=== PATIENT | female | born 1950 | race Caucasian/White ===

== ENCOUNTER 2016-03-24 14:51 | Emergency (ER) | payer MEDICARE, MEDICAID ==
[~2016-03-24] VITALS: Ht 157.5 cm; Wt 143.2 kg
[~2016-03-24 14:51] MED LIST: ALBU2.5V4 INHALATION; ALPR0.5T8 PO; AMIT75TA2 PO; BECL8.7A6 INH; CARV25TA2 PO; CEPH-512 PO; CITA40TA13 PO; CLOT15CR5 TOPICAL; FERR-83 PO; FLUT16SP NASAL; LACT1CAP60 PO; LORA0.5T PO; LOVA20TA PO; MONT10TA23 PO; MUPI22OI2 TOPICAL; MYCO EXT; NITR0.4T PO; NYST1POW23 MC; OXYC-474 PO; RANI150C4 PO; TORS20TA PO
[2016-03-24 15:03] VITALS: BP 129/63; PULSE 70; RESP 16; O2SAT 93
[2016-03-24] MEDS ORDERED: Ondansetron 8 mg ODT Tablet PO ONE (15:20)
[2016-03-24] MEDS ORDERED: 0.9% Sodium Chloride 1,000 ML IV ONE (15:22)
--- NOTE | 2016-03-24 15:22 | ED.REPORT ---
HPI-NVD Date of Service Mar 24, 2016 ED Provider: Trey Pacheco PA-C Sonya is a 66-year-old female who presents with a chief complaint of nausea. Patient states that she has been nauseated since 10:00 this morning. Also complains of headache and lightheadedness. States that she has eaten nothing since yesterday. She admits to palpitations and wheezing that are normal for her and at baseline. Denies upper respiratory symptoms, chest pain, shortness of breath, cough, abdominal pain, diarrhea, vomiting, urinary symptoms. Patient reports having implanted defibrillator pacemaker. History of cellulitis , lymphedema, hypertension, COPD, asthma, DM 2. Nursing Notes Stated Complaint: NAUSEA Chief Complaint: General Complaint Nursing Notes Reviewed: Yes Allergies: Coded Allergies: Penicillins (Verified Allergy, Intermediate, Hives, 01/13/16) Potassium Clavulanate (Verified Allergy, Intermediate, Hives, 01/13/16) amoxicillin trihydrate (Verified Allergy, Intermediate, Hives, 01/13/16) trimethoprim (Verified Allergy, Intermediate, Diarrhea, 01/13/16) lisinopril (Verified Allergy, Unknown, cough, 01/13/16) sulfamethoxazole (Verified Adverse Reaction, Intermediate, Nausea,Vomiting , 01/13/16) NAUSEA AND VOMITING , DIAARHEA azithromycin (Verified Adverse Reaction, Mild, Diarrhea, 01/13/16) Scheduled Amitriptyline (Amitriptyline) 75 Mg Tablet 75 MG PO HS Beclomethasone Dipropionate (Qvar) 8.7 Gm Aer.w.adap 2 PUFFS INH BID Carvedilol (Carvedilol) 25 Mg Tablet 12.5 MG PO BID Cephalexin (Keflex) 500 Mg Capsule 500 MG PO QID Citalopram (Citalopram) 40 Mg Tablet 40 MG PO DAILY Clotrimazole/Betamethasone Dip (Lotrisone) 15 Gm Cream..g. 15 GM TOPICAL TID APPLY TO RASH OF BOTH LOWER EXTREMETIES. Ferrous Sulfate (Ferrous Sulfate) 325 Mg Tablet 325 MG PO DAILY Fluticasone Propionate (Fluticasone Propionate Nasal) 15 [place]/2 Gm [place] 1 SPRAY NASAL BID Lactobac Cmb #3/Fos/Pantethine (Probiotic & Acidophilus Cap) 1 Each Capsule 1 EACH PO DAILY Lovastatin (Lovastatin) 20 Mg Tablet 20 MG PO DAILY Montelukast (Montelukast) 10 Mg Tablet 10 MG PO HS Mupirocin (Mupirocin Ointment) 1 Applic/0.25 Gm Oint 1 APPLIC TOPICAL BID Nystatin (Nystatin) 1 Each Powder.ea. 1 EACH MC BID Nystatin (Nystatin) 20 Applic/15 Gm Oint 1 APPLIC EXT BID Ondansetron ODT (Ondansetron ODT) 8 Mg Tab.rapdis 8 MG PO TID Ranitidine (Ranitidine) 150 Mg Capsule 150 MG PO BID Torsemide (Demadex) 20 Mg Tablet 20 MG PO DAILY Scheduled PRN Albuterol Neb Soln (Albuterol Neb Soln) 2.5 Mg/3 Ml Vial.neb 2.5 MG INHALATION Q4H PRN PRN For Shortness of Breath Alprazolam (Alprazolam) 0.5 Mg Tablet 0.5 MG PO BID PRN PRN For Anxiety Lorazepam (Lorazepam) 0.5 Mg Tablet 0.5 MG PO BID PRN PRN For Anxiety Nitroglycerin SL (Nitrostat) 0.4 Mg Tab.subl 0.4 MG PO Q5MIN PRN PRN For Chest Pain Oxycodone (Roxicodone) 5 Mg Tablet 5 MG PO Q4H PRN PRN For Pain General Time Seen by MD: 15:03 Chief Complaint Nausea Past Medical History Past Medical History Notes: Admit 02/2015 - Powerport placement Admit 01/2015 - Pneumonia (Final Dx URI) Multiple admits for LE cellulitis - Last admit for this 01/09- Past Medical History Recurrent bilateral lower extremity Cellulitis with secondary bacteremia MRSA nasal colonization Chronic anemia Thrombocytopenia Nonischemic cardiomyopathy LBBB (now with AICD) Chronic severe lymphedema Heart murmur Reports: Asthma, COPD, Congestive heart failure, Diabetes mellitus, GERD, Hyperlipidemia, Hypertension, Stroke Reports: Obesity Past Surgical History Powerport placed 03/05/2015 for Access in the setting of reccurrent cellulits Cardiac cath with no occlusive disease May 2012 Reports: Appendectomy, , Cholecystectomy, Hysterectomy Reports: AICD, Pacemaker insertion Family History Noncontributory Smoking History Never Smoker Social History Alcohol Use: Denies alcohol use Drug Use: Denies drug use Other Social History: Local resident Occupation Unemployed Ambulatory Status Independent Review of Systems General: Denies fever, chills, malaise. HEENT: Admits headache. Denies congestion, sore throat. Respiratory: Admits wheezing, Denies dyspnea, cough, shortness of breath. Cardiovascular: Admits palpitations. Denies chest pain. Gastrointestinal: Admits to nausea. Denies vomiting, diarrhea, abdominal pain. Genitourinary: Denies frequency, urgency, dysuria, hematuria. Otherwise as noted in HPI. Physical Exam General: Well developed, obese, no acute distress. Head: Atraumatic, normocephalic. Eyes: No scleral icterus or injection. No discharge. Vision grossly intact. ENT: Voice clear, hearing grossly intact. Respiratory: Regular rate and rhythm. Breath sounds present, and equal bilaterally, with expiratory wheezes in all munoz Cardiovascular: Regular rate and rhythm, without murmur, gallop or rub. PT and DP pulses not appreciated. Gastrointestinal: Obese abdomen non-tender without guarding or rebound. Bowel sounds normoactive. Skin: Warm and dry. Significant lymphedema present in both legs. Neurological: Grossly nonfocal. Psychological: alert and oriented. Speech appropriate, linear and logical. Behavior appropriate. Initial Vital Signs Vital Signs (First) Date Time Temp Pulse Resp B/P Pulse Ox O2 Delivery O2 Flow Rate FiO2 03/24/16 15:03 36.8 70 16 129/63 93 Room Air Interpretation & Diagnostics Lab Results Interpretation Result Diagram: 03/24/16 1605 03/24/16 1605 Test 03/24/16 16:05 White Blood Count 5.8th/mm3 (3.8-10.1) Red Blood Count 3.95mil/mm3 (3.90-5.20) Hemoglobin 10.7g/dL (12.0-15.6) Hematocrit 35.2% (35.0-46.0) Mean Corpuscular Volume 89.1fL (81-100) Mean Corpuscular Hemoglobin 27.1pg (27.0-35.0) Mean Corpuscular Hemoglobin Concent 30.4% (32.0-37.0) Red Cell Distribution Width 14.7% (12.3-15.4) Platelet Count 101bil/L (150-400) Neutrophils (%) (Auto) 81.2% (40-74) Lymphocytes (%) (Auto) 8.9% (14-46) Monocytes (%) (Auto) 6.2% (4-12) Eosinophils (%) (Auto) 3.3% (0-5) Basophils (%) (Auto) 0.2% (0-3) Sodium Level 140mEq/L (134-144) Potassium Level 4.7mEq/L (3.5-5.2) Chloride Level 103mEq/L (97-108) Carbon Dioxide Level 27mmol/L (18-29) Blood Urea Nitrogen 15mg/dL (8-27) Creatinine 0.91mg/dL (0.57-1.00) Estimat Glomerular Filtration Rate 89mL/min (>59) Glucose Level 88mg/dL (60-99) Calcium Level 7.8mg/dL (8.5-10.1) Total Bilirubin 0.4mg/dL (0.0-1.2) Aspartate Amino Transf (AST/SGOT) 14U/L (0-50) Alanine Aminotransferase (ALT/SGPT) 12U/L (0-32) Alkaline Phosphatase 76U/L (25-165) Troponin T < 0.010ug/L (0.0-0.011) Total Protein 6.4g/dL (6.4-8.4) Albumin 3.5g/dL (3.4-5.0) Hold Padilla Top Tube Received (Received) ECG Interpretation Time: 16:08 Interpreted by: ED physician Normal ECG Interpretation: Normal rate, No change from prior ECGs X-Ray Chest Interpretation Chest Xray Interpretation: PROCEDURE: X-RAY CHEST ONE VIEW, PORTABLE ([id number]) INDICATIONS: nausea FINDINGS: Surgical changes and devices: Left-sided pacer. Right internal jugular vein portacatheter, tip of which is in the lower SVC. Lungs and pleura: No pleural effusions or pneumothorax. Lungs are clear. Mediastinum: Mediastinal contours appear normal. Heart size is enlarged. Bones and chest wall: No suspicious bony lesions. Overlying soft tissues appear unremarkable. IMPRESSION: No acute process. View: 1 view Interpretation / Wet Read by: Interpret - Radiologist, Interp - P Re-Eval/Medical Decision Med Decision/Clinical Course Discussed the case with Dr. landa, who felt that cardiac workup was reasonable. Discharge & Departure Impression: Primary Impression: NAUSEA Additional Impression: Anemia Anemia type: unspecified type Qualified Code: D64.9 - Anemia, unspecified Discharge Condition All VS Reviewed: Yes Condition: Stable Patient Instructions: Acute Nausea and Vomiting (ED) Additional Instructions: Evaluation for nausea and emergency department. History, physical, blood tests , chest x-ray and EKG are reassuring that this is a cardiac event. Stable and safe for discharge to home. This is most likely a viral gastritis. you responded well to the antinausea medication and were able to drink successfully in the emergency department. I will prescribe some ondansetron (Zofran) to help you with nausea. Also noticed that you are slightly anemic on your blood tests. Please contact your primary care physician in the morning to arrange follow-up to address your nausea and anemia. Return to emergency department for any new or worsening symptoms including repeated vomiting, chest pain, difficulty breathing. Referrals: Bri Ochoa (PCP) EDSupervising Provider for APC: Keyur Landa MD Attending Statement Attending attestation: I saw this patient in conjunction with the above named MLP. I was present for all miranda portions of the history taking and physical examination. I agree with the workup, evaluation, treatment and disposition. Keyur Landa MD copies to: Bri Ochoa Seth PA-C Mar 24, 2016 15:21 Keyur Landa MD Mar 24, 2016 19:08
[2016-03-24] MEDS ORDERED: Ondansetron 2 mg/mL 2 mL Inj IVPUSH ONE (15:25)
--- NOTE | 2016-03-24 16:01 | DRSVH ---
PROCEDURE: X-RAY CHEST ONE VIEW, PORTABLE ([id number]) INDICATIONS: nausea TECHNIQUE: One view of the chest was acquired. COMPARISON: [facility], CR, XR CHEST 1VW (PORTABLE), 01/13/2016, 10:06. [facility], CR, XR CHEST 1VW (PORTABLE), 11/10/2015, 14:13. [facility], CR, XR CHEST 1VW (PO RTABLE), 08/18/2015, 14:45. FINDINGS: Surgical changes and devices: Left-sided pacer. Right internal jugular vein portacatheter, tip of whi ch is in the lower SVC. Lungs and pleura: No pleural effusions or pneumothorax. Lungs are clear. Mediastinum: Mediastinal contours appear normal. Heart size is enlarged. Bones and chest wall: No suspicious bony lesions. Overlying soft tissues appear unremarkable. IMPRESSION: No acute process. Dictated by: Rosalia Becerra M.D. on 03/24/2016 at 15:59 Approved by: Rosalia Becerra M.D. on 03/24/2016 at 15:59
[2016-03-24 16:19] LABS: BASOPHILS % (AUTO) 0.2 % (0-3); EOSINOPHILS % (AUTO) 3.3 % (0-5); MONOCYTES % (AUTO) 6.2 % (4-12); Mean Corpuscular Hemoglobin 27.1 pg (27.0-35.0); Mean Corpuscular Volume 89.1 fL (81-100); NEUTROPHILS % (AUTO) 81.2 % (40-74); Platelet Count 101 bil/L (150-400)
[2016-03-24 16:55] VITALS: BP 128/41; PULSE 71; RESP 16; O2SAT 95
[2016-03-24 16:55] LABS: TROPONIN T < 0.010 ug/L (0.0-0.011)
[2016-03-24] MEDS ORDERED: ONDA8TAB10 PO (17:45)
[2016-03-24 17:58] VITALS: PULSE 87; RESP 18; O2SAT 94
== END 2016-03-24 17:55 | disposition home or self-care (01) ==
LOC: EDUNIT# 14:51 → EDBD 14:51 → SED 14:51
DX: R11.0 Nausea (principal); D64.9 Anemia, unspecified; R51 Headache; R42 Dizziness and giddiness; R00.2 Palpitations; J45.909 Unspecified asthma, uncomplicated; J44.9 Chronic obstructive pulmonary disease, unspecified; I50.9 Heart failure, unspecified; E11.9 Type 2 diabetes mellitus without complications; K21.9 Gastro-esophageal reflux disease without esophagitis; E78.5 Hyperlipidemia, unspecified; I10 Essential (primary) hypertension; Z86.73 Personal history of transient ischemic attack (TIA), and cerebral infarction without residual deficits; Z95.0 Presence of cardiac pacemaker; Z88.0 Allergy status to penicillin; Z88.8 Allergy status to other drugs, medicaments and biological substances; Z88.1 Allergy status to other antibiotic agents; Z88.2 Allergy status to sulfonamides
CPT/HCPCS: 36415; 71010; 80053; 84484; 85025; 93005; 96374; 99285; J2405

== ENCOUNTER 2016-04-04 01:50 | Inpatient (IN) | payer MEDICARE, MEDICAID ==
[2016-04-04] VITALS (15 sets, daily range): BP systolic 94–155; BP diastolic 39–143; PULSE 80–132; RESP 14–39; O2SAT 82–100
[~2016-04-04] VITALS: Ht 157.5 cm; Wt 156.0 kg
[~2016-04-04 01:50] MED LIST changes: +ONDA8TAB10 PO
--- NOTE | 2016-04-04 01:56 | ED.REPORT ---
HPI-Dyspnea / Wheezing Date of Service Apr 04, 2016 ED Provider: Eliel De La Rosa DO 66-year-old female presents in moderate to severe respiratory distress. She states that she has been coughing for 2 days and she has become progressively more short of breath. She has had a fever at home. She has a very extensive medical history including CHF and COPD. She has never had a pulmonary embolism and she denies having any chest pain, pleuritic symptoms or hemoptysis. Associated symptoms include nausea. Nursing Notes Stated Complaint: SHORT OF BREATH Nursing Notes Reviewed: Yes Allergies: Coded Allergies: Penicillins (Verified Allergy, Intermediate, Hives, 04/04/16) Potassium Clavulanate (Verified Allergy, Intermediate, Hives, 04/04/16) amoxicillin trihydrate (Verified Allergy, Intermediate, Hives, 04/04/16) trimethoprim (Verified Allergy, Intermediate, Diarrhea, 04/04/16) lisinopril (Verified Allergy, Unknown, cough, 04/04/16) sulfamethoxazole (Verified Adverse Reaction, Intermediate, Nausea,Vomiting , 04/04/16) NAUSEA AND VOMITING , DIAARHEA azithromycin (Verified Adverse Reaction, Mild, Diarrhea, 04/04/16) Scheduled Amitriptyline (Amitriptyline) 75 Mg Tablet 75 MG PO HS Beclomethasone Dipropionate (Qvar) 8.7 Gm Aer.w.adap 2 PUFFS INH BID Carvedilol (Carvedilol) 25 Mg Tablet 12.5 MG PO BID Citalopram (Citalopram) 40 Mg Tablet 40 MG PO DAILY Clotrimazole/Betamethasone Dip (Lotrisone) 15 Gm Cream..g. 15 GM TOPICAL TID APPLY TO RASH OF BOTH LOWER EXTREMETIES. Ferrous Sulfate (Ferrous Sulfate) 325 Mg Tablet 325 MG PO DAILY Fluticasone Propionate (Fluticasone Propionate Nasal) 15 [place]/2 Gm [place] 1 SPRAY NASAL BID Lactobac Cmb #3/Fos/Pantethine (Probiotic & Acidophilus Cap) 1 Each Capsule 1 EACH PO DAILY Lovastatin (Lovastatin) 20 Mg Tablet 20 MG PO DAILY Montelukast (Montelukast) 10 Mg Tablet 10 MG PO HS Mupirocin (Mupirocin Ointment) 1 Applic/0.25 Gm Oint 1 APPLIC TOPICAL BID Nystatin (Nystatin) 1 Each Powder.ea. 1 EACH MC BID Nystatin (Nystatin) 20 Applic/15 Gm Oint 1 APPLIC EXT BID Ondansetron ODT (Ondansetron ODT) 8 Mg Tab.rapdis 8 MG PO TID Ranitidine (Ranitidine) 150 Mg Capsule 150 MG PO BID Torsemide (Demadex) 20 Mg Tablet 20 MG PO DAILY Scheduled PRN Albuterol Neb Soln (Albuterol Neb Soln) 2.5 Mg/3 Ml Vial.neb 2.5 MG INHALATION Q4H PRN PRN For Shortness of Breath Alprazolam (Alprazolam) 0.5 Mg Tablet 0.5 MG PO BID PRN PRN For Anxiety Lorazepam (Lorazepam) 0.5 Mg Tablet 0.5 MG PO BID PRN PRN For Anxiety Nitroglycerin SL (Nitrostat) 0.4 Mg Tab.subl 0.4 MG PO Q5MIN PRN PRN For Chest Pain Oxycodone (Roxicodone) 5 Mg Tablet 5 MG PO Q4H PRN PRN For Pain General Time Seen by MD: 01:51 Chief Complaint Shortness of breath Hx Obtained From: Patient, EMS Arrived By: Ambulance Sudden in Onset?: No Onset Occurred: 5 - 8 hours ago Symptom Duration: Since onset Severity: Current: No pain currently Severity: Maximum: No pain Associated with: Reports: Nausea, Wheeze Pertinent Negative: Relieved by nothing Context Related History: Reports: COPD, Congestive heart failure Recent Healthcare: Recent doctor visit Similar Sx Previous: Yes Past Medical History Past Medical History Notes: Admit 02/2015 - Powerport placement Admit 01/2015 - Pneumonia (Final Dx URI) Multiple admits for LE cellulitis - Last admit for this 01/09- Past Medical History Recurrent bilateral lower extremity cellulitis with secondary bacteremia MRSA nasal colonization Chronic anemia Thrombocytopenia Nonischemic cardiomyopathy LBBB (now with AICD) Chronic severe lymphedema Heart murmur Reports: Asthma, COPD, Congestive heart failure, Diabetes mellitus, GERD, Hyperlipidemia, Hypertension, Stroke Reports: Obesity Past Surgical History Powerport placed 03/05/2015 for Access in the setting of reccurrent cellulits Cardiac cath with no occlusive disease May 2012 Reports: Appendectomy, , Cholecystectomy, Hysterectomy Reports: AICD, Pacemaker insertion Family History Noncontributory Smoking History Never Smoker Social History Alcohol Use: Denies alcohol use Drug Use: Denies drug use Other Social History: Local resident Occupation Unemployed Ambulatory Status Independent Review of Systems Basic Review of Systems Eyes: Vision NL GI: No abdominal pain : No dysuria Hematologic: No bleeding Constitutional: Denies: Fever Respiratory: Reports: Non-productive cough, Shortness of breath, Wheezing Cardiovascular: Reports: Edema, Denies: Chest pain Musculoskeletal: Reports: Extremity swelling, Denies: Back pain Skin: Denies Diaphoresis Allergy / Immune: Denies: Allergic reaction Complete sys rev & neg: except as marked. GI: Reports: Nausea Physical Exam Physical Exam Notes: Initial Vital Signs Vital Signs (First) Date Time Temp Pulse Resp B/P Pulse Ox O2 Delivery O2 Flow Rate FiO2 04/04/16 02:00 38.7 128 39 155/143 82 Simple Mask 9 Initial VS: Reviewed Head / Eyes: Atraumatic, Normocephalic ENT: Conjunctiva normal, No scleral icterus Neurologic: Alert, Oriented, Nonfocal Psychiatric: Mood/affect normal, Behavior normal, Normal thought content General/Constitutional: Awake, Alert Distress / Hydration: Positive: Distress severe Resp Distress / Stridor: Positive: Resp distress severe Diminished Breath Sounds: Positive: Decreased bilateral (Bases) Wheezing / Retractions: Positive: Wheezing moderate (Upper) Actively retching Cardiovascular: Regular rhythm, Heart sounds NL Severe bilateral lower extremity edema - chronic Distant heart sounds, rapid rate, no murmur heard Skin: Warm, Dry No evidence of cellulitis Interpretation & Diagnostics Lab Results Interpretation Result Diagram: 04/04/16 0157 04/04/16 0157 Test 04/04/16 01:57 White Blood Count 9.4th/mm3 (3.8-10.1) Red Blood Count 4.39mil/mm3 (3.90-5.20) Hemoglobin 11.9g/dL (12.0-15.6) Hematocrit 39.0% (35.0-46.0) Mean Corpuscular Volume 88.8fL (81-100) Mean Corpuscular Hemoglobin 27.1pg (27.0-35.0) Mean Corpuscular Hemoglobin Concent 30.5% (32.0-37.0) Red Cell Distribution Width 14.9% (12.3-15.4) Platelet Count 105bil/L (150-400) Neutrophils (%) (Auto) 84.1% (40-74) Lymphocytes (%) (Auto) 10.8% (14-46) Monocytes (%) (Auto) 3.2% (4-12) Eosinophils (%) (Auto) 1.7% (0-5) Basophils (%) (Auto) 0.1% (0-3) Sodium Level 140mEq/L (134-144) Potassium Level 4.2mEq/L (3.5-5.2) Chloride Level 98mEq/L (97-108) Carbon Dioxide Level 26mmol/L (18-29) Blood Urea Nitrogen 16mg/dL (8-27) Creatinine 1.09mg/dL (0.57-1.00) Estimat Glomerular Filtration Rate 72mL/min (>59) Glucose Level 117mg/dL (60-99) Lactic Acid Level 1.9mmol/L (0.4-2.0) Calcium Level 8.5mg/dL (8.5-10.1) Total Bilirubin 0.4mg/dL (0.0-1.2) Aspartate Amino Transf (AST/SGOT) 19U/L (0-50) Alanine Aminotransferase (ALT/SGPT) 18U/L (0-32) Alkaline Phosphatase 84U/L (25-165) Troponin T 0.010ug/L (0.0-0.011) Pro-B-Type Natriuretic Peptide 612pg/mL (0-287) Total Protein 7.1g/dL (6.4-8.4) Albumin 4.0g/dL (3.4-5.0) Procalcitonin < 0.05ng/mL (See Comment) ECG Interpretation ECG Interpretation: Rapid but regular rate Too much artifact to discern details Time: 02:28 Interpreted by: ED physician X-Ray Chest Interpretation Chest Xray Interpretation: Limited due to body habitus but grossly normal chest x-ray View: Portable, 1 view Interpretation / Wet Read by: Wet read ED physician Re-Eval/Medical Decision Med Decision/Clinical Course Patient presented in extremis. She had very coarse breath sounds with wheezes and poor air entry. She was aggressively treated with bronchodilators and steroids. I respiratory therapist at the bedside with CPAP. We prepared to intubate her if needed. After aggressive bronchodilator treatment she improved dramatically. She is moving much more air. Her end-tidal CO2/capnography for look good. This was about the 40s and her sats 100%. She is able speak in complete sentences. Chest x-ray shows limited quality due to her body habitus. There could always be a pneumonia hidden in there somewhere. No pneumothorax. No evidence of acute CHF. Complete blood count is normal. Comprehensive metabolic panel is essentially normal First troponin is negative The EKG shows a narrow complex tachycardia. The computer read it out as a STEMI but I think it is reading the artifact. There was significant artifact. Either way I do not believe that Sonya is having a STEMI. She is not having any chest pain and she is in respiratory distress She improved significantly. She is still critically ill. She will be admitted to the intensive care unit. She is febrile, coughing and hypoxic. She may have influenza A. She may have healthcare associated pneumonia. I will treat her with IV cefepime as well as Tamiflu. Further antibiotics per hospitalist service. The steroids emergency department. Pulmonary emboli seem less likely. She had no pleuritic pain. She has no hemoptysis. If her symptoms do not continue to improve this needs to be considered. Case discussed with our hospitalist and he will accept her to the CCU for further care and diagnostics. Source of Hx: Old records Re-Evaluation/Progress #1: Time of Eval: 02:23 Patient Status: Condition improved Re-Evaluation/Progress Note: Patient rechecked. Re-Evaluation/Progress #2: Time of Eval: 02:48 )( Re-Eval Resp / Chest: Mild wheezing Patient Status: Condition improved Re-Evaluation/Progress Note: Patient is much improved. She is moving air better and breathing more easily after multiple breathing treatments. Discussed with patient x-ray results, diagnosis, and plan for admit. Patient agrees with plan for care and all questions were addressed. Consultation : Referral / Consult Name: Angel Cage MD Consulted With: Hospitalist Call Returned at: 03:07 Propeller Inspector: Agrees with eval, Agrees with plan, Accepts admit Counseled Regarding: Diagnosis, Need for admission Discharge & Departure Impression: Primary Impression: Respiratory distress Additional Impressions: Acute exacerbation of chronic obstructive pulmonary disease (COPD) Hypoxemia Disposition: ADMITTED TO HOSPITAL Discharge Condition All VS Reviewed: Yes Condition: Stable Referrals: Bri Ochoa (PCP) Crit Care Except Billable Proc Time Spent: 30-74 minutes Services Performed: Patient management by me, Time spent at bedside, Reviewing test results, Reviewing imaging, Discussing patient care, Documentation in record Scribe Attestation Portions of this note were transcribed by Mariluz Orellana. I, Dr. De La Rosa, personally performed the history, physical exam, and medical decision-making; I reviewed and confirmed the accuracy of the information in the transcribed note. Signed by: Min Perez, 04/04/2016, 03:10 copies to: Bri Ochoa Todd P DO Apr 04, 2016 01:56 MARILUZ ORELLANA Apr 04, 2016 02:01
[2016-04-04] MEDS ORDERED: Albuterol 2.5 mg/3 mL Inhalation Solution NEB ONE (02:00)
[2016-04-04] MEDS ORDERED: Albuterol-Ipratropium 3 mL Inhalation Solution NEB ONE (02:00)
[2016-04-04] MEDS ORDERED: MethylprednisoLONE Sodium Succinate 62.5 mg/mL 2 mL Inj IVPUSH ONE (02:05)
[2016-04-04] MEDS: Albuterol 2.5 mg/3 mL Inhalation Solution NEB ONE ×2 (02:07→02:41)
[2016-04-04 02:10] LABS: BASOPHILS % (AUTO) 0.1 % (0-3); EOSINOPHILS % (AUTO) 1.7 % (0-5); MONOCYTES % (AUTO) 3.2 % (4-12); Mean Corpuscular Hemoglobin 27.1 pg (27.0-35.0); Mean Corpuscular Volume 88.8 fL (81-100); NEUTROPHILS % (AUTO) 84.1 % (40-74); Platelet Count 105 bil/L (150-400)
[2016-04-04 02:37] LABS: TROPONIN T 0.01 ug/L (0.0-0.011)
[2016-04-04] MEDS: Ondansetron 2 mg/mL 2 mL Inj IVPUSH PRN ×2 (02:37→16:20)
[2016-04-04] MEDS ORDERED: Cefepime Inj 2 GM in IV Premix 1 EACH IV ONE (02:50)
[2016-04-04] MEDS ORDERED: Cefepime Inj 2,000 MG in Dextrose 5% Minibag Plus 100 ML IV ONE (02:52)
[2016-04-04] MEDS ORDERED: Acetaminophen IV 1,000 MG in IV Premix 1 EACH IV PRN (03:10)
[2016-04-04] MEDS ORDERED: Glucose 40% Oral Gel 15 Gm Tube PO PRN (03:25)
--- NOTE | 2016-04-04 04:38 | NUR ---
pt admitted to ccu from ED. Transferred via gurney. Moved from [facility] to ccu bed with slide board. Pt severly SOB. O2 at 4 lpm via NC with sats at 91%. SOB worsens with activity. Pt unable to lay flat. Lungs diminished. Pt is a/o x4, able to make needs known. Will cont. to closely monitor pt's resp. status.
--- NOTE | 2016-04-04 04:41 | NUR ---
pt states that her car keys were around her neck while in ED and are no longer there. Pt has not had keys since admit to ccu, not found in any belongings. Notified Mikala Fletcher in ED. Mikala stated that she would look for them.
[2016-04-04 04:45] LABS: APPEARANCE,URINE SLIGHTLY CLOUDY (CLEAR,HAZY); COLOR,URINE YELLOW (YELLOW); OCCULT BLOOD,URINE TRACE (NEGATIVE); UROBILINOGEN,URINE NORMAL (NORMAL)
[2016-04-04] MEDS ORDERED: 0.9% Sodium Chloride 250 ML ONE (05:30)
--- NOTE | 2016-04-04 06:00 | PCM.HPMED ---
Subjective Date of Service Apr 04, 2016 Primary Provider: Admitting Physician: Primary Care Physician: Bri Ochoa Attending Physician: Chief Complaint: Acute shortness of breathe History of Present Illness: Sonya Viveros is a 66 year old female with an extensive medical history including diabetes, hypertension, CHF, COPD, asthma, stroke, hyperlipidemia, LBBB, chronic leg edema, and nonischemic cardiomyopathy s/p pacemaker placement presents to the ED via EMS with shortness of breath. Patient reported symptoms onset 2000 this evening. Associated symptoms include nausea, wheezing, and cough with white phlegm. she also felt warm like she had a fever. She denies any sick contacts and has tried to avoid being around anybody sick. shes lives alone with her pets. Denies any mold, new carpet or new pets. She denies any increasing leg edema or Orthopnea. Patient could not get better so she called 911. EMS found he with decreased lung sounds and O2 sats in the 70s on room air. She was placed on DuoNeb en route. The patient was in the ED on 03/24/16 with nausea and discharged, it is unclear if these symptoms were related to her current issue She has COPD, tried taking her inhalers but no improvements. she has chronic lymphedema but much improved with Occupational therapy with leg compressive device she uses at home. Patient well known to hospitalist team from recurrent cellulitis due to lymphedema but has not been hospitalized for quite some time Review of Systems: Pertinent positives as noted in HPI. All other systems were reviewed and are negative Allergies Coded Allergies: Penicillins (Verified Allergy, Intermediate, Hives, 04/04/16) Potassium Clavulanate (Verified Allergy, Intermediate, Hives, 04/04/16) amoxicillin trihydrate (Verified Allergy, Intermediate, Hives, 04/04/16) trimethoprim (Verified Allergy, Intermediate, Diarrhea, 04/04/16) lisinopril (Verified Allergy, Unknown, cough, 04/04/16) sulfamethoxazole (Verified Adverse Reaction, Intermediate, Nausea,Vomiting , 04/04/16) NAUSEA AND VOMITING , DIAARHEA azithromycin (Verified Adverse Reaction, Mild, Diarrhea, 04/04/16) Home Medications From [facility] not yet confirmed Sonya Viveros. [id number] 1950 02/17/2016 01:40 PM 03/25 acetaminophen 500 mg tablet take 1 tablet by oral route every 6 hours as needed albuterol sulfate 2.5 mg/3 mL (0.083 %) solution for nebulization inhale 3 milliliter (2.5MG) by NEBULIZATION route 3 times every day alprazolam 0.5 mg tablet take HALF Tablet by oral route daily as needed for severe anxiety AMITRIPTYLIN TAB 75MG TABLET TAKE ONE TABLET BY MOUTH NIGHTLY AT BEDTIME Bactroban 2 % topical ointment apply to anterior nares twice a day for 10 days CITALOPRAM TAB 20MG TABLET TAKE ONE TABLET BY MOUTH ONCE DAILY Coreg 12.5 mg tablet take 1 tablet by oral route 2 times every day with food Diovan 80 mg tablet take 1 tablet by oral route every day ergocalciferol (vitamin D2) 50,000 unit capsule take 1 capsule by oral route every week Eucerin topical cream apply liberally to affected areas twice daily ferrous sulfate 325 mg (65 mg iron) tablet,delayed release Take 1 by mouth daily lovastatin 20 mg tablet take 1 tablet by oral route every day with the evening meal MONTELUKAST TAB 10MG TABLET TAKE ONE TABLET BY MOUTH ONCE DAILY IN THE EVENING nystatin 100,000 unit/gram topical ointment APPLY TO AFFECTED AREA TWICE A DAY nystatin 100,000 unit/gram topical powder APPLY BY TOPICAL ROUTE 2 TIMES EVERY DAY TO THE AFFECTED AREA(S) Qvar 40 mcg/actuation Metered Aerosol oral inhaler inhale 2 puff by inhalation route every day RANITIDINE TAB 150MG TABLET TAKE ONE TABLET BY MOUTH TWICE A DAY torsemide 20 mg tablet take 1.5 tablet by oral route every day triamcinolone acetonide 0.1 % topical cream apply by topical route 2 times every day a thin layer to the affected area(s) Ventolin HFA 90 mcg/actuation aerosol inhaler inhale 2 puff by inhalation route every 4 - 6 hours as needed Vitamin D2 50,000 unit capsule take 1 capsule by oral route every week PMH 1. Bilateral lower extremity lymphedema. 2. History of recurrent left lower extremity streptococcal cellulitis with multiple hospitalizations as a result. 3. History of MRSA colonization and infection with MRSA isolated in almost every admission. 4. Morbid obesity. 5. Venous stasis and recurrent lower extremity ulcerations. 6. Chronic anemia and thrombocytopenia of chronic disease (followed by Dr. Kojouri from hematology). 7. Chronic kidney disease, stage 3, with baseline creatinine typically around 1.6 to 1.7 8. History of congestive heart failure, chronic, systolic dysfunction due to nonischemic cardiomyopathy (followed by Dr. Montgomery). 9. Status post AICD placement in October 2012. 10. History of CVA. 11. Wyb-feocwpj-naiwxcrbe type 2 diabetes. 12. Hypertension. 13. Morbid obesity (BMI 52.8). 14. Psoriasis. 15. Asthma. 16. Migraine headaches. 17. Depression. 18. Anxiety. . Surgical History PowerPort placed 03/05/2015 for Access in the setting of recurrent cellulitis Cardiac cath with no occlusive disease May 2012 Appendectomy, , Cholecystectomy, Hysterectomy AICD, Pacemaker insertion Family History denies any family history of heart disease. Social History Hx Alcohol Use: No Hx Substance Use: No Hx Tobacco Use: No Smoking Status: Never Smoker Living Arrangement: Alone Exam Vital Signs Vital Sign - Last Date Time Temp Pulse Resp B/P Pulse Ox O2 Delivery O2 Flow Rate FiO2 04/04/16 03:12 124 18 125/96 99 15 04/04/16 02:43 Aerosol Mask 04/04/16 02:00 38.7 Exam General: Alert, Oriented X3, Cooperative, No acute Distress Eyes: PERRLA, Scleral Anicteric Mouth: Mouth Normal, Mucous Membranes Moist/[place] Neck: Supple, no Thyromegaly, trachea central. Chest & Lungs: Clear to auscultation & percussion, No adventitious breath sounds, no crackles, no wheeze Cardiovascular: Normal S1, Normal S2, No Murmurs/Rubs/Gallops, Regular Rate/ Rhythm, Murmur, Other (No JVD, no peripheral edema) Pulses: Radial (present and equal), Dorsalis Pedi (present and equal) Abdomen: Soft, Non-tender, Non-distended, Normoactive bowel tones. Musculoskeletal: Unremarkable. Normal range of motion, no swollen or erythematous joints Extremities: No edema, no cyanosis, no clubbing. Skin: No rashes. Warm and dry, no erythematous areas Neurological: Grossly neurologically intact, has generalized weakness, Normal Speech, Sensation Intact Lymphatic: Lymph nodes Cervical and Axillary not palpable. Lab and Diagnostics Labs Laboratory Tests Test 04/04/16 01:57 White Blood Count 9.4th/mm3 (3.8-10.1) Red Blood Count 4.39mil/mm3 (3.90-5.20) Hemoglobin 11.9g/dL (12.0-15.6) Hematocrit 39.0% (35.0-46.0) Mean Corpuscular Volume 88.8fL (81-100) Mean Corpuscular Hemoglobin 27.1pg (27.0-35.0) Mean Corpuscular Hemoglobin Concent 30.5% (32.0-37.0) Red Cell Distribution Width 14.9% (12.3-15.4) Platelet Count 105bil/L (150-400) Neutrophils (%) (Auto) 84.1% (40-74) Lymphocytes (%) (Auto) 10.8% (14-46) Monocytes (%) (Auto) 3.2% (4-12) Eosinophils (%) (Auto) 1.7% (0-5) Basophils (%) (Auto) 0.1% (0-3) Sodium Level 140mEq/L (134-144) Potassium Level 4.2mEq/L (3.5-5.2) Chloride Level 98mEq/L (97-108) Carbon Dioxide Level 26mmol/L (18-29) Blood Urea Nitrogen 16mg/dL (8-27) Creatinine 1.09mg/dL (0.57-1.00) Estimat Glomerular Filtration Rate 72mL/min (>59) Glucose Level 117mg/dL (60-99) Lactic Acid Level 1.9mmol/L (0.4-2.0) Calcium Level 8.5mg/dL (8.5-10.1) Total Bilirubin 0.4mg/dL (0.0-1.2) Aspartate Amino Transf (AST/SGOT) 19U/L (0-50) Alanine Aminotransferase (ALT/SGPT) 18U/L (0-32) Alkaline Phosphatase 84U/L (25-165) Troponin T 0.010ug/L (0.0-0.011) Pro-B-Type Natriuretic Peptide 612pg/mL (0-287) Total Protein 7.1g/dL (6.4-8.4) Albumin 4.0g/dL (3.4-5.0) Result Diagram: 04/04/1615604/04/16156 Assessment & Plan 64-year-old female with a history of chronic lower extremity lymphedema with associated recurrent cellulitis with multiple antibiotic allergies and recurrent lower extremity group A streptococcal cellulitis, as well as 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 Acute Hypoxic Respiratory Failure. Present on admission Etiology likely multifactorial. Patient was almost placed on BIPAP but improved significantly - treat underlying cause (see below) - continue oxygen supplementation - need to ruled out pulmonary embolism 2. Severe Community acquired pneumonia. Present on admission Patient will be admitted to ICU with multiple co morbidities. Patient may clinically have signs of Influenza infection and will be treated despite negative Influenza studies. History of MRSA colonization - due to allergy, Cefepime and Levaquin continued - Blood cultures, Influenza testing - MRSA test pending - continuing Tamiflu with 5 day course - may consider Infectious disease consultation to fine tune antibiotics therapy 3. Acute COPD exacerbation. Present on admission Patient not on any outpatient oxygen. May be susceptible to respiratory infections this time of the year - systemic steroids: Solu-Medrol Iv continued, transition to Prednisone as appropriate - DuoNeb treatments scheduled - assess need for home oxygen prior to discharge 4. Nonischemic cardiomyopathy. Chronic No evidence of fluid overload or decompensation with BNP 612 - last Echo in July 2014 showing ejection fraction of 55% to 60%. - continue with home cardiac and BP medications 5 Cfw-ofgrewo-idgzehqsj type 2 diabetes. Presumed stable and has not required any diabetic medications in the past - low-dose Lispro Correction algorithm - checking A1c 6 Chronic Kidney disease Stage 3 due to Hypertensive Nephrosclerosis Presumed stable - avoid nephrotoxic insults with medications and contrast - monitor urine output 7 Chronic bilateral LE lymphedema with Morbid Obesity - keep legs elevated and outpatient occupational therapy - Acetaminophen as needed for mild pain/fever/headache - Bowel regimen as needed - Antiemetic as needed Patient admitted under inpatient status with expected length of stay > 2 midnights for severity of present symptoms, complexities of treatment plan and risk for adverse event . Resuscitation Status: CPR: Attempt Resuscitation Angel Cage MD Apr 04, 2016 03:17
[2016-04-04] MEDS: Insulin LISPRO 300 Unit/3 mL Inj SUBQ SCH ×4 (08:00→22:00)
[2016-04-04] MEDS: Albuterol 2.5 mg/3 mL Inhalation Solution NEB SCH ×3 (08:07→12:09)
--- NOTE | 2016-04-04 08:12 | DRSVH ---
PROCEDURE: X-RAY CHEST ONE VIEW, PORTABLE ([id number]) INDICATIONS: respiratory distress TECHNIQUE: One view of the chest was acquired. COMPARISON: [facility], CR, XR CHEST 1VW (PORTABLE), 03/24/2016, 15:41. [facility], CR, XR CHEST 1VW (PORTABLE), 01/13/2016, 10:06. FINDINGS: Surgical changes and devices: Pacemaking device and lead normal and stable over time as is the centra l line from right sided approach Lungs and pleura: No pleural effusions or pneumothorax. Lungs are difficult to assess due to reduce d inspiratory volume a large body habitus. There likely is mild pulmonary edema. Mediastinum: Mediastinal contours appear normal. Heart size is enlarged, globally, to a mild to mod erate degree. Bones and chest wall: No suspicious bony lesions. Overlying soft tissues appear unremarkable. IMPRESSION: Chronic CHF pattern, with likelihood of acute CHF exacerbation superimposed. Dictated by: Michael Ulloa M.D. on 04/04/2016 at 8:11 Approved by: Michael Ulloa M.D. on 04/04/2016 at 8:11
[2016-04-04] MEDS: Heparin 5,000 Unit/mL Inj SUBQ SCH ×2 (08:30→16:17)
[2016-04-04] MEDS ORDERED: levoFLOXacin Inj 750 MG in IV Premix 1 EACH IV SCH (08:30)
[2016-04-04] MEDS: MethylprednisoLONE Sodium Succinate 40 mg/mL Inj IVPUSH SCH ×2 (08:30→16:16)
[2016-04-04] MEDS ORDERED: Cefepime Inj 2,000 MG in Dextrose 5% Minibag Plus 100 ML IV SCH (11:00)
[2016-04-04] MEDS ORDERED: Sodium Chloride LOK Flush 10 mL Syringe IVFLUSH PRN ×2 (11:40)
[2016-04-04] MEDS ORDERED: HepLOK Flush 100 unit/mL 5 mL Inj IVFLUSH PRN (11:40)
--- NOTE | 2016-04-04 13:00 | NUR ---
Pt's house keys found at her home Friend brought pt's keys to pt; are labeled w/ pt ID & placed w/ pt's belongings.
[2016-04-04] MEDS: Cefepime Inj 2,000 MG in Dextrose 5% Minibag Plus 100 ML IV SCH (15:00)
[2016-04-04] MEDS: levoFLOXacin Inj 750 MG in IV Premix 1 EACH IV SCH (15:00)
--- NOTE | 2016-04-04 16:07 | NUR ---
Social Work: Initial Asessment Data & Assessment: EMR Reviewed. See Initial Assessment. Cake Puller met with patient at bedside to complete initial assessment, discuss discharge planning and SW role explained. Patient confirmed that Bir Ochoa ARNP is her primary care physician. Patient's insurance is Medicare and [employer]. Patient lived home alone in a handicap accessible apartment Patient can not recall her nighat workers name, but states that she has 115 hours a month and her caregivers are provided through [employer]. Patient reported that she is on service with [facility]. Patient has an Electronic WC and a walker. Patient has ramp access to get into her home. Patient does not have a DPOA, but SW provided patient with the paperwork. Patient NOK is Kasandra Chan, but she is out of town on vacation and patient requested that Johanna Robins [phone] be called instead. SW will continue to follow. Plan: Patient will like ly discharge home with 115hours of caregivr service and resume HH with [facility]. Patient will transport home via [facility] transport. SW will follow. Helen Maradiaga LMSW, SULEMA Addendum: 04/04/16 at 1615 by HELEN MARADIAGA Amended: Links added.
[2016-04-04] MEDS: 0.9% Sodium Chloride 250 ML IV SCH (16:11)
--- NOTE | 2016-04-04 18:00 | NUR ---
Neuro/Resp/Bgs/chronic pain A&Ox3/4L O2 per NC/ Afebrile. Continues dyspneic w/ exertion, though now able to assist w/ repositioning. Able to speak clearly in full sentences; enjoying visiting with friends & family. Elevated Bgs; 264 prior to dinner so SS coverage as ordered. C/o chronic low-mid back pain, also chest heaviness, nonradiating, worse when taking deep breath-> states when I have this same heaviness at home I take Oxycodone and it takes care of it". MD notified & orders received. EKG done, no chgs, heaviness relieved with oxycodone 5mg po.
--- NOTE | 2016-04-04 19:00 | NUR ---
PCC status; awaiting labs, cultures.
[2016-04-04] MEDS: Albuterol 2.5 mg/3 mL Inhalation Solution NEB PRN (19:30)
--- NOTE | 2016-04-04 20:43 | PCM.PNMED ---
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 Overnight: No acute events since admission. Today: Patient felt much improved this morning and stated that she was back to about 50% of her normal baseline. She is still short of breath but this is declining. She denies any chest pain, orthopnea or fever. ROS is negative otherwise. Exam Vital Signs Vital Sign - Last Date Time Temp Pulse Resp B/P Pulse Ox O2 Delivery O2 Flow Rate FiO2 04/04/16 19:30 80 14 96 Nasal Cannula 6.00 04/04/16 16:30 36.6 99/53 Exam General: Alert, Oriented X3, Cooperative, No acute Distress Eyes: PERRLA, Scleral Anicteric Mouth: Mouth Normal, Mucous Membranes Moist/[place] Neck: Supple, no Thyromegaly, trachea central. Chest & Lungs: Clear to auscultation & percussion, No adventitious breath sounds, no crackles, no wheeze Cardiovascular: Normal S1, Normal S2, No Murmurs/Rubs/Gallops, Regular Rate/ Rhythm, Murmur, Other (No JVD, no peripheral edema) Pulses: Radial (present and equal), Dorsalis Pedi (present and equal) Abdomen: Soft, Non-tender, Non-distended, Normoactive bowel tones. Musculoskeletal: Unremarkable. Normal range of motion, no swollen or erythematous joints Extremities: No edema, no cyanosis, no clubbing. Skin: No rashes. Warm and dry, no erythematous areas Neurological: Grossly neurologically intact, has generalized weakness, Normal Speech, Sensation Intact Lymphatic: Lymph nodes Cervical and Axillary not palpable. IVs and Medications Medications Reviewed: Medications were reviewed in detail Lab and Diagnostics Result Diagram: 04/04/1615604/04/16156 X-Rays, CTs and MRIs X-RAY CHEST ONE VIEW, PORTABLE IMPRESSION: Chronic CHF pattern, with likelihood of acute CHF exacerbation superimposed. Dictated by: Michael Ulloa M.D. 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 1. Acute Hypoxic Respiratory Failure. Present on admission - Etiology likely multifactorial. Patient was almost placed on BIPAP but improved significantly - treat underlying cause (see below) - continue oxygen supplementation 2. Severe community acquired pneumonia. Present on admission - Patient may clinically have signs of influenza infection and will be treated despite negative influenza studies. History of MRSA colonization - due to allergy, Cefepime and Levaquin continued - Blood cultures, Influenza testing - MRSA test pending - continuing Tamiflu with 5 day course - may consider Infectious disease consultation to fine tune antibiotics therapy 3. Acute COPD exacerbation. Present on admission - Patient not on any outpatient oxygen. May be susceptible to respiratory infections this time of the year - systemic steroids: Solu-Medrol Iv continued, transition to Prednisone as appropriate - DuoNeb treatments scheduled - assess need for home oxygen prior to discharge 4. Nonischemic cardiomyopathy. Chronic - No evidence of fluid overload or decompensation with BNP 612 - last Echo in July 2014 showing ejection fraction of 55% to 60%. - continue with home cardiac and BP medications 5 Rit-jezshcl-lyphnrqvg type 2 diabetes. - Presumed stable and has not required any diabetic medications in the past - low-dose Lispro Correction algorithm - checking A1c 6 Chronic Kidney disease Stage 3 due to Hypertensive Nephrosclerosis - Presumed stable - avoid nephrotoxic insults with medications and contrast - monitor urine output 7 Chronic bilateral LE lymphedema with Morbid Obesity - keep legs elevated and outpatient occupational therapy - Acetaminophen as needed for mild pain/fever/headache - Bowel regimen as needed - Antiemetic as needed Disposition: Anticipate patient will require 1-2 more days to recover from her COPD exacerbation and return to her baseline. Resuscitation Status: CPR: Attempt Resuscitation Attending Statement The patient was seen and examined together with Dr. Ma on 04/04/2016 and I agree with the history, exam and plan as outlined in the note above. . Genie Ma DO Apr 04, 2016 20:43 Dameon Hood MD Apr 06, 2016 14:14
[2016-04-04] MEDS ORDERED: CITA20TA11 PO (21:19)
[2016-04-05] VITALS (11 sets, daily range): BP systolic 117–125; BP diastolic 48–58; PULSE 64–90; RESP 13–20; O2SAT 93–98
[2016-04-05] MEDS: MethylprednisoLONE Sodium Succinate 40 mg/mL Inj IVPUSH SCH ×3 (00:38→16:49)
[2016-04-05] MEDS: ALPRAZolam 0.5 mg Tablet PO PRN ×3 (00:39→22:12)
[2016-04-05] MEDS: Heparin 5,000 Unit/mL Inj SUBQ SCH ×3 (00:39→16:49)
[2016-04-05] MEDS: Albuterol 2.5 mg/3 mL Inhalation Solution NEB PRN ×2 (00:43→14:58)
[2016-04-05] MEDS: Cefepime Inj 2,000 MG in Dextrose 5% Minibag Plus 100 ML IV SCH ×2 (04:43→16:49)
--- NOTE | 2016-04-05 05:45 | NUR ---
Anxiety/Chest Discomfort/Bed Mobility Patient anxious and tearful at beginning of shift. Frequent use of call light. Four person assist to boost in bed with little help from patient. For subsequent repositioning and boosting, patient was encouraged to help herself move in bed; patient able to successfully boost herself with encouragement. Patient put newspaper correspondent light to report chest discomfort at 0145. Patient found to be lying flat in bed; had previously stated that she was unable to lie flat. STAT EKG ordered; no significant changes from prior EKG done earlier in the afternoon. Patient states chest discomfort is worse when she takes a deep breath. Vital signs within parameters. Discussed with charge nurse; patient reassured that her EKG has not changed. Repositioned in bed so that she was no longer lying flat, which partially relieved her discomfort. On re-check several minutes later, patient found to be asleep. Continue to monitor.
[2016-04-05 07:16] LABS: BASOPHILS % (AUTO) 0 % (0-3); EOSINOPHILS % (AUTO) 0 % (0-5); MONOCYTES % (AUTO) 1.4 % (4-12); Mean Corpuscular Hemoglobin 26.4 pg (27.0-35.0); Mean Corpuscular Volume 87.8 fL (81-100); NEUTROPHILS % (AUTO) 94.3 % (40-74); Platelet Count 103 bil/L (150-400)
[2016-04-05] MEDS: Insulin LISPRO 300 Unit/3 mL Inj SUBQ SCH ×4 (08:56→22:00)
[2016-04-05] MEDS: Fluticasone 0.05% 15 Spray/2 Gm 16 Gm Nasal Spray NASAL SCH ×2 (08:57→20:30)
[2016-04-05] MEDS: Mupirocin 2% 22 Gm Ointment TOPICAL SCH ×2 (08:59→22:17)
[2016-04-05] MEDS: Betameth Dip-Clotrimazole 15 Gm Cream TOPICAL SCH ×3 (08:59→22:17)
[2016-04-05] MEDS: 0.9% Sodium Chloride 250 ML IV SCH (13:25)
--- NOTE | 2016-04-05 15:36 | NUR ---
Wound Care [facility] Patient assessed for pressure ulcer protocol. Patient on ARLETH bariatric bed and has severe lymphedema to bilateral LE. Patient states she sees outpatient occupational therapist for lymphedema treatment which has been very helpful. Patient with excoriated area to right medial thigh and dried scab over what appears to be intact skin to medial left distal leg. No other evidence of skin breakdown or pressure noted to bilateral legs or arms, however patient declines to roll over in bed for further inspection past comfortable supine position. Patient reports significant pain when legs are moved, preventing further assessment past what is immediately visible when patient is in supine Patient states she is 'too tired and cannot breathe" when she moves in bed and refuses repositioning for further skin assessment. Wound care available to follow up as needed if/when patient is cooperative with bed mobility.
[2016-04-05] MEDS: levoFLOXacin Inj 750 MG in IV Premix 1 EACH IV SCH (16:49)
--- NOTE | 2016-04-05 17:13 | PCM.PNMED ---
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 Hospital Day 2 Overnight: Patient reported that she had two asthma attacks overnight and required breathing treatments. Per nursing note: "Patient anxious and tearful at beginning of shift. Frequent use of call light. Four person assist to boost in bed with little help from patient. For subsequent repositioning and boosting , patient was encouraged to help herself move in bed; patient able to successfully boost herself with encouragement. Patient put recreational leader light to report chest discomfort at 0145. Patient found to be lying flat in bed; had previously stated that she was unable to lie flat. STAT EKG ordered; no significant changes from prior EKG done earlier in the afternoon. Patient states chest discomfort is worse when she takes a deep breath. Vital signs within parameters. Discussed with charge nurse; patient reassured that her EKG has not changed. Repositioned in bed so that she was no longer lying flat, which partially relieved her discomfort. On re-check several minutes later, patient found to be asleep. Continue to monitor." Today: Patient sitting awake and alert in her bed. She stated that she is feeling short of breath and has mild chest discomfort with deep inspiration, she could not sleep flat on her back last night and feels tired. Patient has not had a BM since admission. She stated that her leg swelling is normal for her. Denies, fever chills, nausea, vomiting. ROS negative except for mentioned above. Exam Vital Signs Vital Sign - Last Date Time Temp Pulse Resp B/P Pulse Ox O2 Delivery O2 Flow Rate FiO2 04/05/16 03:40 36.6 74 16 123/56 96 Nasal Cannula 5.00 Intake and Output 04/04/16 04/04/16 04/05/16 Cumulative From/Thru 15:00 23:00 07:00 04/04/16 04:16 - 04/05/16 06:30 Intake Total 240 ml 937 ml 648 ml 1825 ml Output Total 250 ml 400 ml 300 ml 950 ml Balance -10 ml 537 ml 348 ml 875 ml Intake Oral 240 ml 525 ml 500 ml 1265 ml IV Total 412 ml 148 ml 560 ml Output Urine Total 250 ml 400 ml 300 ml 950 ml # Bowel Movements 0 0 0 Exam General: Alert, Oriented X3, Cooperative, No acute Distress Eyes: PERRLA, Scleral Anicteric Mouth: Mouth Normal, Mucous Membranes Moist/[place] Neck: Supple, no Thyromegaly, trachea central. Chest & Lungs: Clear to auscultation & percussion, No adventitious breath sounds, no crackles, no wheeze Cardiovascular: Normal S1, Normal S2, No Murmurs/Rubs/Gallops, Regular Rate/ Rhythm, Murmur, Other (No JVD, no peripheral edema) Pulses: Radial (present and equal), Dorsalis Pedi (present and equal) Abdomen: Soft, Non-tender, Non-distended, Normoactive bowel tones. Musculoskeletal: Unremarkable. Normal range of motion, no swollen or erythematous joints Extremities: No edema, no cyanosis, no clubbing. Skin: No rashes. Warm and dry, no erythematous areas Neurological: Grossly neurologically intact, has generalized weakness, Normal Speech, Sensation Intact Lymphatic: Lymph nodes Cervical and Axillary not palpable. IVs and Medications Medications Reviewed: Medications were reviewed in detail Lab and Diagnostics Result Diagram: 04/04/1615604/04/16156 X-Rays, CTs and MRIs X-RAY CHEST ONE VIEW, PORTABLE IMPRESSION: Chronic CHF pattern, with likelihood of acute CHF exacerbation superimposed. Dictated by: Michael Ulloa M.D. 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 Hospital Day 2. 1. Severe community acquired pneumonia. Present on admission - Patient may clinically have signs of influenza infection and will be treated despite negative influenza studies. History of MRSA colonization - due to allergy, Cefepime and Levaquin continued - Blood cultures, Influenza testing - MRSA test pending - continuing Tamiflu with 5 day course - Check Procalcitonin x 2: < 0.05 04/04/16 - Respiratory Viral PCR, negative - may consider Infectious disease consultation to fine tune antibiotics therapy 2. Acute Hypoxic Respiratory Failure due to Acute COPD exacerbation. Present on admission - Start Prednisone 40 mg PO QD - DuoNeb treatments scheduled - continue oxygen supplementation - assess need for home oxygen prior to discharge 3. Nonischemic cardiomyopathy. Chronic. Present on admission. - No evidence of fluid overload or decompensation with BNP 612 - last Echo in July 2014 showing ejection fraction of 55% to 60%. - continue with home cardiac and BP medications 4. Alg-lqxyxhr-bzpvqslqp type 2 diabetes. - Presumed stable and has not required any diabetic medications in the past - low-dose Lispro Correction algorithm - checking A1c, pending 5. Chronic Kidney disease Stage 3 due to Hypertensive Nephrosclerosis - Presumed stable - avoid nephrotoxic insults with medications and contrast - monitor urine output 6. Chronic bilateral LE lymphedema with Morbid Obesity - keep legs elevated and outpatient occupational therapy - Acetaminophen as needed for mild pain/fever/headache - Bowel regimen as needed - Antiemetic as needed Disposition: Anticipate patient will require 1-2 more days to recover from her COPD exacerbation and return to her baseline. VTE Prophylaxis: Sub-Q Heparin (Unfractionated) Resuscitation Status: CPR: Attempt Resuscitation Attending Statement The patient was seen and examined together with Dr. Minaya on 04-05-16 and I agree with the history, exam and plan as outlined in the note above. GREGORY MINAYA DO Apr 05, 2016 07:36 Zeynep Alford MD Apr 06, 2016 17:02
--- NOTE | 2016-04-05 18:25 | NUR ---
Skin/Oxygenation Patient alert and oriented x3 throughout shift, LUGO (bilateral upper extremities>lower). Patient needs lots of encouragement with bed mobility, but could turn fairly (with assistance) when providing personal care. Patient becomes very tearful and anxious during these episodes. All folds (knees, breasts, groin, etc) yeasty, red and have strong odor. All areas cleaned and patted dry, nystatin and lotrisone cream applied -- patient reports some tenderness in areas but states "it's a lot less painful than it was". RN notes right labia majora as very inflamed/red/firm. SPO2 on 4L NC 99%, dropped to 3LNC and patient takes of ad melo, SPO2 typically stays above 90%. Patient prefers to remain in high fowlers position and despite education does not like to turn side to side. Roxicodone Q4 PRN, Xanax BID PRN, KPAD in place -- all for back pain.
--- NOTE | 2016-04-05 22:30 | NUR ---
anxiety patient requests anxiety medication medicated with xanax. listened to concerns. given emotional support.
[2016-04-06] VITALS (11 sets, daily range): BP systolic 119–147; BP diastolic 60–73; PULSE 64–75; RESP 11–20; O2SAT 92–98
[2016-04-06] MEDS: MethylprednisoLONE Sodium Succinate 40 mg/mL Inj IVPUSH SCH ×3 (00:37→17:37)
[2016-04-06] MEDS: Heparin 5,000 Unit/mL Inj SUBQ SCH ×3 (00:37→17:38)
[2016-04-06 01:55] LABS: BASOPHILS % (AUTO) 0 % (0-3); EOSINOPHILS % (AUTO) 0 % (0-5); Mean Corpuscular Hemoglobin 26.6 pg (27.0-35.0); Mean Corpuscular Volume 88.5 fL (81-100); NEUTROPHILS % (AUTO) 91.6 % (40-74); Platelet Count 111 bil/L (150-400)
[2016-04-06] MEDS: Cefepime Inj 2,000 MG in Dextrose 5% Minibag Plus 100 ML IV SCH ×2 (02:23→15:35)
--- NOTE | 2016-04-06 02:33 | NUR ---
transfer patient transferred to room 2000 . verbal report to raeann kaiser. all belongings sent with patient on transfer
[2016-04-06] MEDS: Betameth Dip-Clotrimazole 15 Gm Cream TOPICAL SCH ×3 (08:30→20:30)
[2016-04-06] MEDS: Insulin LISPRO 300 Unit/3 mL Inj SUBQ SCH ×4 (09:38→21:32)
[2016-04-06] MEDS: Fluticasone 0.05% 15 Spray/2 Gm 16 Gm Nasal Spray NASAL SCH ×2 (09:38→21:06)
[2016-04-06] MEDS: Mupirocin 2% 22 Gm Ointment TOPICAL SCH ×2 (09:39→21:07)
[2016-04-06] MEDS: 0.9% Sodium Chloride 250 ML IV SCH (12:53)
[2016-04-06] MEDS ORDERED: Vancomycin Dose per Pharmacist XX SCH (13:25)
[2016-04-06] MEDS: levoFLOXacin Inj 750 MG in IV Premix 1 EACH IV SCH (13:32)
--- NOTE | 2016-04-06 15:07 | CONS ---
[address] [address] CONSULTATION REPORT PATIENT: SHEN KRISHNA I : 1950 MR#: [id number] ADMIT: 04/04/2016 JOB ID: [id number] DATE OF SERVICE: 04/06/2016 INFECTIOUS DISEASE CONSULT: REASON FOR CONSULT: Gram-negative bacteremia. I thank Dr. Peñaloza for this timely consult. HISTORY OF THE PRESENT ILLNESS: The patient is a 66-year-old woman who is well known to me and to this hospital from multiple prior admissions going back many years. I last saw the patient this summer when she was admitted with fever, which we felt was on the basis of soft tissue infection, and she did relatively well thereafter. She has had a relatively long time out of the hospital for her over the past few months, only to be readmitted two days ago with worsening shortness of breath, which she attributed to her underlying COPD, as well as significant fevers to 102, rigors, sweats and headache. She really did not have a whole lot of cough or sputum production but rather was just short of breath in association with the other symptoms. There were no associated abdominal symptoms other than a little nausea and no genitourinary symptoms. She reports that during the time she was having these fevers and rigors, and while the ambulance crew was picking her up to bring her here, she was bitten by her cat on the right upper extremity. She insists that the cat bite occurred after the onset of the symptoms which led her to this hospital stay. Since admission, the patient has been receiving broad-spectrum antibiotics including levofloxacin and cefepime for possible pneumonia. Additionally, some vancomycin was added today, as it was discovered that her nose was positive for MRSA. It is worth noting that for many years, the patient has been colonized with MRSA, and it has grown innumerable times from her nose and skin. PAST MEDICAL HISTORY: 1. Morbid obesity, with BMI above 50. 2. Bilateral lower extremity lymphedema with chronic venous stasis changes. 3. Multiple episodes of lower extremity infection due to beta hemolytic strep, as well as MRSA. 4. Chronic anemia and thrombocytopenia of unknown etiology. 5. Chronic renal insufficiency. 6. Congestive heart failure. 7. COPD. 8. Status post pacer placement. 9. Diabetes. 10. Hypertension. 11. Psoriasis. 12. Migraine headaches. 13. Depression and anxiety. SOCIAL HISTORY: The patient is a nondrinker, nonsmoker. She lives in an apartment in the local area with her cat. The cat is 6 years old and from time to time bites her. She has not been employed for many years, as she has multiple underlying health problems. FAMILY HISTORY: Negative for TB. REVIEW OF SYSTEMS: The patient did have a headache when she came in, but that has resolved. She denies visual change. No sores in the mouth, trouble swallowing, or stiff neck. She was very short of breath when she came in, that is much better. No real cough, however, and no chest pain. She did have some nausea initially, that is better. No vomiting. No diarrhea. No dysuria or urgency. The patient notes that she continues to have a great deal of erythema underneath her abdominal pannus which we have previously evaluated and found to be largely due to dimitris. Recall that during an earlier admission we treated her for almost a month with antifungal drugs without making much impact, and the patient reports it has been relatively stable ever sent. The patient notes that she is able to ambulate short distances with a walker, and this is her baseline. She thinks her legs are at about her baseline level of edema. PHYSICAL EXAMINATION: Reveals a morbidly obese woman. Temp 36.4, pulse 69, respiratory rate 20, blood pressure 130/71, saturating well on 2.5 L nasal prongs. She is awake and alert. Overall, she appears about as she has appeared to me for the past two years and, in fact, maybe a little bit better in terms of her overall vitality. Head without trauma. Eyes without conjunctival abnormality. Oral cavity: No thrush. No hairy leukoplakia. No pharyngitis is seen. Neck: Supple, without adenopathy though difficult to examine due to her obesity. Lungs: Clear, though difficult to auscultate, given her body habitus. Cardiac tones: Distant, with regular rate and rhythm. Abdomen: Massively obese, soft, and nontender. She has a large pannus and upon retracting the pannus, one can clearly see a large area of confluent erythroderma, which we know from prior admissions is candidal superinfection of an intertriginous zone. Similar less impressive candidal areas are noted in the groin and around the ankles. The patient does have a Raza catheter, which should be removed when possible. Her extremities are without notable abnormality other than being very obese. The legs have venous stasis changes present and as mentioned, dimitris within the folds of adiposity on the legs but these are not any worse and, in fact, maybe a little better than on prior admissions. None of this looks infected. On her right upper extremity, there are two puncture beach secondary to a cat bite, which she says occurred on Tuesday, two days ago. The patient neurologically can move her extremities and is about as she always is in terms of her limited strength and mobility. LABORATORIES: Include white count 9000 on admission, still 9000 today. Differential white count has a neutrophil predominance but she is on steroids for possible asthma exacerbation. Creatinine 1.01. Procalcitonin 6.33. Late in 2016, she had numerous procalcitonins on numerous ED visits that were all negative, so this is quite a change. Urinalysis with 11-50 white cells. Urine legionella antigen negative. Streptozymes have been positive on numerous occasions in the past. Not repeated on this occasion yet. Micro studies include respiratory viral PCR panel that was just sent a couple hours of ago. It is still pending. Urine is growing mixed raúl as usual. Blood is growing an interesting gram-negative olegario in 2/3 bottles. This a small gram-negative olegario, which is oxidase positive, and this raises the possibility, though does not definitively identify it as pasteurella. Nasal screen is positive for MRSA. Note, she has had many, many, many positive MRSA screens in the past. IMAGING: Includes chest x-ray, which we carefully reviewed on the computer and compared to films done a few months ago. It shows bilateral subtle infiltrates, which look like bilateral pulmonary edema. This chest x-ray appears exactly as the chest x-ray did three months ago. IMPRESSION: I see no evidence that this patient has pneumonia. She has a gram-negative olegario bacteremia with an organism we have not yet identified. If this is pasteurella, then it is obviously from a cat bite, either the one on her right arm or one of the ones she admits she may have had previously. If it is not pasteurella, we will need to identify the organism and run down its origin, which could be intra-abdominal or genitourinary. The most parsimonious explanation here, though is that she has acquired pasteurella from her cat, and this could be in the form of a bite or conceivably even by inhalation, though I do not see much evidence for pasteurella pneumonia. There is no evidence for pasteurella osteo or abscess at this point, and no evidence for a central nervous system infection due to pasteurella which can occasionally be problematic. RECOMMENDATIONS: 1. I would drop the vancomycin, as it will have more toxicity than benefit. 2. We can continue with both cefepime and levofloxacin overnight until we know what this organism is and then we will narrow our coverage probably to one drug and start to think about timing of discharge. Thank you, once again, in inviting me to see this interesting and unfortunate woman.
--- NOTE | 2016-04-06 18:12 | NUR ---
pain/SpO2 Pt c/o of pain twice today, medicated with 5mg oxycodone. Pt stating satisfied with reassessment. Pt SpO2 low to mid 90s on RA, pt denied SOB through the day. Pt stating unable to cough up sputum for micro. Ongoing care.
--- NOTE | 2016-04-06 18:50 | PCM.PNMED ---
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 Hospital Day 2 Overnight: Nursing reported patient had anxiety. Today: Patient reports that she is feeling well, he legs are doing the same as yesterday no increased swelling overnight. She stated that she feels short of breath when moving around on her bed, and she feels tired compared to yesterday and stated that she did not sleep well. Patient denies pain, fever, chills, productive cough. ROS negative except for mentioned above. Exam Vital Signs Vital Sign - Last Date Time Temp Pulse Resp B/P Pulse Ox O2 Delivery O2 Flow Rate FiO2 04/06/16 02:45 36.5 75 16 120/60 96 Nasal Cannula 2.50 Intake and Output 04/05/16 04/05/16 04/06/16 Cumulative From/Thru 15:00 23:00 07:00 04/04/16 04:16 - 04/06/16 05:58 Intake Total 303 ml 200 ml 2328 ml Output Total 1000 ml 1950 ml Balance 303 ml -800 ml 378 ml Intake Oral 200 ml 1465 ml IV Total 303 ml 863 ml Output Urine Total 1000 ml 1950 ml # Bowel Movements 0 Exam General: Alert, Oriented X3, Cooperative, No acute Distress Eyes: PERRLA, Scleral Anicteric Mouth: Mouth Normal, Mucous Membranes Moist/[place] Neck: Supple, no Thyromegaly, trachea central. Chest & Lungs: Clear to auscultation & percussion, No adventitious breath sounds, no crackles, no wheeze Cardiovascular: Normal S1, Normal S2, No Murmurs/Rubs/Gallops, Regular Rate/ Rhythm, Murmur, Other (No JVD, no peripheral edema) Pulses: Radial (present and equal), Dorsalis Pedi (present and equal) Abdomen: Soft, Non-tender, Non-distended, Normoactive bowel tones. Musculoskeletal: Unremarkable. Normal range of motion, no swollen or erythematous joints Extremities: Chronic lymphedema bilateral lower extremities, no cyanosis, no clubbing. Dress wound on right forearm from a cat bite, wound is erythematous, no purulent drainage noted. Skin: No rashes. Warm and dry, no erythematous areas Neurological: Grossly neurologically intact, has generalized weakness, Normal Speech, Sensation Intact Lymphatic: Lymph nodes Cervical and Axillary not palpable. IVs and Medications Medications Reviewed: Medications were reviewed in detail Lab and Diagnostics Result Diagram: 04/06/1614404/06/16144 X-Rays, CTs and MRIs X-RAY CHEST ONE VIEW, PORTABLE IMPRESSION: Chronic CHF pattern, with likelihood of acute CHF exacerbation superimposed. Dictated by: Michael Ulloa M.D. 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 Hospital Day 2. 1. Positive Blood cultures, active - positive blood culture from specimens taken at admission, positive for gram positive cocci, variable gram negative rods - Patient has cat bite on right forearm, positive for pasteurella, per ID antibiotic therapy will be narrowed - Continue to monitor - ID following, we appreciate their help and expertise on this case. 2. Acute Hypoxic Respiratory Failure due to Acute COPD exacerbation. Present on admission - Start Prednisone 40 mg PO QD - DuoNeb treatments scheduled - continue oxygen supplementation - assess need for home oxygen prior to discharge 3. Severe community acquired pneumonia. Present on admission - Patient may clinically have signs of viral URI not found on PCR. History of MRSA colonization. - due to allergy, Cefepime and Levaquin continued - Blood cultures, positive for gram positive cocci, variable gram negative rods - MRSA test, positive - continuing Tamiflu with 5 day course - Check Procalcitonin x 2: < 0.05 04/04/16 - Respiratory Viral PCR, negative - may consider Infectious disease consultation to fine tune antibiotics therapy 4. Nonischemic cardiomyopathy. Chronic. Present on admission. - No evidence of fluid overload or decompensation with BNP 612 - last Echo in July 2014 showing ejection fraction of 55% to 60%. - continue with home cardiac and BP medications 5. Nfe-fkwcdwy-nggxuaekz type 2 diabetes. - Presumed stable and has not required any diabetic medications in the past - low-dose Lispro Correction algorithm - checking A1c, pending 6. Chronic Kidney disease Stage 3 due to Hypertensive Nephrosclerosis - Presumed stable - avoid nephrotoxic insults with medications and contrast - monitor urine output 7. Chronic bilateral LE lymphedema with Morbid Obesity - keep legs elevated and outpatient occupational therapy - Acetaminophen as needed for mild pain/fever/headache - Bowel regimen as needed - Antiemetic as needed Disposition: Discharge to home. Anticipate patient will require 1-2 more days to recover from her COPD exacerbation and return to her baseline. VTE Prophylaxis: Sub-Q Heparin (Unfractionated) Resuscitation Status: CPR: Attempt Resuscitation Attending Statement The patient was seen and examined together with Dr. Minaya on 04-06-16 and I agree with the history, exam and plan as outlined in the note above. GREGORY MINAYA DO Apr 06, 2016 06:45 Zeynep Alford MD Apr 07, 2016 12:42
[2016-04-07] VITALS (12 sets, daily range): BP systolic 108–138; BP diastolic 54–72; PULSE 54–74; RESP 14–20; O2SAT 93–98
[2016-04-07] MEDS: MethylprednisoLONE Sodium Succinate 40 mg/mL Inj IVPUSH SCH ×3 (00:42→16:42)
[2016-04-07] MEDS: Heparin 5,000 Unit/mL Inj SUBQ SCH ×3 (00:43→16:43)
--- NOTE | 2016-04-07 02:23 | NUR ---
P) Pain/Skin/Respiratory/GI Pt. c/o back pain 12/28, using K-pad and oxycodone for pain. Skin in all folds continues macerated, red, swollen and tender, lower extremity skin pink , appears cellulitis may be starting. Lungs clear to auscultation but very decreased, may be due to body habitus, cough is not bringing up sputum for sample. Pt. also states she has not had a bowel movement for 3 days, would like a stool softener or a laxative. I) Gave prune juice, all creams and ointments applied after cleaning area of old ointments, meds per 's orders. Cont. to monitor. E) Pt. resting quietly with eyes closed.
[2016-04-07] MEDS: Cefepime Inj 2,000 MG in Dextrose 5% Minibag Plus 100 ML IV SCH (03:21)
[2016-04-07 03:32] LABS: BASOPHILS % (AUTO) 0 % (0-3); EOSINOPHILS % (AUTO) 0 % (0-5); Mean Corpuscular Hemoglobin 26.8 pg (27.0-35.0); Mean Corpuscular Volume 87.8 fL (81-100); NEUTROPHILS % (AUTO) 89.8 % (40-74); Platelet Count 127 bil/L (150-400)
[2016-04-07] MEDS: Betameth Dip-Clotrimazole 15 Gm Cream TOPICAL SCH ×3 (08:30→20:30)
[2016-04-07] MEDS ORDERED: cefTRIAXone Inj 2,000 MG in IV Premix 1 EACH IV SCH (08:45)
--- NOTE | 2016-04-07 09:09 | PROG NOTE ---
[address] [address] PROGRESS NOTE PATIENT: SHEN KRISHNA I : 1950 MR#: [id number] ADMIT: 04/04/2016 JOB ID: [id number] DATE: 04/07/2016 INFECTIOUS DISEASE FOLLOW UP NOTE: REASON FOR FOLLOW UP: Pasteurella bacteremia with sepsis. INTERVAL HISTORY: Overnight, the patient reports that she has noticed some increasing redness on her lower extremities which has, of course, been a recurrent problem for her. She has had no fevers, chills or sweats. She feels quite sleepy but otherwise not too bad. No shortness of breath or chest pain is reported. No overt GI symptoms. PHYSICAL EXAMINATION: Reveals a morbidly obese woman in no acute distress. Temperature 36.5. She has a blood pressure 108/54. She is saturating well on 1 L. Head and neck examination unremarkable. The patient's right chest port catheter is benign appearing. Her lungs relatively clear. Abdomen massively obese, soft, and without overt tenderness. There is erythema beneath the pannus as well as between the folds on her legs. The puncture beach on the right forearm from a cat bite do not appear overtly infected. LABORATORIES: Include white count of 5900, platelet count 127,000. Creatinine 0.97. Respiratory: Nasopharyngeal viral panel negative. Blood cultures have grown Pasteurella multocida in three of three sets. This is a classic Pasteurella multocida, and is fully susceptible to penicillins, third generation cephalosporins, and quinolone agents. No additional imaging is available yet though the patient just had a chest x-ray. Yesterday's chest x-ray looked like CHF. IMPRESSION: This is an absolutely fascinating case of a morbidly obese woman with recurrent cellulitis who is admitted this time with Pasteurella bacteremia and sepsis. This undoubtedly arose from a cat bite and we have evidence of one on the right forearm. Oddly, the patient still maintains that the cat bite occurred after she started to get sick but I suspect that there is some confusion about the chronology of what happened as the cat bite on the arm looks to be about a week old and goes along very nicely with the positive blood cultures for Pasteurella. RECOMMENDATIONS: 1. We can narrow our antibiotic coverage now from the cefepime, levo, vanco she has been receiving to ceftriaxone alone. 2. Once the patient is ready for discharge, we can switch to an oral quinolone. 3. Repeat blood cultures should be done to make sure she has cleared the Pasteurella bacteremia. If this is not the case, we might reasonably consider an echocardiogram but I suspect it would be of very poor quality in this 160 kg woman. 4. Will continue to follow this absolutely fascinating patient with you.
--- NOTE | 2016-04-07 09:13 | NUR ---
LAY: Verbal consent to sign LAY
[2016-04-07] MEDS: Fluticasone 0.05% 15 Spray/2 Gm 16 Gm Nasal Spray NASAL SCH ×2 (09:57→22:08)
[2016-04-07] MEDS: Insulin LISPRO 300 Unit/3 mL Inj SUBQ SCH ×4 (09:57→22:00)
--- NOTE | 2016-04-07 09:58 | DRSVH ---
PROCEDURE: X-RAY CHEST ONE VIEW, PORTABLE ([id number]) INDICATIONS: SHORT OF BREATH TECHNIQUE: One view of the chest was acquired. COMPARISON: [facility], CR, XR CHEST 1VW (PORTABLE), 04/04/2016, 1:51. FINDINGS: Surgical changes and devices: Stable positioning of left chest AICD and right IJ chest port. Lungs and pleura: Pulmonary vasculature is prominent and mild edema is suspected similar to prior exa mination. No pneumothorax. Mediastinum: Mediastinal contours appear normal. Heart size is enlarged. Bones and chest wall: No suspicious bony lesions. Overlying soft tissues appear unremarkable. IMPRESSION: Findings suspicious for mild edema and stable cardiomegaly, similar to prior examination. Dictated by: Felipe Bello RRA Interpreted: Coral Escobar MD on 04/07/2016 at 9:58 Transcribed by: JORGE on 04/07/2016 at 9:58 Approved by: Coral Escobar MD, PhD on 04/07/2016 at 16:56
[2016-04-07] MEDS: Mupirocin 2% 22 Gm Ointment TOPICAL SCH ×2 (09:59→20:30)
[2016-04-07] MEDS: Senna-Docusate 8.6-50 mg Tablet PO SCH ×2 (10:52→22:09)
[2016-04-07] MEDS ORDERED: cefTRIAXone Inj 2 GM in IV Premix 1 EACH IV SCH (10:56)
[2016-04-07] MEDS: 0.9% Sodium Chloride 250 ML IV SCH (12:32)
--- NOTE | 2016-04-07 17:10 | DRSVH ---
[facility] [address] [place] [address] Echocardiogram Report Name: SHEN KRISHNA te: 04/07/2016 Height: 62 in Hospital Exam Location: [facility] Weight: 351 lb Gender: Female BSA: 2.4 m2 : 1950 Age: 66 yrs BP: 138/65 mmHg Reason For Study: H/O NON-ISCHEMIC CARDIOMYOPATHY Ordering Physician: Performed By: Jaguar Kwong Interpretation Summary The left ventricle is borderline dilated. Left ventricular systolic function is mildly reduced. The ejection fraction is estimated to be 45-50%. LVEF has mildly decreased since prior study. Regional wall motion abnormalities cannot be excluded due to limited visualization. The E/A ratio is reversed with an elevated E/E', suggesting impaired early relaxation of the left ventricle with possible increased filling pressures. The right ventricle is not well visualized. The right ventricle grossly appears normal in size with probable normal systolic function. Pulmonary artery pressures cannot be estimated because of the lack of a measurable TR jet velocity. The left atrium is moderately dilated. The right atrium is mildly dilated. There is no gross valvular heart disease. The aortic root is normal size. Procedure: A two-dimensional transthoracic echocardiogram with color flow and Doppler was performed. The study quality was technically difficult. Comparison is made with the echocardiogram of 08/01/14. The subcostal views were difficult to obtain and are suboptimal in quality. A contrast injection of Definity was performed to improve assessment of LV function. The patient was in normal sinus rhythm during the exam. Left Ventricle: There is normal left ventricular wall thickness. The left ventricle is borderline dilated. Left ventricular systolic function is mildly reduced. The ejection fraction is estimated to be 45-50%. Regional wall motion abnormalities cannot be excluded due to limited visualization. The E/A ratio is reversed with an elevated E/E', suggesting impaired early relaxation of the left ventricle with possible increased filling pressures. Right Ventricle: The right ventricle is not well visualized. The right ventricle grossly appears normal in size with probable normal systolic function. Atria: The left atrium is moderately dilated. The right atrium is mildly dilated. The interatrial septum is intact with no evidence for an atrial septal defect. Mitral Valve: There is mild mitral annular calcification. There is trace mitral regurgitation. Aortic Valve: The aortic valve is not well visualized. There is no aortic valve stenosis. No aortic regurgitation is present. Tricuspid Valve: The tricuspid valve is not well visualized. There is a trace or physiologic amount of tricuspid regurgitation. Pulmonary artery pressures cannot be estimated because of the lack of a measurable TR jet velocity. Pulmonic Valve: The pulmonic valve is not well visualized. There is no significant valvular heart disease. Great Vessels: The aortic root is normal size. The ascending aorta is at the upper limits of normal in size. The pulmonary artery is normal size. The inferior vena cava was not well visualized. Pericardium/ Pleura There is no pericardial effusion. There is no pleural effusion. MMode/2D Measurements & Calculations LVIDd: 5.9 cm LA dimension RA long axis Ao root diam: 3.6 cm EPSS: 1.3 cm Aortic Jxn: 2.1 cm IVSd: 0.85 cm LA A2 area RA area asc Aorta Diam LVPWd: 1.1 cm : 24.0 cm Ao Arch Diam (Prox LA A4 area RA vol: 84.0 mlTrans): 2.3 cm RA LA length (vol) : 34.6 mm2 LA vol: 101.9 ml LA vol index : 42.0 ml/m2 LV joshua. diameter/BSA (cm/m^2): 2.4 Doppler Measurements & Calculations Ao V2 max MV E max walt MV E/A: 0.70 PA V2 max: 71.0 cm/sec : 118.4 cm/sec : 75.2 cm/sec Med Peak E' Walt PA mean P.1 mmHg Ao max PG MV A max walt PA Accel Time: 0.07 sec : 5.6 mmHg : 107.4 cm/sec E/E' med: 20.2 Ao mean PG Pulm A Revs Dur : 3.3 mmHg MV A dur: 0.16 sec MV dec time Ao V2 mean PA V2 mean Pulm A Revs Dur - MV A : 0.23 sec : 87.7 cm/sec : 49.2 cm/sec Dur: -0.01 msec Ao V2 VTI: 27.9 cmPA pr(Accel) : 46.6 mmHg Reading Physician:MAURO
--- NOTE | 2016-04-07 17:37 | NUR ---
Social Work Note: Continued Discharge Planning Data& Assessment: Pt is not medically ready for discharge at this time. SW met with pt at bedside to confirm discharge plan and assess for any unmet needs. SW also connected with pt health homes lawn care technician Conniemaribell Eden ([phone]) who requested to be notified when pt is ready for discharge. Pt confirmed discharge plan of home with visiting [facility] [employer] and resume [facility] and [facility]. Pt expressed a lot of sadness and fear due to her hospitalization, SW provided psychosocial support. Pt denies any other needs at this time. SW to continue to follow if any needs arise. Plan: Anticipated discharge home with visiting [facility] and resume [facility] and [facility] pendant. Pt denies any other needs at this time. SW to continue to follow if any needs arise. GERMAN Duron
--- NOTE | 2016-04-07 18:14 | PCM.PNMED ---
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 Hospital Day 3 Overnight: No overnight events reported by nursing Today: Patient reports that her wound on her right arm is healing well. Patient stated that she has not experienced shortness of breath, chest pain, worsening of her lower leg swelling, nausea, vomiting, diarrhea. ROS negative except for mentioned above. Exam Vital Signs Vital Sign - Last Date Time Temp Pulse Resp B/P Pulse Ox O2 Delivery O2 Flow Rate FiO2 04/07/16 04:34 36.5 72 18 138/65 94 Nasal Cannula 2.50 Intake and Output 04/06/16 04/06/16 04/07/16 Cumulative From/Thru 15:00 23:00 07:00 04/04/16 04:16 - 04/07/16 05:16 Intake Total 875 ml 740 ml 4191 ml Output Total 550 ml 800 ml 3300 ml Balance 325 ml -60 ml 891 ml Intake Oral 600 ml 740 ml 2805 ml IV Total 275 ml 1386 ml Output Urine Total 550 ml 800 ml 3300 ml # Bowel Movements 0 0 Exam General: Alert, Oriented X3, Cooperative, No acute Distress Eyes: PERRLA, Scleral Anicteric Mouth: Mouth Normal, Mucous Membranes Moist/Adell Neck: Supple, no Thyromegaly, trachea central. Chest & Lungs: Clear to auscultation & percussion, No adventitious breath sounds, no crackles, no wheeze Cardiovascular: Normal S1, Normal S2, No Murmurs/Rubs/Gallops, Regular Rate/ Rhythm, Murmur, Other (No JVD, no peripheral edema) Pulses: Radial (present and equal), Dorsalis Pedi (present and equal) Abdomen: Soft, Non-tender, Non-distended, Normoactive bowel tones. Musculoskeletal: Unremarkable. Normal range of motion, no swollen or erythematous joints Extremities: No edema, no cyanosis, no clubbing. Skin: No rashes. Warm and dry, no erythematous areas Neurological: Grossly neurologically intact, has generalized weakness, Normal Speech, Sensation Intact Lymphatic: Lymph nodes Cervical and Axillary not palpable IVs and Medications Medications Reviewed: Medications were reviewed in detail Lab and Diagnostics Result Diagram: 04/07/1631404/07/16314 X-Rays, CTs and MRIs X-RAY CHEST ONE VIEW, PORTABLE IMPRESSION: Chronic CHF pattern, with likelihood of acute CHF exacerbation superimposed. Dictated by: Michael Ulloa M.D. on 04/04/2016 at 8:11 Cardiac Echo Impressions Echocardiogram Report Interpretation Summary: The left ventricle is borderline dilated. Left ventricular systolic function is mildly reduced. The ejection fraction is estimated to be 45-50%. LVEF has mildly decreased since prior study. Regional wall motion abnormalities cannot be excluded due to limited visualization. The E/A ratio is reversed with an elevated E/E', suggesting impaired early relaxation of the left ventricle with possible increased filling pressures. The right ventricle is not well visualized. The right ventricle grossly appears normal in size with probable normal systolic function. Pulmonary artery pressures cannot be estimated because of the lack of a measurable TR jet velocity. The left atrium is moderately dilated. The right atrium is mildly dilated. There is no gross valvular heart disease. The aortic root is normal size. 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 Hospital Day 3. 1. Positive Blood cultures, present on admission, active - Patient has cat bite on right forearm, potential for colonization of pasteurella per ID - positive blood culture from specimens taken at admission, positive for gram positive cocci, variable gram negative rods - Continue with Cefepime per ID - Discontinue Levaquin - Continue to monitor procalcitonin 04/06/16 6.33 04/07/16 2.2 - Echocardiogram did not show evidence of valvular heart disease - Continue to monitor - ID following, we appreciate their help and expertise on this case. 2. Acute Hypoxic Respiratory Failure . Present on admission, improving - due to Acute COPD exacerbation, community acquired pneumonia ruled out. - Start Prednisone 40 mg PO QD - DuoNeb treatments scheduled - continue oxygen supplementation - assess need for home oxygen prior to discharge 3. Acute on chronic COPD exacerbation, present on admission, improving -Continue Prednisone 40 mg PO QD - DuoNeb treatments scheduled - continue oxygen supplementation 4. Nonischemic cardiomyopathy. Chronic. Present on admission, stable - No evidence of fluid overload or decompensation with BNP 612 - last Echo in July 2014 showing ejection fraction of 55% to 60%. - continue with home cardiac and BP medications 5. Severe community acquired pneumonia. Ruled out - During Hospital course, and review of past chest x-rays, pneumonia was ruled out of the the cause of the patient's respiratory failure, - History of MRSA colonization. - Discontinue Levaquin continued - Blood cultures, positive for gram positive cocci, variable gram negative rods - MRSA test, positive - Discontinue Tamiflu - Respiratory Viral PCR, negative 5. Afq-sdxhbtl-gxjcnflsa type 2 diabetes. Chronic, Stable - Presumed stable and has not required any diabetic medications in the past - low-dose Lispro Correction algorithm - checking A1c, 5.2 6. Chronic Kidney disease Stage 3 due to Hypertensive Nephrosclerosis, stable - Presumed stable - avoid nephrotoxic insults with medications and contrast - monitor urine output 7. Chronic bilateral LE lymphedema with Morbid Obesity, stable - keep legs elevated and outpatient occupational therapy - Acetaminophen as needed for mild pain/fever/headache - Bowel regimen as needed - Antiemetic as needed Disposition: Discharge to home. Anticipate patient will require 1-2 more days to recover from her COPD exacerbation and return to her baseline. VTE Prophylaxis: Sub-Q Heparin (Unfractionated) VTE Mechanical Devices: Intermittant Pneumatic CD Resuscitation Status: CPR: Attempt Resuscitation Attending Statement The patient was seen and examined together with Dr. Minaya on 04-07-16 and I agree with the history, exam and plan as outlined in the note above. GREGORY MINAYA DO Apr 07, 2016 06:41 Zeynep Alford MD Apr 08, 2016 13:40
--- NOTE | 2016-04-07 19:20 | NUR ---
Ambulation/Pain Pt. has not been OOB this shift due to her stating she is on bed rest. I told the Pt. she is no longer on bed rest and she needs to ask for assistance to get up during the day. The BLANKET WINDER OPERATOR and I educated her on the consequences of not moving and Pt. understood. Pt. is c/o lower back pain during shift and asking for pain medication q4hr. Pt. has Kpad as well for alternative treatment for pain.
[2016-04-08] VITALS (10 sets, daily range): BP systolic 115–131; BP diastolic 57–75; PULSE 53–75; RESP 18–20; O2SAT 96–100
--- NOTE | 2016-04-08 00:56 | NUR ---
Positioning Pt needs reminding that she is able to assist with repositioning self in bed and the importance of frequent repositioning. Pt was able to scoot self up towards the head of bed when asked.
[2016-04-08] MEDS: Heparin 5,000 Unit/mL Inj SUBQ SCH ×3 (01:28→16:42)
[2016-04-08] MEDS: MethylprednisoLONE Sodium Succinate 40 mg/mL Inj IVPUSH SCH ×3 (01:32→16:39)
[2016-04-08] MEDS ORDERED: Vancomycin Serum Trough XX ONE (06:00)
[2016-04-08 06:39] LABS: BASOPHILS % (AUTO) 0 % (0-3); EOSINOPHILS % (AUTO) 0 % (0-5); Mean Corpuscular Hemoglobin 26.3 pg (27.0-35.0); Mean Corpuscular Volume 88.4 fL (81-100); NEUTROPHILS % (AUTO) 90.1 % (40-74); Platelet Count 126 bil/L (150-400)
[2016-04-08] MEDS: cefTRIAXone Inj 2,000 MG in Dextrose 5% Minibag Plus 50 ML IV SCH (08:27)
[2016-04-08] MEDS: Betameth Dip-Clotrimazole 15 Gm Cream TOPICAL SCH ×3 (08:28→20:30)
[2016-04-08] MEDS: Mupirocin 2% 22 Gm Ointment TOPICAL SCH ×2 (08:28→20:30)
[2016-04-08] MEDS: Senna-Docusate 8.6-50 mg Tablet PO SCH ×2 (08:29→21:40)
[2016-04-08] MEDS: Fluticasone 0.05% 15 Spray/2 Gm 16 Gm Nasal Spray NASAL SCH ×2 (08:29→21:45)
[2016-04-08] MEDS: Insulin LISPRO 300 Unit/3 mL Inj SUBQ SCH ×4 (08:31→20:31)
--- NOTE | 2016-04-08 10:15 | PROG NOTE ---
[address] [address] PROGRESS NOTE PATIENT: SHEN KRISHNA I : 1950 MR#: [id number] ADMIT: 04/04/2016 JOB ID: [id number] DATE: 04/08/2016 INFECTIOUS DISEASE FOLLOW UP NOTE: REASON FOR FOLLOW UP: Pasteurella sepsis. INTERVAL HISTORY: Overnight, the patient reports she has been troubled by constipation with some vague lower abdominal pain. Otherwise, she feels gradually better. No fevers, chills or sweats. Minimal cough and no shortness of breath. No nausea or vomiting. She was able to eat breakfast without difficulty. She still has a Raza which she does not usually have at home. She is afebrile. Temp 36.3. She has been afebrile since the day she was admitted which was the 15th. Pulse 64, respiratory rate 18, blood pressure 131/67. She is saturating well on 2.5 L. The patient's complexion seems a bit more rebeca than normal today but otherwise she looks to be in no acute distress. Oral cavity negative. The port catheter in the right upper chest is benign appearing. The lungs fairly clear. Occasional crackle at the base. Cardiac tones: No change in murmur. Abdomen massively obese. No change though and nontender. Raza catheter is present. LABORATORIES: Include a white count normal today again, 4600. Differential white count still has 90% segs but she has been receiving some steroids for COPD or asthma. Creatinine is down to 0.76. LFTs normal. Procalcitonin has fallen to 0.65 and recall that it did start out at 6.3. Micro studies include the positive blood cultures for Pasteurella. These blood cultures have not been repeated and I am not certain they need to be as the patient is now much improved. The respiratory viral PCR panel was negative and the nasal smear positive for MRSA. I note that the patient is also not in isolation and I am not certain why this is so I will order that. Echo results show no valvular lesions. IMPRESSION: This patient was admitted with Pasteurella sepsis which is almost certainly due to the cat bite on her right upper extremity. She also had some degree of asthma exacerbation for which she continues to receive steroids. At this point, she is much improved from an Infectious Disease point of view. RECOMMENDATIONS: 1. I would continue with ceftriaxone once a day for the time being. 2. Once she is ready to go, and from an Infectious Disease point of view that could be anytime, she can be discharged on Cipro 500 b.i.d. to complete a 10 day total course of antibiotics. 3. The patient should be placed in MRSA isolation. I am not sure why that has not occurred. 4. Will continue with mupirocin to the nares she is receiving for 10 days. 5. ID will continue to follow with you here in the hospital. 6. I would consider removing the Raza catheter.
[2016-04-08] MEDS ORDERED: Polyethylene Glycol (PEG) 17 Gm Powder PO SCH (10:30)
[2016-04-08] MEDS: 0.9% Sodium Chloride 250 ML IV SCH (11:48)
--- NOTE | 2016-04-08 13:34 | NUR ---
Social Work: Readiness for Discharge D: Pt discussed with . Pt is anticipated to be ready for discharge home tomorrow pending in-home caregivers can be there. MD requesting assistance from case management to confirm pt will have the necessary services in home at time of admission. Pt lives at home with [facility] caregivers (115 hours/month) and [facility]. t/c to Connie Eden, pt's Health [facility] CM ([phone]) to confirm that pt will have caregivers available tomorrow post-discharge; no answer. TORQUE TESTER left message requesting return phone call as soon as possible to discuss dcp. t/c to [facility] to notify that pt will likely be discharging home tomorrow; Molina with [facility] is aware and following with her care. A: Pt who previously living at home in a Handicap apartment P: Anticipate pt to discharge home with resumed [facility] [place] [facility] and [facility]; TORQUE TESTER to continue to attempt contact with pt's Health Homes Worker. GERMAN Yanez
--- NOTE | 2016-04-08 13:55 | NUR ---
Mobility//GI Pt up to chair for meals with 1 PA. SBA with FWW to [facility]. Raza d/c'd this morning, voiding adequately per [facility]. Large BM today. VSS.
--- NOTE | 2016-04-08 14:17 | PCM.PNMED ---
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 Hospital Day 4 Overnight: No over night events reported Today: Patient stated she is feeling better overall, she is not comfotrable going home until she know she will have home healthcare workers present to help her at home. Patient denies diarrhea, fever, chills, cough, dizziness. ROS negative except for mentioned above. Exam Vital Signs Vital Sign - Last Date Time Temp Pulse Resp B/P Pulse Ox O2 Delivery O2 Flow Rate FiO2 04/08/16 06:28 Supplement Oxygen 04/08/16 05:30 36.5 54 20 115/57 98 2.50 Intake and Output 04/07/16 04/07/16 04/08/16 Cumulative From/Thru 15:00 23:00 07:00 04/04/16 04:16 - 04/08/16 06:28 Intake Total 811 ml 436 ml 6142 ml Output Total 500 ml 425 ml 4225 ml Balance 311 ml 11 ml 1917 ml Intake Oral 660 ml 436 ml 3901 ml IV Total 151 ml 2241 ml Output Urine Total 500 ml 425 ml 4225 ml # Bowel Movements 0 0 Exam General: Alert, Oriented X3, Cooperative, No acute Distress Eyes: PERRLA, Scleral Anicteric Mouth: Mouth Normal, Mucous Membranes Moist/[place] Neck: Supple, no Thyromegaly, trachea central. Chest & Lungs: Clear to auscultation & percussion, No adventitious breath sounds, no crackles, no wheeze Cardiovascular: Normal S1, Normal S2, No Murmurs/Rubs/Gallops, Regular Rate/ Rhythm, Murmur, Other (No JVD, no peripheral edema) Pulses: Radial (present and equal), Dorsalis Pedi (present and equal) Abdomen: Soft, Non-tender, Non-distended, Normoactive bowel tones. Musculoskeletal: Unremarkable. Normal range of motion, no swollen or erythematous joints Extremities: No edema, no cyanosis, no clubbing. Skin: No rashes. Warm and dry, no erythematous areas Neurological: Grossly neurologically intact, has generalized weakness, Normal Speech, Sensation Intact Lymphatic: Lymph nodes Cervical and Axillary not palpable IVs and Medications Medications Reviewed: Medications were reviewed in detail Lab and Diagnostics Result Diagram: 04/07/1631404/07/16314 X-Rays, CTs and MRIs X-RAY CHEST ONE VIEW, PORTABLE IMPRESSION: Chronic CHF pattern, with likelihood of acute CHF exacerbation superimposed. Dictated by: Michael Ulloa M.D. on 04/04/2016 at 8:11 Cardiac Echo Impressions Echocardiogram Report Interpretation Summary: The left ventricle is borderline dilated. Left ventricular systolic function is mildly reduced. The ejection fraction is estimated to be 45-50%. LVEF has mildly decreased since prior study. Regional wall motion abnormalities cannot be excluded due to limited visualization. The E/A ratio is reversed with an elevated E/E', suggesting impaired early relaxation of the left ventricle with possible increased filling pressures. The right ventricle is not well visualized. The right ventricle grossly appears normal in size with probable normal systolic function. Pulmonary artery pressures cannot be estimated because of the lack of a measurable TR jet velocity. The left atrium is moderately dilated. The right atrium is mildly dilated. There is no gross valvular heart disease. The aortic root is normal size. 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 Hospital Day 4. 1. Positive Blood cultures, present on admission, improving - Patient has cat bite on right forearm, potential for colonization of pasteurella per ID - positive blood culture from specimens taken at admission, positive for gram positive cocci, variable gram negative rods - Discontinue with Cefepime per ID - Discontinue Levaquin - Echocardiogram did not show evidence of valvular heart disease - Plan to discharged on Cipro 500 b.i.d. to complete a 10 day total course of antibiotics. - ID following, we appreciate their help and expertise on this case. 2. Acute Hypoxic Respiratory Failure . Present on admission, improving - due to Acute COPD exacerbation, community acquired pneumonia ruled out. - Continue Prednisone 40 mg PO QD, discontinue tomorrow. - DuoNeb treatments scheduled - continue oxygen supplementation - assess need for home oxygen prior to discharge 3. Acute on chronic COPD exacerbation, present on admission, improving -Continue Prednisone 40 mg PO QD, discontinue tomorrow. - DuoNeb treatments scheduled - continue oxygen supplementation 4. Positve nasal culture for MRSA, present on admission, stable - Patient has history of chronic MRSA colonization - Continue mupirocin to the nares she is receiving for 10 day 5. Nonischemic cardiomyopathy. Chronic. Present on admission, stable - No evidence of fluid overload or decompensation with BNP 612 - last Echo in July 2014 showing ejection fraction of 55% to 60%. - continue with home cardiac and BP medications 6. Severe community acquired pneumonia. Ruled out - During Hospital course, and review of past chest x-rays, pneumonia was ruled out of the the cause of the patient's respiratory failure, - History of MRSA colonization. - Discontinue Levaquin continued - Blood cultures, positive for gram positive cocci, variable gram negative rods - MRSA test, positive - Discontinue Tamiflu - Respiratory Viral PCR, negative 7. Bxa-uhrmkms-wqwbxusno type 2 diabetes. Chronic, Stable - Presumed stable and has not required any diabetic medications in the past - low-dose Lispro Correction algorithm - checking A1c, 5.2 8. Chronic Kidney disease Stage 3 due to Hypertensive Nephrosclerosis, stable - Presumed stable - avoid nephrotoxic insults with medications and contrast - monitor urine output 9. Chronic bilateral LE lymphedema with Morbid Obesity, stable - keep legs elevated and outpatient occupational therapy - Acetaminophen as needed for mild pain/fever/headache - Bowel regimen as needed - Antiemetic as needed Disposition: Likely discharge to home tomorrow morning pending availability of transportation and home health workers to be present. Social work consulted, we appreciate their help with discharge planning. VTE Prophylaxis: Sub-Q Heparin (Unfractionated) VTE Mechanical Devices: Intermittant Pneumatic CD Resuscitation Status: CPR: Attempt Resuscitation Attending Statement The patient was seen and examined together with Resident/House-staff on 04/08/16 and I agree with the history, exam and plan as outlined in the note above. GREGORY MINAYA DO Apr 08, 2016 06:48 Barber Cisse Apr 09, 2016 17:16
[2016-04-08] MEDS: ALPRAZolam 0.5 mg Tablet PO PRN (14:32)
[2016-04-08] MEDS ORDERED: Calcium GLUCO 10% (Gm) 1 Gm/10 mL 50 mL Inj IV ONE (15:20)
[2016-04-08] MEDS ORDERED: Calcium GLUCOnate 10% 1 Gm/50 mL NS IV ONE ×2 (15:40)
[2016-04-09] MEDS: Heparin 5,000 Unit/mL Inj SUBQ SCH ×2 (00:53→08:13)
[2016-04-09] MEDS: MethylprednisoLONE Sodium Succinate 40 mg/mL Inj IVPUSH SCH ×2 (00:53→08:13)
[2016-04-09 01:09] VITALS: BP 129/74; PULSE 61; RESP 18; O2SAT 95
--- NOTE | 2016-04-09 03:02 | NUR ---
Ambulation Pt up in chair at beside, pt able to transfer with tech writer doing SBA. Pt used fww and transferred self to the B[facility]. Pt had several bowel movements and is pleased that with moving about the room she is able to pass stool without medications.
[2016-04-09 04:50] VITALS: BP 143/81; PULSE 69; RESP 20; O2SAT 99
[2016-04-09 05:28] VITALS: PULSE 63
[2016-04-09 05:43] LABS: BASOPHILS % (AUTO) 0 % (0-3); EOSINOPHILS % (AUTO) 0 % (0-5); MONOCYTES % (AUTO) 3.1 % (4-12); Mean Corpuscular Hemoglobin 26.5 pg (27.0-35.0); Mean Corpuscular Volume 86.6 fL (81-100); NEUTROPHILS % (AUTO) 88.1 % (40-74); Platelet Count 123 bil/L (150-400)
[2016-04-09 08:00] VITALS: PULSE 51
[2016-04-09] MEDS: Insulin LISPRO 300 Unit/3 mL Inj SUBQ SCH ×2 (08:02→11:43)
[2016-04-09 08:04] VITALS: BP 132/75; PULSE 71; RESP 20; O2SAT 99
[2016-04-09] MEDS: cefTRIAXone Inj 2,000 MG in Dextrose 5% Minibag Plus 50 ML IV SCH (08:06)
[2016-04-09] MEDS: Fluticasone 0.05% 15 Spray/2 Gm 16 Gm Nasal Spray NASAL SCH (08:08)
[2016-04-09] MEDS: Mupirocin 2% 22 Gm Ointment TOPICAL SCH (08:08)
[2016-04-09] MEDS: Betameth Dip-Clotrimazole 15 Gm Cream TOPICAL SCH (08:08)
[2016-04-09] MEDS: Senna-Docusate 8.6-50 mg Tablet PO SCH (08:13)
[2016-04-09] MEDS ORDERED: Calcium GLUCO 10% (Gm) 1 Gm/10 mL 50 mL Inj IV ONE (08:15)
[2016-04-09] MEDS ORDERED: Calcium GLUCO 10% (Gm) Inj 2 GM in 0.9% Sodium Chloride 50 ML IV ONE (08:25)
[2016-04-09] MEDS ORDERED: CIPR-198 PO (10:18)
--- NOTE | 2016-04-09 10:22 | PCM.DIMED ---
Discharge Instructions Date of Service Apr 09, 2016 Dates of Hospitalization Apr 04, 2016 at 03:24 Discharge Diagnosis Discharge Diagnosis Hypoxic respiratory failure Pasteurella infection from cat bite Cat bite DMII CKD stage 3 CHF COPD Diet Low fat, Low Sodium, Heart Healthy, Diabetic Activity Limited until seen by PCP Call your provider Fever or Chills, Shortness of breath, Bleeding, Chest pain, Vomitting, Excessive diarrhea, Weakness (unilateral), Other Patient Instructions Continue Ciprofloxacin 500 mg twice daily by mouth for 8 days to complete Rx given Continue with mupirocin to the nares she is receiving for 10 days twice daily Rx given Follow up with PCP in once week Resume home medications Follow-up plan as above Follow-up Provider: Bri Ochoa Follow-up with PCP in: 1 week GREGORY MINAYA DO Apr 09, 2016 10:22
[2016-04-09] MEDS ORDERED: MUPI1OIN5 NASAL (10:23)
--- NOTE | 2016-04-09 10:42 | NUR ---
Social Work: Discharge D/A: Pt discussed in morning rounds. Pt is medically stable for discharge home today. GERMAN met with pt at bedside to discussed plan. She states that she has a friend coming to pick her up at 1:30 who will assist her tonight. She has a caregiver through [facility] 5 days a week for several hours a day. She would appreciate if a caregiver could be coordinated for today however also states her friend could assist her until a caregiver could be sent out. Pt has been up to [facility] and feels stable with ambulation for discharge home. She has no concerns at this time and would like Elma KEENE to resume care as well. t/c to [facility] to request caregiver assist pt today. GERMAN spoke with Brenna who will attempt to coordinate a caregiver for the pt tonight. t/c to [facility], to notify that pt is discharging home today. P: Anticipate pt to discharge home today with with private caregivers through [facility] and Resumed GERMAN [place] Addendum: 04/09/16 at 1224 by DARÍO CARMICHAEL SS [employer] HELPER received return phone call from Brenna Vazquez. She will have a caregiver come to the pt's home tonight from 4-8pm. They will resume pt's regular caregiving schedule.
--- NOTE | 2016-04-09 10:59 | PROG NOTE ---
[address] [address] PROGRESS NOTE PATIENT: SHEN KRISHNA I : 1950 MR#: [id number] ADMIT: 04/04/2016 JOB ID: [id number] DATE: 04/09/2016 INFECTIOUS DISEASE FOLLOWUP NOTE: REASON FOR FOLLOWUP: Pasteurella bacteremia. INTERVAL HISTORY: The patient feels reasonably well today. She has no fevers, chills, or sweats. Her Raza catheter was removed and she is voiding without difficulty. No cough, shortness of breath, chest pain, or diarrhea. Her right upper extremity cat bite site is healing nicely and without inflammation or tenderness. She still has some chronic redness around her folds of adiposity on her lower extremities but these are little changed from normal. PHYSICAL EXAMINATION: Reveals a consistently afebrile woman temp 36.4, pulse 71, respiratory rate 20, blood pressure 132/75 saturating well on room air. Examination of the mental status reveals it to be clear. Oral cavity negative. Lungs quite clear posteriorly. Abdomen massively obese, with a large pannus. Lower extremities with chronic erythema around the folds near the ankles as well as underneath the abdominal pannus. The cat bite wound site is basically healed. LABORATORIES: Include white count 4800. Slight left shift, but she has been on some steroids for COPD exacerbation. Creatinine 0.84. Albumin 2.8. Procalcitonin has declined nicely from 6.3 down to 0.6, and that was yesterday's measurement; probably better today if we had checked it. Urine Legionella antigen negative. Recall that she had blood cultures initially which were positive for pasteurella which was sensitive to both quinolones and cephalosporins. Repeat blood cultures had been ordered two days ago but these were never done and I think at this late point in her hospital course we do not need to check them. IMPRESSION: Super morbidly obese woman with underlying chronic obstructive pulmonary disease and with recurrent skin and soft tissue infections who is admitted this time with pasteurella sepsis following a cat bite to her right arm. She has now dramatically improved. RECOMMENDATIONS: 1. The patient will be discharged on oral ciprofloxacin to continue for about one week. 2. Because of her nasal carriage of MRSA, I would complete a course of mupirocin for that. ID will sign off at this time.
[2016-04-09] MEDS: ALPRAZolam 0.5 mg Tablet PO PRN (11:36)
[2016-04-09] MEDS: 0.9% Sodium Chloride 250 ML IV SCH (11:39)
--- NOTE | 2016-04-09 13:32 | NUR ---
Discharge Pt up to chair for meals with 1 PA. SBA with FWW to BSC. Alprazolam 0.5mg PO x1 for reported anxiety, pt states relief. D/C teaching done, pt and family member present, denied questions. Right chest port-a-cath deaccessed by CLINICAL EDITOR. Pt d/c'd to private vehicle with family member, w/c transport by -. All belongings sent with pt at time of d/c.
--- NOTE | 2016-04-10 06:49 | PCM.DC.MED ---
Discharge Summary Date of Service Apr 10, 2016 Dates of Hospitalization Date of Hospital Admission Apr 04, 2016 at 03:24 Date of Discharge: Apr 09, 2016 Providers: Admitting Physician: Angel Cage MD Primary Care Physician: Bri Ochoa Attending Physician: Angel Cage MD Diagnosis at Time of Discharge Diagnosis at Time of Discharge Hypoxic respiratory failure Pasteurella infection from cat bite Cat bite DMII CKD stage 3 CHF COPD Consultations Infectious Disease Procedures XRay, CTs & MRIs X-RAY CHEST ONE VIEW, PORTABLE IMPRESSION: Chronic CHF pattern, with likelihood of acute CHF exacerbation superimposed. Dictated by: Michael Ulloa M.D. on 04/04/2016 at 8:11 Cardiac Echo Impression Echocardiogram Report Interpretation Summary: The left ventricle is borderline dilated. Left ventricular systolic function is mildly reduced. The ejection fraction is estimated to be 45-50%. LVEF has mildly decreased since prior study. Regional wall motion abnormalities cannot be excluded due to limited visualization. The E/A ratio is reversed with an elevated E/E', suggesting impaired early relaxation of the left ventricle with possible increased filling pressures. The right ventricle is not well visualized. The right ventricle grossly appears normal in size with probable normal systolic function. Pulmonary artery pressures cannot be estimated because of the lack of a measurable TR jet velocity. The left atrium is moderately dilated. The right atrium is mildly dilated. There is no gross valvular heart disease. The aortic root is normal size. Reading Physician:PM Brief History Copied from H&P Dr. Cage Sonya Viveros is a 66 year old female with an extensive medical history including diabetes, hypertension, CHF, COPD, asthma, stroke, hyperlipidemia, LBBB, chronic leg edema, and nonischemic cardiomyopathy s/p pacemaker placement presents to the ED via EMS with shortness of breath. Patient reported symptoms onset 2000 this evening. Associated symptoms include nausea, wheezing, and cough with white phlegm. she also felt warm like she had a fever. She denies any sick contacts and has tried to avoid being around anybody sick. shes lives alone with her pets. Denies any mold, new carpet or new pets. She denies any increasing leg edema or Orthopnea. Patient could not get better so she called 911. EMS found he with decreased lung sounds and O2 sats in the 70s on room air. She was placed on DuoNeb en route. The patient was in the ED on 03/24/16 with nausea and discharged, it is unclear if these symptoms were related to her current issue She has COPD, tried taking her inhalers but no improvements. she has chronic lymphedema but much improved with Occupational therapy with leg compressive device she uses at home. 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 1. Positive Blood cultures, present on admission, improving - Patient has cat bite on right forearm, potential for colonization of pasteurella per ID - positive blood culture from specimens taken at admission, positive for gram positive cocci, variable gram negative rods, grew out as pasturella - Discontinue with Cefepime per ID - Discontinue Levaquin - Echocardiogram did not show evidence of valvular heart disease - Plan to discharged on Cipro 500 b.i.d. to complete a 10 day total course of antibiotics. 2. Acute Hypoxic Respiratory Failure . Present on admission, improving - due to Acute COPD exacerbation, community acquired pneumonia ruled out. - Continue Prednisone 40 mg PO QD, discontinue at discharge. 3. Acute on chronic COPD exacerbation, present on admission, improving - Continue Prednisone 40 mg PO QD, at discharge. - Nebulizer treatments completed - Contineu home breathing treatments 4. Positive nasal culture for MRSA, present on admission, stable - Patient has history of chronic MRSA colonization - Continue mupirocin to the nares she is receiving for 10 days total 5. Nonischemic cardiomyopathy. Chronic. Present on admission, stable - No evidence of fluid overload or decompensation with BNP 612 - last Echo in July 2014 showing ejection fraction of 55% to 60%. - continue with home cardiac and BP medications at discharge 6. Severe community acquired pneumonia. Ruled out - During Hospital course, and review of past chest x-rays, pneumonia was ruled out of the the cause of the patient's respiratory failure, - History of MRSA colonization. - Discontinue Levaquin continued - Blood cultures, positive for gram positive cocci, variable gram negative rods - MRSA test, positive - Discontinue Tamiflu - Respiratory Viral PCR, negative 7. Cex-kiotsxj-gnarmxrkv type 2 diabetes. Chronic, Stable - Presumed stable and has not required any diabetic medications in the past - low-dose Lispro Correction algorithm - checked A1c, 5.2 8. Chronic Kidney disease Stage 3 due to Hypertensive Nephrosclerosis, stable - Presumed stable - avoid nephrotoxic insults with medications and contrast - monitor urine output 9. Chronic bilateral LE lymphedema with Morbid Obesity, stable - keep legs elevated and outpatient occupational therapy Exam Vital Signs (Last) Date Time Temp Pulse Resp B/P Pulse Ox O2 Delivery O2 Flow Rate FiO2 04/09/16 08:30 Supplement Oxygen 04/09/16 08:04 36.4 71 20 132/75 99 04/08/16 13:30 2.50 Exam General: Alert, Oriented X3, Cooperative, No acute Distress Eyes: PERRLA, Scleral Anicteric Mouth: Mouth Normal, Mucous Membranes Moist/[place] Neck: Supple, no Thyromegaly, trachea central. Chest & Lungs: Clear to auscultation & percussion, No adventitious breath sounds, no crackles, no wheeze Cardiovascular: Normal S1, Normal S2, No Murmurs/Rubs/Gallops, Regular Rate/ Rhythm, Murmur, Other (No JVD, no peripheral edema) Pulses: Radial (present and equal), Dorsalis Pedi (present and equal) Abdomen: Soft, Non-tender, Non-distended, Normoactive bowel tones. Musculoskeletal: Unremarkable. Normal range of motion, no swollen or erythematous joints Extremities: No edema, no cyanosis, no clubbing. Skin: No rashes. Warm and dry, no erythematous areas Neurological: Grossly neurologically intact, has generalized weakness, Normal Speech, Sensation Intact Lymphatic: Lymph nodes Cervical and Axillary not palpable Test 04/04/16 01:57 04/04/16 04:30 04/04/16 04:36 04/07/16 03:15 Hemoglobin A1c 5.2% (4.8-5.6) Troponin T 0.010ug/L (0.0-0.011) Pro-B-Type Natriuretic Peptide 612pg/mL (0-287) Urine Color Yellow (YELLOW) Urine Appearance Slightly cloudy Urine pH 6.0 (5.0-8.0) Urine Specific [place] 1.025 (1.003-1.035) Urine Protein Negativemg/dL (NEG,TRACE) Urine Glucose (UA) Negativemg/dL (NEGATIVE) Urine Ketones Tracemg/dL (NEGATIVE) Urine Occult Blood Trace (NEGATIVE) Urine Nitrite Positive (NEGATIVE) Urine Bilirubin Negative (NEGATIVE) Urine Urobilinogen Normalmg/dL (NORMAL) Urine Leukocyte Esterase Trace (NEGATIVE) Urine RBC 0-2/hpf (0-2) Urine WBC 11-50/hpf (0-5) Urine Epithelial Cells Many/hpf (NONE-MOD) Urine Crystals None seen (NONE SEEN) Urine Bacteria Many/hpf (NONE-FEW) Urine Hyaline Casts None/lpf (NONE) Urine Granular Casts None seen (NONE SEEN) Urine Waxy Casts None seen (NONE SEEN) Urine Red Blood Cell Casts None seen (NONE SEEN) Urine White Blood Cell Casts None seen (NONE SEEN) Urine Mucus Present (None Seen) Urine Trichomonas None seen (NONE SEEN) Urine Yeast None (NONE SEEN) Urine Culture Reflexed Indicated Urine Legionella pneumophilia Ag Negative (Negative) Lactic Acid Level 1.3mmol/L (0.4-2.0) Test 04/08/16 05:30 04/09/16 05:15 Phosphorus Level 2.8mg/dL (2.5-4.9) Total Bilirubin 0.2mg/dL (0.0-1.2) Aspartate Amino Transf (AST/SGOT) 8U/L (0-50) Alanine Aminotransferase (ALT/SGPT) 11U/L (0-32) Alkaline Phosphatase 42U/L (25-165) Total Protein 5.1g/dL (6.4-8.4) Procalcitonin 0.65ng/mL (See Comment) White Blood Count 4.8th/mm3 (3.8-10.1) Red Blood Count 3.58mil/mm3 (3.90-5.20) Hemoglobin 9.5g/dL (12.0-15.6) Hematocrit 31.0% (35.0-46.0) Mean Corpuscular Volume 86.6fL (81-100) Mean Corpuscular Hemoglobin 26.5pg (27.0-35.0) Mean Corpuscular Hemoglobin Concent 30.6% (32.0-37.0) Red Cell Distribution Width 14.4% (12.3-15.4) Platelet Count 123bil/L (150-400) Neutrophils (%) (Auto) 88.1% (40-74) Lymphocytes (%) (Auto) 6.3% (14-46) Monocytes (%) (Auto) 3.1% (4-12) Eosinophils (%) (Auto) 0% (0-5) Basophils (%) (Auto) 0% (0-3) Sodium Level 146mEq/L (134-144) Potassium Level 3.8mEq/L (3.5-5.2) Chloride Level 111mEq/L (97-108) Carbon Dioxide Level 25mmol/L (18-29) Blood Urea Nitrogen 40mg/dL (8-27) Creatinine 0.84mg/dL (0.57-1.00) Estimat Glomerular Filtration Rate 98mL/min (>59) Glucose Level 136mg/dL (60-99) Calcium Level 6.5mg/dL (8.5-10.1) Albumin 2.8g/dL (3.4-5.0) Discharge Medications Discharge Medications Amitriptyline (Amitriptyline) 75 Mg Tablet 75 MG PO HS (Reported) Beclomethasone Dipropionate (Qvar) 8.7 Gm Aer.w.adap 2 PUFFS INH BID (Reported) Carvedilol (Carvedilol) 25 Mg Tablet 12.5 MG PO BID (Reported) Ciprofloxacin (Ciprofloxacin) 500 Mg Tablet 500 MG PO BID Prescribed by: GREGORY MINAYA DO Citalopram (Citalopram) 20 Mg Tablet 20 MG PO DAILY (Reported) Clotrimazole/Betamethasone Dip (Lotrisone) 15 Gm Cream..g. 15 GM TOPICAL TID APPLY TO RASH OF BOTH LOWER EXTREMETIES. Prescribed by: MARTINA LAWRENCE MD Ferrous Sulfate (Ferrous Sulfate) 325 Mg Tablet 325 MG PO DAILY (Reported) Fluticasone Propionate (Fluticasone Propionate Nasal) 15 Alba/2 Gm Alba 1 SPRAY NASAL BID Prescribed by: MARTINA LAWRENCE MD Lactobac Cmb #3/Fos/Pantethine (Probiotic & Acidophilus Cap) 1 Each Capsule 1 EACH PO DAILY Prescribed by: JOEY ALNOZO MD Lovastatin (Lovastatin) 20 Mg Tablet 20 MG PO DAILY (Reported) Montelukast (Montelukast) 10 Mg Tablet 10 MG PO HS Prescribed by: MARTINA LAWRENCE MD Mupirocin (Mupirocin Ointment) 1 Applic/0.25 Gm Oint 1 APPLIC TOPICAL BID Prescribed by: RODOLFO CARLIN MD Mupirocin Nasal Oint (Bactroban Nasal Oint) 1 Gm Oint...g. 1 APPLIC NASAL BID Prescribed by: GRGEORY MINAYA DO Nystatin (Nystatin) 1 Each Powder.ea. 1 EACH MC BID (Reported) Nystatin (Nystatin) 20 Applic/15 Gm Oint 1 APPLIC EXT BID (Reported) Ondansetron ODT (Ondansetron ODT) 8 Mg Tab.rapdis 8 MG PO TID Prescribed by: MONE HERNANDEZ Ranitidine (Ranitidine) 150 Mg Capsule 150 MG PO BID (Reported) Torsemide (Demadex) 20 Mg Tablet 20 MG PO DAILY Prescribed by: NAKIA ESPAÑA DO As needed Albuterol Neb Soln (Albuterol Neb Soln) 2.5 Mg/3 Ml Vial.neb 2.5 MG INHALATION Q4H PRN PRN For Shortness of Breath Prescribed by: RONNIE MATSON MD Alprazolam (Alprazolam) 0.5 Mg Tablet 0.5 MG PO BID PRN PRN For Anxiety ( Reported) Lorazepam (Lorazepam) 0.5 Mg Tablet 0.5 MG PO BID PRN PRN For Anxiety (Reported ) Nitroglycerin SL (Nitrostat) 0.4 Mg Tab.subl 0.4 MG PO Q5MIN PRN PRN For Chest Pain (Reported) Oxycodone (Roxicodone) 5 Mg Tablet 5 MG PO Q4H PRN PRN For Pain (Reported) Followup Plan Follow-up plan as above Discharge Diet: Low fat, Low Sodium, Heart Healthy, Diabetic Discharge Activity: Limited until seen by PCP Patient Instructions Continue Ciprofloxacin 500 mg twice daily by mouth for 8 days to complete Rx given Continue with mupirocin to the nares she is receiving for 10 days twice daily Rx given Follow up with PCP in once week Resume home medications Follow-up Provider: Bri Ochoa Follow-up with PCP in: 1 week Time spent 35 min Attending Statement The patient was seen and examined together with Resident/House-staff on 04/09/16 and I agree with the history, exam and plan as outlined in the note above. GREGOYR MINAYA DO Apr 10, 2016 06:49 Barber Cisse Apr 10, 2016 17:24
== END 2016-04-09 13:06 | disposition home health service (06) | DRG 189 ==
LOC: SED 01:50 → PCC 03:24 → CCU 03:32 → PCC 10:47
PROVIDERS: ADMIT Hospitalist; ATTEND Hospitalist
DX: J96.01 Acute respiratory failure with hypoxia (principal); J44.1 Chronic obstructive pulmonary disease with (acute) exacerbation; I42.9 Cardiomyopathy, unspecified; L97.909 Non-pressure chronic ulcer of unspecified part of unspecified lower leg with unspecified severity; I50.22 Chronic systolic (congestive) heart failure; Z68.43 Body mass index [BMI] 50.0-59.9, adult; L03.115 Cellulitis of right lower limb; L03.116 Cellulitis of left lower limb; A28.0 Pasteurellosis; E11.9 Type 2 diabetes mellitus without complications; J45.909 Unspecified asthma, uncomplicated; E78.5 Hyperlipidemia, unspecified; Z86.14 Personal history of Methicillin resistant Staphylococcus aureus infection; I12.9 Hypertensive chronic kidney disease with stage 1 through stage 4 chronic kidney disease, or unspecified chronic kidney disease; N18.3 Chronic kidney disease, stage 3 (moderate); E66.01 Morbid (severe) obesity due to excess calories; Z86.73 Personal history of transient ischemic attack (TIA), and cerebral infarction without residual deficits; G43.909 Migraine, unspecified, not intractable, without status migrainosus; F41.8 Other specified anxiety disorders; Z95.810 Presence of automatic (implantable) cardiac defibrillator; B95.62 Methicillin resistant Staphylococcus aureus infection as the cause of diseases classified elsewhere; S59.911A Unspecified injury of right forearm, initial encounter; W55.01XA Bitten by cat, initial encounter; Y92.009 Unspecified place in unspecified non-institutional (private) residence as the place of occurrence of the external cause; Z16.23 Resistance to quinolones and fluoroquinolones

== ENCOUNTER 2016-05-09 13:02 | Emergency (ER) | payer MEDICARE, MEDICAID ==
[~2016-05-09 13:02] MED LIST changes: -CEPH-512 PO; +CIPR-198 PO; +CITA20TA11 PO; -CITA40TA13 PO; +MUPI1OIN5 NASAL
[2016-05-09 13:11] VITALS: BP 143/74; PULSE 89; RESP 20; O2SAT 95
--- NOTE | 2016-05-09 13:41 | ED.REPORT ---
HPI-Abd Pain F 40 and Over Date of Service May 09, 2016 ED Provider: History of Present Illness: 66-year-old female here for constipation. She has not had a bowel movement in 4 days. She takes occasional oxycodone last was 2 days ago. She has some mild abdominal pain. But she is taking food and fluids and has not vomited. She is not nauseous. No history of constipation the past. She has no new meds. She does not think she is passing gas. She was discharged from the hospital on 04/09/2016 or COPD exacerbation and she has been doing well since Nursing Notes Stated Complaint: CONSTIPATION Chief Complaint: Female Abdominal Pain Nursing Notes Reviewed: Yes Allergies: Coded Allergies: Penicillins (Verified Allergy, Intermediate, Hives, 04/04/16) Potassium Clavulanate (Verified Allergy, Intermediate, Hives, 04/04/16) amoxicillin trihydrate (Verified Allergy, Intermediate, Hives, 04/04/16) trimethoprim (Verified Allergy, Intermediate, Diarrhea, 04/04/16) lisinopril (Verified Allergy, Unknown, cough, 04/04/16) sulfamethoxazole (Verified Adverse Reaction, Intermediate, Nausea,Vomiting , 04/04/16) NAUSEA AND VOMITING , DIAARHEA azithromycin (Verified Adverse Reaction, Mild, Diarrhea, 04/04/16) Scheduled Amitriptyline (Amitriptyline) 75 Mg Tablet 75 MG PO HS Beclomethasone Dipropionate (Qvar) 8.7 Gm Aer.w.adap 2 PUFFS INH BID Carvedilol (Carvedilol) 25 Mg Tablet 12.5 MG PO BID Ciprofloxacin (Ciprofloxacin) 500 Mg Tablet 500 MG PO BID Citalopram (Citalopram) 20 Mg Tablet 20 MG PO DAILY Clotrimazole/Betamethasone Dip (Lotrisone) 15 Gm Cream..g. 15 GM TOPICAL TID APPLY TO RASH OF BOTH LOWER EXTREMETIES. Ferrous Sulfate (Ferrous Sulfate) 325 Mg Tablet 325 MG PO DAILY Fluticasone Propionate (Fluticasone Propionate Nasal) 15 [place]/2 Gm [place] 1 SPRAY NASAL BID Lactobac Cmb #3/Fos/Pantethine (Probiotic & Acidophilus Cap) 1 Each Capsule 1 EACH PO DAILY Lovastatin (Lovastatin) 20 Mg Tablet 20 MG PO DAILY Magnesium Citrate (Citrate of Magnesia) 300 Ml Solution 300 ML PO DAILY Montelukast (Montelukast) 10 Mg Tablet 10 MG PO HS Mupirocin (Mupirocin Ointment) 1 Applic/0.25 Gm Oint 1 APPLIC TOPICAL BID Mupirocin Nasal Oint (Bactroban Nasal Oint) 1 Gm Oint...g. 1 APPLIC NASAL BID Nystatin (Nystatin) 1 Each Powder.ea. 1 EACH MC BID Nystatin (Nystatin) 20 Applic/15 Gm Oint 1 APPLIC EXT BID Ondansetron ODT (Ondansetron ODT) 8 Mg Tab.rapdis 8 MG PO TID Ranitidine (Ranitidine) 150 Mg Capsule 150 MG PO BID Torsemide (Demadex) 20 Mg Tablet 20 MG PO DAILY Scheduled PRN Albuterol Neb Soln (Albuterol Neb Soln) 2.5 Mg/3 Ml Vial.neb 2.5 MG INHALATION Q4H PRN PRN For Shortness of Breath Alprazolam (Alprazolam) 0.5 Mg Tablet 0.5 MG PO BID PRN PRN For Anxiety Lorazepam (Lorazepam) 0.5 Mg Tablet 0.5 MG PO BID PRN PRN For Anxiety Nitroglycerin SL (Nitrostat) 0.4 Mg Tab.subl 0.4 MG PO Q5MIN PRN PRN For Chest Pain Oxycodone (Roxicodone) 5 Mg Tablet 5 MG PO Q4H PRN PRN For Pain General Time Seen by MD: 13:24 Chief Complaint Abdominal pain, Constipation Hx Obtained From: Patient Sudden in Onset?: No Onset Occurred: 4 days ago Location: : Diffuse Severity: Current: Mild Severity: Maximum: Mild Associated with: Reports: Constipation Pertinent Negative: Pt denies other symptoms Recent Healthcare: Recent hospitalization Similar Sx Previous: No Risk Factors Risk Notes: obese, limited mobility Past Medical History Past Medical History Notes: Admit 03/2016 copd Admit 02/2015 - Powerport placement Admit 01/2015 - Pneumonia (Final Dx URI) Multiple admits for LE cellulitis - Last admit for this 01/09- Past Medical History Recurrent bilateral lower extremity cellulitis with secondary bacteremia MRSA nasal colonization Chronic anemia Thrombocytopenia Nonischemic cardiomyopathy LBBB (now with AICD) Chronic severe lymphedema Heart murmur Reports: Asthma, COPD, Congestive heart failure, Diabetes mellitus, GERD, Hyperlipidemia, Hypertension, Stroke Reports: Obesity Past Surgical History Powerport placed 03/05/2015 for Access in the setting of reccurrent cellulits Cardiac cath with no occlusive disease May 2012 Reports: Appendectomy, , Cholecystectomy, Hysterectomy Reports: AICD, Pacemaker insertion Family History Noncontributory Smoking History Never Smoker Social History Alcohol Use: Denies alcohol use Drug Use: Denies drug use Other Social History: Local resident Occupation Unemployed Ambulatory Status Independent Review of Systems Basic Review of Systems Eyes: Vision NL ENT: Hearing NL Neurologic: No weakness, No numbness Psychiatric: Normal thought content Constitutional: Denies: Chills, Fatigue, Fever Respiratory: Denies: Dyspnea on exertion, Non-productive cough GI: Reports: Abdominal pain, Constipation, Denies: Nausea, Vomiting Musculoskeletal: Denies: Back pain Complete sys rev & neg: except as marked. Physical Exam Vital Signs Vital Signs (First) Date Time Temp Pulse Resp B/P Pulse Ox O2 Delivery O2 Flow Rate FiO2 05/09/16 13:11 37.4 89 20 143/74 95 Room Air Initial VS: Reviewed Head / Eyes: Atraumatic Skin: Warm, Dry, No cyanosis Neurologic: Alert, Oriented, Nonfocal Psychiatric: Mood/affect normal, Behavior normal, Normal thought content General/Constitutional: Awake, Alert, No acute distress Respiratory / Chest: Atraumatic, Breath sounds NL, Breath sounds = bilat, No respiratory distress, No rales, No rhonchi, No wheezing Cardiovascular: Heart rate NL, Regular rhythm, Heart sounds NL, No gallop, No murmurs, No rubs Abdomen: Atraumatic, Soft, No guarding, No rebound, BS normoactive, No distention generalized mildly tender abd Skin: Atraumatic Rash / Lesion Notes: erythematous rash present in under abd folds, pt has kitchen towels under FUPA. states nystatin on rash. malodorous smell Interpretation & Diagnostics Interpretation & Diagnostics: IMPRESSION: 1. Moderate amount of stool in colon. 2. Mild interstitial prominence and mild coronary suggesting mild CHF. Re-Eval/Medical Decision Med Decision/Clinical Course Discussed there is a moderate amount of stool in her colon. Discussed treatment for constipation. If no bowel movement is obtained in 2 days follow-up with her PCP. Return if vomiting or worsening symptoms. Discussed risks of Constipation with using opiates Counseled Regarding: Diagnosis, Need for follow-up Discharge & Departure Shift Change Sign-Out Imaging Studies: Imaging discussed Primary Impression: Constipation Constipation type: unspecified constipation type Qualified Code: K59.00 - Constipation, unspecified Disposition: Home Discharge Condition All VS Reviewed: Yes Condition: Stable Patient Instructions: Constipation (ED) Additional Instructions: Lots of water, fruits and vegetables. Try to get some exercise to help your bowels move. Use your stool softeners and her prescription medication as prescribed. Follow up with her doctor in 2 days regardless of bowel movement status. Return if worsening pain, fevers. It is normal for the stools softeners to take a few days to work, return to ER if worsening. Use opiates with caution as they lead to constipation. Referrals: Bri Ochoa (PCP) EDSupervising Provider for APC: Capo Duarte MD, Linnea K ARNP May 09, 2016 13:41
--- NOTE | 2016-05-09 15:15 | DRSVH ---
PROCEDURE: X-RAY ACUTE ABDOMINAL SERIES ([id number]) INDICATIONS: constipation TECHNIQUE: One view chest and two views of the abdomen were acquired. COMPARISON: [facility], CR, XR CHEST 1VW (PORTABLE), 03/24/2016, 15:41. [facility], CR, XR CHEST 1VW (PORTABLE), 04/04/2016, 1:51. [facility], CR, XR CHEST 2VW, 11/17, 12:52. [facility], CT, CT ANGIO CHEST PE, 10/21/2014, 18:21. [facility], CR, XR ABD ACUTE SERIES 3VW, 08/26/2015, 6:01. FINDINGS: Surgical changes and devices: There is a cardiac pacemaker/defibrillator with a single lead unchanged in position. There is a right Port-A-Cath with the tip in the area of the SVC Chest: Mild interstitial prominence bilaterally. Lungs are clear. Heart size is at increased. No p leural effusions. No pneumoperitoneum. Abdomen: Bowel gas pattern is normal. Moderate amount of stool in colon. No suspicious calcification s. Visualized solid organ contours appear normal. Bones: No suspicious bony lesions. IMPRESSION: 1. Moderate amount of stool in colon. 2. Mild interstitial prominence and mild coronary suggesting mild CHF. Dictated by: Jose Zimmer M.D. on 05/09/2016 at 14:48 Approved by: Jose Zimmer M.D. on 05/09/2016 at 14:52
[2016-05-09] MEDS ORDERED: MAGN300S PO (15:49)
[2016-05-09 16:30] VITALS: BP 130/82; PULSE 85; RESP 20; O2SAT 96
[2016-05-10] MEDS ORDERED: OXYC5TAB72 PO (18:28)
[2016-05-10] MEDS ORDERED: TORS20TA3 PO (18:28)
[2016-05-10] MEDS ORDERED: CARV12.52 PO (18:28)
[2016-05-10] MEDS ORDERED: KEN25CR EXT (18:28)
[2016-05-10] MEDS ORDERED: ALBU18HF INH (18:28)
[2016-05-10] MEDS ORDERED: CHOL500050 PO (18:28)
[2016-05-10] MEDS ORDERED: HIBICLENS TOP (18:28)
[2016-05-10] MEDS ORDERED: WOOL454C TP (18:28)
[2016-05-10] MEDS ORDERED: ACET-171 PO (18:28)
== END 2016-05-09 16:17 | disposition home or self-care (01) ==
LOC: SED 13:02 → EDUNIT# 13:02 → EDBD 13:02 → SED 16:17
DX: K59.00 Constipation, unspecified (principal); R10.84 Generalized abdominal pain; L53.9 Erythematous condition, unspecified; I11.0 Hypertensive heart disease with heart failure; E11.59 Type 2 diabetes mellitus with other circulatory complications; I50.9 Heart failure, unspecified; I42.8 Other cardiomyopathies; J44.9 Chronic obstructive pulmonary disease, unspecified; K21.9 Gastro-esophageal reflux disease without esophagitis; E78.5 Hyperlipidemia, unspecified; Z86.73 Personal history of transient ischemic attack (TIA), and cerebral infarction without residual deficits; Z95.810 Presence of automatic (implantable) cardiac defibrillator; Z95.5 Presence of coronary angioplasty implant and graft; Z88.0 Allergy status to penicillin; Z88.1 Allergy status to other antibiotic agents; Z88.8 Allergy status to other drugs, medicaments and biological substances

== ENCOUNTER 2016-05-10 09:27 | Inpatient (IN) | payer MEDICARE, MEDICAID ==
[~2016-05-10] VITALS: Ht 157.5 cm; Wt 150.2 kg
[~2016-05-10 09:27] MED LIST changes: +MAGN300S PO
--- NOTE | 2016-05-10 09:32 | ED.REPORT ---
HPI-General Illness Date of Service May 10, 2016 ED Provider: Keyur Landa MD 66 year old female with presents to the ER via EMS accompanied by her caregiver complaining of a day of persistent abdominal pain, intermittent diarrhea and intermittent constipation. She was treated here in the ER yesterday for constipation and sent home with a prescription for magnesium citrate. Symptoms were mildly relieved after having a bowel movement last night. Associated symptom of nausea. Patient denies chest pain and SOB. She is well known to us here in the hospital. Nursing Notes Stated Complaint: WEAK Nursing Notes Reviewed: Yes Allergies: Coded Allergies: Penicillins (Verified Allergy, Intermediate, Hives, 04/04/16) Potassium Clavulanate (Verified Allergy, Intermediate, Hives, 04/04/16) amoxicillin trihydrate (Verified Allergy, Intermediate, Hives, 04/04/16) trimethoprim (Verified Allergy, Intermediate, Diarrhea, 04/04/16) lisinopril (Verified Allergy, Unknown, cough, 04/04/16) sulfamethoxazole (Verified Adverse Reaction, Intermediate, Nausea,Vomiting , 04/04/16) NAUSEA AND VOMITING , DIAARHEA azithromycin (Verified Adverse Reaction, Mild, Diarrhea, 04/04/16) Scheduled Amitriptyline (Amitriptyline) 75 Mg Tablet 75 MG PO HS Beclomethasone Dipropionate (Qvar) 8.7 Gm Aer.w.adap 2 PUFFS INH BID Carvedilol (Carvedilol) 25 Mg Tablet 12.5 MG PO BID Ciprofloxacin (Ciprofloxacin) 500 Mg Tablet 500 MG PO BID Citalopram (Citalopram) 20 Mg Tablet 20 MG PO DAILY Clotrimazole/Betamethasone Dip (Lotrisone) 15 Gm Cream..g. 15 GM TOPICAL TID APPLY TO RASH OF BOTH LOWER EXTREMETIES. Ferrous Sulfate (Ferrous Sulfate) 325 Mg Tablet 325 MG PO DAILY Fluticasone Propionate (Fluticasone Propionate Nasal) 15 [place]/2 Gm [place] 1 SPRAY NASAL BID Lactobac Cmb #3/Fos/Pantethine (Probiotic & Acidophilus Cap) 1 Each Capsule 1 EACH PO DAILY Lovastatin (Lovastatin) 20 Mg Tablet 20 MG PO DAILY Magnesium Citrate (Citrate of Magnesia) 300 Ml Solution 300 ML PO DAILY Montelukast (Montelukast) 10 Mg Tablet 10 MG PO HS Mupirocin (Mupirocin Ointment) 1 Applic/0.25 Gm Oint 1 APPLIC TOPICAL BID Mupirocin Nasal Oint (Bactroban Nasal Oint) 1 Gm Oint...g. 1 APPLIC NASAL BID Nystatin (Nystatin) 1 Each Powder.ea. 1 EACH MC BID Nystatin (Nystatin) 20 Applic/15 Gm Oint 1 APPLIC EXT BID Ondansetron ODT (Ondansetron ODT) 8 Mg Tab.rapdis 8 MG PO TID Ranitidine (Ranitidine) 150 Mg Capsule 150 MG PO BID Torsemide (Demadex) 20 Mg Tablet 20 MG PO DAILY Scheduled PRN Albuterol Neb Soln (Albuterol Neb Soln) 2.5 Mg/3 Ml Vial.neb 2.5 MG INHALATION Q4H PRN PRN For Shortness of Breath Alprazolam (Alprazolam) 0.5 Mg Tablet 0.5 MG PO BID PRN PRN For Anxiety Lorazepam (Lorazepam) 0.5 Mg Tablet 0.5 MG PO BID PRN PRN For Anxiety Nitroglycerin SL (Nitrostat) 0.4 Mg Tab.subl 0.4 MG PO Q5MIN PRN PRN For Chest Pain Oxycodone (Roxicodone) 5 Mg Tablet 5 MG PO Q4H PRN PRN For Pain General Time Seen by MD: 09:32 Chief Complaint Weakness Hx Obtained From: Patient Arrived By: Ambulance Sudden in Onset?: No Onset Occurred: Yesterday Symptom Duration: Since onset Location: : Abdomen Quality: Painful Severity: Current: Moderate Severity: Maximum: Moderate Associated with: Reports: Nausea, Denies: Chest pain, Shortness of breath Context Related History: Reports Diabetes mellitus Similar Sx Previous: Yes Past Medical History Past Medical History Notes: Admit 03/2016 copd Admit 02/2015 - Powerport placement Admit 01/2015 - Pneumonia (Final Dx URI) Multiple admits for LE cellulitis - Last admit for this 01/09- Past Medical History Recurrent bilateral lower extremity cellulitis with secondary bacteremia MRSA nasal colonization Chronic anemia Thrombocytopenia Nonischemic cardiomyopathy LBBB (now with AICD) Chronic severe lymphedema Heart murmur Reports: Asthma, COPD, Congestive heart failure, Diabetes mellitus, GERD, Hyperlipidemia, Hypertension, Stroke Reports: Obesity Past Surgical History Powerport placed 03/05/2015 for Access in the setting of reccurrent cellulits Cardiac cath with no occlusive disease May 2012 Reports: Appendectomy, , Cholecystectomy, Hysterectomy Reports: AICD, Pacemaker insertion Family History Noncontributory Smoking History Never Smoker Social History Alcohol Use: Denies alcohol use Drug Use: Denies drug use Other Social History: Local resident Occupation Unemployed Ambulatory Status Independent Review of Systems Full Review of Systems Constitutional: Denies: Chills, Fever Respiratory: Denies: Non-productive cough, Shortness of breath Cardiovascular: Denies: Chest pain GI: Reports: Abdominal pain, Constipation, Nausea, Denies: Diarrhea, Hematemesis, Hematochezia, Vomiting Complete sys rev & neg: except as marked. Physical Exam Vital Signs Vital Signs Date Time Temp Pulse Resp B/P Pulse Ox O2 Delivery O2 Flow Rate FiO2 05/10/16 13:51 85 17 125/36 96 Room Air 05/10/16 12:44 73 17 118/83 96 Room Air 05/10/16 10:42 36.8 82 13 114/79 98 Room Air Initial VS: Reviewed Head / Eyes: Atraumatic, Normocephalic, PERRL Neck: Supple, Non-tender, Full range of motion Skin: Warm, Dry, No cyanosis Neurologic: Alert, Oriented, Nonfocal General/Constitutional: Awake, Alert, Well developed, Well nourished Appearance / Presentation: Positive: Obese, morbidly Respiratory / Chest: Breath sounds NL, No respiratory distress, No rales, No rhonchi, No wheezing Cardiovascular: Heart rate NL, Regular rhythm, Heart sounds NL, Cap refill not delayed, Peripheral circulation NL Significant lower extremity swelling, non-lateralizing. Abdomen: Soft, Non-tender, No guarding, No rebound, No distention Tolerates firm palpation all 4 quadrants. Interpretation & Diagnostics Lab Results Interpretation Result Diagram: 05/10/16 1150 05/10/16 1150 Test 05/10/16 11:50 05/10/16 14:24 White Blood Count 7.9th/mm3 (3.8-10.1) Red Blood Count 3.96mil/mm3 (3.90-5.20) Hemoglobin 10.3g/dL (12.0-15.6) Hematocrit 33.9% (35.0-46.0) Mean Corpuscular Volume 85.6fL (81-100) Mean Corpuscular Hemoglobin 26.0pg (27.0-35.0) Mean Corpuscular Hemoglobin Concent 30.4% (32.0-37.0) Red Cell Distribution Width 15.6% (12.3-15.4) Platelet Count 173bil/L (150-400) Neutrophils (%) (Auto) 77.7% (40-74) Lymphocytes (%) (Auto) 13.0% (14-46) Monocytes (%) (Auto) 8.2% (4-12) Eosinophils (%) (Auto) 0.1% (0-5) Basophils (%) (Auto) 0.1% (0-3) Sodium Level 141mEq/L (134-144) Potassium Level 3.4mEq/L (3.5-5.2) Chloride Level 99mEq/L (97-108) Carbon Dioxide Level 30mmol/L (18-29) Blood Urea Nitrogen 9mg/dL (8-27) Creatinine 0.77mg/dL (0.57-1.00) Estimat Glomerular Filtration Rate 108mL/min (>59) Glucose Level 96mg/dL (60-99) Calcium Level 7.7mg/dL (8.5-10.1) Total Bilirubin 0.7mg/dL (0.0-1.2) Aspartate Amino Transf (AST/SGOT) 12U/L (0-50) Alanine Aminotransferase (ALT/SGPT) 7U/L (0-32) Alkaline Phosphatase 75U/L (25-165) Total Protein 6.3g/dL (6.4-8.4) Albumin 3.3g/dL (3.4-5.0) Lipase 13U/L (13-60) Urine Color Yellow (YELLOW) Urine Appearance Cloudy (CLEAR,HAZY) Urine pH 8.5 (5.0-8.0) Urine Specific [place] 1.015 (1.003-1.035) Urine Protein Tracemg/dL (NEG,TRACE) Urine Glucose (UA) Negativemg/dL (NEGATIVE) Urine Ketones Tracemg/dL (NEGATIVE) Urine Occult Blood Trace (NEGATIVE) Urine Nitrite Positive (NEGATIVE) Urine Bilirubin Negative (NEGATIVE) Urine Urobilinogen Normalmg/dL (NORMAL) Urine Leukocyte Esterase Negative (NEGATIVE) Urine RBC 0-2/hpf (0-2) Urine WBC 0-5/hpf (0-5) Urine Epithelial Cells Occasional/hpf (NONE-MOD) Urine Crystals None seen (NONE SEEN) Urine Bacteria Many/hpf (NONE-FEW) Urine Hyaline Casts None/lpf (NONE) Urine Granular Casts None seen (NONE SEEN) Urine Waxy Casts None seen (NONE SEEN) Urine Red Blood Cell Casts None seen (NONE SEEN) Urine White Blood Cell Casts None seen (NONE SEEN) Urine Mucus None seen (None Seen) Urine Trichomonas None seen (NONE SEEN) Urine Yeast None (NONE SEEN) Urinalysis Comment None Urine Culture Reflexed Indicated Re-Eval/Medical Decision Med Decision/Clinical Course 66 year old female with presents to the ER via EMS accompanied by her caregiver complaining of a day of persistent abdominal pain, intermittent diarrhea and intermittent constipation. She was treated here in the ER yesterday for constipation and sent home with a prescription for magnesium citrate. Symptoms were mildly relieved after having a bowel movement last night. Associated symptom of nausea. Patient denies chest pain and SOB. She is well known to us here in the hospital. Upon arrival the patient is afebrile with stable vital signs in no apparent distress. Her abdominal examination is relatively benign without any tenderness , guarding, rigidity or rebound. She had several bowel movements here in the emergency department and every time was unable to get out of bed causing her to use soil her clothing and bedding. CBC was obtained and was notable for mild baseline anemia without any leukocytosis. CMP demonstrated mild hypokalemia that was overall quite unremarkable. Urinalysis was consistent with urinary tract infection though was a contaminated specimen. At this time, I see no evidence of acute surgical intra-abdominal process. Given recent treatment with antibiotics and now copious diarrhea I have sent her stool for PCR and time writing this note results are pending. Patient's primary concern is her inability to care for herself. She stooled on her bedding multiple times because she is not able to get out of bed and make it to the restroom. 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 She does not feel comfortable going home. Patient was seen and evaluated by our psychologist social and despite multiple attempts we plan and able to place her in a long-term care facility. For this reason, I discussed the patient with our admitting hospitalist and she was accepted for further management and assessment for placement in a long-term care facility. Source of Hx: Old records Time of Eval: 11:05 Re-Evaluation/Progress Note: Updated patient on the plan of care. Time of Eval: 15:35 Re-Evaluation/Progress Note: Discussed lab and radiology results and need for admission. Patient is amenable to the plan. All other questions addressed. Consultation : Referral / Consult Name: Angel Cage MD Consulted With: Hospitalist Call Returned at: 15:27 Re Examiner: Agrees with eval, Agrees with plan, Accepts admit Counseled Regarding: Diagnosis, Lab results, Need for admission Discharge & Departure Primary Impression: Diarrhea Additional Impressions: Morbid obesity with BMI of 70 and over, adult Abdominal cramping Hypokalemia Failure to thrive syndrome, adult Disposition: ADMITTED TO HOSPITAL Discharge Condition All VS Reviewed: Yes Condition: Stable Referrals: Bri Ochoa (PCP) Min Attestation Portions of this note were transcribed by Braeden Vila. I, Dr. Landa, personally performed the history, physical exam and medical decision-making; I reviewed and confirmed the accuracy of the information in the transcribed note. Signed by: Min Ervin, 05/10/2016 and 15:51 copies to: Bri Ochoa Beck O MD May 10, 2016 09:32 BRAEDEN VILA May 10, 2016 09:56
[2016-05-10 10:42] VITALS: BP 114/79; PULSE 82; RESP 13; O2SAT 98
[2016-05-10 12:00] LABS: BASOPHILS % (AUTO) 0.1 % (0-3); EOSINOPHILS % (AUTO) 0.1 % (0-5); MONOCYTES % (AUTO) 8.2 % (4-12); Mean Corpuscular Volume 85.6 fL (81-100); NEUTROPHILS % (AUTO) 77.7 % (40-74); Platelet Count 173 bil/L (150-400)
[2016-05-10 12:44] VITALS: BP 118/83; PULSE 73; RESP 17; O2SAT 96
[2016-05-10 13:51] VITALS: BP 125/36; PULSE 85; RESP 17; O2SAT 96
[2016-05-10 14:35] LABS: APPEARANCE,URINE CLOUDY (CLEAR,HAZY); COLOR,URINE YELLOW (YELLOW); OCCULT BLOOD,URINE TRACE (NEGATIVE); PH,URINE 8.5 (5.0-8.0); UROBILINOGEN,URINE NORMAL (NORMAL)
[2016-05-10] MEDS ORDERED: Alum-Mag Hydrox-Simeth 30 mL Suspension PO PRN (15:10)
[2016-05-10] MEDS ORDERED: Polyethylene Glycol (PEG) 17 Gm Powder PO PRN (15:10)
[2016-05-10] MEDS ORDERED: Potassium Chloride 20 mEq SR Tablet PO ONE ×2 (15:25→19:00)
[2016-05-10] MEDS ORDERED: HepLOK Flush 100 unit/mL 5 mL Inj IVFLUSH PRN (15:25)
[2016-05-10] MEDS ORDERED: Glucose 40% Oral Gel 15 Gm Tube PO PRN (15:25)
[2016-05-10] MEDS ORDERED: Sodium Chloride LOK Flush 10 mL Syringe IVFLUSH PRN ×2 (15:25)
[2016-05-10] MEDS: 0.9% Sodium Chloride 250 ML IV SCH (15:50)
[2016-05-10] MEDS: Ondansetron 2 mg/mL 2 mL Inj IVPUSH PRN ×2 (15:51→17:48)
[2016-05-10 16:21] VITALS: BP 125/36; PULSE 85; RESP 17; O2SAT 96
[2016-05-10] MEDS: Heparin 5,000 Unit/mL Inj SUBQ SCH (16:30)
--- NOTE | 2016-05-10 16:50 | NUR ---
admit admit from ER 1630. Portacath accessed and TKO NS. Denies CP, SOB or nausea. Pain chronic for pt. Admitted for diarrhea and inability to care for self. Care continues
--- NOTE | 2016-05-10 17:06 | PCM.HPMED ---
Subjective Date of Service May 10, 2016 Primary Provider: Admitting Physician: Primary Care Physician: Bri Ochoa Attending Physician: Admit Status: From the Emergency Department, 23-Hour Observation Chief Complaint: Weakness and abdominal pain History of Present Illness: Sonya Viveros is a 66 year old female with an extensive medical history including diabetes, hypertension, CHF, COPD, asthma, stroke, hyperlipidemia, LBBB, chronic leg edema, and nonischemic cardiomyopathy s/p pacemaker placement presents to the ER via EMS accompanied by her caregiver complaining of a day of persistent abdominal pain. She was treated here in the ER yesterday for constipation and sent home with a prescription for magnesium citrate. Symptoms were mildly relieved after having a large bowel movement last night. Associated symptom of nausea but no vomiting. Patient denies chest pain and SOB. No leg edema or cellulitis This morning patient noted severe weakness and unable to get around like her baseline. She also noted confusion, she did not notice her critical care technician was with her this morning for about 10 minutes. Case director child called 911 During her admission in March, she was diagnosed with Pasturella bacteremia and completed 10 day course of Cipro. Case discussed with Dr Landa, plan to admit due to weakness and patient unable to care for herself at home. Stool studies send and Iv fluids started Review of Systems: Pertinent positives as noted in HPI. All other systems were reviewed and are negative Allergies Coded Allergies: Penicillins (Verified Allergy, Intermediate, Hives, 04/04/16) Potassium Clavulanate (Verified Allergy, Intermediate, Hives, 04/04/16) amoxicillin trihydrate (Verified Allergy, Intermediate, Hives, 04/04/16) trimethoprim (Verified Allergy, Intermediate, Diarrhea, 04/04/16) lisinopril (Verified Allergy, Unknown, cough, 04/04/16) sulfamethoxazole (Verified Adverse Reaction, Intermediate, Nausea,Vomiting , 04/04/16) NAUSEA AND VOMITING , DIAARHEA azithromycin (Verified Adverse Reaction, Mild, Diarrhea, 04/04/16) Home Medications From recent discharge Summary, not yet confirmed Amitriptyline (Amitriptyline) 75 Mg Tablet 75 MG PO HS (Reported) Beclomethasone Dipropionate (Qvar) 8.7 Gm Aer.w.adap 2 PUFFS INH BID (Reported) Carvedilol (Carvedilol) 25 Mg Tablet 12.5 MG PO BID (Reported) Ciprofloxacin (Ciprofloxacin) 500 Mg Tablet 500 MG PO BID Prescribed by: GREGORY MINAYA DO Citalopram (Citalopram) 20 Mg Tablet 20 MG PO DAILY (Reported) Clotrimazole/Betamethasone Dip (Lotrisone) 15 Gm Cream..g. 15 GM TOPICAL TID APPLY TO RASH OF BOTH LOWER EXTREMETIES. Prescribed by: MARTINA LAWRENCE MD Ferrous Sulfate (Ferrous Sulfate) 325 Mg Tablet 325 MG PO DAILY (Reported) Fluticasone Propionate (Fluticasone Propionate Nasal) 15 [place]uit[place]/2 Gm Quitaque 1 SPRAY NASAL BID Prescribed by: MARTINA LAWRENCE MD Lactobac Cmb #3/Fos/Pantethine (Probiotic & Acidophilus Cap) 1 Each Capsule 1 EACH PO DAILY Prescribed by: JOEY ALONZO MD Lovastatin (Lovastatin) 20 Mg Tablet 20 MG PO DAILY (Reported) Montelukast (Montelukast) 10 Mg Tablet 10 MG PO HS Prescribed by: MARTINA LAWRENCE MD Mupirocin (Mupirocin Ointment) 1 Applic/0.25 Gm Oint 1 APPLIC TOPICAL BID Prescribed by: RODOLFO CARLIN MD Mupirocin Nasal Oint (Bactroban Nasal Oint) 1 Gm Oint...g. 1 APPLIC NASAL BID Prescribed by: GREGORY MINAYA DO Nystatin (Nystatin) 1 Each Powder.ea. 1 EACH MC BID (Reported) Nystatin (Nystatin) 20 Applic/15 Gm Oint 1 APPLIC EXT BID (Reported) Ondansetron ODT (Ondansetron ODT) 8 Mg Tab.rapdis 8 MG PO TID Prescribed by: MONE HERNANDEZ Ranitidine (Ranitidine) 150 Mg Capsule 150 MG PO BID (Reported) Torsemide (Demadex) 20 Mg Tablet 20 MG PO DAILY Prescribed by: NAKIA ESPAÑA DO As needed Albuterol Neb Soln (Albuterol Neb Soln) 2.5 Mg/3 Ml Vial.neb 2.5 MG INHALATION Q4H PRN PRN For Shortness of Breath Prescribed by: RONNIE MATSON MD Alprazolam (Alprazolam) 0.5 Mg Tablet 0.5 MG PO BID PRN PRN For Anxiety ( Reported) Lorazepam (Lorazepam) 0.5 Mg Tablet 0.5 MG PO BID PRN PRN For Anxiety (Reported ) Nitroglycerin SL (Nitrostat) 0.4 Mg Tab.subl 0.4 MG PO Q5MIN PRN PRN For Chest Pain (Reported) Oxycodone (Roxicodone) 5 Mg Tablet 5 MG PO Q4H PRN PRN For Pain (Reported) PMH 1. Bilateral lower extremity lymphedema. 2. History of recurrent left lower extremity streptococcal cellulitis with multiple hospitalizations as a result. 3. History of MRSA colonization and infection with MRSA isolated in almost every admission. 4. Morbid obesity. 5. Venous stasis and recurrent lower extremity ulcerations. 6. Chronic anemia and thrombocytopenia of chronic disease (followed by Dr. Bee from hematology). 7. Chronic kidney disease, stage 3, with baseline creatinine typically around 1.6 to 1.7 8. History of congestive heart failure, chronic, systolic dysfunction due to nonischemic cardiomyopathy (followed by Dr. Montgomery). 9. Status post AICD placement in October 2012. 10. History of CVA. 11. Rsg-idrmhnk-tfxnwxrui type 2 diabetes. 12. Hypertension. 13. Morbid obesity (BMI 52.8). 14. Psoriasis. 15. Asthma. 16. Migraine headaches. 17. Depression. 18. Anxiety. . Surgical History PowerPort placed 03/05/2015 for Access in the setting of recurrent cellulitis Cardiac cath with no occlusive disease May 2012 Appendectomy, , Cholecystectomy, Hysterectomy AICD, Pacemaker insertion Family History denies any family history of heart disease. Social History Hx Alcohol Use: No Hx Substance Use: No Hx Tobacco Use: No Smoking Status: Never Smoker Living Arrangement: Alone (with caregivers) Exam Vital Signs Vital Sign - Last Date Time Temp Pulse Resp B/P Pulse Ox O2 Delivery O2 Flow Rate FiO2 05/10/16 13:51 85 17 125/36 96 Room Air 05/10/16 10:42 36.8 Exam General: Alert, Oriented X3, Cooperative, No acute Distress Eyes: PERRLA, Scleral Anicteric Mouth: Mouth Normal, Mucous Membranes Moist/[place] Neck: Supple, no Thyromegaly, trachea central. Chest & Lungs: Clear to auscultation & percussion, No adventitious breath sounds, no crackles, no wheeze Cardiovascular: Normal S1, Normal S2, No Murmurs/Rubs/Gallops, Regular Rate/ Rhythm, (No JVD) Pulses: Radial (present and equal), Dorsalis Pedi (present and equal) Abdomen: Soft, Non-tender, Non-distended, Normoactive bowel tones. Musculoskeletal: Unremarkable. Normal range of motion, no swollen or erythematous joints Extremities: lymphedema, no cyanosis, no clubbing. Skin: No rashes. Warm and dry, no erythematous areas Neurological: Grossly neurologically intact, has generalized weakness, Normal Speech, Sensation Intact Lymphatic: Lymph nodes Cervical and Axillary not palpable. Lab and Diagnostics Labs Laboratory Tests Test 05/10/16 11:50 05/10/16 14:24 White Blood Count 7.9th/mm3 (3.8-10.1) Red Blood Count 3.96mil/mm3 (3.90-5.20) Hemoglobin 10.3g/dL (12.0-15.6) Hematocrit 33.9% (35.0-46.0) Mean Corpuscular Volume 85.6fL (81-100) Mean Corpuscular Hemoglobin 26.0pg (27.0-35.0) Mean Corpuscular Hemoglobin Concent 30.4% (32.0-37.0) Red Cell Distribution Width 15.6% (12.3-15.4) Platelet Count 173bil/L (150-400) Neutrophils (%) (Auto) 77.7% (40-74) Lymphocytes (%) (Auto) 13.0% (14-46) Monocytes (%) (Auto) 8.2% (4-12) Eosinophils (%) (Auto) 0.1% (0-5) Basophils (%) (Auto) 0.1% (0-3) Sodium Level 141mEq/L (134-144) Potassium Level 3.4mEq/L (3.5-5.2) Chloride Level 99mEq/L (97-108) Carbon Dioxide Level 30mmol/L (18-29) Blood Urea Nitrogen 9mg/dL (8-27) Creatinine 0.77mg/dL (0.57-1.00) Estimat Glomerular Filtration Rate 108mL/min (>59) Glucose Level 96mg/dL (60-99) Calcium Level 7.7mg/dL (8.5-10.1) Total Bilirubin 0.7mg/dL (0.0-1.2) Aspartate Amino Transf (AST/SGOT) 12U/L (0-50) Alanine Aminotransferase (ALT/SGPT) 7U/L (0-32) Alkaline Phosphatase 75U/L (25-165) Total Protein 6.3g/dL (6.4-8.4) Albumin 3.3g/dL (3.4-5.0) Lipase 13U/L (13-60) Urine Color Yellow (YELLOW) Urine Appearance Cloudy (CLEAR,HAZY) Urine pH 8.5 (5.0-8.0) Urine Specific [place] 1.015 (1.003-1.035) Urine Protein Tracemg/dL (NEG,TRACE) Urine Glucose (UA) Negativemg/dL (NEGATIVE) Urine Ketones Tracemg/dL (NEGATIVE) Urine Occult Blood Trace (NEGATIVE) Urine Nitrite Positive (NEGATIVE) Urine Bilirubin Negative (NEGATIVE) Urine Urobilinogen Normalmg/dL (NORMAL) Urine Leukocyte Esterase Negative (NEGATIVE) Urine RBC 0-2/hpf (0-2) Urine WBC 0-5/hpf (0-5) Urine Epithelial Cells Occasional/hpf (NONE-MOD) Urine Crystals None seen (NONE SEEN) Urine Bacteria Many/hpf (NONE-FEW) Urine Hyaline Casts None/lpf (NONE) Urine Granular Casts None seen (NONE SEEN) Urine Waxy Casts None seen (NONE SEEN) Urine Red Blood Cell Casts None seen (NONE SEEN) Urine White Blood Cell Casts None seen (NONE SEEN) Urine Mucus None seen (None Seen) Urine Trichomonas None seen (NONE SEEN) Urine Yeast None (NONE SEEN) Urinalysis Comment None Urine Culture Reflexed Indicated Microbiology 05/10/16 Campylobacter (PCR), Received Pending 05/10/16 Clostridium difficile Toxin A&B (M), Received Pending 05/10/16 Plesiomonas shigelloides (PCR), Received Pending 05/10/16 Salmonella (PCR)(RANULFO), Received Pending 05/10/16 Yersinia enterocolitica (PCR), Received Pending 05/10/16 Vibrio Species (PCR), Received Pending 05/10/16 Vibrio Cholerae (PCR), Received Pending 05/10/16 Enteroaggregative E. coli (PCR), Received Pending 05/10/16 Enteropathogenic E. coli (PCR), Received Pending 05/10/16 Enterotoxigenic E. coli (PCR), Received Pending 05/10/16 E. coli Shiga-like Toxin (PCR), Received Pending 05/10/16 Escherichia coli 0157 (PCR), Received Pending 05/10/16 Enteroinvasive E. coli/Shigella PCR, Received Pending 05/10/16 Cryptosporidium (PCR), Received Pending 05/10/16 Cyclospora cayetanensis (PCR), Received Pending 05/10/16 Entamoeba histolytica (PCR), Received Pending 05/10/16 Giardia lamblia (PCR), Received Pending 05/10/16 Adenovirus Type F 40/41 (PCR), Received Pending 05/10/16 Astrovirus (PCR), Received Pending 05/10/16 Norovirus (PCR), Received Pending 05/10/16 Rotavirus A (PCR), Received Pending 05/10/16 Sapovirus I/II/IV/V (PCR), Received Pending 05/10/16 Urine Culture, Received Pending Result Diagram: 05/10/16 1150 05/10/16 1150 Assessment & Plan 64-year-old female with a history of chronic lower extremity lymphedema who presented with generalized weakness and abdominal pain 1. Diarrhea secondary to C difficile colitis. Present on admission Suspect a viral gastroenteritis or C difficile infection (recently treated with Cipro). Liver function testing and Lipase normal. - stool analysis send - IV fluids - holding Torsemide to avoid hypovolemia - Vancomycin PO 125 mg initiated - contact precaution 2. Generalized weakness. Present on admission Etiology likely multifactorial with dehydration and deconditioning on the top of the differential - rice field worker in the ED tried for placement but several facilities denied her. - Physical therapy - Social work consult - may need SNF for some time to recover 3. Chronic Obstructive Pulmonary Disease Patient not on any outpatient oxygen. No signs of acute exacerbation - continue Q Edmar, Fluticasone and Singular 4. Nonischemic cardiomyopathy with Hypertension. Chronic - last Echo in July 2014 showing ejection fraction of 55% to 60%. - continue Carvedilol 12.5 mg bid 5. Svd-chwuagz-cqsibrjzc type 2 diabetes. Presumed stable and has not required any diabetic medications in the past - low-dose Lispro Correction algorithm - checking A1c 6. Chronic Kidney disease Stage 3 due to Hypertensive Nephrosclerosis Presumed stable - avoid nephrotoxic insults with medications and contrast - monitor urine output 7. Chronic bilateral Lower extremity lymphedema with Morbid Obesity - keep legs elevated and outpatient occupational therapy - Acetaminophen as needed for mild pain/fever/headache - Bowel regimen as needed - Antiemetic as needed Patient admitted under inpatient status with expected length of stay > 2 midnights for severity of present symptoms, complexities of treatment plan and risk for adverse event . Resuscitation Status: CPR: Attempt Resuscitation Angel Cage MD May 10, 2016 15:16
[2016-05-10] MEDS: Insulin LISPRO 300 Unit/3 mL Inj SUBQ SCH ×2 (17:24→22:00)
[2016-05-10 17:50] VITALS: BP 123/67; PULSE 65; RESP 19; O2SAT 92
[2016-05-10] MEDS ORDERED: HIBICLENS TOP (18:28)
[2016-05-10] MEDS ORDERED: ACET-171 PO (18:28)
[2016-05-10] MEDS ORDERED: OXYC5TAB72 PO (18:28)
[2016-05-10] MEDS ORDERED: CHOL500050 PO (18:28)
[2016-05-10] MEDS ORDERED: KEN25CR EXT (18:28)
[2016-05-10] MEDS ORDERED: CARV12.52 PO (18:28)
[2016-05-10] MEDS ORDERED: ALBU18HF INH (18:28)
[2016-05-10] MEDS ORDERED: WOOL454C TP (18:28)
[2016-05-10] MEDS ORDERED: TORS20TA3 PO (18:28)
--- NOTE | 2016-05-10 18:52 | NUR ---
Skin / Incontinence Pt has very large swollen arms and legs r/t lymphadenitis. This is her baseline. All folds are moist, reddened, tender and weeping in most areas. Panis, perineum, and vaginal area are the worst; moist reddened swollen, weeping rash in some areas and macerated in areas as well. Vaginal folds very swollen and tender. All folds under arms and legs reddened, moist, and tender. Pt is incontinent at this time of bowel and urine. Pt has had several frequent BMs at this time already, loose. Brief on for protection. Barrier cream and wipes used on skin irritated areas to help. Care continues
[2016-05-10 21:11] VITALS: BP 109/60; PULSE 89; RESP 18; O2SAT 95
[2016-05-10] MEDS: Vancomycin 125 mg Oral Capsule PO SCH (22:10)
[2016-05-10] MEDS ORDERED: Non-Formulary Medication (Nystatin 1 EACH) MC PRN (23:30)
[2016-05-11] MEDS: ALPRAZolam 0.25 mg Tablet PO PRN ×2 (00:15→16:31)
[2016-05-11] MEDS: Heparin 5,000 Unit/mL Inj SUBQ SCH ×3 (00:15→17:02)
[2016-05-11 00:43] VITALS: BP 133/62; PULSE 85; RESP 18; O2SAT 95
[2016-05-11 05:54] VITALS: BP 125/61; PULSE 79; RESP 16; O2SAT 93
[2016-05-11] MEDS: Vancomycin 125 mg Oral Capsule PO SCH ×4 (06:04→21:16)
[2016-05-11] MEDS: Insulin LISPRO 300 Unit/3 mL Inj SUBQ SCH ×4 (08:00→21:11)
[2016-05-11] MEDS: Fluticasone 100 mCg Inhaler INHALATION SCH ×2 (10:31→21:15)
--- NOTE | 2016-05-11 14:37 | NUR ---
Evaluation completed. Please go to "Notes" then click on "Assessments and Notes" (bottom left corner of screen). Then select appropriate discipline tab on top of screen.
--- NOTE | 2016-05-11 15:25 | NUR ---
Social Work- Initial Assessment Data: See Initial Assessment. Pt is a 66 year old female admitted 05/10/16 for an inability to care for self, falls per H&P. Pt's insurance is Medicare with [facility] Supp. PCP is HERBER Jones. EMR reviewed. SW met with pt at bedside to discuss discharge planning, SW role explained. Pt is alert and oriented x3. Pt resides alone in an apartment in [facility]. Caregivers come into her home regularly. Pt's Health Homes Coordinator is STELLA Otero [phone]. Pt is in a wheelchair at baseline, and pt does not drive. Pt has a history of using [facility] and as a patient at [facility]. Pt has no LT insurance or VA benefits. SW discussed DPOA/Advance Directive and encouraged pt to complete form and bring a copy back to the hospital. At this time, PT is recommending SNF vs home with HH. SNF choice list provided. Pt's choice of SNF is [facility]. SW faxed PASRR and facesheet to [facility], gave access. Pt is agreeable to facility but is hopeful to return home with HH. HH Choice list provided. Pt's choice of HH is [facility]. SW provided phone number on whiteboard. SW will continue to follow for discharge needs. Assessment: Pt who [place] base and who would benefit from SNF. Plan: Referral made to [facility]. Paperwork in chart. SW will continue to follow for discharge needs. GERMAN Riley Addendum: 05/11/16 at 1537 by MAYO EDGAR Amended: Links added.
[2016-05-11 15:54] VITALS: BP 99/54; PULSE 65; RESP 18; O2SAT 96
[2016-05-11] MEDS: 0.9% Sodium Chloride 250 ML IV SCH (17:02)
--- NOTE | 2016-05-11 17:10 | NUR ---
Case Management: IMM explained to patient at 1536, all questions answered. Signed original in chart, pt given a copy. Kasandra De La Cruz RN
--- NOTE | 2016-05-11 17:13 | NUR ---
Wound Care Pt seen at bedside,pannus and multiple folds with yeast, currently using nystatin ointment, to this I would add pillow case between folds to help with ventilation of these areas. Abdominal abrasions can be treated with calmoseptine.
--- NOTE | 2016-05-11 17:52 | NUR ---
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 Pt up to bsc having loose stool x4 today. Pt with C Diff +, pt restless needing minor things frequently. patient with bilat knee pain medicated with po pain med and warm blankets to area. Patient with excoriated folds , pannus/breast and groin areas. These areas cleansed and Nystatin and Calmoseptine placed.
--- NOTE | 2016-05-11 19:52 | NUR ---
Chair foot rest P- Pt wants her chair footrest to be up, but it continually drops down. I- placed a trash can and a pillow underneath footrest to prevent drop down. E- Pt is happy and has her feet up.
[2016-05-11 20:56] VITALS: BP 100/62; PULSE 69; RESP 18; O2SAT 92
[2016-05-12] MEDS: Heparin 5,000 Unit/mL Inj SUBQ SCH ×3 (00:32→16:16)
--- NOTE | 2016-05-12 03:24 | NUR ---
Activity/BM Patient up in bedside chair all of shift. Up to BSC with one person assist using FWW. Cant stand for long r/t leg weakness and gets SOB with activity. Continues to have frequent loose BMs. Will continue Q1hour rounding.
[2016-05-12 05:00] VITALS: BP 103/64; PULSE 68; RESP 20; O2SAT 94
[2016-05-12] MEDS: Vancomycin 125 mg Oral Capsule PO SCH ×4 (05:31→21:17)
[2016-05-12 06:03] LABS: BASOPHILS % (AUTO) 0.3 % (0-3); EOSINOPHILS % (AUTO) 1.9 % (0-5); MONOCYTES % (AUTO) 10.2 % (4-12); Mean Corpuscular Hemoglobin 26.1 pg (27.0-35.0); Mean Corpuscular Volume 87.7 fL (81-100); NEUTROPHILS % (AUTO) 67.7 % (40-74); Platelet Count 137 bil/L (150-400)
[2016-05-12] MEDS: Insulin LISPRO 300 Unit/3 mL Inj SUBQ SCH ×4 (07:22→22:00)
[2016-05-12] MEDS: Fluticasone 100 mCg Inhaler INHALATION SCH ×2 (08:30→21:17)
[2016-05-12] MEDS: 0.9% Sodium Chloride 250 ML IV SCH ×2 (08:40→10:26)
[2016-05-12 09:25] VITALS: BP 106/63; PULSE 71; RESP 19; O2SAT 93
[2016-05-12] MEDS: 0.9% Sodium Chloride 1,000 ML IV SCH ×2 (10:46→21:30)
--- NOTE | 2016-05-12 12:41 | PCM.PNMED ---
Subjective Date of Service May 12, 2016 Subjective Patient seen and examined. Patient is still having persistent diarrhea. Patient additionally was seen to have a sudden decrease in renal function. Will repeat bmp in the evening. Exam Vital Signs Vital Sign - Last Date Time Temp Pulse Resp B/P Pulse Ox O2 Delivery O2 Flow Rate FiO2 05/12/16 09:25 37.0 71 19 106/63 93 Room Air Intake and Output 05/11/16 05/11/16 05/12/16 Cumulative From/Thru 15:00 23:00 07:00 05/10/16 10:42 - 05/12/16 06:37 Intake Total 880 ml 694 ml 2042 ml Output Total 400 ml 150 ml 550 ml Balance 480 ml 544 ml 1492 ml Intake Oral 880 ml 1348 ml IV Total 694 ml 694 ml Output Urine Total 150 ml 150 ml Urine/Stool Mix 400 ml 400 ml # Voids 2 4 # Bowel Movements 2 1 6 Exam General: No acute distress, well-developed, well-nourished, appropriately interactive HEENT: Normocephalic, atraumatic. External ears without defect. Pupils equal, round, and reactive to light and accommodation. Moist conjunctivae. Oropharynx with moist mucosa. Neck: Supple with full range of motion.No lymphadenopathy Cardiovascular: Regular rate and rhythm with no murmurs, rubs, or gallops appreciated Pulmonary: Clear to auscultation bilaterally. Good air exchange. Normal respiratory effort with no use of accessory muscles. Abdomen: Bowel tones present. Soft, nontender, nondistended. Ext: No edema or loss of motor/.sensory function Lab and Diagnostics Result Diagram: 05/12/1652905/12/16 0530 Assessment & Plan 64-year-old female with a history of chronic lower extremity lymphedema who presented with generalized weakness and abdominal pain 1. Diarrhea secondary to C difficile colitis. Present on admission Suspect a viral gastroenteritis or C difficile infection (recently treated with Cipro). Liver function testing and Lipase normal. - stool analysis send - IV fluids - holding Torsemide to avoid hypovolemia - Vancomycin PO 125 mg initiated - contact precaution 2. Generalized weakness. Present on admission Etiology likely multifactorial with dehydration and deconditioning on the top of the differential - Pt qualifies for SNF and is amenable to going there 3. Chronic Obstructive Pulmonary Disease Patient not on any outpatient oxygen. No signs of acute exacerbation - continue Q Edmar, Fluticasone and Singular 4. Nonischemic cardiomyopathy with Hypertension. Chronic - last Echo in July 2014 showing ejection fraction of 55% to 60%. - continue Carvedilol 12.5 mg bid 5. Jih-czmajpv-acuwprfzs type 2 diabetes. Presumed stable and has not required any diabetic medications in the past - low-dose Lispro Correction algorithm - checking A1c 6. Chronic Kidney disease Stage 3 due to Hypertensive Nephrosclerosis Presumed stable - Pt has had a sudden decrease in renal function - will give liberal iv fluids and repeat test in the pm 7. Chronic bilateral Lower extremity lymphedema with Morbid Obesity - keep legs elevated and outpatient occupational therapy - Acetaminophen as needed for mild pain/fever/headache - Bowel regimen as needed - Antiemetic as needed Patient admitted under inpatient status with expected length of stay > 2 midnights for severity of present symptoms, complexities of treatment plan and risk for adverse event . Resuscitation Status: CPR: Attempt Resuscitation Ashwin Zamora MD May 12, 2016 12:41
--- NOTE | 2016-05-12 14:19 | NUR ---
GI Denies nausea and abd pain/cramping. 2 small BM's, second was formed and brown. No visible blood or mucous. Oral Vanco admin as ordered.
--- NOTE | 2016-05-12 14:44 | PCM.PNMED ---
Subjective Date of Service May 11, 2016 Subjective Pt seen and examined. Patient has no complaints. Diarrhea has gone down in frequency. Patient is otherwise stable. Exam Vital Signs Vital Sign - Last Date Time Temp Pulse Resp B/P Pulse Ox O2 Delivery O2 Flow Rate FiO2 05/11/16 15:54 36.4 65 18 99/54 96 Room Air Intake and Output 05/10/16 05/10/16 05/11/16 Cumulative From/Thru 15:00 23:00 07:00 05/10/16 10:42 - 05/11/16 06:22 Intake Total 0 ml 468 ml 468 ml Balance 0 ml 468 ml 468 ml Intake Oral 0 ml 468 ml 468 ml # Voids 1 1 2 # Bowel Movements 1 2 3 Lab and Diagnostics Result Diagram: 05/10/16 1150 05/10/16 1150 Assessment & Plan 64-year-old female with a history of chronic lower extremity lymphedema who presented with generalized weakness and abdominal pain 1. Diarrhea secondary to C difficile colitis. Present on admission Suspect a viral gastroenteritis or C difficile infection (recently treated with Cipro). Liver function testing and Lipase normal. - stool analysis send - IV fluids - holding Torsemide to avoid hypovolemia - Vancomycin PO 125 mg initiated - contact precaution 2. Generalized weakness. 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 - Physical therapy - Social work consult - may need SNF for some time to recover 3. Chronic Obstructive Pulmonary Disease Patient not on any outpatient oxygen. No signs of acute exacerbation - continue Q Edmar, Fluticasone and Singular 4. Nonischemic cardiomyopathy with Hypertension. Chronic - last Echo in July 2014 showing ejection fraction of 55% to 60%. - continue Carvedilol 12.5 mg bid 5. Aax-wjmadap-dxiocpemc type 2 diabetes. Presumed stable and has not required any diabetic medications in the past - low-dose Lispro Correction algorithm - checking A1c 6. Chronic Kidney disease Stage 3 due to Hypertensive Nephrosclerosis Presumed stable - avoid nephrotoxic insults with medications and contrast - monitor urine output 7. Chronic bilateral Lower extremity lymphedema with Morbid Obesity - keep legs elevated and outpatient occupational therapy - Acetaminophen as needed for mild pain/fever/headache - Bowel regimen as needed - Antiemetic as needed Patient admitted under inpatient status with expected length of stay > 2 midnights for severity of present symptoms, complexities of treatment plan and risk for adverse event . Resuscitation Status: CPR: Attempt Resuscitation Ashwin Zamora MD May 11, 2016 16:26
--- NOTE | 2016-05-12 15:10 | NUR ---
Social Work- continued discharge planning Data: EMR reviewed. Pt is on day 2 of hospitalization for inability to care for self per H&P. PT continues to recommend SNF. Referral made yesterday to [facility]. SW followed up with [facility] admissions [phone] regarding referral, left message requesting return call. SW continues to follow. Assessment: Pt who would benefit from SNF. Plan: SW followed up with [facility] regarding placement. SW continues to follow. GERMAN Riley
--- NOTE | 2016-05-12 15:26 | NUR ---
[facility] can accept with Dr. Jorge to follow. Angela Chong MSW
[2016-05-12] MEDS: ALPRAZolam 0.25 mg Tablet PO PRN (16:15)
--- NOTE | 2016-05-12 16:45 | NUR ---
Discomfort Pt. reported discomfort in legs bilaterally due to position in chair. A pillow was placed under both legs. Pt. reported relief from discomfort and was sleeping soon after. Pt. is in chair in room with lights on and call light is in reach.
[2016-05-12 17:39] VITALS: BP 119/64; PULSE 71; RESP 16; O2SAT 94
[2016-05-12 19:55] VITALS: BP 117/65; PULSE 78; RESP 18; O2SAT 90
[2016-05-13] MEDS: Heparin 5,000 Unit/mL Inj SUBQ SCH ×3 (01:51→16:59)
[2016-05-13 04:51] VITALS: BP 110/59; PULSE 68; RESP 16; O2SAT 92
[2016-05-13 05:44] LABS: BASOPHILS % (AUTO) 0.1 % (0-3); EOSINOPHILS % (AUTO) 1.8 % (0-5); MONOCYTES % (AUTO) 10.7 % (4-12); Mean Corpuscular Hemoglobin 25.5 pg (27.0-35.0); Mean Corpuscular Volume 87.8 fL (81-100); NEUTROPHILS % (AUTO) 67.8 % (40-74); Platelet Count 142 bil/L (150-400)
[2016-05-13] MEDS: Vancomycin 125 mg Oral Capsule PO SCH ×4 (06:52→22:28)
[2016-05-13] MEDS: Insulin LISPRO 300 Unit/3 mL Inj SUBQ SCH ×4 (08:00→22:00)
[2016-05-13] MEDS: Fluticasone 100 mCg Inhaler INHALATION SCH ×2 (08:30→22:32)
[2016-05-13] MEDS: 0.9% Sodium Chloride 1,000 ML IV SCH ×2 (08:36→17:02)
[2016-05-13 14:19] VITALS: BP 107/66; PULSE 70; RESP 16; O2SAT 92
--- NOTE | 2016-05-13 14:24 | NUR ---
UOP/BM Decreased urine output. MD aware at am bed briefing; no new orders. IVF infusing. No BM so far this shift. Continue to monitor.
[2016-05-13] MEDS: cefTRIAXone Inj 1,000 MG in Dextrose 5% Minibag Plus 50 ML IV SCH (15:35)
--- NOTE | 2016-05-13 19:27 | NUR ---
behavior pt. affect withdrawn. Yesterday pt. was appropriate and eager to participate in care. Today, the pt. was distant and uninterested in care. Pt. complains of fatigue. Pt. reminded to use call light if needed. Continue to monitor behavioral changes pt. is in chair at bedside with call light in reach
[2016-05-13 19:55] VITALS: BP 121/68; PULSE 82; RESP 18; O2SAT 93
[2016-05-13] MEDS: ALPRAZolam 0.25 mg Tablet PO PRN (22:28)
[2016-05-14] MEDS: Heparin 5,000 Unit/mL Inj SUBQ SCH ×3 (00:49→16:53)
[2016-05-14] MEDS: 0.9% Sodium Chloride 1,000 ML IV SCH ×4 (03:15→22:09)
[2016-05-14 05:08] VITALS: BP 99/56; PULSE 66; RESP 16; O2SAT 93
[2016-05-14] MEDS: Vancomycin 125 mg Oral Capsule PO SCH ×4 (07:29→22:08)
--- NOTE | 2016-05-14 07:37 | PCM.PNMED ---
Subjective Date of Service May 13, 2016 Subjective Patient is resting in bed and has no current complaints Exam Vital Signs Vital Sign - Last Date Time Temp Pulse Resp B/P Pulse Ox O2 Delivery O2 Flow Rate FiO2 05/14/16 05:08 36.8 66 16 99/56 93 Room Air Intake and Output 05/13/16 05/13/16 05/14/16 Cumulative From/Thru 15:00 23:00 07:00 05/10/16 10:42 - 05/14/16 05:43 Intake Total 1577 ml 637 ml 7052 ml Output Total 100 ml 200 ml 1550 ml Balance 1477 ml 437 ml 5502 ml Intake Oral 606 ml 637 ml 4378 ml IV Total 971 ml 2674 ml Output Urine Total 100 ml 200 ml 1150 ml Urine/Stool Mix 400 ml # Voids 7 # Bowel Movements 0 0 11 Exam Constitutional: Elderly woman in no acute distress Head: Normocephalic atraumatic Chest: Clear to auscultation Cor: Regular rate and rhythm Abdomen: Soft nontender bowel sounds present Extremities: Bilateral lower extremity lymphedema and morbid obesity Neuro: Alert and oriented 3, motor strength intact bilaterally Lab and Diagnostics Result Diagram: 05/13/1652605/13/16526 Assessment & Plan 64-year-old female with a history of chronic lower extremity lymphedema who presented with generalized weakness and abdominal pain 1. Diarrhea secondary to C difficile colitis. Present on admission Suspect a viral gastroenteritis or C difficile infection (recently treated with Cipro). Liver function testing and Lipase normal. - stool analysis send - IV fluids - holding Torsemide to avoid hypovolemia - Vancomycin PO 125 mg initiated - contact precaution -Stool is now formed 2. Generalized weakness. Present on admission Etiology likely multifactorial with dehydration and deconditioning on the top of the differential - shine worker in the ED tried for placement but several facilities denied her. - Physical therapy - Social work consult - may need SNF for some time to recover -Patient is approved to go to [facility] when discharge is ready 3. Chronic Obstructive Pulmonary Disease Patient not on any outpatient oxygen. No signs of acute exacerbation - continue Q Edmar, Fluticasone and Singular 4. Nonischemic cardiomyopathy with Hypertension. Chronic - last Echo in July 2014 showing ejection fraction of 55% to 60%. - continue Carvedilol 12.5 mg bid 5. Ckz-bjqqmxn-wfckjxxpn type 2 diabetes. Presumed stable and has not required any diabetic medications in the past - low-dose Lispro Correction algorithm - checking A1c 6. Chronic Kidney disease Stage 3 due to Hypertensive Nephrosclerosis Presumed stable - avoid nephrotoxic insults with medications and contrast - monitor urine output 7. Chronic bilateral Lower extremity lymphedema with Morbid Obesity - keep legs elevated and outpatient occupational therapy - Acetaminophen as needed for mild pain/fever/headache - Bowel regimen as needed - Antiemetic as needed Patient admitted under inpatient status with expected length of stay > 2 midnights for severity of present symptoms, complexities of treatment plan and risk for adverse event . Resuscitation Status: CPR: Attempt Resuscitation Time spent 30 minutes Vani Gomes MD May 14, 2016 07:37
--- NOTE | 2016-05-14 07:49 | PCM.PNMED ---
Subjective Date of Service May 14, 2016 Subjective Patient is sitting in chair and has no new complaints. Exam Vital Signs Vital Sign - Last Date Time Temp Pulse Resp B/P Pulse Ox O2 Delivery O2 Flow Rate FiO2 05/14/16 05:08 36.8 66 16 99/56 93 Room Air Intake and Output 05/13/16 05/13/16 05/14/16 Cumulative From/Thru 15:00 23:00 07:00 05/10/16 10:42 - 05/14/16 05:43 Intake Total 1577 ml 637 ml 7052 ml Output Total 100 ml 200 ml 1550 ml Balance 1477 ml 437 ml 5502 ml Intake Oral 606 ml 637 ml 4378 ml IV Total 971 ml 2674 ml Output Urine Total 100 ml 200 ml 1150 ml Urine/Stool Mix 400 ml # Voids 7 # Bowel Movements 0 0 11 Exam Constitutional: No acute distress Head: Normocephalic atraumatic Chest: Clear to auscultation Cor: Regular rate and rhythm S1-S2 Abdomen: Obese no tenderness bowel sounds present Extremities morbidly obese with lymphedema Neuro: Alert and oriented 3, motor strength is intact bilaterally Lab and Diagnostics Laboratory Tests 72 Hours Test 05/12/16 05:30 05/12/16 17:17 05/13/16 05:27 White Blood Count 6.3th/mm3 (3.8-10.1) 6.7th/mm3 (3.8-10.1) Red Blood Count 3.33mil/mm3 (3.90-5.20) 3.37mil/mm3 (3.90-5.20) Hemoglobin 8.7g/dL (12.0-15.6) 8.6g/dL (12.0-15.6) Hematocrit 29.2% (35.0-46.0) 29.6% (35.0-46.0) Mean Corpuscular Volume 87.7fL (81-100) 87.8fL (81-100) Mean Corpuscular Hemoglobin 26.1pg (27.0-35.0) 25.5pg (27.0-35.0) Mean Corpuscular Hemoglobin Concent 29.8% (32.0-37.0) 29.1% (32.0-37.0) Red Cell Distribution Width 16.0% (12.3-15.4) 16.1% (12.3-15.4) Platelet Count 137bil/L (150-400) 142bil/L (150-400) Neutrophils (%) (Auto) 67.7% (40-74) 67.8% (40-74) Lymphocytes (%) (Auto) 18.9% (14-46) 18.0% (14-46) Monocytes (%) (Auto) 10.2% (4-12) 10.7% (4-12) Eosinophils (%) (Auto) 1.9% (0-5) 1.8% (0-5) Basophils (%) (Auto) 0.3% (0-3) 0.1% (0-3) Sodium Level 142mEq/L (134-144) 139mEq/L (134-144) 140mEq/L (134-144) Potassium Level 3.4mEq/L (3.5-5.2) 3.8mEq/L (3.5-5.2) 4.1mEq/L (3.5-5.2) Chloride Level 101mEq/L (97-108) 99mEq/L (97-108) 101mEq/L (97-108) Carbon Dioxide Level 31mmol/L (18-29) 30mmol/L (18-29) 28mmol/L (18-29) Blood Urea Nitrogen 14mg/dL (8-27) 14mg/dL (8-27) 17mg/dL (8-27) Creatinine 1.38mg/dL (0.57-1.00) 1.43mg/dL (0.57-1.00) 1.26mg/dL (0.57-1.00) Estimat Glomerular Filtration Rate 55mL/min (>59) 53mL/min (>59) 61mL/min (>59) Glucose Level 91mg/dL (60-99) 105mg/dL (60-99) 99mg/dL (60-99) Calcium Level 7.3mg/dL (8.5-10.1) 7.2mg/dL (8.5-10.1) 7.1mg/dL (8.5-10.1) Total Bilirubin 0.5mg/dL (0.0-1.2) Aspartate Amino Transf (AST/SGOT) 9U/L (0-50) Alanine Aminotransferase (ALT/SGPT) 6U/L (0-32) Alkaline Phosphatase 64U/L (25-165) Total Protein 5.2g/dL (6.4-8.4) Albumin 3.1g/dL (3.4-5.0) Result Diagram: 05/13/1652605/13/16526 Assessment & Plan 64-year-old female with a history of chronic lower extremity lymphedema who presented with generalized weakness and abdominal pain 1. Diarrhea secondary to C difficile colitis. Present on admission Suspect a viral gastroenteritis or C difficile infection (recently treated with Cipro). Liver function testing and Lipase normal. - stool analysis send - IV fluids - holding Torsemide to avoid hypovolemia - Vancomycin PO 125 mg initiated - contact precaution -Stool is now formed 2. Generalized weakness. Present on admission Etiology likely multifactorial with dehydration and deconditioning on the top of the differential - child and family services worker in the ED tried for placement but several facilities denied her. - Physical therapy - Social work consult - may need SNF for some time to recover -Patient is approved to go to [facility] when discharge is ready 3. Chronic Obstructive Pulmonary Disease Patient not on any outpatient oxygen. No signs of acute exacerbation - continue Q Edmar, Fluticasone and Singular 4. Nonischemic cardiomyopathy with Hypertension. Chronic - last Echo in July 2014 showing ejection fraction of 55% to 60%. - continue Carvedilol 12.5 mg bid 5. [id number] type 2 diabetes. Presumed stable and has not required any diabetic medications in the past - low-dose Lispro Correction algorithm - checking A1c 6. Acute on Chronic Kidney disease Stage 3 due to Hypertensive Nephrosclerosis Presumed stable - avoid nephrotoxic insults with medications and contrast - monitor urine output Her kidney function is not back to what she presented with and presumably secondary to volume depletion -We will go ahead and increase IV fluid hydration -Check renal ultrasound 7. Chronic bilateral Lower extremity lymphedema with Morbid Obesity - keep legs elevated and outpatient occupational therapy - Acetaminophen as needed for mild pain/fever/headache - Bowel regimen as needed - Antiemetic as needed 8. Acute Escherichia coli urinary tract infection, present on admission -Patient was started on IV Rocephin for her UTI yesterday Given some other resistance noted on culture and her allergies will continue with complete course of IV Rocephin Patient admitted under inpatient status with expected length of stay > 2 midnights for severity of present symptoms, complexities of treatment plan and risk for adverse event . Resuscitation Status: CPR: Attempt Resuscitation Time spent 30 minutes Vani Gomes MD May 14, 2016 07:49
[2016-05-14] MEDS: Insulin LISPRO 300 Unit/3 mL Inj SUBQ SCH ×4 (08:00→22:00)
[2016-05-14] MEDS: Fluticasone 100 mCg Inhaler INHALATION SCH ×2 (08:30→22:09)
[2016-05-14 12:28] VITALS: BP 112/62; PULSE 78; RESP 16; O2SAT 92
[2016-05-14] MEDS: cefTRIAXone Inj 1,000 MG in Dextrose 5% Minibag Plus 50 ML IV SCH (15:28)
[2016-05-14 15:32] VITALS: BP 137/69; PULSE 76; RESP 20; O2SAT 97
--- NOTE | 2016-05-14 15:47 | NUR ---
Social Work Continued Discharge Planning: SW conducted discharge planning update. Plan is SNF placement at [facility] with MD Jorge to follow. SW spoke to [facility] rep Weston who states patient accepted and bed to be available over the weekend. SW to follow. PLAN: [facility], bed available over weekend. SW to follow.
--- NOTE | 2016-05-14 17:44 | NUR ---
Somnolence / GI Pt remained sitting up in the reclining chair for the shift. She slept most of the day and repeatedly stated she felt tired. Stated she did not sleep much last night. Pt cooperative with care and uses the call light for assistance moving to and from the bedside commode. Pt had only one loose bowel movement during the shift, but also complained that "she just does not feel well." Care continues.
[2016-05-14 20:28] VITALS: BP 113/65; PULSE 77; RESP 20; O2SAT 92
[2016-05-15] MEDS: Heparin 5,000 Unit/mL Inj SUBQ SCH ×3 (01:14→17:24)
--- NOTE | 2016-05-15 04:16 | NUR ---
activity pt has slept sitting up in bed all night. she has refused all care saying she is "very tired" and just wants to be left to sleep tonight. IV fluids were increased to 150cc/hr per MD order. pt has not voided but she has been sleeping. will attempt to wake pt up to void this AM. care continues. Addendum: 05/15/16 at 0542 by ZAKIA BRIONES RN pt voided 350 cc this Am. no diarrhea this shift
[2016-05-15 04:55] VITALS: BP 138/84; PULSE 66; RESP 20; O2SAT 95
[2016-05-15] MEDS: 0.9% Sodium Chloride 1,000 ML IV SCH ×2 (05:04→10:15)
[2016-05-15] MEDS: Vancomycin 125 mg Oral Capsule PO SCH ×4 (06:23→21:05)
[2016-05-15] MEDS: Insulin LISPRO 300 Unit/3 mL Inj SUBQ SCH ×4 (08:00→21:56)
[2016-05-15] MEDS: Fluticasone 100 mCg Inhaler INHALATION SCH ×2 (08:30→21:04)
--- NOTE | 2016-05-15 10:59 | NUR ---
LAY Signed. Dipika Vazquez [employer]
[2016-05-15] MEDS: cefTRIAXone Inj 1,000 MG in Dextrose 5% Minibag Plus 50 ML IV SCH (15:08)
[2016-05-15] MEDS ORDERED: Furosemide 10 mg/mL 4 mL Inj IVPUSH ONE (15:10)
--- NOTE | 2016-05-15 15:15 | DRSVH ---
PROCEDURE: US RENAL SONOGRAM INDICATIONS: uti,arf TECHNIQUE: Real-time scanning was performed of the kidneys and bladder, with image documentation. COMPARISON: [facility], CR, XR ABD ACUTE SERIES 3VW, 05/09/2016, 13:51. FINDINGS: Kidneys: Kidneys are small in size. Right kidney measures 9.0 cm long; left kidney measures 8.1 cm long. Right renal cortical thickness is 0.9 cm; left renal cortical thickness is 0.8 cm. Renal ariel ical echotexture is normal. No hydronephrosis or nephrolithiasis. No suspicious solid mass lesions. Bladder: Pre-void bladder volume is 249 mL. Post-void residual is not effectively visualized. Pre- void images demonstrate no intraluminal masses or stones. On pre-void images, neither ureteral jets are noted with color Doppler interrogation. (Of note, ureteral jets may not be detectable in up to 2 5% of cases due to insufficient differences in specific gravity between ureteral and bladder urine). Miscellaneous: No free pelvic fluid. IMPRESSION: Large body habitus reduces quality of visualization. Relatively small kidneys bilateral ly, renal cortical atrophy is the likely cause. No definite hydronephrosis or nephrolithiasis found. Prevoid bladder volume is 249 cc. The patient is non-mobile and effective assessment of bladder em ptying could not be performed. Dictated by: Michael Ulloa M.D. on 05/15/2016 at 15:11 Approved by: Michael Ulloa M.D. on 05/15/2016 at 15:13
--- NOTE | 2016-05-15 15:15 | PCM.PNMED ---
Subjective Date of Service May 15, 2016 Subjective Patient now with some wheezing this afternoon. Denies any chest pain. Exam Vital Signs Vital Sign - Last Date Time Temp Pulse Resp B/P Pulse Ox O2 Delivery O2 Flow Rate FiO2 05/15/16 04:55 36.4 66 20 138/84 95 Room Air Intake and Output 05/14/16 05/14/16 05/15/16 Cumulative From/Thru 14:59 22:59 06:59 05/10/16 10:42 - 05/15/16 05:52 Intake Total 1100 ml 2944 ml 2187 ml 30539 ml Output Total 200 ml 350 ml 2100 ml Balance 1100 ml 2744 ml 1837 ml 93709 ml Intake Oral 500 ml 637 ml 5515 ml IV Total 1100 ml 2444 ml 1550 ml 7768 ml Output Urine Total 200 ml 350 ml 1700 ml Urine/Stool Mix 400 ml # Voids 1 8 # Bowel Movements 1 0 12 Exam Constitutional: Elderly woman in mild pain distress Head: Normocephalic atraumatic Chest reveals some scant scattered wheezes posteriorly and anteriorly. Cor: Regular rate and rhythm S1-S2 Abdomen: Soft nontender bowel sounds present Extremities : bilateral lymphedema of lower extremities Neuro: Alert and oriented 3, motor strength is intact bilaterally Lab and Diagnostics Laboratory Tests 72 Hours Test 05/12/16 17:17 05/13/16 05:27 Sodium Level 139mEq/L (134-144) 140mEq/L (134-144) Potassium Level 3.8mEq/L (3.5-5.2) 4.1mEq/L (3.5-5.2) Chloride Level 99mEq/L (97-108) 101mEq/L (97-108) Carbon Dioxide Level 30mmol/L (18-29) 28mmol/L (18-29) Blood Urea Nitrogen 14mg/dL (8-27) 17mg/dL (8-27) Creatinine 1.43mg/dL (0.57-1.00) 1.26mg/dL (0.57-1.00) Estimat Glomerular Filtration Rate 53mL/min (>59) 61mL/min (>59) Glucose Level 105mg/dL (60-99) 99mg/dL (60-99) Calcium Level 7.2mg/dL (8.5-10.1) 7.1mg/dL (8.5-10.1) White Blood Count 6.7th/mm3 (3.8-10.1) Red Blood Count 3.37mil/mm3 (3.90-5.20) Hemoglobin 8.6g/dL (12.0-15.6) Hematocrit 29.6% (35.0-46.0) Mean Corpuscular Volume 87.8fL (81-100) Mean Corpuscular Hemoglobin 25.5pg (27.0-35.0) Mean Corpuscular Hemoglobin Concent 29.1% (32.0-37.0) Red Cell Distribution Width 16.1% (12.3-15.4) Platelet Count 142bil/L (150-400) Neutrophils (%) (Auto) 67.8% (40-74) Lymphocytes (%) (Auto) 18.0% (14-46) Monocytes (%) (Auto) 10.7% (4-12) Eosinophils (%) (Auto) 1.8% (0-5) Basophils (%) (Auto) 0.1% (0-3) Result Diagram: 05/13/1627 05/13/16526 Assessment & Plan 64-year-old female with a history of chronic lower extremity lymphedema who presented with generalized weakness and abdominal pain 1. Diarrhea secondary to C difficile colitis. Present on admission Suspect a viral gastroenteritis or C difficile infection (recently treated with Cipro). Liver function testing and Lipase normal. - stool analysis send - IV fluids - holding Torsemide to avoid hypovolemia - Vancomycin PO 125 mg initiated - contact precaution -Stool is now formed 2. Generalized weakness. Present on admission Etiology likely multifactorial with dehydration and deconditioning on the top of the differential - structural layout worker in the ED tried for placement but several facilities denied her. - Physical therapy - Social work consult - may need SNF for some time to recover -Patient is approved to go to [facility] when discharge is ready 3. Chronic Obstructive Pulmonary Disease Patient not on any outpatient oxygen. No signs of acute exacerbation - continue Q Edmar, Fluticasone and Singular 4. Nonischemic cardiomyopathy with Hypertension. Chronic - last Echo in July 2014 showing ejection fraction of 55% to 60%. - continue Carvedilol 12.5 mg bid 5. Lis-yatrpcq-waoumslcn type 2 diabetes. Presumed stable and has not required any diabetic medications in the past - low-dose Lispro Correction algorithm - checking A1c 6. Acute on Chronic Kidney disease Stage 3 due to Hypertensive Nephrosclerosis Presumed stable - avoid nephrotoxic insults with medications and contrast - monitor urine output Her kidney function is not back to what she presented with and presumably secondary to volume depletion -Patient is having some increased wheezing today we will go ahead and saline lock and give a dose of Lasix 40 mg IV as may have overshot hydration -Check renal ultrasound and results are pending 7. Chronic bilateral Lower extremity lymphedema with Morbid Obesity - keep legs elevated and outpatient occupational therapy - Acetaminophen as needed for mild pain/fever/headache - Bowel regimen as needed - Antiemetic as needed 8. Acute Escherichia coli urinary tract infection, present on admission -Patient was started on IV Rocephin for her UTI yesterday Given some other resistance noted on culture and her allergies will continue with complete course of IV Rocephin 9. Acute wheezing this afternoon We will give nebs as needed and may be somewhat fluid overloaded given aggressive hydration so we will go ahead and give us dose of IV Lasix 40 mg and saline lock IV fluids Patient admitted under inpatient status with expected length of stay > 2 midnights for severity of present symptoms, complexities of treatment plan and risk for adverse event . Resuscitation Status: CPR: Attempt Resuscitation Time spent 30 minutes Vani Gomes MD May 15, 2016 15:15
[2016-05-15] MEDS: Albuterol 2.5 mg/3 mL Inhalation Solution NEB PRN ×2 (15:18→20:22)
[2016-05-15 15:19] VITALS: PULSE 77; RESP 22
--- NOTE | 2016-05-15 15:25 | NUR ---
SOB/Wheezing Pt c/o of dyspnea and requested a breathing treatment. She stated she noticed the wheezing started at 1450 hrs. Called respiratory therapy to request PRN breathing treatment. RT giving treatment now. Hospitalist came in to see pt and she also ordered Lasix. Care continues
[2016-05-15 17:10] VITALS: BP 136/85; PULSE 85; RESP 18; O2SAT 96
[2016-05-15 19:22] VITALS: BP 133/66; PULSE 93; RESP 22; O2SAT 93
[2016-05-15 20:22] VITALS: PULSE 84; RESP 18; O2SAT 91
[2016-05-16] MEDS: Heparin 5,000 Unit/mL Inj SUBQ SCH ×3 (01:15→16:30)
[2016-05-16 04:29] VITALS: BP 115/65; PULSE 77; RESP 20; O2SAT 92
[2016-05-16 05:28] LABS: BASOPHILS % (AUTO) 0.2 % (0-3); EOSINOPHILS % (AUTO) 1.7 % (0-5); MONOCYTES % (AUTO) 9.7 % (4-12); Mean Corpuscular Hemoglobin 26.1 pg (27.0-35.0); Mean Corpuscular Volume 86.8 fL (81-100); NEUTROPHILS % (AUTO) 67.1 % (40-74); Platelet Count 112 bil/L (150-400)
--- NOTE | 2016-05-16 06:21 | NUR ---
Pain/Resp Patient c/o SOB/wheezing at start of shift. PRN neb TX administered by RT, relief reported. Pt c/o 11/28 knee pain. Pt reports minimal relief with PRN oxycodone. Patient seated in chair throughout night for comfort, legs elevated on pillows/foot rest. SpO2 92% RA.
[2016-05-16] MEDS: Vancomycin 125 mg Oral Capsule PO SCH ×4 (07:04→21:53)
--- NOTE | 2016-05-16 07:34 | NUR ---
Critical Calcium Critical Ca 5.6 called by lab at 0630. Night hospitalist paged at 0635, Dr. Gomes notified at 0734. Awaiting new orders.
[2016-05-16] MEDS ORDERED: Potassium Chloride 20 mEq SR Tablet PO ONE (07:45)
[2016-05-16] MEDS ORDERED: Calcium GLUCO 10% (Gm) 1 Gm/10 mL 50 mL Inj IV ONE (07:45)
[2016-05-16] MEDS: Insulin LISPRO 300 Unit/3 mL Inj SUBQ SCH ×4 (07:56→22:00)
[2016-05-16] MEDS ORDERED: Calcium GLUCO 10% (Gm) Inj 2 GM in 0.9% Sodium Chloride 50 ML IV ONE (08:00)
[2016-05-16] MEDS: Fluticasone 100 mCg Inhaler INHALATION SCH ×2 (08:32→21:55)
--- NOTE | 2016-05-16 08:45 | NUR ---
Held Heparin Pt plts 112, held Heparin, notified Dr. Gomes who approved of med being withheld. WCTM pt for increased s/s bleeding and decreasing plt count and adhere to fall precautions.
--- NOTE | 2016-05-16 09:05 | PCM.PNMED ---
Subjective Date of Service May 16, 2016 Subjective Patient feels fatigued today. She had some wheezing yesterday which did respond to a neb and IV Lasix. Exam Vital Signs Vital Sign - Last Date Time Temp Pulse Resp B/P Pulse Ox O2 Delivery O2 Flow Rate FiO2 05/16/16 04:29 36.2 77 20 115/65 92 Room Air Intake and Output 05/15/16 05/15/16 05/16/16 Cumulative From/Thru 14:59 22:59 06:59 05/10/16 10:42 - 05/16/16 06:16 Intake Total 1000 ml 600 ml 28978 ml Output Total 3250 ml 1370 ml 6720 ml Balance -2250 ml -770 ml 8163 ml Intake Oral 1000 ml 600 ml 7115 ml IV Total 7768 ml Output Urine Total 2450 ml 1370 ml 5520 ml Urine/Stool Mix 800 ml 1200 ml # Voids 8 # Bowel Movements 0 12 Exam Constitutional: Elderly woman in mild pain distress Head: Normocephalic atraumatic Chest clear to auscultation. Cor: Regular rate and rhythm S1-S2 Abdomen: Soft nontender bowel sounds present Extremities : bilateral lymphedema of lower extremities Neuro: Alert and oriented 3, motor strength is intact bilaterally Lab and Diagnostics Laboratory Tests 72 Hours Test 05/16/16 05:13 White Blood Count 6.4th/mm3 (3.8-10.1) Red Blood Count 2.95mil/mm3 (3.90-5.20) Hemoglobin 7.7g/dL (12.0-15.6) Hematocrit 25.6% (35.0-46.0) Mean Corpuscular Volume 86.8fL (81-100) Mean Corpuscular Hemoglobin 26.1pg (27.0-35.0) Mean Corpuscular Hemoglobin Concent 30.1% (32.0-37.0) Red Cell Distribution Width 16.2% (12.3-15.4) Platelet Count 112bil/L (150-400) Neutrophils (%) (Auto) 67.1% (40-74) Lymphocytes (%) (Auto) 20.2% (14-46) Monocytes (%) (Auto) 9.7% (4-12) Eosinophils (%) (Auto) 1.7% (0-5) Basophils (%) (Auto) 0.2% (0-3) Sodium Level 144mEq/L (134-144) Potassium Level 3.3mEq/L (3.5-5.2) Chloride Level 112mEq/L (97-108) Carbon Dioxide Level 20mmol/L (18-29) Blood Urea Nitrogen 11mg/dL (8-27) Creatinine 0.88mg/dL (0.57-1.00) Estimat Glomerular Filtration Rate 93mL/min (>59) Glucose Level 66mg/dL (60-99) Calcium Level 5.6mg/dL (8.5-10.1) Total Bilirubin 0.3mg/dL (0.0-1.2) Aspartate Amino Transf (AST/SGOT) 11U/L (0-50) Alanine Aminotransferase (ALT/SGPT) 6U/L (0-32) Alkaline Phosphatase 51U/L (25-165) Total Protein 4.0g/dL (6.4-8.4) Albumin 2.2g/dL (3.4-5.0) Result Diagram: 05/16/1651205/16/16512 X-Rays, CTs and MRIs PROCEDURE: US RENAL SONOGRAM INDICATIONS: uti,arf TECHNIQUE: Real-time scanning was performed of the kidneys and bladder, with image documentation. COMPARISON: [facility], CR, XR ABD ACUTE SERIES 3VW, 05/09/2016, 13: 51. FINDINGS: Kidneys: Kidneys are small in size. Right kidney measures 9.0 cm long; left kidney measures 8.1 cm long. Right renal cortical thickness is 0.9 cm; left renal cortical thickness is 0.8 cm. Renal cortical echotexture is normal. No hydronephrosis or nephrolithiasis. No suspicious solid mass lesions. Bladder: Pre-void bladder volume is 249 mL. Post-void residual is not effectively visualized. Pre-void images demonstrate no intraluminal masses or stones. On pre-void images, neither ureteral jets are noted with color Doppler interrogation. (Of note, ureteral jets may not be detectable in up to 25% of cases due to insufficient differences in specific gravity between ureteral and bladder urine). Miscellaneous: No free pelvic fluid. IMPRESSION: Large body habitus reduces quality of visualization. Relatively small kidneys bilaterally, renal cortical atrophy is the likely cause. No definite hydronephrosis or nephrolithiasis found. Prevoid bladder volume is 249 cc. The patient is non-mobile and effective assessment of bladder emptying could not be performed. Dictated by: Michael Ulloa M.D. on 05/15/2016 at 15:11 Approved by: Michael Ulloa M.D. on 05/15/2016 at 15:13 Assessment & Plan 64-year-old female with a history of chronic lower extremity lymphedema who presented with generalized weakness and abdominal pain 1. Diarrhea secondary to C difficile colitis. Present on admission Suspect a viral gastroenteritis or C difficile infection (recently treated with Cipro). Liver function testing and Lipase normal. - stool analysis send - IV fluids - holding Torsemide to avoid hypovolemia - Vancomycin PO 125 mg initiated and now on Day #7 of therapy - contact precaution -Stool is now formed 2. Generalized weakness. Present on admission Etiology likely multifactorial with dehydration and deconditioning on the top of the differential - house worker general in the ED tried for placement but several facilities denied her. - Physical therapy - Social work consult - may need SNF for some time to recover -Patient is approved to go to [facility] when discharge is ready 3. Chronic Obstructive Pulmonary Disease Patient not on any outpatient oxygen. No signs of acute exacerbation - continue Q Edmar, Fluticasone and Singular 4. Nonischemic cardiomyopathy with Hypertension. Chronic - last Echo in July 2014 showing ejection fraction of 55% to 60%. - continue Carvedilol 12.5 mg bid 5. Biq-dndmpby-lujanlskl type 2 diabetes. Presumed stable and has not required any diabetic medications in the past - low-dose Lispro Correction algorithm - checking A1c 6. Acute on Chronic Kidney disease Stage 3 due to Hypertensive Nephrosclerosis Presumed stable - avoid nephrotoxic insults with medications and contrast - monitor urine output Her kidney function is not back to what she presented with and presumably secondary to volume depletion -Patient is having some increased wheezing today we will go ahead and saline lock and give a dose of Lasix 40 mg IV as may have overshot hydration -Check renal ultrasound and results bilateral renal cortical atrophy but no other abnormalities seen. Study is however limited by patient's body habitus. -With IV fluid hydration patient's BUN and creatinine are now normalized 7. Chronic bilateral Lower extremity lymphedema with Morbid Obesity - keep legs elevated and outpatient occupational therapy - Acetaminophen as needed for mild pain/fever/headache - Bowel regimen as needed - Antiemetic as needed 8. Acute Escherichia coli urinary tract infection, present on admission -Patient was started on IV Rocephin for her UTI and is Day #4 of therapy Given some other resistance noted on culture and her allergies will continue with complete course of IV Rocephin 9. Acute wheezing , acute We will give nebs as needed and may be somewhat fluid overloaded given aggressive hydration so we will go ahead and give us dose of IV Lasix 40 mg and saline lock IV fluids Was treated as noted in line above and currently stable 10. Hypocalcemia and hypokalemia, acute We replete potassium orally. Calcium is significantly low and we will proceed with giving IV calcium gluconate and initiating by mouth calcium citrate. Placed on telemetry Will check vitamin D level, PTH, TSH, phosphorus, magnesium levels Patient admitted under inpatient status with expected length of stay > 2 midnights for severity of present symptoms, complexities of treatment plan and risk for adverse event . Resuscitation Status: CPR: Attempt Resuscitation Time spent 30 minutes Vani Gomes MD May 16, 2016 09:05
[2016-05-16 09:47] LABS: Magnesium 1.5 mg/dL (1.6-2.6); Phosphorus 2.5 mg/dL (2.5-4.9); Unsaturated Iron Binding 131.3 ug/dL
[2016-05-16 09:59] VITALS: PULSE 85
[2016-05-16 12:07] VITALS: BP 102/62; PULSE 79; RESP 16; O2SAT 91
[2016-05-16] MEDS: cefTRIAXone Inj 1,000 MG in Dextrose 5% Minibag Plus 50 ML IV SCH (15:15)
[2016-05-16] MEDS ORDERED: Magnesium Sulf 2 Gm/50mL Water 2 GM in IV Premix 1 EACH IV ONE (15:20)
[2016-05-16] MEDS ORDERED: 0.9% Sodium Chloride 250 ML ONE (15:21)
[2016-05-16 16:37] VITALS: BP 100/75; PULSE 82; RESP 18; O2SAT 92
[2016-05-16 20:00] VITALS: PULSE 83
[2016-05-16 20:46] VITALS: BP 128/66; PULSE 81; RESP 18; O2SAT 91
[2016-05-17] MEDS: Heparin 5,000 Unit/mL Inj SUBQ SCH ×2 (00:31→08:18)
[2016-05-17 00:36] VITALS: BP 129/73; PULSE 84; RESP 18; O2SAT 95
[2016-05-17] MEDS: ALPRAZolam 0.25 mg Tablet PO PRN (01:07)
--- NOTE | 2016-05-17 03:28 | NUR ---
Yeast and Nystatin Refusal Patient has prescribed Nystatin for yeast under pannus area. Patient declined having nystatin applied and stated that she normally uses the nystatin in the AM. While administering Heparin injection the area of the pannus was visible and small pustules (skin intact) were present. There were also small puncture wounds with dried blood crust and bruising in multiple places. Patient stated that these were from subq injection sites.
[2016-05-17 06:23] LABS: BASOPHILS % (AUTO) 0.2 % (0-3); EOSINOPHILS % (AUTO) 1.5 % (0-5); MONOCYTES % (AUTO) 9.8 % (4-12); Mean Corpuscular Hemoglobin 26.2 pg (27.0-35.0); Mean Corpuscular Volume 85.5 fL (81-100); NEUTROPHILS % (AUTO) 66.3 % (40-74); Platelet Count 126 bil/L (150-400)
[2016-05-17 06:28] VITALS: BP 130/63; PULSE 89; RESP 18; O2SAT 92
[2016-05-17 06:29] VITALS: PULSE 89
[2016-05-17] MEDS: Insulin LISPRO 300 Unit/3 mL Inj SUBQ SCH ×2 (07:59→12:00)
[2016-05-17] MEDS: Vancomycin 125 mg Oral Capsule PO SCH ×2 (08:16→12:24)
[2016-05-17] MEDS: Fluticasone 100 mCg Inhaler INHALATION SCH (08:18)
--- NOTE | 2016-05-17 09:07 | PCM.DIMED ---
Discharge Instructions Date of Service May 17, 2016 Dates of Hospitalization May 10, 2016 at 15:14 Discharge Diagnosis Discharge Diagnosis Enterocolitis due to Clostridium difficile, COPD, acute renal failure, urinary tract infection, chronic anemia Diet Heart Healthy Activity Other (progress as tolerated) Call your provider Fever or Chills, Shortness of breath, Bleeding, Chest pain, Vomitting, Excessive diarrhea, Weakness (unilateral) Patient Instructions Patient will be discharged to [facility] halfway facility Vani Gomes MD May 17, 2016 09:07
[2016-05-17] MEDS ORDERED: VANC125C3 PO (09:12)
[2016-05-17] MEDS ORDERED: OXYC5CAP4 PO (09:16)
[2016-05-17] MEDS ORDERED: CEFI400C PO (09:18)
[2016-05-17] MEDS ORDERED: ALPR0.25 PO (09:19)
[2016-05-17] MEDS ORDERED: LACT1CAP13 PO (09:20)
--- NOTE | 2016-05-17 10:13 | PCM.DC.MED ---
Discharge Summary Date of Service May 17, 2016 Dates of Hospitalization Date of Hospital Admission May 10, 2016 at 15:14 Date of Discharge: May 17, 2016 Providers: Admitting Physician: Angel Cage MD Primary Care Physician: Bri Ochoa Attending Physician: Angel Cage MD Diagnosis at Time of Discharge Diagnosis at Time of Discharge Enterocolitis due to Clostridium difficile, COPD, acute renal failure, urinary tract infection, chronic anemia Procedures XRay, CTs & MRIs PROCEDURE: US RENAL SONOGRAM INDICATIONS: uti,arf TECHNIQUE: Real-time scanning was performed of the kidneys and bladder, with image documentation. COMPARISON: [facility], CR, XR ABD ACUTE SERIES 3VW, 05/09/2016, 13: 51. FINDINGS: Kidneys: Kidneys are small in size. Right kidney measures 9.0 cm long; left kidney measures 8.1 cm long. Right renal cortical thickness is 0.9 cm; left renal cortical thickness is 0.8 cm. Renal cortical echotexture is normal. No hydronephrosis or nephrolithiasis. No suspicious solid mass lesions. Bladder: Pre-void bladder volume is 249 mL. Post-void residual is not effectively visualized. Pre-void images demonstrate no intraluminal masses or stones. On pre-void images, neither ureteral jets are noted with color Doppler interrogation. (Of note, ureteral jets may not be detectable in up to 25% of cases due to insufficient differences in specific gravity between ureteral and bladder urine). Miscellaneous: No free pelvic fluid. IMPRESSION: Large body habitus reduces quality of visualization. Relatively small kidneys bilaterally, renal cortical atrophy is the likely cause. No definite hydronephrosis or nephrolithiasis found. Prevoid bladder volume is 249 cc. The patient is non-mobile and effective assessment of bladder emptying could not be performed. Dictated by: Michael Ulloa M.D. on 05/15/2016 at 15:11 Approved by: Michael Ulloa M.D. on 05/15/2016 at 15:13 Brief History Sonya Viveros is a 66 year old female with an extensive medical history including diabetes, hypertension, CHF, COPD, asthma, stroke, hyperlipidemia, LBBB, chronic leg edema, and nonischemic cardiomyopathy s/p pacemaker placement presents to the ER via EMS accompanied by her caregiver complaining of a day of persistent abdominal pain. She was treated here in the ER yesterday for constipation and sent home with a prescription for magnesium citrate. Symptoms were mildly relieved after having a large bowel movement last night. Associated symptom of nausea but no vomiting. Patient denies chest pain and SOB. No leg edema or cellulitis This morning patient noted severe weakness and unable to get around like her baseline. She also noted confusion, she did not notice her animal care service worker was with her this morning for about 10 minutes. Case summer child caregiver called 911 During her admission in March, she was diagnosed with Pasturella bacteremia and completed 10 day course of Cipro. Case discussed with Dr Landa, plan to admit due to weakness and patient unable to care for herself at home. Stool studies send and Iv fluids started Hospital Course 64-year-old female with a history of chronic lower extremity lymphedema who presented with generalized weakness and abdominal pain 1. Diarrhea secondary to C difficile colitis. Present on admission Suspect a viral gastroenteritis or C difficile infection (recently treated with Cipro). Liver function testing and Lipase normal. - stool analysis send - IV fluids - holding Torsemide to avoid hypovolemia - Vancomycin PO 125 mg initiated and now on Day #7 of therapy - contact precaution -Stool is now formed -We will discharge on by mouth vancomycin for 5 more days 2. Generalized weakness. Present on admission Etiology likely multifactorial with dehydration and deconditioning on the top of the differential - photofinishing laboratory worker in the ED tried for placement but several facilities denied her. - Physical therapy - Social work consult - may need SNF for some time to recover -Patient is approved to go to [facility] when discharge is ready 3. Chronic Obstructive Pulmonary Disease Patient not on any outpatient oxygen. No signs of acute exacerbation - continue Q Edmar, Fluticasone and Singular -Currently stable on meds 4. Nonischemic cardiomyopathy with Hypertension. Chronic - last Echo in July 2014 showing ejection fraction of 55% to 60%. - continue Carvedilol 12.5 mg bid 5. Vii-ivhwcaw-atcubrrwv type 2 diabetes. Presumed stable and has not required any diabetic medications in the past - low-dose Lispro Correction algorithm 6. Acute on Chronic Kidney disease Stage 3 due to Hypertensive Nephrosclerosis Presumed stable - avoid nephrotoxic insults with medications and contrast - monitor urine output Her kidney function is not back to what she presented with and presumably secondary to volume depletion -Patient is having some increased wheezing today we will go ahead and saline lock and give a dose of Lasix 40 mg IV as may have overshot hydration -Check renal ultrasound and results bilateral renal cortical atrophy but no other abnormalities seen. Study is however limited by patient's body habitus. -With IV fluid hydration patient's BUN and creatinine are now normalized 7. Chronic bilateral Lower extremity lymphedema with Morbid Obesity - keep legs elevated and outpatient occupational therapy - Acetaminophen as needed for mild pain/fever/headache - Bowel regimen as needed - Antiemetic as needed 8. Acute Escherichia coli urinary tract infection, present on admission -Patient was started on IV Rocephin for her UTI and is Day #4 of therapy Given some other resistance noted on culture and her allergies will continue with complete course of IV Rocephin We will discharge on 5 days of by mouth Suprax to complete course 9. Acute wheezing , acute We will give nebs as needed and may be somewhat fluid overloaded given aggressive hydration so we will go ahead and give us dose of IV Lasix 40 mg and saline lock IV fluids Was treated as noted in line above and currently stable Resolved 10. Hypocalcemia and hypokalemia, acute We replete potassium orally. Calcium is significantly low and we will proceed with giving IV calcium gluconate and initiating by mouth calcium citrate. Placed on telemetry Will check vitamin D level, PTH, thyroid labs and these levels are pending Magnesium level was low was repleted yesterday IV magnesium sulfate 2 g and repeat level today is normal Phosphorus level was normal. Calcium level is currently normal this morning 11. Anemia, chronic, present on admission Currently stable. Iron levels were normal B12 and folate are pending May be result of chronic kidney disease but not at the level of requiring erythropoietin stimulation Patient admitted under inpatient status with expected length of stay > 2 midnights for severity of present symptoms, complexities of treatment plan and risk for adverse event . Exam Vital Signs (Last) Date Time Temp Pulse Resp B/P Pulse Ox O2 Delivery O2 Flow Rate FiO2 05/17/16 06:29 89 05/17/16 06:28 36.7 18 130/63 92 Room Air Exam Constitutional: Middle-aged morbidly obese female in no acute distress Head: Normocephalic atraumatic Mouth: No lesions Neck: No adenopathy Chest: Clear to auscultation Abdomen: Soft nontender bowel sounds present Extremities: Morbidly obese lymphedematous lower extremities without any erythema noted Neuro: Alert and oriented 3, motor strength is intact bilaterally Test 05/10/16 11:50 05/10/16 14:24 05/16/16 05:13 05/16/16 09:18 Lipase 13U/L (13-60) Urine Color Yellow (YELLOW) Urine Appearance Cloudy (CLEAR,HAZY) Urine pH 8.5 (5.0-8.0) Urine Specific Gratis 1.015 (1.003-1.035) Urine Protein Tracemg/dL (NEG,TRACE) Urine Glucose (UA) Negativemg/dL (NEGATIVE) Urine Ketones Tracemg/dL (NEGATIVE) Urine Occult Blood Trace (NEGATIVE) Urine Nitrite Positive (NEGATIVE) Urine Bilirubin Negative (NEGATIVE) Urine Urobilinogen Normalmg/dL (NORMAL) Urine Leukocyte Esterase Negative (NEGATIVE) Urine RBC 0-2/hpf (0-2) Urine WBC 0-5/hpf (0-5) Urine Epithelial Cells Occasional/hpf (NONE-MOD) Urine Crystals None seen (NONE SEEN) Urine Bacteria Many/hpf (NONE-FEW) Urine Hyaline Casts None/lpf (NONE) Urine Granular Casts None seen (NONE SEEN) Urine Waxy Casts None seen (NONE SEEN) Urine Red Blood Cell Casts None seen (NONE SEEN) Urine White Blood Cell Casts None seen (NONE SEEN) Urine Mucus None seen (None Seen) Urine Trichomonas None seen (NONE SEEN) Urine Yeast None (NONE SEEN) Urinalysis Comment None Urine Culture Reflexed Indicated Phosphorus Level 2.5mg/dL (2.5-4.9) Iron Level 26ug/dL (35-150) Total Iron Binding Capacity 157ug/dL (250-450) Percent Iron Saturation 17%sat (15-50) Unsaturated Iron Binding 131.3ug/dL Test 05/17/16 05:35 White Blood Count 6.5th/mm3 (3.8-10.1) Red Blood Count 3.44mil/mm3 (3.90-5.20) Hemoglobin 9.0g/dL (12.0-15.6) Hematocrit 29.4% (35.0-46.0) Mean Corpuscular Volume 85.5fL (81-100) Mean Corpuscular Hemoglobin 26.2pg (27.0-35.0) Mean Corpuscular Hemoglobin Concent 30.6% (32.0-37.0) Red Cell Distribution Width 16.3% (12.3-15.4) Platelet Count 126bil/L (150-400) Neutrophils (%) (Auto) 66.3% (40-74) Lymphocytes (%) (Auto) 21.0% (14-46) Monocytes (%) (Auto) 9.8% (4-12) Eosinophils (%) (Auto) 1.5% (0-5) Basophils (%) (Auto) 0.2% (0-3) Sodium Level 139mEq/L (134-144) Potassium Level 4.5mEq/L (3.5-5.2) Chloride Level 103mEq/L (97-108) Carbon Dioxide Level 27mmol/L (18-29) Blood Urea Nitrogen 15mg/dL (8-27) Creatinine 1.23mg/dL (0.57-1.00) Estimat Glomerular Filtration Rate 63mL/min (>59) Glucose Level 95mg/dL (60-99) Calcium Level 8.2mg/dL (8.5-10.1) Magnesium Level 2.2mg/dL (1.6-2.6) Total Bilirubin 0.3mg/dL (0.0-1.2) Aspartate Amino Transf (AST/SGOT) 11U/L (0-50) Alanine Aminotransferase (ALT/SGPT) 6U/L (0-32) Alkaline Phosphatase 69U/L (25-165) Total Protein 5.5g/dL (6.4-8.4) Albumin 3.1g/dL (3.4-5.0) Discharge Medications Discharge Medications Amitriptyline (Amitriptyline) 75 Mg Tablet 75 MG PO HS (Reported) Beclomethasone Dipropionate (Qvar) 8.7 Gm Aer.w.adap 2 PUFFS INH BID (Reported) Carvedilol (Carvedilol) 12.5 Mg Tablet 12.5 MG PO BID (Reported) Cefixime (Suprax) 400 Mg Capsule 400 MG PO DAILY Prescribed by: VANI GOMES MD Cholecalciferol (Vitamin D3) (Vitamin D) 50,000 Unit Capsule 50,000 UNIT PO WEEKLY (Reported) Citalopram (Citalopram) 20 Mg Tablet 20 MG PO DAILY (Reported) Ferrous Sulfate (Ferrous Sulfate) 325 Mg Tablet 325 MG PO DAILY (Reported) Lactobacillus Acidophilus (Acidophilus) 1 Each Capsule 1 EACH PO ACHS Prescribed by: VANI GOMES MD Lovastatin (Lovastatin) 20 Mg Tablet 20 MG PO DAILY (Reported) Montelukast (Montelukast) 10 Mg Tablet 10 MG PO HS Prescribed by: MARTINA LAWRENCE MD Ranitidine (Ranitidine) 150 Mg Capsule 150 MG PO BID (Reported) Torsemide (Torsemide) 20 Mg Tablet 30 MG PO DAILY (Reported) Vancomycin (Vancomycin) 125 Mg Capsule 125 MG PO QID Prescribed by: VANI GOMES MD As needed Acetaminophen (Acetaminophen) 500 Mg Tablet 500 MG PO Q6H PRN PRN For Pain ( Reported) Albuterol Neb Soln (Albuterol Neb Soln) 2.5 Mg/3 Ml Vial.neb 2.5 MG INHALATION Q4H PRN PRN For Shortness of Breath Prescribed by: RONNIE MATSON MD Albuterol Sulfate (Ventolin HFA Inhaler) 200 Puff/18 Gm Inhaler 2 PUFFS INH q4- 6 hours PRN PRN For Shortness of Breath (Reported) Alprazolam (Alprazolam) 0.5 Mg Tablet 0.25 MG PO DAILY PRN PRN For Anxiety ( Reported) Alprazolam (Xanax) 0.25 Mg Tablet 0.25 MG PO TID PRN PRN For Anxiety Prescribed by: VANI GOMES MD Lanolin Alcohol/Mo/W.pet/Davis (Eucerin Creme) 454 Gm Cream..g. 1 APPLIC TP BID PRN PRN rash (Reported) Nitroglycerin SL (Nitrostat) 0.4 Mg Tab.subl 0.4 MG PO Q5MIN PRN PRN For Chest Pain (Reported) Nystatin (Nystatin) 1 Each Powder.ea. 1 EACH MC BID PRN PRN rash (Reported) Nystatin (Nystatin) 20 Applic/15 Gm Oint 1 APPLIC EXT BID PRN PRN prn (Reported ) Triamcinolone Acet (Triamcinolone Acetonide Cream) 1 Applic/0.25 Gm Cr 1 APPLIC EXT BID PRN PRN rash (Reported) oxyCODONE (oxyCODONE) 5 Mg Tablet 5 MG PO QID PRN PRN For Pain (Reported) oxyCODONE (oxyCODONE) 5 Mg Capsule 5 MG PO Q4H PRN PRN For Pain Prescribed by: VANI GOMES MD Followup Plan Disposition: Discharge to [facility] Discharge Diet: Heart Healthy Discharge Activity: Other (progress as tolerated) Patient Instructions Patient will be discharged to [facility] Time spent 60 minutes Vani Gomes MD May 17, 2016 10:13
[2016-05-17 10:31] VITALS: PULSE 87
--- NOTE | 2016-05-17 10:36 | NUR ---
Faxed orders to [facility], made copy and placed on chart. Called and spoke with Jessica at [facility] and they will transport patient at 1300. Updated [employer] SALESPERSON
--- NOTE | 2016-05-17 10:47 | NUR ---
Social Work- Readiness for Discharge Data: EMR reviewed. Pt is on day 7 of hospitalization for inability to care for self per H&P. Pt is medically stable to discharge today. SW called Jessica, admissions at [facility] [phone], to confirm acceptance and availability of bed today. Jessica states [facility] is ready and available to take pt today. No anticipated discharge needs. SW continue to follow. Assessment: Pt who would benefit from SNF. Plan: Pt to discharge today. [facility] accepting pt with MD Jorge to follow. No anticipated discharge needs. SW continue to follow. Dipika Vazquez MSW
--- NOTE | 2016-05-17 10:50 | NUR ---
Social Work- Discharge Data: EMR reviewed. Pt is on day 7 of hospitalization for inability to care for self per H&P. Pt is medically stable to discharge today. PT continues to recommend SNF placement. UR specialist spoke with Jessicawendi gimenez at [facility], who is agreeable to accepting pt today. Jessica arranged transportation via cabulance 1300. UR Specialist created packet and faxed orders. MALLORY updated pt and bedside and informed Kasandra Chan [phone] of discharge. RN, UC, pt/family and [facility] all updated and agreeable to plan. Assessment: Pt who would benefit from SNF. Plan: Pt to discharge to [facility] today via cabulance at 1300. RN, UC, pt/family and [facility] all updated and agreeable to plan. GERMAN Riley Addendum: 05/17/16 at 1230 by MAYO EDGAR SS MALLORY received call from Connie Eden, [facility] Paster. MALLORY informed Connie of discharge to [facility] at 1 pm. GERMAN Riley
[2016-05-17 12:07] LABS: Vitamin D, 25-Hydroxy 28.5 ng/mL (30.0-100.0)
--- NOTE | 2016-05-17 13:19 | NUR ---
Discharge Pt left via cabulance to [facility] in stable condition with all belongings at 1318, Port de-accessed by IV therapy, Report called over to Arianna WOOTEN. Pt given bed bath prior to discharge, Nystatin Ointment placed in all folds
[2016-05-18 05:09] LABS: Free Thyroxine Index 2.6 (1.2-4.9); T3 Uptake 27 % (24-39); Thyroxine (T4) 9.6 ug/dL (4.5-12.0)
[2016-05-18 07:10] LABS: Vitamin B12 532 pg/mL (211-946)
== END 2016-05-17 13:20 | DRG 372 ==
LOC: SED 09:27 → OBSVTOIN 15:14 → OSC 15:14
PROVIDERS: ADMIT Hospitalist; ATTEND Hospitalist
DX: A04.7 Enterocolitis due to Clostridium difficile (principal); I50.22 Chronic systolic (congestive) heart failure; I13.0 Hypertensive heart and chronic kidney disease with heart failure and stage 1 through stage 4 chronic kidney disease, or unspecified chronic kidney disease; N39.0 Urinary tract infection, site not specified; Z68.44 Body mass index [BMI] 60.0-69.9, adult; I42.8 Other cardiomyopathies; N17.9 Acute kidney failure, unspecified; E66.01 Morbid (severe) obesity due to excess calories; N18.3 Chronic kidney disease, stage 3 (moderate); Z86.14 Personal history of Methicillin resistant Staphylococcus aureus infection; Z95.810 Presence of automatic (implantable) cardiac defibrillator; E86.0 Dehydration; E11.9 Type 2 diabetes mellitus without complications; R53.1 Weakness; I89.0 Lymphedema, not elsewhere classified; J44.9 Chronic obstructive pulmonary disease, unspecified; B96.20 Unspecified Escherichia coli [E. coli] as the cause of diseases classified elsewhere; E87.6 Hypokalemia; E83.51 Hypocalcemia

== ENCOUNTER 2016-07-06 20:08 | Emergency (ER) | payer MEDICARE, MEDICAID ==
[~2016-07-06] VITALS: Ht 157.5 cm; Wt 139.0 kg
[~2016-07-06 20:08] MED LIST changes: +ACET-171 PO; +ALBU18HF INH; +ALPR0.25 PO; +CARV12.52 PO; -CARV25TA2 PO; +CEFI400C PO; +CHOL500050 PO; -CIPR-198 PO; -CLOT15CR5 TOPICAL; -FLUT16SP NASAL; +KEN25CR EXT; +LACT1CAP13 PO; -LACT1CAP60 PO; -LORA0.5T PO; -MAGN300S PO; -MUPI1OIN5 NASAL; -MUPI22OI2 TOPICAL; -ONDA8TAB10 PO; -OXYC-474 PO; +OXYC5CAP4 PO; +OXYC5TAB72 PO; -TORS20TA PO; +TORS20TA3 PO; +VANC125C3 PO; +WOOL454C TP
[2016-07-06 20:16] VITALS: BP 127/82; PULSE 107; RESP 14; O2SAT 97
[2016-07-06 21:00] LABS: BASOPHILS % (AUTO) 0.3 % (0-3); EOSINOPHILS % (AUTO) 4.9 % (0-5); MONOCYTES % (AUTO) 8.4 % (4-12); Mean Corpuscular Hemoglobin 25.8 pg (27.0-35.0); Mean Corpuscular Volume 86.8 fL (81-100); NEUTROPHILS % (AUTO) 63.2 % (40-74); Platelet Count 137 bil/L (150-400)
--- NOTE | 2016-07-06 21:16 | DRSVH ---
PROCEDURE: X-RAY CHEST ONE VIEW, PORTABLE ([id number]) INDICATIONS: AFIB, chest pain TECHNIQUE: One view of the chest was acquired. COMPARISON: None. FINDINGS: Surgical changes and devices: Pacemaking device and single lead extends as was previously the case. Port-A-Cath from right sided approach extends in the expected position of the distal SVC. Lungs and pleura: No pleural effusions or pneumothorax. Lungs are abnormal with a chronic CHF patte rn, but no definite acute CHF.. Mediastinum: Mediastinal contours appear normal. Heart size is globally enlarged, without evidence of acute exacerbation of chronic CHF. Bones and chest wall: No suspicious bony lesions. Overlying soft tissues appear unremarkable. IMPRESSION: Chronic CHF pattern, global cardiomegaly, chronic mild interstitial prominence. Central line and pacemaking device/lead in normal position. Dictated by: Michael Ulloa M.D. on 07/06/2016 at 21:14 Approved by: Michael Ulloa M.D. on 07/06/2016 at 21:15
--- NOTE | 2016-07-06 21:18 | ED.REPORT ---
HPI-General Illness Date of Service Jul 06, 2016 ED Provider: Keyur Landa MD The patient is a 66 year old female with history of hypertension, congestive heart failure, COPD, asthma, prior stroke, hyperlipidemia, hypertension, non ischemic cardiomyopathy with a pacemaker, chronic kidney disease, chronic lower extremity edema, and chronic anemia, who presents to the emergency department by EMS for chest pain that began a few hours ago. The patient had at home physical therapy today and noticed the pain as she was doing exercises that required her to ABduct her left arm with a resistance band. She initially noticed pain in her left shoulder and then later developed left-sided chest pain. She is unsure if her pain is cardiac or musculoskeletal but she notices that the pain is worse with movement, twisting and bending. She has been taking all of her medication as prescribed. She denies numbness, weakness, fever, chills, cough, abdominal pain, nausea, vomiting or diarrhea. Her most recent admission was related to diarrheal illness and generalized weakness. She had an echo in 07/2014 that showed an ejection fraction of 55-60 %. He has had no chest pain with exertion or walking upstairs. She has had no weight gain recently. Nursing Notes Stated Complaint: CHEST PAIN Chief Complaint: Chest Pain Nursing Notes Reviewed: Yes Allergies: Coded Allergies: Penicillins (Verified Allergy, Intermediate, Hives, 04/04/16) Potassium Clavulanate (Verified Allergy, Intermediate, Hives, 04/04/16) amoxicillin trihydrate (Verified Allergy, Intermediate, Hives, 04/04/16) trimethoprim (Verified Allergy, Intermediate, Diarrhea, 04/04/16) lisinopril (Verified Allergy, Unknown, cough, 04/04/16) sulfamethoxazole (Verified Adverse Reaction, Intermediate, Nausea,Vomiting , 04/04/16) NAUSEA AND VOMITING , DIAARHEA azithromycin (Verified Adverse Reaction, Mild, Diarrhea, 04/04/16) Scheduled Amitriptyline (Amitriptyline) 75 Mg Tablet 75 MG PO HS Beclomethasone Dipropionate (Qvar) 8.7 Gm Aer.w.adap 2 PUFFS INH BID Carvedilol (Carvedilol) 12.5 Mg Tablet 12.5 MG PO BID Cefixime (Suprax) 400 Mg Capsule 400 MG PO DAILY Cholecalciferol (Vitamin D3) (Vitamin D) 50,000 Unit Capsule 50,000 UNIT PO WEEKLY Citalopram (Citalopram) 20 Mg Tablet 20 MG PO DAILY Doxycycline Monohyd (Doxycycline Monohyd) 100 Mg Capsule 100 MG PO BID Ferrous Sulfate (Ferrous Sulfate) 325 Mg Tablet 325 MG PO DAILY Lactobacillus Acidophilus (Acidophilus) 1 Each Capsule 1 EACH PO ACHS Lovastatin (Lovastatin) 20 Mg Tablet 20 MG PO DAILY Montelukast (Montelukast) 10 Mg Tablet 10 MG PO HS Ranitidine (Ranitidine) 150 Mg Capsule 150 MG PO BID Torsemide (Torsemide) 20 Mg Tablet 30 MG PO DAILY Vancomycin (Vancomycin) 125 Mg Capsule 125 MG PO QID Scheduled PRN Acetaminophen (Acetaminophen) 500 Mg Tablet 500 MG PO Q6H PRN PRN For Pain Albuterol Neb Soln (Albuterol Neb Soln) 2.5 Mg/3 Ml Vial.neb 2.5 MG INHALATION Q4H PRN PRN For Shortness of Breath Albuterol Sulfate (Ventolin HFA Inhaler) 200 Puff/18 Gm Inhaler 2 PUFFS INH q4- 6 hours PRN PRN For Shortness of Breath Alprazolam (Alprazolam) 0.5 Mg Tablet 0.25 MG PO DAILY PRN PRN For Anxiety Alprazolam (Xanax) 0.25 Mg Tablet 0.25 MG PO TID PRN PRN For Anxiety Lanolin Alcohol/Mo/W.pet/[place] (Eucerin Creme) 454 Gm Cream..g. 1 APPLIC TP BID PRN PRN rash Nitroglycerin SL (Nitrostat) 0.4 Mg Tab.subl 0.4 MG PO Q5MIN PRN PRN For Chest Pain Nystatin (Nystatin) 1 Each Powder.ea. 1 EACH MC BID PRN PRN rash Nystatin (Nystatin) 20 Applic/15 Gm Oint 1 APPLIC EXT BID PRN PRN prn Triamcinolone Acet (Triamcinolone Acetonide Cream) 1 Applic/0.25 Gm Cr 1 APPLIC EXT BID PRN PRN rash oxyCODONE (oxyCODONE) 5 Mg Tablet 5 MG PO QID PRN PRN For Pain oxyCODONE (oxyCODONE) 5 Mg Capsule 5 MG PO Q4H PRN PRN For Pain General Time Seen by MD: 20:43 Chief Complaint Chest pain Hx Obtained From: Patient, EMS Arrived By: Ambulance Sudden in Onset?: Yes Onset Occurred: 5 - 8 hours ago Symptom Duration: Since onset Location: : Chest: Shoulder left Quality: Painful Severity: Current: Mild Severity: Maximum: Moderate Recent Healthcare: No recent doctor visit, No recent hospitalization Similar Sx Previous: No Past Medical History Past Medical History Notes: Admit 03/2016 copd Admit 02/2015 - Powerport placement Admit 01/2015 - Pneumonia (Final Dx URI) Multiple admits for LE cellulitis - Last admit for this 01/09- Past Medical History Recurrent bilateral lower extremity cellulitis with secondary bacteremia MRSA nasal colonization Chronic anemia Thrombocytopenia Nonischemic cardiomyopathy LBBB (now with AICD) Chronic severe lymphedema Heart murmur Reports: Asthma, COPD, Congestive heart failure, Diabetes mellitus, GERD, Hyperlipidemia, Hypertension, Stroke Reports: Obesity Past Surgical History Powerport placed 03/05/2015 for Access in the setting of reccurrent cellulits Cardiac cath with no occlusive disease May 2012 Reports: Appendectomy, , Cholecystectomy, Hysterectomy Reports: AICD, Pacemaker insertion Family History Noncontributory Smoking History Never Smoker Social History Alcohol Use: Denies alcohol use Drug Use: Denies drug use Other Social History: Good social support, Local resident Occupation Unemployed Ambulatory Status Independent Review of Systems Full Review of Systems Constitutional: Denies: Chills, Fever Respiratory: Reports: Shortness of breath, Denies: Non-productive cough Cardiovascular: Reports: Chest pain GI: Denies: Abdominal pain, Diarrhea, Nausea, Vomiting Musculoskeletal: Reports: Joint pain Neurologic: Denies: Focal weakness, Numbness Complete sys rev & neg: except as marked. Physical Exam Vital Signs Vital Signs Date Time Temp Pulse Resp B/P Pulse Ox O2 Delivery O2 Flow Rate FiO2 07/07/16 00:15 36.7 84 16 142/72 Room Air 07/06/16 20:16 107 14 127/82 97 Room Air Initial VS: Reviewed Head / Eyes: Atraumatic, Normocephalic, PERRL ENT: Mucous membranes moist, Conjunctiva normal, No scleral icterus Neck: Supple, Non-tender, Full range of motion Lymphatic: No lymphadenopathy Extremities: Vascular intact, Neuro intact Skin: Warm, Dry, No cyanosis Neurologic: Alert, Oriented, Nonfocal Psychiatric: Mood/affect normal, Behavior normal, Normal thought content General/Constitutional: Awake, Alert, Cooperative Respiratory / Chest: Breath sounds NL, Breath sounds = bilat, No respiratory distress, No rales, No rhonchi, No wheezing, No retractions There is a port present in her right anterior chest wall. There is a pacemaker in her left anterior chest wall with a well healed surgical incision. She is tender about her left pectoral region. Reproducible chest wall pain. Cardiovascular: Heart rate NL, Regular rhythm, Heart sounds NL, No murmurs, No rubs, Cap refill not delayed, Peripheral circulation NL Heart Rate / Rhythm: Positive: Bradycardia Abdomen: Atraumatic, Soft, Non-tender, No guarding, No rebound, BS normoactive , No distention Lower Extremity / Pelvis / MS: Neurologic intact Lymphedema to her bilateral lower extremities without redness or warmth. Skin is intact. Interpretation & Diagnostics Lab Results Interpretation Result Diagram: 07/06/16202407/06/162024 Test 07/06/16 20:25 07/06/16 22:15 White Blood Count 6.6th/mm3 (3.8-10.1) Red Blood Count 3.95mil/mm3 (3.90-5.20) Hemoglobin 10.2g/dL (12.0-15.6) Hematocrit 34.3% (35.0-46.0) Mean Corpuscular Volume 86.8fL (81-100) Mean Corpuscular Hemoglobin 25.8pg (27.0-35.0) Mean Corpuscular Hemoglobin Concent 29.7% (32.0-37.0) Red Cell Distribution Width 15.8% (12.3-15.4) Platelet Count 137bil/L (150-400) Neutrophils (%) (Auto) 63.2% (40-74) Lymphocytes (%) (Auto) 23.0% (14-46) Monocytes (%) (Auto) 8.4% (4-12) Eosinophils (%) (Auto) 4.9% (0-5) Basophils (%) (Auto) 0.3% (0-3) Sodium Level 140mEq/L (134-144) Potassium Level 4.0mEq/L (3.5-5.2) Chloride Level 100mEq/L (97-108) Carbon Dioxide Level 26mmol/L (18-29) Blood Urea Nitrogen 20mg/dL (8-27) Creatinine 1.16mg/dL (0.57-1.00) Estimat Glomerular Filtration Rate 67mL/min (>59) Glucose Level 117mg/dL (60-99) Calcium Level 8.6mg/dL (8.5-10.1) Magnesium Level 2.1mg/dL (1.6-2.6) Total Bilirubin 0.3mg/dL (0.0-1.2) Aspartate Amino Transf (AST/SGOT) 14U/L (0-50) Alanine Aminotransferase (ALT/SGPT) 11U/L (0-32) Alkaline Phosphatase 82U/L (25-165) Troponin T 0.010ug/L (0.0-0.011) Total Protein 6.7g/dL (6.4-8.4) Albumin 3.6g/dL (3.4-5.0) Hold Padilla Top Tube Received (Received) Hold Urine Received (Received) ECG Interpretation ECG Interpretation: Sinus rhythm with a rate of 98 bpm Anteroseptal Q waves present Nonspecific IVCD LAD No acute ST segment changes No acute T wave abnormalities When compare to prior EKG taken on 04/05/2016 there are no significant changes present Time: 21:21 Interpreted by: ED physician X-Ray Chest Interpretation Chest Xray Interpretation: IMPRESSION: Chronic CHF pattern, global cardiomegaly, chronic mild interstitial prominence. Central line and pacemaking device/lead in normal position. Dictated by: Michael Ulloa M.D. on 07/06/2016 at 21:14 Interpretation / Wet Read by: Interpret - Radiologist Re-Eval/Medical Decision Med Decision/Clinical Course The patient is a 66 year old female with history of hypertension, congestive heart failure, COPD, asthma, prior stroke, hyperlipidemia, hypertension, non ischemic cardiomyopathy with a pacemaker, chronic kidney disease, chronic lower extremity edema, and chronic anemia, who presents to the emergency department by EMS for chest pain that began a few hours ago. The patient had at home physical therapy today and noticed the pain as she was doing exercises that required her to ABduct her left arm with a resistance band. She initially noticed pain in her left shoulder and then later developed left-sided chest pain. She is unsure if her pain is cardiac or musculoskeletal but she notices that the pain is worse with movement, twisting and bending. She has been taking all of her medication as prescribed. She denies numbness, weakness, fever, chills, cough, abdominal pain, nausea, vomiting or diarrhea. Her most recent admission was related to diarrheal illness and generalized weakness. She had an echo in 07/2014 that showed an ejection fraction of 55-60 %. He has had no chest pain with exertion or walking upstairs. She has had no weight gain recently. Here in the emergency department the patient is afebrile with stable vital signs and examination as above. EKG was obtained and interpreted by myself as documented above. LABS: no leukocytosis, hct 34.3 which is improved from her baseline, CMP: BUN 20 , creatinine 1.16 at baseline, no significant electrolyte abnormalities, Mg WNL , LFTs wnl, troponin negative CXR: Chronic CHF pattern, global cardiomegaly, chronic mild interstitial prominence. Central line and pacemaking device/lead in normal position. Chest pain reproducible with palpation about the left anterior and lateral chest wall. This is suggestive of musculoskeletal chest pain though not adequate to definitively rule in or out cardiac causes. Initial screening EKG and troponin are reassuring. Patient has not particularly suggestive of acute pulmonary embolism. She has no recent new major risk factors for development of PE though she is morbidly obese with limited motility. I had a long discussion with the patient and we reviewed her workup thus far. I advised her that my recommendation would be for admission, serial troponins and additional risk stratification as well as consideration for pulmonary embolism workup. The patient adamantly does not want to be admitted and states that she feels reassured by the workup thus far. She requests to be discharged. She demonstrates insight into her condition and understanding of the risks associated with refusing further workup. She was discharged in stable condition with plan to follow up with her primary care physician. Prior to discharge follow-up and return precautions were reviewed in detail with the patient who verbalized understanding and agreement with the plan. The patient was discharged in stable condition. Of note at time of discharge patient also revealed that she had sustained a cat bite to her left hand earlier in the day. There is no evidence of foreign body or infection. She is allergic to amoxicillin and therefore has been prescribed prophylactic doxycycline and received her first dose here. Source of Hx: Old records, EMS Time of Eval: 22:55 Re-Evaluation/Progress Note: Rechecked the patient. Discussed results, diagnosis, and plan for discharge. She mentions that her cat bit her earlier today. On re-examination she has superficial puncture beach about the radial aspect of her left hand with mild surrounding erythema. Will write a prescription for oral antibiotics. All questions were addressed. Counseled Regarding: Diagnosis, Lab results, Need for follow-up, When/why to return to ED Discharge & Departure Primary Impression: Left sided chest pain Additional Impressions: Cat bite of left hand Encounter type: initial encounter Qualified Code: S61.452A - Open bite of left hand, initial encounter History of COPD History of coronary artery disease Morbid obesity Obesity type: unspecified obesity type Qualified Code: E66.01 - Morbid ( severe) obesity due to excess calories Chest wall pain Disposition: Home Discharge Condition All VS Reviewed: Yes Condition: Stable Additional Instructions: Thank you for seeking care at the emergency room. It is difficult for us to make definitive diagnoses in the ED but we believe that you are experiencing musculoskeletal pain. Our primary goal today in the ED was to evaluate you for any life-threatening conditions. Your evaluation was reassuring. Continue to take your medications as prescribed. I have written you a prescription for antibiotics for your recent cat bite. You should follow-up with your primary doctor in the next week for re- evaluation. You should return to the ED immediately if you develop increased pain, increased work of breathing, fevers, lightheadedness, weakness or any other concerning signs or symptoms. Thank you for letting us partake in your care today. Referrals: Bri Ochoa (PCP) [place] Attestation Portions of this note were transcribed by Prisca Jennings. I, Dr. Landa personally performed the history, physical exam and medical decision-making; I reviewed and confirmed the accuracy of the information in the transcribed note. Signed by: Min Pool, 07/06/2016 at 2310. copies to: Bri Ochoa Beck O MD Jul 06, 2016 21:18 Prisca Jennings Jul 06, 2016 21:25
[2016-07-06 21:23] LABS: TROPONIN T 0.01 ug/L (0.0-0.011)
[2016-07-06 21:33] LABS: Magnesium 2.1 mg/dL (1.6-2.6)
[2016-07-06] MEDS ORDERED: DOXY100C43 PO (23:07)
[2016-07-06] MEDS ORDERED: HepLOK Flush 100 unit/mL 5 mL Inj ONE (23:38)
[2016-07-07 00:15] VITALS: BP 142/72; PULSE 84; RESP 16
== END 2016-07-06 23:50 | disposition home or self-care (01) ==
LOC: SED 20:08
DX: R07.9 Chest pain, unspecified (principal); S61.452A Open bite of left hand, initial encounter; W55.01XA Bitten by cat, initial encounter; Y93.9 Activity, unspecified; Y92.9 Unspecified place or not applicable; Y99.8 Other external cause status; I25.10 Atherosclerotic heart disease of native coronary artery without angina pectoris; E66.01 Morbid (severe) obesity due to excess calories; K21.9 Gastro-esophageal reflux disease without esophagitis; I11.0 Hypertensive heart disease with heart failure; J45.909 Unspecified asthma, uncomplicated; E78.5 Hyperlipidemia, unspecified; I50.9 Heart failure, unspecified; Z86.73 Personal history of transient ischemic attack (TIA), and cerebral infarction without residual deficits; Z79.899 Other long term (current) drug therapy; Z88.0 Allergy status to penicillin; Z88.1 Allergy status to other antibiotic agents; Z88.2 Allergy status to sulfonamides; Z88.8 Allergy status to other drugs, medicaments and biological substances; Z68.43 Body mass index [BMI] 50.0-59.9, adult
CPT/HCPCS: 36415; 71010; 80053; 82948; 83735; 84484; 85025; 93005; 96374; 99285; J1642

== ENCOUNTER 2016-08-25 16:01 | Inpatient (IN) | payer MEDICARE, MEDICAID ==
[~2016-08-25] VITALS: Ht 157.5 cm; Wt 152.1 kg
[2016-08-25] VITALS (7 sets, daily range): BP systolic 102–156; BP diastolic 50–110; PULSE 110–126; RESP 18–29; O2SAT 89–99
[~2016-08-25 16:01] MED LIST changes: +DOXY100C43 PO
--- NOTE | 2016-08-25 16:08 | ED.REPORT ---
HPI-Dyspnea / Wheezing Date of Service Aug 25, 2016 ED Provider: Matt Cornejo MD A 66 year old female with history of frequent ED visits for recurrent episodes of bilateral lower extremity cellulitis, morbid obesity, hypertension, CHF, COPD , asthma, prior stroke, hyperlipidemia, hypertension, non-ischemic cardiomyopathy s/p pacemaker, chronic kidney disease and chronic anemia who presents to the ED via EMS with sudden onset of dyspnea that began just prior to arrival. Patient also endorses sharp, midsternal chest pain, nausea and shaking chills upon initial evaluation. Patient denies any similar previous episodes of chest pain. EMS report that the patient was dry heaving en route but refused any field interventions. Patient is seen regularly at [facility] for her cellulitis. Nursing Notes Stated Complaint: CHEST PAIN Chief Complaint: Chest Pain Nursing Notes Reviewed: Yes Allergies: Coded Allergies: Penicillins (Verified Allergy, Intermediate, Hives, 08/25/16) Potassium Clavulanate (Verified Allergy, Intermediate, Hives, 08/25/16) amoxicillin trihydrate (Verified Allergy, Intermediate, Hives, 08/25/16) trimethoprim (Verified Allergy, Intermediate, Diarrhea, 08/25/16) lisinopril (Verified Allergy, Unknown, cough, 08/25/16) sulfamethoxazole (Verified Adverse Reaction, Intermediate, Nausea,Vomiting , 08/25/16) NAUSEA AND VOMITING , DIAARHEA azithromycin (Verified Adverse Reaction, Mild, Diarrhea, 08/25/16) Scheduled Amitriptyline (Amitriptyline) 75 Mg Tablet 75 MG PO HS Carvedilol (Carvedilol) 12.5 Mg Tablet 12.5 MG PO BID Cholecalciferol (Vitamin D3) (Vitamin D) 50,000 Unit Capsule 50,000 UNIT PO WEEKLY Citalopram (Citalopram) 20 Mg Tablet 20 MG PO DAILY Lovastatin (Lovastatin) 20 Mg Tablet 20 MG PO DAILY Montelukast (Montelukast) 10 Mg Tablet 10 MG PO HS Ranitidine (Ranitidine) 150 Mg Capsule 150 MG PO BID Torsemide (Torsemide) 20 Mg Tablet 30 MG PO DAILY Valsartan (Diovan) 80 Mg Tablet 80 MG PO DAILY Scheduled PRN Acetaminophen (Acetaminophen) 500 Mg Tablet 500 MG PO Q6H PRN PRN For Pain Albuterol Neb Soln (Albuterol Neb Soln) 2.5 Mg/3 Ml Vial.neb 2.5 MG INHALATION Q4H PRN PRN For Shortness of Breath Albuterol Sulfate (Ventolin HFA Inhaler) 200 Puff/18 Gm Inhaler 2 PUFFS INH q4- 6 hours PRN PRN For Shortness of Breath Alprazolam (Alprazolam) 0.5 Mg Tablet 0.25 MG PO DAILY PRN PRN For Anxiety Lanolin Alcohol/Mo/W.pet/[place] (Eucerin Creme) 454 Gm Cream..g. 1 APPLIC TP BID PRN PRN rash Nitroglycerin SL (Nitrostat) 0.4 Mg Tab.subl 0.4 MG PO Q5MIN PRN PRN For Chest Pain Nystatin (Nystatin) 1 Each Powder.ea. 1 EACH MC BID PRN PRN rash Nystatin (Nystatin) 20 Applic/15 Gm Oint 1 APPLIC EXT BID PRN PRN prn oxyCODONE (oxyCODONE) 5 Mg Tablet 5 MG PO TID PRN PRN For Pain General Time Seen by MD: 16:04 Chief Complaint Other (Dyspnea ) Hx Obtained From: Patient, EMS Arrived By: Ambulance Sudden in Onset?: Yes Onset Occurred: Just prior to arrival Symptom Duration: Since onset Location: : Chest left: Chest right Quality: Painful Radiation: : Does not radiate Severity: Current: Moderate Severity: Maximum: Moderate Associated with: Reports: Chest pain, Nausea Pertinent Negative: Pt denies other symptoms Recent Healthcare: Recent doctor visit, Recent hospitalization Risk Factors CAD Risk Stratification Risk factors reviewed PE Risk Stratification Risk factors reviewed Past Medical History Past Medical History Notes: Admit 03/2016 - COPD Admit 02/2015 - Powerport placement Admit 01/2015 - Pneumonia (Final Dx URI) Multiple admits for LE cellulitis - Last admit for this 01/09- Past Medical History Recurrent bilateral lower extremity cellulitis with secondary bacteremia MRSA nasal colonization Chronic anemia Thrombocytopenia Nonischemic cardiomyopathy LBBB (now with AICD) Chronic severe lymphedema Heart murmur Reports: Asthma, COPD, Congestive heart failure, Diabetes mellitus, GERD, Hyperlipidemia, Hypertension, Stroke Reports: Obesity Past Surgical History Powerport placed 03/05/2015 for Access in the setting of reccurrent cellulits Cardiac cath with no occlusive disease May 2012 Reports: Appendectomy, , Cholecystectomy, Hysterectomy Reports: AICD, Pacemaker insertion Family History Noncontributory Smoking History Never Smoker Social History Alcohol Use: Denies alcohol use Drug Use: Denies drug use Other Social History: Good social support, Frequent ED visitor, Local resident Occupation Unemployed Ambulatory Status Independent Review of Systems Constitutional: Reports: Chills Respiratory: Reports: Shortness of breath Cardiovascular: Reports: Chest pain Musculoskeletal: Reports: Extremity swelling Complete sys rev & neg: except as marked. GI: Reports: Nausea, Denies: Vomiting Neurologic: Reports: Shaking Physical Exam Initial Vital Signs Vital Signs (First) Date Time Temp Pulse Resp B/P Pulse Ox O2 Delivery O2 Flow Rate FiO2 08/25/16 16:04 37.8 120 18 156/110 93 Nasal Cannula 3 Initial VS: Reviewed Head / Eyes: Atraumatic, Normocephalic, PERRL Skin: Warm, Dry, No cyanosis Neurologic: Alert, Oriented, Nonfocal General/Constitutional: Awake, Alert Neck: Atraumatic, Supple Respiratory / Chest: Atraumatic, Breath sounds NL, Breath sounds = bilat, No respiratory distress Cardiovascular: Regular rhythm, Heart sounds NL, No gallop, No murmurs, No rubs , Pulses = bilaterally Heart Rate / Rhythm: Positive: Tachycardia Abdomen: Atraumatic, Soft Tenderness/Guarding/Rebound: Positive: Tender RUQ... Lower Extremity / Pelvis / MS: Neurologic intact, Vascular intact LOWER EXTREMITITES: Bilateral lymphedema without erythema Dressing to bilateral LE Upper Extremity / MS: Neurologic intact, Vascular intact Interpretation & Diagnostics ABDOMINAL US: Impression: No acute abnormalities Lab Results Interpretation Result Diagram: 08/25/16 1630 08/25/16 1630 Test 08/25/16 16:30 08/25/16 20:03 White Blood Count 16.8th/mm3 (3.8-10.1) Red Blood Count 4.43mil/mm3 (3.90-5.20) Hemoglobin 11.7g/dL (12.0-15.6) Hematocrit 38.6% (35.0-46.0) Mean Corpuscular Volume 87.1fL (81-100) Mean Corpuscular Hemoglobin 26.4pg (27.0-35.0) Mean Corpuscular Hemoglobin Concent 30.3% (32.0-37.0) Red Cell Distribution Width 15.0% (12.3-15.4) Platelet Count 138bil/L (150-400) Neutrophils (%) (Auto) 86.8% (40-74) Lymphocytes (%) (Auto) 6.6% (14-46) Monocytes (%) (Auto) 5.3% (4-12) Eosinophils (%) (Auto) 1.0% (0-5) Basophils (%) (Auto) 0.1% (0-3) Sodium Level 140mEq/L (134-144) Potassium Level 4.0mEq/L (3.5-5.2) Chloride Level 98mEq/L (97-108) Carbon Dioxide Level 28mmol/L (18-29) Blood Urea Nitrogen 23mg/dL (8-27) Creatinine 1.04mg/dL (0.57-1.00) Estimat Glomerular Filtration Rate 76mL/min (>59) Glucose Level 125mg/dL (60-99) Lactic Acid Level 1.8mmol/L (0.4-2.0) Calcium Level 8.3mg/dL (8.5-10.1) Magnesium Level 1.9mg/dL (1.6-2.6) Total Bilirubin 0.5mg/dL (0.0-1.2) Aspartate Amino Transf (AST/SGOT) 17U/L (0-50) Alanine Aminotransferase (ALT/SGPT) 12U/L (0-32) Alkaline Phosphatase 92U/L (25-165) Pro-B-Type Natriuretic Peptide 414.4pg/mL (0-287) Total Protein 7.5g/dL (6.4-8.4) Albumin 4.0g/dL (3.4-5.0) Urine Color Yellow (YELLOW) Urine Appearance Hazy (CLEAR,HAZY) Urine pH 6.5 (5.0-8.0) Urine Specific [place] 1.005 (1.003-1.035) Urine Protein Negativemg/dL (NEG,TRACE) Urine Glucose (UA) Negativemg/dL (NEGATIVE) Urine Ketones Negativemg/dL (NEGATIVE) Urine Occult Blood Trace (NEGATIVE) Urine Nitrite Positive (NEGATIVE) Urine Bilirubin Negative (NEGATIVE) Urine Urobilinogen Normalmg/dL (NORMAL) Urine Leukocyte Esterase Moderate (NEGATIVE) Urine RBC 0-2/hpf (0-2) Urine WBC >50/hpf (0-5) Urine Epithelial Cells Occasional/hpf (NONE-MOD) Urine Crystals None seen (NONE SEEN) Urine Bacteria Many/hpf (NONE-FEW) Urine Hyaline Casts None/lpf (NONE) Urine Granular Casts None seen (NONE SEEN) Urine Waxy Casts None seen (NONE SEEN) Urine Red Blood Cell Casts None seen (NONE SEEN) Urine White Blood Cell Casts None seen (NONE SEEN) Urine Mucus None seen (None Seen) Urine Trichomonas None seen (NONE SEEN) Urine Yeast None (NONE SEEN) Urinalysis Comment None Urine Culture Reflexed Indicated ECG Interpretation ECG Interpretation: Sinus tachycardia Rate 120 EKG Machine reads acute WA - I do not concur No STEMI Normal ECG Interpretation: No change from prior ECGs (07/06/16) CT Chest Interpretation IMPRESSION: 1. Diagnostic sensitivity and specificity of the study limited by patient motion and suboptimal contrast opacification of the segmental and subsegmental pulmonary arteries. 2. Filling defects versus artifact involving numerous bilateral lung segmental and subsegmental pulmonary arteries. Pulmonary emboli cannot be excluded. 3. Cardiomegaly. Dictated by: Coral Escobar MD, PhD on 08/25/2016 at 19:56 Study type: CT pulm angiogram Interpretation / Wet Read by: Interpret - Radiologist Re-Eval/Medical Decision Med Decision/Clinical Course 66-year-old female with the abrupt onset of dyspnea, arrives tachycardic and with low oxygen saturations. She also describes chest pain and has nausea and vomiting. I am concerned for pulmonary embolism. A search for sources of infection does reveal a urinary tract infection she does not have a leukocytosis although her lactate is normal blood cultures have been obtained, she was given Rocephin 2 g intravenously. Evaluation for pulmonary embolism was difficult as patient had trouble tolerating lying flat for a CT angiogram. We did give her some sedation and a breathing treatment prior to this and were able to compress the study which was not the best quality. It does appear that she may well have pulmonary emboli, although the poor image quality makes it less than certain. Heparin has been started based on the pulmonary embolism protocol She was admitted to the hospitalist service. Re-Evaluation/Progress #1: Time of Eval: 16:32 Re-Evaluation/Progress Note: Further examination is perfromed. Nausea is still present. Re-Evaluation/Progress #2: Time of Eval: 17:12 Re-Evaluation/Progress Note: Patient states that she is unable to lie still to obtain the CT scan because of her asthma. Re-Evaluation/Progress #3: Time of Eval: 19:24 Re-Evaluation/Progress Note: Patient is encouraged to give urine for lab work. She is given an update on her results. All questions are addressed. Re-Evaluation/Progress #4: Time of Eval: 20:08 Re-Evaluation/Progress Note: Patient is rechecekd. She is informed of the plan to admit for PE. Pt understands and agrees with the intended treatment plan. Consultation : Referral / Consult Name: Iraida Fritz Consulted With: Hospitalist Call Returned at: 20:35 Children'S Counselor: Will see patient, Agrees with eval, Agrees with plan, Accepts admit Counseled Regarding: Diagnosis, Lab results, Need for admission Discharge & Departure Impression: Primary Impression: Pulmonary embolism Additional Impression: Urinary tract infection Disposition: ADMITTED TO HOSPITAL Discharge Condition All VS Reviewed: Yes Condition: Stable Referrals: Bri Ochoa (PCP) Crit Care Except Billable Proc Time Spent: 30-74 minutes Services Performed: Patient management by me, Time spent at bedside, Reviewing test results, Reviewing imaging, Discussing patient care, Documentation in record Scribe Attestation Portions of this note were transcribed by Loren Michel. I, Dr. Cornejo personally performed the history, physical exam and medical decision-making; I reviewed and confirmed the accuracy of the information in the transcribed note. Signed by: Min Marcelo, 08/25/16 [id number]. copies to: Bri Ochoa Donald L MD Aug 25, 2016 16:08 LOREN MICHEL Aug 25, 2016 16:13
[2016-08-25] MEDS ORDERED: Ondansetron 2 mg/mL 2 mL Inj IVPUSH ONE (16:15)
[2016-08-25 16:44] LABS: BASOPHILS % (AUTO) 0.1 % (0-3); MONOCYTES % (AUTO) 5.3 % (4-12); Mean Corpuscular Hemoglobin 26.4 pg (27.0-35.0); Mean Corpuscular Volume 87.1 fL (81-100); NEUTROPHILS % (AUTO) 86.8 % (40-74); Platelet Count 138 bil/L (150-400)
[2016-08-25 17:12] LABS: TROPONIN T < 0.010 ug/L (0.0-0.011)
[2016-08-25 17:19] LABS: Magnesium 1.9 mg/dL (1.6-2.6)
[2016-08-25] MEDS ORDERED: Albuterol-Ipratropium 3 mL Inhalation Solution NEB ONE (18:00)
[2016-08-25] MEDS ORDERED: 0.9% Sodium Chloride 1,000 ML IV ONE (18:00)
[2016-08-25] MEDS ORDERED: Heparin 1,000 Units/mL 10 mL DVT/PE Bolus Inj IVPUSH PRN (20:05)
[2016-08-25] MEDS ORDERED: Heparin 25K Unit/500mL 0.45 NS 25,000 UNIT in IV Premix 1 EACH IV SCH (20:05)
[2016-08-25] MEDS ORDERED: Heparin 5,000 Unit/mL Inj IVPUSH ONE (20:05)
--- NOTE | 2016-08-25 20:06 | DRSVH ---
PROCEDURE: CT ANGIO CHEST PULMONARY EMBOLISM ([id number]) INDICATIONS: chest pain and dyspnea TECHNIQUE: After the administration of intravenous contrast, 2 mm thick sections acquired from the pulmonary api rita to the posterior costophrenic angles. 3-dimensional maximum intensity projection (MIP) coronal a nd sagittal reformats were then acquired through the thorax. For radiation dose reduction, the follo wing was used: automated exposure control, adjustment of mA and/or kV according to patient size. COMPARISON: None. FINDINGS: Image quality: Very limited secondary to patient motion and suboptimal contrast opacification of the segmental and subsegmental pulmonary arteries.. Pulmonary arteries: No large central pulmonary embolus. Poor opacification versus pulmonary emboli noted in several lower lobe segmental and subsegmental pulmonary arteries.. Lungs and pleura: Lungs are clear. No pleural effusions or pneumothorax. Central and peripheral ai rways are patent. Mediastinum: Heart size is enlarged, without pericardial effusion. No mediastinal or hilar adenopat hy. Thoracic aorta is normal in caliber and enhancement. Esophagus is normal in caliber, without hi atal hernia. Bones and chest wall: Left chest wall cardiac pacer is noted. No suspicious bony lesions. Ribs and thoracic spine appear intact throughout. Thyroid gland is within normal limits. No axillary or supr aclavicular adenopathy. Abdomen: Visualized upper abdominal solid organs appear normal in the early arterial phase of enhanc ement. IMPRESSION: 1. Diagnostic sensitivity and specificity of the study limited by patient motion and suboptimal cont rast opacification of the segmental and subsegmental pulmonary arteries. 2. Filling defects versus artifact involving numerous bilateral lung segmental and subsegmental pulm onary arteries. Pulmonary emboli cannot be excluded. 3. Cardiomegaly. Dictated by: Coral Escobar MD, PhD on 08/25/2016 at 19:56 Approved by: Coral Escobar MD, PhD on 08/25/2016 at 20:04
[2016-08-25 20:22] LABS: APPEARANCE,URINE HAZY (CLEAR,HAZY); COLOR,URINE YELLOW (YELLOW); PH,URINE 6.5 (5.0-8.0)
[2016-08-25 20:23] LABS: OCCULT BLOOD,URINE TRACE (NEGATIVE); UROBILINOGEN,URINE NORMAL (NORMAL)
[2016-08-25] MEDS ORDERED: VALS80TA2 PO (20:49)
--- NOTE | 2016-08-25 21:13 | PCM.HPMED ---
Subjective Date of Service Aug 25, 2016 Primary Provider: Admitting Physician: Primary Care Physician: Bri Ochoa Attending Physician: Admit Status: From the Emergency Department Chief Complaint: Chest pain and shortness of breath. History of Present Illness: This is a 66-year-old female with past medical history significant for multiple episodes of cellulitis, hypertension, hyperlipidemia, nonischemic cardiomyopathy status post pacemaker placement, bilateral lower extremity lymphedema, morbid obesity, history of MRSA infection, CKD stage II, systolic congestive heart failure, CVA, and asthma who presents today for sudden onset of shortness of breath and chest pain. Patient states that at approximately 3 PM this afternoon while getting her legs wrapped by occupational therapy she developed a chest pressure that was substernal. Accompanying this chest pressure was shortness of breath and diaphoresis.. She denies any worsening of the symptoms with exertion. Associated symptoms: Nausea and chills. Patient denies previous episodes of chest pressure and shortness of breath. Since the onset of symptoms they have been constant. She describes them as severe but not currently worsening. In the emergency department initial vital signs were temperature 37.8 Celsius, pulse 120, respiratory rate 18, blood pressure 156/110, satting at 93% on room air. Initial laboratory values were WBC 16.8 with left shift, hemoglobin 1.7, hematocrit 30.6, platelets 138. BUN 23, creatinine 1.04, glucose 125, calcium 8.3 with albumin of 4.0. Lactic acid 1.8, and troponin less than 0.010. CT angiogram: Diagnostic sensitivity and specificity of the study limited by patient motion and suboptimal contrast opacification of the segmental and subsegmental pulmonary arteries. There were filling defects versus artifact involving numerous bilateral lung segmental and subsegmental pulmonary arteries. Emboli cannot be excluded. Cardiomegaly was also noted. The emergency room physician felt that this likely represented a PE and heparin bolus was given and patient is currently on DVT/PE heparin protocol. Patient was also given a duo nebs treatments and a bolus of normal saline. Review of Systems: A comprehensive review of systems was conducted with the patient and found to be negative except as above in the History of Present Illness Allergies Coded Allergies: Penicillins (Verified Allergy, Intermediate, Hives, 08/25/16) Potassium Clavulanate (Verified Allergy, Intermediate, Hives, 08/25/16) amoxicillin trihydrate (Verified Allergy, Intermediate, Hives, 08/25/16) trimethoprim (Verified Allergy, Intermediate, Diarrhea, 08/25/16) lisinopril (Verified Allergy, Unknown, cough, 08/25/16) doxycycline (Verified Adverse Reaction, Intermediate, Nausea,Vomiting, 08/26) sulfamethoxazole (Verified Adverse Reaction, Intermediate, Nausea,Vomiting , 08/25/16) NAUSEA AND VOMITING , DIAARHEA azithromycin (Verified Adverse Reaction, Mild, Diarrhea, 08/25/16) Home Medications acetaminophen 500 mg tablet take 1 tablet by oral route every 6 hours as needed albuterol sulfate 2.5 mg/3 mL (0.083 %) solution for nebulization inhale 3 milliliter (2.5MG) by NEBULIZATION route 3 times every day alprazolam 0.5 mg tablet take HALF Tablet by oral route daily as needed for severe anxiety AMITRIPTYLIN TAB 75MG TABLET TAKE ONE TABLET BY MOUTH NIGHTLY AT BEDTIME Bactroban 2 % topical ointment apply to anterior nares twice a day for 10 days CITALOPRAM TAB 20MG TABLET TAKE ONE TABLET BY MOUTH ONCE DAILY Coreg 12.5 mg tablet take 1 tablet by oral route 2 times every day with food Diovan 80 mg tablet take 1 tablet by oral route every day ergocalciferol (vitamin D2) 50,000 unit capsule take 1 capsule by oral route every week Eucerin topical cream apply liberally to affected areas twice daily heparin lock flush (porcine) 100 unit/mL intravenous syringe Flush port-a-cath as needed. To be administered at [facility] lovastatin 20 mg tablet take 1 tablet by oral route every day with the evening meal MONTELUKAST TAB 10MG TABLET TAKE ONE TABLET BY MOUTH EACH EVENING nystatin 100,000 unit/gram topical ointment APPLY TO AFFECTED AREA TWICE A DAY nystatin 100,000 unit/gram topical powder APPLY BY TOPICAL ROUTE 2 TIMES EVERY DAY TO THE AFFECTED AREA(S) oxycodone 5 mg tablet take 1 tablet by oral route 3 times every day for knee pain QVAR 40MCG AEROSOL INHALANT INHALE 2 PUFFS BY MOUTH DAILY RANITIDINE TAB 150MG TABLET TAKE ONE TABLET BY MOUTH TWICE A DAY torsemide 20 mg tablet take 1.5 tablet by oral route every day Ventolin HFA 90 mcg/actuation aerosol inhaler inhale 2 puff by inhalation route every 4 - 6 hours as needed PMH 1. Bilateral lower extremity lymphedema. 2. History of recurrent left lower extremity streptococcal cellulitis with multiple hospitalizations as a result. 3. History of MRSA colonization and infection with MRSA isolated in almost every admission. 4. Morbid obesity. 5. Venous stasis and recurrent lower extremity ulcerations. 6. Chronic anemia and thrombocytopenia of chronic disease (followed by Dr. Bee from hematology). 7. Chronic kidney disease, stage 3, with baseline creatinine typically around 1.6 to 1.7 8. History of congestive heart failure, chronic, systolic dysfunction due to nonischemic cardiomyopathy (followed by Dr. Montgomery). 9. Status post AICD placement in October 2012. 10. History of CVA. 11. Lmv-hmoxbmk-zeqhofghg type 2 diabetes. 12. Hypertension. 13. Morbid obesity (BMI 52.8). 14. Psoriasis. 15. Asthma. 16. Migraine headaches. 17. Depression. 18. Anxiety. Last echo 04/07/2016: Interpretation Summary The left ventricle is borderline dilated. Left ventricular systolic function is mildly reduced. The ejection fraction is estimated to be 45-50%. LVEF has mildly decreased since prior study. Regional wall motion abnormalities cannot be excluded due to limited visualization. The E/A ratio is reversed with an elevated E/E', suggesting impaired early relaxation of the left ventricle with possible increased filling pressures. The right ventricle is not well visualized. The right ventricle grossly appears normal in size with probable normal systolic function. Pulmonary artery pressures cannot be estimated because of the lack of a measurable TR jet velocity. The left atrium is moderately dilated. The right atrium is mildly dilated. There is no gross valvular heart disease. The aortic root is normal size. Surgical History PowerPort placed 03/05/2015 for Access in the setting of recurrent cellulitis Cardiac cath with no occlusive disease May 2012 Appendectomy, , Cholecystectomy, Hysterectomy AICD, Pacemaker insertion Family History denies any family history of heart disease. Social History Hx Alcohol Use: No Hx Substance Use: No Hx Tobacco Use: No Smoking Status: Never Smoker Exam Vital Signs Vital Sign - Last Date Time Temp Pulse Resp B/P Pulse Ox O2 Delivery O2 Flow Rate FiO2 08/25/16 18:51 37.8 08/25/16 18:42 120 23 134/59 98 10 08/25/16 17:02 Simple Mask Exam General: No acute distress, obese, HEENT: Normocephalic, atraumatic. External ears without defect. Pupils equal, round, and reactive to light and accommodation. Anicteric sclerae, moist conjunctivae, and no lid lag. Oropharynx free of erythema and cobble stoning with moist mucosa. Neck: Supple with full range of motion. No jugular venous distension. No bruits. No lymphadenopathy or thyromegaly. Cardiovascular: Tachycardic. Regular rhythm with no murmurs, rubs, or gallops appreciated Pulmonary: Clear to auscultation bilaterally with no crackles, wheezes, or rhonchi. Abdomen: Bowel tones present. Soft, obese, nontender, nondistended. On retraction of pannus and under breasts there is a large area of erythema consistent with candidal infection. Extremities: Obese extremeties. Lymphadema present bilaterally. Skin: Normal temperature, turgor, and texture; no rash, ulcers, or subcutaneous nodules appreciated. Neurological: Cranial nerves grossly intact. Psychiatric: Normal mood and affect. Alert and oriented to person, place, and time. Lab and Diagnostics Result Diagram: 08/25/16 1630 08/25/16 1630 X-Rays, CTs and MRIs CT angiogram of chest on 08/25/2016: IMPRESSION: 1. Diagnostic sensitivity and specificity of the study limited by patient motion and suboptimal contrast opacification of the segmental and subsegmental pulmonary arteries. 2. Filling defects versus artifact involving numerous bilateral lung segmental and subsegmental pulmonary arteries. Pulmonary emboli cannot be excluded. 3. Cardiomegaly. Dictated by: Coral Escobar MD, PhD on 08/25/2016 at 19:56 Assessment & Plan This is a 66-year-old female with past medical history significant for cellulitis, history of MRSA infection, hypertension, hyperlipidemia, nonischemic cardiomyopathy, asthma, and congestive heart failure who presents with sudden onset chest pressure and shortness of breath that began after getting her legs wrapped for lymphedema. The differential includes myocardial infarction, pulmonary embolus, infection and sepsis, asthma exacerbation, worsening congestive heart failure. Patient had a CT angiogram of the chest that was a limited study and showed suboptimal contrast opacification of the segmental and subsegmental pulmonary arteries. Filling defects versus artifact involving numerous bilateral lung segmental and subsegmental pulmonary arteries with pulmonary emboli unable to be excluded. Due to this the patient was started on heparin in the emergency department. Patient was also found to have a urinalysis with positive nitrites, moderate leukocyte esterase, greater than 50 WBCs, and many bacteria. Other potential sites of infection include axillary folds and pannus that had a fungal infection as well as left lateral ankle wound that is being treated by wound care.. She does meet sepsis criteria with initial heart rate 120, WBC 16.8 with left shift, and the potential sources of infection previously mentioned. For this reason we will add-on broad-spectrum antibiotics including cefepime to cover for Pseudomonas and vancomycin to cover for any cellulitis. Sepsis, present on admission, ongoing: -On admit WBC 16.8 with left shift, pulse 120, temp 37.8. Source urinary tract infection and possible skin breakdown and cellulitis. lactic acid 1.8. -Cefepime and vancomycin ordered. Patient was given a dose of ceftriaxone in the emergency department. -Normal saline at 75 mL per hour. -Blood cultures pending. Urinary tract infection, present on admission: -Positive nitrites, moderate leukocyte esterase, greater than 50 WBC, and many urine bacteria. -Cefepime ordered.. -Urine culture pending. Elevated troponin: -Initial troponin in ED <.010. Repeat troponin .058. -Spoke to cardiology, Dr. Shearer, concerning EKG and elevated troponin. They stated to keep her on heparin and continue to trend troponin. They felt this was likely a bump to the possible PE. -Consider cardiology consult. Shortness of breath and chest pressure, present on admission, ongoing: -Possible pulmonary embolus. Patient started on heparin by emergency department. -In the differential is myocardial infarction although this is doubtful as EKG is relatively unchanged since previous and there are negative troponins. -CT angiogram of chest showed a limited study due to patient motion and suboptimal. Filling defects versus artifact involving numerous bilateral lung segmental and subsegmental pulmonary arteries. Pulmonary emboli cannot be excluded. -Continue heparin PE protocol -trend troponins 3. -Lower extremity ultrasound in am. Diabetes mellitus type 2, present on admission, ongoing: -Admit glucose 125. -A1c pending -Humalog low-dose correctional ordered Chronic kidney disease stage 2, present on admission, stable: -On 07/06/2016 BUN 20, creatinine 1.16. On 08/25/2016 BUN 23, creatinine 1.04. -CMP in the morning Chronic normocytic anemia, present on admission: -Review of previous records show that this is stable. On admit and 11.7, hematocrit 38.6 -CBC in am. -She is followed by oncology. Chronic thrombocytopenia, present on admission: -Review of previous records show that this stable. Platelets on admission 138 -CBC in am. -She is followed by oncology. Bilateral lower extremity lymphadema, present on admission, ongoing: -Patient has severe lymphedema. -Continue monitor. History of congestive heart failure, present on admission: -Last echo on 04/07/2016: LVEF 45-50%, impaired early relaxation of the left ventricle with possible increased filling pressure. -Echocardiogram ordered for a.m. -We will need to monitor patient's fluid status closely. -Daily weights. History of anxiety and depression, present on admission: -Continue home medications. Candidiasis of skin, present on admission, ongoing: -Nystatin powder ordered. Asthma, present on admission, ongoing: -Duonebs as needed. DVT prophylaxis: patient is on heparin due to possible PE. Patient is admitted under inpatient status with expected length of stay greater than 2 midnights due to severity of presenting symptoms, risk of adverse event, and complexity of treatment plan. Pain Evaluation: Adequate Pain Control Resuscitation Status: CPR: Attempt Resuscitation Attending Statement The patient was seen and examined together with house staff on 08/25/2016 and I agree with the history, exam and plan as outlined in the note above. Nestor Myles DO Aug 25, 2016 21:13 Iraida Fritz DO Aug 26, 2016 06:22
[2016-08-25] MEDS ORDERED: cefTRIAXone Inj 2,000 MG in Dextrose 5% Minibag Plus 50 ML IV ONE (22:20)
[2016-08-25] MEDS ORDERED: Alum-Mag Hydrox-Simeth 30 mL Suspension PO PRN (22:30)
[2016-08-25] MEDS ORDERED: cefTRIAXone Inj 2,000 MG in Dextrose 5% Minibag Plus 50 ML IV SCH (22:30)
[2016-08-25] MEDS ORDERED: Polyethylene Glycol (PEG) 17 Gm Powder PO PRN (22:30)
[2016-08-25] MEDS ORDERED: Vancomycin Dose per Pharmacist XX SCH (22:30)
[2016-08-25] MEDS ORDERED: Ondansetron 2 mg/mL 2 mL Inj IVPUSH PRN (22:30)
[2016-08-25] MEDS ORDERED: Glucose 40% Oral Gel 15 Gm Tube PO PRN (23:30)
[2016-08-25] MEDS ORDERED: Dextrose 10% 250 ML IV PRN (23:35)
[2016-08-25] MEDS ORDERED: Heparin 5,000 Unit/mL Inj IVPUSH PRN (23:56)
[2016-08-26] VITALS (13 sets, daily range): BP systolic 74–149; BP diastolic 41–84; PULSE 71–111; RESP 16–22; O2SAT 96–100
[2016-08-26] MEDS: Cefepime Inj 2 GM in IV Premix 1 EACH IV SCH ×2 (00:18→01:54)
[2016-08-26] MEDS: 0.9% Sodium Chloride 1,000 ML IV SCH ×2 (00:18→11:46)
[2016-08-26] MEDS: Sodium Chloride LOK Flush 10 mL Syringe IVFLUSH SCH ×4 (00:30→23:45)
[2016-08-26 00:44] LABS: TROPONIN T 0.058 ug/L (0.0-0.011)
[2016-08-26] MEDS ORDERED: Vancomycin Dose per Pharmacist XX SCH (01:25)
[2016-08-26] MEDS: Albuterol-Ipratropium 3 mL Inhalation Solution NEB PRN (01:47)
[2016-08-26 02:12] LABS: BASOPHILS % (AUTO) 0.1 % (0-3); EOSINOPHILS % (AUTO) 0 % (0-5); MONOCYTES % (AUTO) 4.3 % (4-12); Mean Corpuscular Hemoglobin 26.5 pg (27.0-35.0); Mean Corpuscular Volume 87.4 fL (81-100); NEUTROPHILS % (AUTO) 90.6 % (40-74); Platelet Count 129 bil/L (150-400)
[2016-08-26] MEDS: Insulin LISPRO 300 Unit/3 mL Inj SUBQ SCH ×4 (08:00→22:00)
[2016-08-26] MEDS: Vancomycin Inj 1,000 MG in IV Premix 1 EACH IV SCH ×2 (08:30→21:14)
--- NOTE | 2016-08-26 09:00 | DRSVH ---
PROCEDURE: US VENOUS LEG DUPLEX BILATERAL INDICATIONS: SOB after getting legs wrapped. R/O DVT. TECHNIQUE: Real-time imaging, as well as color and pulse Doppler interrogation, were performed of the deep veins of both legs from the inguinal ligament to the popliteal fossa. COMPARISON: [facility], [place], US VENOUS LEG DPLX BILAT, 01/10/2015, 7:41. FINDINGS: The deep veins are normally compressible, and free of intraluminal thrombus. Color and pu lse Doppler demonstrate normal phasic intravascular flow. There is normal augmentation response to d istal compression maneuver. IMPRESSION: No deep venous thrombosis identified within either the left or right lower extremities. Dictated by: Felipe Bello [facility] Interpreted: Coral Escobar MD on 08/26/2016 at 8:59 Transcribed by: JORGE on 08/26/2016 at 9:00 Approved by: Coral Escobar MD, PhD on 08/26/2016 at 11:27
[2016-08-26] MEDS: Nystatin 100,000 Unit/Gm 15 Gm Powder TOPICAL SCH ×3 (09:41→21:33)
[2016-08-26] MEDS: Cefepime Inj 2,000 MG in Dextrose 5% Minibag Plus 50 ML IV SCH ×3 (09:44→23:45)
--- NOTE | 2016-08-26 10:09 | DRSVH ---
PROCEDURE: US ABDOMEN INDICATIONS: ruq abd pain tachycardia ? cholecystitis TECHNIQUE: Real-time scanning was performed of the abdominal and retroperitoneal organs, with image documentatio n. COMPARISON: None. FINDINGS: Liver length: 20.12 cm CBD: 4.90 mm Spleen length: 10.55 cm Right kidney length: 9.02 cm Left kidney length: 8.45 cm Liver: Liver is enlarged and diffusely increased in echogenicity. No focal hepatic abnormalities id entified. Normal hepatic size. Gallbladder: Surgically absent. Biliary ducts: Intrahepatic bile ducts are non-dilated. Extrahepatic bile duct caliber is normal. Normal is 6-7 mm or less in diameter, or 10 mm or less post-cholecystectomy. Pancreas: Visualized portions of the pancreas are sonographically normal. Spleen: Spleen is normal in size and homogeneous in echotexture. Kidneys: Kidneys are normal in size and slightly increased in echogenicity involving the renal corti rita bilaterally. No hydronephrosis or nephrolithiasis. No solid masses. Aorta: Obscured by overlying bowel gas. Iliacs: Obscured by overlying bowel gas. IVC: Intrahepatic inferior vena cava is patent. Miscellaneous: No free abdominal fluid. IMPRESSION: 1. Hepatomegaly and diffusely increased hepatic echogenicity noted likely related to fatty infiltrati on of the liver but other hepatocellular disease cannot be excluded. Recommend clinical correlation. 2. Increase in renal cortical echogenicity bilaterally indicating mild medical renal disease. Dictated by: Felipe Bello [facility] Interpreted: Jose Zimmer MD on 08/26/2016 at 10:05 Transcribed by: MARGARET on 08/26/2016 at 10:08 Approved by: Jose Zimmer M.D. on 08/26/2016 at 10:56
[2016-08-26] MEDS: ALPRAZolam 0.5 mg Tablet PO PRN (12:00)
[2016-08-26] MEDS: 0.9% Sodium Chloride 250 ML IV SCH (12:21)
[2016-08-26] MEDS ORDERED: HepLOK Flush 100 unit/mL 5 mL Inj IVFLUSH PRN (12:25)
[2016-08-26] MEDS ORDERED: Sodium Chloride LOK Flush 10 mL Syringe IVFLUSH PRN ×2 (12:25)
--- NOTE | 2016-08-26 14:00 | PCM.PNMED ---
Subjective Date of Service Aug 26, 2016 Subjective This is a 66-year-old female with past medical history significant for multiple episodes of cellulitis, hypertension, hyperlipidemia, nonischemic cardiomyopathy status post pacemaker placement, bilateral lower extremity lymphedema, morbid obesity, history of MRSA infection, CKD stage II, systolic congestive heart failure, CVA, and asthma who presents today for sudden onset of shortness of breath and chest pain. She continues to feel fatigued this morning. She no longer has nausea. Her breathing is improving. She no longer has chest pain. Exam Vital Signs Vital Sign - Last Date Time Temp Pulse Resp B/P Pulse Ox O2 Delivery O2 Flow Rate FiO2 08/26/16 12:21 36.4 78 22 103/84 98 OxyMask 5.00 Intake and Output 08/25/16 08/25/16 08/26/16 Cumulative From/Thru 15:00 23:00 07:00 08/25/16 16:04 - 08/26/16 06:22 Intake Total 1000 ml 1057 ml 2057 ml Output Total 0 ml 0 ml Balance 1000 ml 1057 ml 2057 ml Intake Oral 200 ml 200 ml IV Total 1000 ml 857 ml 1857 ml Output Urine Total 0 ml 0 ml # Voids 1 1 # Bowel Movements 0 0 Exam General: No acute distress, obese HEENT: Normocephalic, atraumatic. External ears without defect. Pupils equal, round, and reactive to light and accommodation. Oropharynx free of erythema and cobble stoning with moist mucosa. Neck: Supple with full range of motion. No jugular venous distension. Cardiovascular: Tachycardic. Diffuse heart sounds secondary to body habitus but no appreciable murmurs, rubs, or gallops. Pulmonary: Diffuse breath sound secondary to body habitus but no crackles, wheezes, or rhonchi were appreciated. Abdomen: Bowel tones present. Soft, obese, nontender, nondistended. Extremities: Obese extremities. Moderate lymphedema present bilaterally. Skin: Erythema and dryness bilateral anterior lower legs with increased erythema between skin folds. Neurological: Cranial nerves grossly intact. Psychiatric: Normal mood and affect. Alert and oriented to person, place, and time. IVs and Medications Medications Reviewed: Medications were reviewed in detail Lab and Diagnostics Result Diagram: 08/26/16 1010 08/26/16 0205 X-Rays, CTs and MRIs CT angiogram of chest on 08/25/2016: IMPRESSION: 1. Diagnostic sensitivity and specificity of the study limited by patient motion and suboptimal contrast opacification of the segmental and subsegmental pulmonary arteries. 2. Filling defects versus artifact involving numerous bilateral lung segmental and subsegmental pulmonary arteries. Pulmonary emboli cannot be excluded. 3. Cardiomegaly. Dictated by: Coral Escobar MD, PhD on 08/25/2016 at 19:56 PROCEDURE: US VENOUS LEG DUPLEX BILATERAL IMPRESSION: No deep venous thrombosis identified within either the left or right lower extremities. Approved by: Coral Escobar MD, PhD on 08/26/2016 at 11:27 PROCEDURE: US ABDOMEN IMPRESSION: 1. Hepatomegaly and diffusely increased hepatic echogenicity noted likely related to fatty infiltration of the liver but other hepatocellular disease cannot be excluded. Recommend clinical correlation. 2. Increase in renal cortical echogenicity bilaterally indicating mild medical renal disease. Approved by: Jose Zimmer M.D. on 08/26/2016 at 10:56 Assessment & Plan This is a 66-year-old female with past medical history significant for cellulitis, history of MRSA infection, hypertension, hyperlipidemia, nonischemic cardiomyopathy, asthma, and congestive heart failure who presents with sudden onset chest pressure and shortness of breath that began after getting her legs wrapped for lymphedema. Sepsis, acute, present on admission, ongoing: -On admit WBC 16.8 with left shift, pulse 120, temp 37.8. Source urinary tract infection, bacteremia, and possible skin breakdown and cellulitis. lactic acid 1.8. MRSA positive nasal screen. -Normal saline at 75 mL per hour discontinued -Blood cultures show blood cultures positive for streptococcus and urine culture shows preliminary gram negative rods - MRSA positive -Cefepime and vancomycin ordered. Patient was given a dose of ceftriaxone in the emergency department. Continue until sensitivities are back Bacteremia, acute, present on admission. - Possible streptococcus in blood cultures - Echocardiogram ordered as below - Continue antibiotics as above until sensitivities are back. Discussed with Dr. Alberto and recommended continuing cefepime and vancomycin and to contact him tomorrow when sensitivities are back Urinary tract infection, acute, present on admission: -Positive nitrites, moderate leukocyte esterase, greater than 50 WBC, and many urine bacteria. -Cefepime ordered. -Urine culture shows preliminary gram negative rods Shortness of breath and chest pressure, present on admission, improving: -Possible pulmonary embolus. Patient started on heparin by emergency department. -In the differential is myocardial infarction although this is doubtful as EKG is relatively unchanged since previous. . -CT angiogram of chest showed a limited study due to patient motion and suboptimal. Filling defects versus artifact involving numerous bilateral lung segmental and subsegmental pulmonary arteries. Pulmonary emboli cannot be excluded. Consider septic emboli. -Lower extremity ultrasound did not show DVT -Discontinued heparin PE protocol and switched to Lovenox for now. Will contact her insurance about NOAC coverage -trended troponins 3 and trended down Bilateral lower extremity lymphedema, present on admission, ongoing: -Patient has severe lymphedema. Uncertain if she has a new cellulitis or chronic skin changes - Antibiotics as above - Nystatin powder twice per day -Continue monitor. Elevated troponin: -Initial troponin in ED <.010. Repeat troponin .058, decreased to 0.020 -Spoke to cardiology, Dr. Shearer, concerning EKG and elevated troponin. They stated to keep her on heparin and continue to trend troponin. They felt this was likely a bump to the possible PE. -Likely also elevated in context of sepsis. -Consider cardiology consult if further concern Diabetes mellitus type 2, present on admission, ongoing: -Admit glucose 125. -A1c pending -Humalog low-dose correctional ordered Chronic kidney disease stage 2, present on admission, stable: -On 07/06/2016 BUN 20, creatinine 1.16. On 08/25/2016 BUN 23, creatinine 1.04. - Likely secondary to sepsis as above Chronic normocytic anemia, present on admission: -Review of previous records show that this is stable. On admit and 11.7, hematocrit 38.6 -She is followed by oncology. - Continue to monitor Chronic thrombocytopenia, present on admission: -Review of previous records show that this stable. Platelets on admission 138 -She is followed by oncology. History of congestive heart failure, present on admission: -Last echo on 04/07/2016: LVEF 45-50%, impaired early relaxation of the left ventricle with possible increased filling pressure. -Echocardiogram ordered for a.m. -We will need to monitor patient's fluid status closely. -Daily weights. History of anxiety and depression, present on admission: -Continue home medications. Candidiasis of skin, present on admission, ongoing: -Nystatin powder ordered. Asthma, present on admission, ongoing: -Duonebs as needed. Morbid obesity, BMI 60.8, present on admission - Bariatric bed DVT prophylaxis: patient is on Lovenox due to possible PE. Resuscitation Status: CPR: Attempt Resuscitation Attending Statement The patient was seen and examined together with Dr. Andrews on 08/26/16 and I have added additional information to the note above. Bhumi Andrews DO Aug 26, 2016 13:23 Paty Danielle DO Aug 26, 2016 18:39
--- NOTE | 2016-08-26 15:59 | DRSVH ---
[facility] [address] [place] [address] Echocardiogram Report Name: SHEN KRISHNA te: 08/26/2016 Height: 62 in Hospital Exam Location: [facility] Weight: 333 lb Gender: Female BSA: 2.4 m2 : 1950 Age: 66 yrs BP: 133/75 mmHg Reason For Study: SHORTNESS OF BREATH Ordering Physician: [facility] Performed By: Jaguar Kwong Referring Physician: Bri Ochoa Interpretation Summary The left ventricle is moderately dilated. Left ventricular wall thickness is borderline increased. Left ventricular ejection fraction is estimated to be 35%. Anterior, septal, apical hypokinesis is noted. Compared to the prior exam, left ventricular function is moderately decreased. Globular echo density in RA noted on one view, consider ELVIA or cardiac MRI Procedure: A two-dimensional transthoracic echocardiogram with color flow and Doppler was performed. The study quality was technically difficult. Comparison is made with the echocardiogram of 04/07/16. A contrast injection of Definity was performed to improve assessment of LV function. The patient was in normal sinus rhythm during the exam. Left Ventricle: The left ventricle is moderately dilated. Left ventricular wall thickness is borderline increased. Left ventricular ejection fraction is estimated to be 35%. Compared to the prior exam, left ventricular function is moderately decreased. Anterior, septal, apical hypokinesis is noted. Right Ventricle: The right ventricle grossly appears normal in size with probable normal systolic function. There is a pacemaker lead in the right ventricle. Atria: The left atrium is moderately dilated. Right atrium not well visualized. Globular echo density in RA noted on one view, considet ELVIA or cardiac MRI. The interatrial septum is intact with no evidence for an atrial septal defect. Mitral Valve: There is mild mitral annular calcification. There is no mitral regurgitation noted. Aortic Valve: The aortic valve opens well. No aortic regurgitation is present. Tricuspid Valve: The tricuspid valve is normal in structure and function. There is a trace or physiologic amount of tricuspid regurgitation. Pulmonary artery pressures cannot be estimated because of the lack of a measurable TR jet velocity. Pulmonic Valve: The pulmonic valve is not well visualized. Great Vessels: The aortic root is normal size. The ascending aorta could not be visualized. The pulmonary artery is normal size. The IVC is of normal diameter and collapses less than 50% with a sniff. This suggests a right atrial pressure of 8 mm Hg. Pericardium/ Pleura There is no pericardial effusion. There is no pleural effusion. MMode/2D Measurements & Calculations LVIDd: 6.3 cm LA dimension Ao root LV joshua. diameter/BSA LVIDs: 4.6 cm diam: 3.8 cm (cm/m^2): 2.7 FS: 27.6 % LA A2 area EPSS: 1.1 cm IVSd: 1.0 cm LVPWd: 1.1 cm LA A4 area LA length (vol) LA vol: 109.7 ml LA vol index IVC diam: 2.1 cm LV sys. diameter/BSA (cm/m^2): 1.9 Doppler Measurements & Calculations Ao V2 max MV E max walt MV E/A: 0.80 PA V2 max : 132.5 cm/sec : 55.5 cm/sec Med Peak E' Walt : 81.0 cm/sec Ao max PG MV A max walt PA mean PG : 7.0 mmHg : 69.2 cm/sec E/E' med: 17.9 Ao mean PG MV A dur: 0.11 sec PA Accel Time : 3.6 mmHg : 0.11 sec MV dec time Ao V2 mean PA V2 mean : 0.22 sec : 89.7 cm/sec : 57.2 cm/sec Ao V2 VTI: 26.1 cm PA pr(Accel) : 29.3 mmHg Electronically signed by: Arnulfo Whitfield on Reading Physician:08/26/2016 03:58 PM
[2016-08-26] MEDS ORDERED: cefTRIAXone Inj 2,000 MG in Dextrose 5% Minibag Plus 50 ML IV SCH (20:00)
[2016-08-27] VITALS (9 sets, daily range): BP systolic 95–129; BP diastolic 51–88; PULSE 65–82; RESP 16–22; O2SAT 97–99
[2016-08-27] MEDS: 0.9% Sodium Chloride 1,000 ML IV SCH ×2 (03:17→23:13)
[2016-08-27 05:56] LABS: BASOPHILS % (AUTO) 0.1 % (0-3); MONOCYTES % (AUTO) 6.4 % (4-12); Mean Corpuscular Hemoglobin 26.8 pg (27.0-35.0); NEUTROPHILS % (AUTO) 80.2 % (40-74); Platelet Count 74 bil/L (150-400)
[2016-08-27 06:24] LABS: TROPONIN T 0.016 ug/L (0.0-0.011)
[2016-08-27 06:48] LABS: Mean Corpuscular Hemoglobin 26.3 pg (27.0-35.0); Mean Corpuscular Volume 89.1 fL (81-100)
[2016-08-27] MEDS: Insulin LISPRO 300 Unit/3 mL Inj SUBQ SCH ×4 (07:53→23:14)
[2016-08-27] MEDS: Cefepime Inj 2,000 MG in Dextrose 5% Minibag Plus 50 ML IV SCH (07:57)
[2016-08-27] MEDS ORDERED: Vancomycin Serum Trough XX ONE (08:00)
[2016-08-27] MEDS: Vancomycin Inj 1,000 MG in IV Premix 1 EACH IV SCH ×2 (08:02→20:43)
[2016-08-27] MEDS: Sodium Chloride LOK Flush 10 mL Syringe IVFLUSH SCH ×3 (08:06→20:28)
[2016-08-27] MEDS: Nystatin 100,000 Unit/Gm 15 Gm Powder TOPICAL SCH ×2 (08:07→23:13)
[2016-08-27] MEDS ORDERED: Albuterol 2.5 mg/3 mL Inhalation Solution NEB PRN (10:50)
--- NOTE | 2016-08-27 10:51 | PCM.PNMED ---
Subjective Date of Service Aug 27, 2016 Subjective This is a 66-year-old female with past medical history significant for multiple episodes of cellulitis, hypertension, hyperlipidemia, nonischemic cardiomyopathy status post pacemaker placement, bilateral lower extremity lymphedema, morbid obesity, history of MRSA infection, CKD stage II, systolic congestive heart failure, CVA, and asthma who presents today for sudden onset of shortness of breath and chest pain. This morning, she continues to have dyspnea, which is improving. She has low back pain that is not relieved by her current medications. She also has bilateral knee pain which is not new. Exam Vital Signs Vital Sign - Last Date Time Temp Pulse Resp B/P Pulse Ox O2 Delivery O2 Flow Rate FiO2 08/27/16 05:29 76 08/27/16 03:35 37.2 20 114/88 99 OxyMask 5.00 08/26/16 23:18 100 Intake and Output 08/26/16 08/26/16 08/27/16 Cumulative From/Thru 15:00 23:00 07:00 08/25/16 16:04 - 08/27/16 05:35 Intake Total 1751 ml 866 ml 4674 ml Output Total 400 ml 300 ml 700 ml Balance 1351 ml 566 ml 3974 ml Intake Oral 520 ml 200 ml 920 ml IV Total 1231 ml 666 ml 3754 ml Output Urine Total 400 ml 300 ml 700 ml # Voids 1 # Bowel Movements 2 0 2 Exam General: No acute distress, obese, Alert and oriented to person, place, and time. HEENT: Normocephalic, atraumatic. Oropharynx free of erythema and cobble stoning with moist mucosa. Neck: Supple with full range of motion. No jugular venous distension. Cardiovascular: Tachycardic. Distant heart sounds secondary to body habitus but no appreciable murmurs, rubs, or gallops. Pulmonary: Distant breath sound secondary to body habitus end expiratory wheezes bilateral upper lung munoz but no crackles or rhonchi were appreciated. Abdomen: Bowel tones present. Soft, obese, nontender, nondistended. Extremities: Obese extremities. Moderate lymphedema present bilaterally. Skin: Erythema and dryness bilateral anterior lower legs with increased erythema between skin folds. Neurological: Cranial nerves grossly intact. Psychiatric: Normal mood and affect. IVs and Medications Medications Reviewed: Medications were reviewed in detail Lab and Diagnostics Result Diagram: 08/27/16 0500 08/26/16 0205 X-Rays, CTs and MRIs CT angiogram of chest on 08/25/2016: IMPRESSION: 1. Diagnostic sensitivity and specificity of the study limited by patient motion and suboptimal contrast opacification of the segmental and subsegmental pulmonary arteries. 2. Filling defects versus artifact involving numerous bilateral lung segmental and subsegmental pulmonary arteries. Pulmonary emboli cannot be excluded. 3. Cardiomegaly. Dictated by: Coral Escobar MD, PhD on 08/25/2016 at 19:56 PROCEDURE: US VENOUS LEG DUPLEX BILATERAL IMPRESSION: No deep venous thrombosis identified within either the left or right lower extremities. Approved by: Coral Escobar MD, PhD on 08/26/2016 at 11:27 PROCEDURE: US ABDOMEN IMPRESSION: 1. Hepatomegaly and diffusely increased hepatic echogenicity noted likely related to fatty infiltration of the liver but other hepatocellular disease cannot be excluded. Recommend clinical correlation. 2. Increase in renal cortical echogenicity bilaterally indicating mild medical renal disease. Approved by: Jose Zimmer M.D. on 08/26/2016 at 10:56 Cardiac Echo Impressions Echocardiogram Report Interpretation Summary The left ventricle is moderately dilated. Left ventricular wall thickness is borderline increased. Left ventricular ejection fraction is estimated to be 35%. Anterior, septal, apical hypokinesis is noted. Compared to the prior exam, left ventricular function is moderately decreased. Globular echo density in RA noted on one view, consider ELVIA Electronically signed by: Arnulfo Whitfield on Reading Physician:08/26/2016 05:16 PM Report status: Addendum REPORT#: [id number] Assessment & Plan This is a 66-year-old female with past medical history significant for cellulitis, history of MRSA infection, hypertension, hyperlipidemia, nonischemic cardiomyopathy, asthma, and congestive heart failure who presents with sudden onset chest pressure and shortness of breath that began after getting her legs wrapped for lymphedema. Sepsis, acute, present on admission, ongoing: -On admit WBC 16.8 with left shift, pulse 120, temp 37.8. Source urinary tract infection, bacteremia, and possible skin breakdown and cellulitis. lactic acid 1.8. MRSA positive nasal screen. -Normal saline at 75 mL per hour discontinued originally due concern for hypervolemia with CHF -Blood cultures show blood cultures positive for streptococcus and urine culture shows preliminary gram negative rods -MRSA positive -Cefepime and vancomycin ordered. Patient was given a dose of ceftriaxone in the emergency department. Discontinued cefepime and started ceftriaxone. Bacteremia, acute, present on admission. - Possible streptococcus in blood cultures - Echocardiogram as above - Continue antibiotics as above until sensitivities are back. Discussed with Dr. Alberto and recommended to contact him when sensitivities are back Hypotension: - Patient became hypotensive today blood pressures 80s over 40s -Patient started on norepinephrine gtt -Patient was upgraded to CCU status - Will continue to monitor Urinary tract infection, acute, present on admission: -Positive nitrites, moderate leukocyte esterase, greater than 50 WBC, and many urine bacteria. -Urine culture shows E.coli pansensitive -Cefepime discontinued. Ceftriaxone started Shortness of breath and chest pressure, present on admission, improving: -Possible pulmonary embolus. Patient started on heparin by emergency department. -In the differential is myocardial infarction although this is doubtful as EKG is relatively unchanged since previous. . -CT angiogram of chest showed a limited study due to patient motion and suboptimal. Filling defects versus artifact involving numerous bilateral lung segmental and subsegmental pulmonary arteries. Pulmonary emboli cannot be excluded. Consider septic emboli. -Lower extremity ultrasound did not show DVT -Discontinued heparin PE protocol and switched to Lovenox for now. Will contact her insurance about NOAC coverage -trended troponins 3 and trended down Globular echo density in RA seen on echocardiogram -Pt will need ELVIA with anesthesiology when improved respiratory status - Continue Lovenox as above Bilateral lower extremity lymphedema, present on admission, ongoing: -Patient has severe lymphedema. Uncertain if she has a new cellulitis or chronic skin changes - Antibiotics as above - Nystatin powder twice per day -Continue monitor. - Wound evaluation ordered Chronic kidney disease stage 2, present on admission, stable: -On 07/06/2016 BUN 20, creatinine 1.16. On 08/25/2016 BUN 23, creatinine 1.04. - Likely secondary to sepsis as above - Fluid boluses and hold torsemide Elevated troponin: -Initial troponin in ED <.010. Repeat troponin .058, decreased to 0.016 -Spoke to cardiology, Dr. Shearer, concerning EKG and elevated troponin. They stated to keep her on heparin and continue to trend troponin. They felt this was likely a bump to the possible PE. -Likely also elevated in context of sepsis. Diabetes mellitus type 2, present on admission, ongoing: -Admit glucose 125. -A1c 5.1 -Humalog low-dose correctional ordered Chronic normocytic anemia, present on admission: -Review of previous records show that this is stable. On admit and 11.7, hematocrit 38.6 -She is followed by oncology. -Continue to monitor Chronic thrombocytopenia, present on admission: -Review of previous records show that this stable. Platelets on admission 138 -She is followed by oncology. History of congestive heart failure, present on admission: -Last echo on 04/07/2016: LVEF 45-50%, impaired early relaxation of the left ventricle with possible increased filling pressure. -Echocardiogram as above -We will need to monitor patient's fluid status closely. -Daily weights. History of anxiety and depression, present on admission: -Continue home medications. Candidiasis of skin, present on admission, ongoing: -Nystatin powder ordered. Asthma, present on admission, ongoing: -Duonebs as needed. Morbid obesity, BMI 60.8, present on admission - Bariatric bed DVT prophylaxis: patient is on Lovenox due to possible PE. Resuscitation Status: CPR: Attempt Resuscitation Attending Statement The patient was seen and examined together with Dr. Andrews on 08/27/16 and I have added additional information to the note above. Bhumi Andrews DO Aug 27, 2016 06:35 Paty Danielle DO Aug 27, 2016 17:38
[2016-08-27] MEDS: 0.9% Sodium Chloride 250 ML IV SCH (12:21)
[2016-08-27] MEDS: ALPRAZolam 0.5 mg Tablet PO PRN (12:56)
[2016-08-27] MEDS: cefTRIAXone Inj 1,000 MG in Dextrose 5% Minibag Plus 50 ML IV SCH (15:09)
[2016-08-27] MEDS: Vasopressin Inj 20 UNIT in 0.9% Sodium Chloride 100 ML IV SCH ×2 (16:07→23:14)
[2016-08-27] MEDS ORDERED: Norepinephrine 8,000 mCg/250 mL NS Premix IV ONE (16:10)
[2016-08-27] MEDS ORDERED: 0.9% Sodium Chloride 500 ML IV ONE (16:15)
[2016-08-27] MEDS: Norepineph 8,000 mCg/250 mL NS 8,000 MCG in IV Premix 1 EACH IV SCH (16:41)
--- NOTE | 2016-08-27 17:15 | PCM.PROC ---
Procedure Note Date of Service: Aug 27, 2016 Procedure Details: Procedure: Osteopathic Manipulative Treatment Subjective: Patient is a 66-year-old female who is currently admitted for sepsis ,PE, morbid obesity, bacteremia, chronic kidney disease, and type 2 diabetes. The patient has currently been bedbound secondary to the multiple high-level antibiotics and pressors that she has been on. The patient has developed low back pain and bilateral knee pain which is most likely secondary to her obesity and sedentary positioning since admission. The patient states that her low back pain is currently a 10 out of 10. The patient states that nothing seems to improve the pain and nothing seems to worsen the pain, but it is just constant. Risks and benefits of OMT were explained to the patient and verbal consent obtained. Osteopathic Structural Exam: Head: OA FSlRr Cervicals: C3-5 ESlRl Thoracics: Thoracic outlet rotated left Lumbars: Paraspinal hypertonicity on the left greater than right L3 to L5 Abdomen: Definitely section on the left greater than right Ribs: Ribs 3 through 6 restricted on the right greater than left Pelvis: Internally rotated innominate on the right Sacrum: SI joint compression on the right Upper extremities: Latissimus dorsi hypertonicity on the right greater than left Lower extremities: Psoas tender point on the left greater than right Patient responded well to treatment. Patient stated that after treatment she felt that her pain decreased down to a 7. We will continue to monitor the patient and treat accordingly. Osteopathic treatment modalities used: Myofascial release, traction, BLT, rib raising, and soft tissue technique Paty Danielle DO Aug 27, 2016 17:15
[2016-08-28 04:21] VITALS: BP 122/55; PULSE 82; RESP 17; O2SAT 98
[2016-08-28 04:36] LABS: BASOPHILS % (AUTO) 0.3 % (0-3); EOSINOPHILS % (AUTO) 4.3 % (0-5); MONOCYTES % (AUTO) 9.7 % (4-12); Mean Corpuscular Hemoglobin 25.9 pg (27.0-35.0); Mean Corpuscular Volume 87.8 fL (81-100); NEUTROPHILS % (AUTO) 69.4 % (40-74); Platelet Count 107 bil/L (150-400)
[2016-08-28] MEDS ORDERED: Vancomycin Serum Trough XX ONE ×2 (08:00→20:00)
[2016-08-28] MEDS: Insulin LISPRO 300 Unit/3 mL Inj SUBQ SCH ×3 (08:00→17:20)
[2016-08-28 08:45] VITALS: BP 119/95; PULSE 79; RESP 17; O2SAT 98
[2016-08-28] MEDS: Sodium Chloride LOK Flush 10 mL Syringe IVFLUSH SCH ×3 (09:17→23:25)
[2016-08-28] MEDS: Vancomycin Inj 1,000 MG in IV Premix 1 EACH IV SCH (09:17)
[2016-08-28] MEDS: Nystatin 100,000 Unit/Gm 15 Gm Powder TOPICAL SCH ×2 (09:18→21:35)
[2016-08-28] MEDS ORDERED: Vancomycin Dose per Pharmacist XX SCH (09:39)
[2016-08-28] MEDS: Norepineph 8,000 mCg/250 mL NS 8,000 MCG in IV Premix 1 EACH IV SCH (09:49)
[2016-08-28] MEDS: 0.9% Sodium Chloride 250 ML IV SCH (12:41)
[2016-08-28 13:06] VITALS: BP 140/79; PULSE 80; RESP 20; O2SAT 100
[2016-08-28] MEDS: Vasopressin Inj 20 UNIT in 0.9% Sodium Chloride 100 ML IV SCH (14:21)
[2016-08-28] MEDS: cefTRIAXone Inj 1,000 MG in Dextrose 5% Minibag Plus 50 ML IV SCH (14:46)
[2016-08-28 16:27] VITALS: BP 115/64; PULSE 87; RESP 20; O2SAT 93
--- NOTE | 2016-08-28 17:29 | PCM.PNMED ---
Subjective Date of Service Aug 28, 2016 Subjective This is a 66-year-old female with past medical history significant for multiple episodes of cellulitis, hypertension, hyperlipidemia, nonischemic cardiomyopathy status post pacemaker placement, bilateral lower extremity lymphedema, morbid obesity, history of MRSA infection, CKD stage II, systolic congestive heart failure, CVA, and asthma who presents today for sudden onset of shortness of breath and chest pain. She feels very tired today. She also had an episode of urinary incontinence this morning. She has back and knee pain. She does not have chest pain. Her breathing continues to improve. Exam Vital Signs Vital Sign - Last Date Time Temp Pulse Resp B/P Pulse Ox O2 Delivery O2 Flow Rate FiO2 08/28/16 16:27 36.6 87 20 115/64 93 OxyMask 2.00 08/28/16 08:45 100 Intake and Output 08/27/16 08/27/16 08/28/16 Cumulative From/Thru 15:00 23:00 07:00 08/25/16 16:04 - 08/28/16 06:11 Intake Total 1876 ml 533 ml 7083 ml Output Total 200 ml 210 ml 1110 ml Balance 1676 ml 323 ml 5973 ml Intake Oral 100 ml 1020 ml IV Total 1876 ml 433 ml 6063 ml Output Urine Total 200 ml 210 ml 1110 ml # Voids 1 # Bowel Movements 2 Exam General: Mild acute distress due to upset about being in the hospital, obese HEENT: Normocephalic, atraumatic. Oropharynx free of erythema and cobble stoning with moist mucosa. Neck: Supple with full range of motion. Cardiovascular: Regular rate. Decreased heart sounds secondary to body habitus but no appreciable murmurs, rubs, or gallops. Pulmonary: Decreased breath sound secondary to body habitus but no crackles, wheezes, or rhonchi were appreciated. Abdomen: Bowel tones present. Soft, obese, nontender, nondistended. Extremities: Obese extremities. Moderate lymphedema present bilaterally. Skin: Erythema and dryness bilateral anterior lower legs with increased erythema between skin folds. Neurological: Cranial nerves grossly intact. Psychiatric: Normal mood and affect. Alert and oriented to person, place, and time. IVs and Medications Medications Reviewed: Medications were reviewed in detail Lab and Diagnostics Result Diagram: 08/28/1641908/28/16419 X-Rays, CTs and MRIs CT angiogram of chest on 08/25/2016: IMPRESSION: 1. Diagnostic sensitivity and specificity of the study limited by patient motion and suboptimal contrast opacification of the segmental and subsegmental pulmonary arteries. 2. Filling defects versus artifact involving numerous bilateral lung segmental and subsegmental pulmonary arteries. Pulmonary emboli cannot be excluded. 3. Cardiomegaly. Dictated by: Coral Escobar MD, PhD on 08/25/2016 at 19:56 PROCEDURE: US VENOUS LEG DUPLEX BILATERAL IMPRESSION: No deep venous thrombosis identified within either the left or right lower extremities. Approved by: Coral Escobar MD, PhD on 08/26/2016 at 11:27 PROCEDURE: US ABDOMEN IMPRESSION: 1. Hepatomegaly and diffusely increased hepatic echogenicity noted likely related to fatty infiltration of the liver but other hepatocellular disease cannot be excluded. Recommend clinical correlation. 2. Increase in renal cortical echogenicity bilaterally indicating mild medical renal disease. Approved by: Jose Zimmer M.D. on 08/26/2016 at 10:56 Cardiac Echo Impressions Echocardiogram Report Interpretation Summary The left ventricle is moderately dilated. Left ventricular wall thickness is borderline increased. Left ventricular ejection fraction is estimated to be 35%. Anterior, septal, apical hypokinesis is noted. Compared to the prior exam, left ventricular function is moderately decreased. Globular echo density in RA noted on one view, consider ELVIA Electronically signed by: Arnulfo Whitfield on Reading Physician:08/26/2016 05:16 PM Report status: Addendum REPORT#: [id number] Assessment & Plan This is a 66-year-old female with past medical history significant for cellulitis, history of MRSA infection, hypertension, hyperlipidemia, nonischemic cardiomyopathy, asthma, and congestive heart failure who presents with sudden onset chest pressure and shortness of breath that began after getting her legs wrapped for lymphedema. Sepsis, acute, present on admission, ongoing: -On admit WBC 16.8 with left shift, pulse 120, temp 37.8. Source urinary tract infection, bacteremia, and possible skin breakdown and cellulitis. lactic acid 1.8. MRSA positive nasal screen. -Normal saline at 75 mL per hour discontinued originally due concern for hypervolemia with CHF -Blood cultures show blood cultures positive for streptococcus and urine culture shows preliminary gram negative rods -MRSA positive -Cefepime and vancomycin originally given. Patient was given a dose of ceftriaxone in the emergency department. - Discontinued cefepime and vancomycin and continued ceftriaxone. Bacteremia, acute, present on admission. - Streptococcus agalactiae in blood cultures resistant to clindamycin - Echocardiogram as above - Continue antibiotics as above until sensitivities are back. Discussed with Dr. Alberto and recommended to consider continuing only ceftriaxone Hypotension: - Patient became hypotensive 08/27/16 with blood pressures 80s over 40s -Patient started on norepinephrine gtt but discontinued at around 8:00 PM after multiple fluid boluses -Hold anti-hypertensives for now - Will continue to monitor Urinary tract infection, acute, present on admission: -Positive nitrites, moderate leukocyte esterase, greater than 50 WBC, and many urine bacteria. -Urine culture shows E.coli pansensitive -Cefepime discontinued. Continue ceftriaxone Globular echo density in RA - Visualized on echocardiogram -Pt will need ELVIA with anesthesiology when improved respiratory status. Contact cardiology when pt is stable for ELVIA so that it can be scheduled - Continue Lovenox at renally adjusted dose Chronic kidney disease stage 2, present on admission, stable: -On 07/06/2016 BUN 20, creatinine 1.16. On 08/25/2016 BUN 23, creatinine 1.04. Today, BUN 38, Cr 1.90 - Likely secondary to sepsis and vancomycin with Lovenox - Fluid boluses and hold torsemide Bilateral lower extremity lymphedema, present on admission, ongoing: -Patient has severe lymphedema. Uncertain if she has a new cellulitis or chronic skin changes - Antibiotics as above - Nystatin powder twice per day -Continue monitor. - Wound evaluation ordered Shortness of breath and chest pressure, present on admission, improving: -Possible pulmonary embolus. Patient started on heparin by emergency department. -In the differential is myocardial infarction although this is doubtful as EKG is relatively unchanged since previous. . -CT angiogram of chest showed a limited study due to patient motion and suboptimal. Filling defects versus artifact involving numerous bilateral lung segmental and subsegmental pulmonary arteries. Pulmonary emboli cannot be excluded. Consider septic emboli. -Lower extremity ultrasound did not show DVT -Discontinued heparin PE protocol and switched to Lovenox for now. Will need to contact her insurance about possibly transitioning to NOAC coverage -trended troponins 3 and trended down Elevated troponin: -Initial troponin in ED <.010. Repeat troponin .058, decreased to 0.016 -Spoke to cardiology, Dr. Shearer, concerning EKG and elevated troponin. They stated to keep her on heparin and continue to trend troponin. They felt this was likely a bump to the possible PE. -Likely also elevated in context of sepsis. Diabetes mellitus type 2, present on admission, ongoing: -Admit glucose 125. -A1c 5.1% -Humalog low-dose correctional discontinued Chronic normocytic anemia, present on admission: -Review of previous records show that this is stable. On admit and 11.7, hematocrit 38.6 -She is followed by oncology. -Continue to monitor Chronic thrombocytopenia, present on admission: -Review of previous records show that this stable. Platelets on admission 138 -She is followed by oncology. History of congestive heart failure, present on admission: -Last echo on 04/07/2016: LVEF 45-50%, impaired early relaxation of the left ventricle with possible increased filling pressure. -Echocardiogram as above -We will need to monitor patient's fluid status closely and resume torsemide as blood pressure stabilizes -Daily weights. - Raza catheter placed for more accurate monitoring of output History of anxiety and depression, present on admission: -Continue home medications. Candidiasis of skin, present on admission, ongoing: -Nystatin powder ordered. Asthma, present on admission, ongoing: -Duonebs as needed. Morbid obesity, BMI 60.8, present on admission - Bariatric bed DVT prophylaxis: patient is on Lovenox due to possible PE. Resuscitation Status: CPR: Attempt Resuscitation Attending Statement The patient was seen and examined together with Dr. Andrews on 08/28/16 and I have added additional information to the note above. Bhumi Andrews DO Aug 28, 2016 17:17 Paty Danielle DO Aug 29, 2016 07:35
[2016-08-28 20:26] VITALS: PULSE 85
[2016-08-28 21:28] VITALS: BP 128/70; PULSE 80; RESP 16; O2SAT 94
[2016-08-28] MEDS: ENOXAPARIN SUBQ SCH ×2 (21:36)
[2016-08-28] MEDS: ALPRAZolam 0.5 mg Tablet PO PRN (22:33)
[2016-08-29] VITALS (10 sets, daily range): BP systolic 128–151; BP diastolic 74–88; PULSE 73–88; RESP 14–18; O2SAT 91–100
[2016-08-29] MEDS: 0.9% Sodium Chloride 1,000 ML IV SCH (01:06)
[2016-08-29] MEDS: Vasopressin Inj 20 UNIT in 0.9% Sodium Chloride 100 ML IV SCH (01:28)
[2016-08-29] MEDS: Norepineph 8,000 mCg/250 mL NS 8,000 MCG in IV Premix 1 EACH IV SCH (03:31)
[2016-08-29 04:41] LABS: BASOPHILS % (AUTO) 0.5 % (0-3); EOSINOPHILS % (AUTO) 6.1 % (0-5); MONOCYTES % (AUTO) 8.9 % (4-12); Mean Corpuscular Hemoglobin 26.1 pg (27.0-35.0); Mean Corpuscular Volume 86.2 fL (81-100); NEUTROPHILS % (AUTO) 67.7 % (40-74); Platelet Count 99 bil/L (150-400)
[2016-08-29] MEDS: Sodium Chloride LOK Flush 10 mL Syringe IVFLUSH SCH ×2 (09:11→16:20)
[2016-08-29] MEDS: Nystatin 100,000 Unit/Gm 15 Gm Powder TOPICAL SCH ×2 (09:12→22:54)
[2016-08-29] MEDS: ENOXAPARIN SUBQ SCH ×4 (09:12→18:22)
[2016-08-29] MEDS: 0.9% Sodium Chloride 250 ML IV SCH (12:21)
[2016-08-29] MEDS: cefTRIAXone Inj 1,000 MG in Dextrose 5% Minibag Plus 50 ML IV SCH (13:49)
--- NOTE | 2016-08-29 15:08 | PCM.PNMED ---
Subjective Date of Service Aug 29, 2016 Subjective Patient and her normal mood this morning. Flat affect and depressed mood. Yesterday during physical therapy she was unable to stand at bedside due to "buckling of her knees." She denies additional review of systems is obviously anxious. Exam Vital Signs Vital Sign - Last Date Time Temp Pulse Resp B/P Pulse Ox O2 Delivery O2 Flow Rate FiO2 08/29/16 11:54 36.3 78 18 148/78 94 Room Air 08/29/16 01:30 2.00 08/28/16 08:45 100 Intake and Output 08/28/16 08/28/16 08/29/16 Cumulative From/Thru 15:00 23:00 07:00 08/25/16 16:04 - 08/29/16 06:03 Intake Total 290 ml 309 ml 7682 ml Output Total 900 ml 675 ml 2685 ml Balance -610 ml -366 ml 4997 ml Intake Oral 200 ml 200 ml 1420 ml IV Total 90 ml 109 ml 6262 ml Output Urine Total 900 ml 675 ml 2685 ml # Voids 1 # Bowel Movements 2 Exam General: Anxious, super morbidly obese Cardiovascular: Regular rate and rhythm although sounds diminished due to habitus Pulmonary: Appears clear to auscultation although habitus is limiting factor Abdomen: Super obese, bowel tones present, nontender, nondistended Extremities: Extremely obese extremities with multiple pannus formations, lymphedema Skin: Erythema and dryness bilateral anterior lower legs with increased erythema between skin folds. Psychiatric: Anxious/depressed with flat affect IVs and Medications Medications Reviewed: Medications were reviewed in detail Lab and Diagnostics Result Diagram: 08/29/16 0415 08/29/16 0415 X-Rays, CTs and MRIs CT angiogram of chest on 08/25/2016: IMPRESSION: 1. Diagnostic sensitivity and specificity of the study limited by patient motion and suboptimal contrast opacification of the segmental and subsegmental pulmonary arteries. 2. Filling defects versus artifact involving numerous bilateral lung segmental and subsegmental pulmonary arteries. Pulmonary emboli cannot be excluded. 3. Cardiomegaly. Dictated by: Coral Escobar MD, PhD on 08/25/2016 at 19:56 PROCEDURE: US VENOUS LEG DUPLEX BILATERAL IMPRESSION: No deep venous thrombosis identified within either the left or right lower extremities. Approved by: Coral Escobar MD, PhD on 08/26/2016 at 11:27 PROCEDURE: US ABDOMEN IMPRESSION: 1. Hepatomegaly and diffusely increased hepatic echogenicity noted likely related to fatty infiltration of the liver but other hepatocellular disease cannot be excluded. Recommend clinical correlation. 2. Increase in renal cortical echogenicity bilaterally indicating mild medical renal disease. Approved by: Jose Zimmer M.D. on 08/26/2016 at 10:56 Cardiac Echo Impressions Echocardiogram Report Interpretation Summary The left ventricle is moderately dilated. Left ventricular wall thickness is borderline increased. Left ventricular ejection fraction is estimated to be 35%. Anterior, septal, apical hypokinesis is noted. Compared to the prior exam, left ventricular function is moderately decreased. Globular echo density in RA noted on one view, consider ELVIA Electronically signed by: Arnulfo Whitfield on Reading Physician:08/26/2016 05:16 PM Report status: Addendum REPORT#: [id number] Assessment & Plan This is a 66-year-old female with past medical history significant for cellulitis, history of MRSA infection, hypertension, hyperlipidemia, nonischemic cardiomyopathy, asthma, and congestive heart failure who presents with sudden onset chest pressure and shortness of breath that began after getting her legs wrapped for lymphedema. 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 On 08/25/2016 BUN 23, creatinine 1.04. - Likely secondary to sepsis as above - Fluid boluses and hold torsemide Sepsis with shock, acute, present on admission, ongoing: -On admit WBC 16.8 with left shift, pulse 120, temp 37.8. Source urinary tract infection, bacteremia, and possible skin breakdown and cellulitis. lactic acid 1.8. MRSA positive nasal screen. -Normal saline at 75 mL per hour discontinued originally due concern for hypervolemia with CHF -Patient has short stay in the ICU with pressor support; resolved and off pressors -Blood cultures show blood cultures positive for streptococcus and urine culture shows preliminary gram negative rods -MRSA positive -Continue ceftriaxone to treat UTI and strep Bacteremia, acute, present on admission. - Possible streptococcus in blood cultures - Echocardiogram as above - Continue antibiotics as above until sensitivities are back. Discussed with Dr. Alberto and recommended to contact him when sensitivities are back Hypotension; present medicines; resolved -Placed in the ICU due to septic shock -Resolved and will restart her pressure medications Urinary tract infection, acute, present on admission: -Positive nitrites, moderate leukocyte esterase, greater than 50 WBC, and many urine bacteria. -Urine culture shows E.coli pansensitive -Continue ceftriaxone Shortness of breath and chest pressure, present on admission, improving: -Possible pulmonary embolus. Patient started on heparin by emergency department. -In the differential is myocardial infarction although this is doubtful as EKG is relatively unchanged since previous. . -CT angiogram of chest showed a limited study due to patient motion and suboptimal. Suggestive of pulmonary embolism but unconfirmed -Lower extremity ultrasound did not show DVT -Discontinued heparin PE protocol and switched to Lovenox for now. Will contact her insurance about NOAC coverage -trended troponins 3 and trended down Bilateral lower extremity lymphedema, present on admission, ongoing: -Patient has severe lymphedema. Uncertain if she has a new cellulitis or chronic skin changes - Antibiotics as above - Nystatin powder twice per day - Wound evaluation ordered Elevated troponin: -Initial troponin in ED <.010. Repeat troponin .058, decreased to 0.016 -Spoke to cardiology, Dr. Shearer, concerning EKG and elevated troponin. They stated to keep her on heparin and continue to trend troponin. They felt this was likely a bump to the possible PE. -Likely also elevated in context of sepsis. Diabetes mellitus type 2, present on admission, ongoing: -Admit glucose 125. -A1c 5.1 -Humalog low-dose correctional ordered Chronic normocytic anemia, present on admission: -Review of previous records show that this is stable. On admit and 11.7, hematocrit 38.6 -She is followed by oncology. -Continue to monitor Chronic thrombocytopenia, present on admission: -Review of previous records show that this stable. Platelets on admission 138 -She is followed by oncology. History of congestive heart failure, present on admission: -Last echo on 04/07/2016: LVEF 45-50%, impaired early relaxation of the left ventricle with possible increased filling pressure. -Echocardiogram as above -We will need to monitor patient's fluid status closely. -Daily weights. History of anxiety and depression, present on admission: -Continue home medications. Candidiasis of skin, present on admission, ongoing: -Nystatin powder ordered. Asthma, present on admission, ongoing: -Duonebs as needed. Morbid obesity, BMI 60.8, present on admission - Bariatric bed Pain Evaluation: Adequate Pain Control Resuscitation Status: CPR: Attempt Resuscitation Attending Statement The patient was seen and examined together with Dr. Castaneda on 08/29/16 and I have added additional information to the note above. Jose Enrique Castaneda DO Aug 29, 2016 15:08 Paty Danielle DO Aug 29, 2016 16:01
--- NOTE | 2016-08-29 17:50 | PCM.ADCARE ---
Jose Enrique Castaneda DO 08/29/16 1750: Advance Care Planning Note Purpose of Encounter: To establish code status Parties in Attendance: Patient Dr. Jose Enrique Danielle Decisional Capacity: Appropriate and capable Subjective: Pt wishes to discuss code status prior to undergoing Transesophageal echocardiography. She wishes to be made FULL CODE with the understanding that this includes compressions, shocks, medications, and intubation. 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 Hypotension; present medicines; resolved Urinary tract infection, acute, present on admission: Shortness of breath and chest pressure, present on admission, improving: Bilateral lower extremity lymphedema, present on admission, ongoing: Elevated troponin: Diabetes mellitus type 2, present on admission, ongoing: Chronic normocytic anemia, present on admission: Chronic thrombocytopenia, present on admission: Chronic Systolic Heart failure Goals of Care Determinations: Patient wishes to be FULL CODE Plan: POLST was signed by patient and Dr. Jose Enrique Castaneda; Plan is to be FULL CODE CODE STATUS: FULL CODE Time Spent Adv.Care Planning: Greater than 16 minutes Paty Danielle DO 08/29/16 1812: Advance Care Planning Note Adv. Care Plan Documenation: The patient was seen and examined together with Dr. Castaneda on 08/29/16 and I agree with the history, exam and plan as outlined in the note above. Jose Enrique Castaneda DO Aug 29, 2016 17:50 Paty Danielle DO Aug 29, 2016 18:12
[2016-08-30] VITALS (10 sets, daily range): BP systolic 127–150; BP diastolic 66–87; PULSE 74–86; RESP 16–20; O2SAT 93–97
[2016-08-30] MEDS: 0.9% Sodium Chloride 1,000 ML IV SCH (01:06)
[2016-08-30] MEDS: Sodium Chloride LOK Flush 10 mL Syringe IVFLUSH SCH ×4 (04:05→21:53)
[2016-08-30 04:47] LABS: BASOPHILS % (AUTO) 0.2 % (0-3); EOSINOPHILS % (AUTO) 3.8 % (0-5); MONOCYTES % (AUTO) 9.3 % (4-12); Mean Corpuscular Volume 86.4 fL (81-100); NEUTROPHILS % (AUTO) 67.9 % (40-74); Platelet Count 110 bil/L (150-400)
[2016-08-30 05:25] LABS: Magnesium 2.2 mg/dL (1.6-2.6); Phosphorus 2.7 mg/dL (2.5-4.9)
[2016-08-30] MEDS: ENOXAPARIN SUBQ SCH ×4 (10:36→21:36)
[2016-08-30] MEDS: 0.9% Sodium Chloride 250 ML IV SCH (12:21)
[2016-08-30] MEDS: cefTRIAXone Inj 1,000 MG in Dextrose 5% Minibag Plus 50 ML IV SCH (14:07)
[2016-08-30] MEDS: Nystatin 100,000 Unit/Gm 15 Gm Powder TOPICAL SCH ×2 (14:08→21:35)
[2016-08-30] MEDS ORDERED: ENOXAPARIN SUBQ SCH ×2 (14:25)
--- NOTE | 2016-08-30 15:42 | PCM.PNMED ---
Subjective Date of Service Aug 30, 2016 Subjective Overnight the patient seems to be improving. She continues to remove the oxygen during night. Patient doing better with physical therapy as well being able to stand and transfer. Patient awaiting ELVIA tomorrow Exam Vital Signs Vital Sign - Last Date Time Temp Pulse Resp B/P Pulse Ox O2 Delivery O2 Flow Rate FiO2 08/30/16 13:36 Room Air 08/30/16 11:45 36.6 86 16 147/87 94 08/30/16 10:15 2.00 08/28/16 08:45 100 Intake and Output 08/29/16 08/29/16 08/30/16 Cumulative From/Thru 15:00 23:00 07:00 08/25/16 16:04 - 08/30/16 06:52 Intake Total 1219 ml 400 ml 9301 ml Output Total 800 ml 450 ml 3935 ml Balance 419 ml -50 ml 5366 ml Intake Oral 1040 ml 400 ml 2860 ml IV Total 179 ml 6441 ml Output Urine Total 800 ml 450 ml 3935 ml # Voids 1 # Bowel Movements 2 Exam General: Anxious, super morbidly obese Cardiovascular: Regular rate and rhythm although sounds diminished due to habitus Pulmonary: Appears clear to auscultation although habitus is limiting factor Abdomen: Super obese, bowel tones present, nontender, nondistended Extremities: Extremely obese extremities with multiple pannus formations, lymphedema Skin: Erythema and dryness bilateral anterior lower legs with increased erythema between skin folds. Psychiatric: Anxious/depressed with flat affect IVs and Medications Medications Reviewed: Medications were reviewed in detail Lab and Diagnostics Result Diagram: 08/30/16 0400 08/30/16 0400 X-Rays, CTs and MRIs CT angiogram of chest on 08/25/2016: IMPRESSION: 1. Diagnostic sensitivity and specificity of the study limited by patient motion and suboptimal contrast opacification of the segmental and subsegmental pulmonary arteries. 2. Filling defects versus artifact involving numerous bilateral lung segmental and subsegmental pulmonary arteries. Pulmonary emboli cannot be excluded. 3. Cardiomegaly. Dictated by: Coral Escobar MD, PhD on 08/25/2016 at 19:56 PROCEDURE: US VENOUS LEG DUPLEX BILATERAL IMPRESSION: No deep venous thrombosis identified within either the left or right lower extremities. Approved by: Coral Escobar MD, PhD on 08/26/2016 at 11:27 PROCEDURE: US ABDOMEN IMPRESSION: 1. Hepatomegaly and diffusely increased hepatic echogenicity noted likely related to fatty infiltration of the liver but other hepatocellular disease cannot be excluded. Recommend clinical correlation. 2. Increase in renal cortical echogenicity bilaterally indicating mild medical renal disease. Approved by: Jose Zimmer M.D. on 08/26/2016 at 10:56 Cardiac Echo Impressions Echocardiogram Report Interpretation Summary The left ventricle is moderately dilated. Left ventricular wall thickness is borderline increased. Left ventricular ejection fraction is estimated to be 35%. Anterior, septal, apical hypokinesis is noted. Compared to the prior exam, left ventricular function is moderately decreased. Globular echo density in RA noted on one view, consider ELVIA Electronically signed by: Arnulfo Whitfield on Reading Physician:08/26/2016 05:16 PM Report status: Addendum REPORT#: [id number] Assessment & Plan This is a 66-year-old female with past medical history significant for cellulitis, history of MRSA infection, hypertension, hyperlipidemia, nonischemic cardiomyopathy, asthma, and congestive heart failure who presents with sudden onset chest pressure and shortness of breath that began after getting her legs wrapped for lymphedema. 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 On 08/25/2016 BUN 23, creatinine 1.04. - Likely secondary to sepsis as above - Fluid management ongoing Chronic systolic heart failure, stage C, NYHA stage III; present on admission: -Last echo on 04/07/2016: LVEF 45-50%, impaired early relaxation of the left ventricle with possible increased filling pressure. -Echocardiogram as above -Daily weights.; Cautious fluid management Sepsis with shock secondary to UTI and strep bacteremia, acute, present on admission, resolving -On admit WBC 16.8 with left shift, pulse 120, temp 37.8. Source urinary tract infection, bacteremia, and possible skin breakdown and cellulitis. lactic acid 1.8. MRSA positive nasal screen. -Normal saline at 75 mL per hour discontinued originally due concern for hypervolemia with CHF -Patient has short stay in the ICU with pressor support; resolved and off pressors -Blood cultures show blood cultures positive for streptococcus and urine culture shows preliminary gram negative rods -MRSA positive -Continue ceftriaxone to treat UTI and strep; day 5/7 Bacteremia, acute, present on admission. - Possible streptococcus in blood cultures - Echocardiogram as above - Pansensitive; continue antibiotics - ID to see today Hypotension; present medicines; resolved -Placed in the ICU due to septic shock -Resolved and will restart her pressure medications Urinary tract infection, acute, present on admission: Resolving -Positive nitrites, moderate leukocyte esterase, greater than 50 WBC, and many urine bacteria. -Urine culture shows E.coli pansensitive -As above Shortness of breath and chest pressure, present on admission, improving: -Possible pulmonary embolus. Patient started on heparin by emergency department. -In the differential is myocardial infarction although this is doubtful as EKG is relatively unchanged since previous. . -CT angiogram of chest showed a limited study due to patient motion and suboptimal. Suggestive of pulmonary embolism but unconfirmed -Lower extremity ultrasound did not show DVT -Discontinued heparin PE protocol and switched to Lovenox for now. Will contact her insurance about NOAC coverage -trended troponins 3 and trended down Bilateral lower extremity lymphedema, present on admission, ongoing: -Patient has severe lymphedema. Uncertain if she has a new cellulitis or chronic skin changes - Nystatin powder twice per day - Wound evaluation ongoing Elevated troponin; present admission; resolving -Initial troponin in ED <.010. Repeat troponin .058, decreased to 0.016 -Spoke to cardiology, Dr. Shearer, concerning EKG and elevated troponin. They stated to keep her on heparin and continue to trend troponin. They felt this was likely a bump to the possible PE. -Likely also elevated in context of sepsis -Will DC heparin tomorrow prior to ELVIA and switch to Lovenox thereafter Diabetes mellitus type 2, present on admission, ongoing: -Admit glucose 125. -A1c 5.1 -Humalog low-dose correctional ordered Chronic normocytic anemia, present on admission: -Review of previous records show that this is stable. On admit and 11.7, hematocrit 38.6 -She is followed by oncology. -Continue to monitor Chronic thrombocytopenia, present on admission: -Review of previous records show that this stable. Platelets on admission 138 -She is followed by oncology. History of anxiety and depression, present on admission: -Continue home medications. Candidiasis of skin, present on admission, ongoing: -Nystatin powder ordered. Asthma, present on admission, ongoing: -Duonebs as needed. Morbid obesity, BMI 60.8, present on admission - Bariatric bed Status: Patient will need to finish antibiotics for another 2 days and undergo ELVIA for evaluation of possible myxoma pressures thrombus in the right atrium. Likely 1-2 days Pain Evaluation: Adequate Pain Control VTE Prophylaxis: Other (heparin) Resuscitation Status: CPR: Attempt Resuscitation Attending Statement The patient was seen and examined together with Dr. Castaneda on 08/30/2016 and I agree with the history, exam and plan as outlined in the note above. . Jose Enrique Castaneda DO Aug 30, 2016 15:42 Dameon Hood MD Aug 31, 2016 07:22
[2016-08-30] MEDS: Albuterol-Ipratropium 3 mL Inhalation Solution NEB PRN (18:16)
[2016-08-31] VITALS (12 sets, daily range): BP systolic 128–173; BP diastolic 69–96; PULSE 70–113; RESP 16–20; O2SAT 94–100
[2016-08-31] MEDS: Sodium Chloride LOK Flush 10 mL Syringe IVFLUSH SCH ×2 (08:30→15:51)
[2016-08-31] MEDS: ENOXAPARIN SUBQ SCH ×4 (08:30→20:48)
[2016-08-31] MEDS: 0.9% Sodium Chloride 1,000 ML IV SCH (08:37)
[2016-08-31] MEDS: Nystatin 100,000 Unit/Gm 15 Gm Powder TOPICAL SCH ×2 (08:40→20:47)
--- NOTE | 2016-08-31 09:49 | PCM.PNMED ---
Subjective Date of Service Aug 31, 2016 Subjective This is a 54 year old female with recurrent cellulites and morbid obesity who presented with sharp chest pain after getting legs wrapped. Subsequently found to be in septic shock with source of UTI and strep bacteremia. Echo showed possible myxoma/thrombus. Overnight the patient seems to be improving. Patient doing better with physical therapy as well being able to stand and transfer. Planned ELVIA today. Exam Vital Signs Vital Sign - Last Date Time Temp Pulse Resp B/P Pulse Ox O2 Delivery O2 Flow Rate FiO2 08/31/16 09:40 82 18 94 OxyMask 2.00 08/31/16 08:41 36.5 149/80 08/28/16 08:45 100 Intake and Output 08/30/16 08/30/16 08/31/16 Cumulative From/Thru 15:00 23:00 07:00 08/25/16 16:04 - 08/31/16 05:56 Intake Total 109 ml 636 ml 200 ml 12074 ml Output Total 450 ml 500 ml 4885 ml Balance 109 ml 186 ml -300 ml 5361 ml Intake Oral 450 ml 200 ml 3510 ml IV Total 109 ml 186 ml 6736 ml Output Urine Total 450 ml 500 ml 4885 ml # Voids 1 # Bowel Movements 2 Exam General: Anxious, morbidly obese Cardiovascular: Regular rate and rhythm although sounds diminished due to habitus Pulmonary: Appears clear to auscultation although habitus is limiting factor Abdomen: Obese, bowel tones present, nontender, nondistended Extremities: Extremely obese extremities with multiple pannus formations, lymphedema Skin: Erythema and dryness bilateral anterior lower legs with increased erythema between skin folds. Psychiatric: Anxious/depressed with flat affect IVs and Medications Medications Reviewed: Medications were reviewed in detail Lab and Diagnostics Result Diagram: 08/30/16 0400 08/30/16 0400 X-Rays, CTs and MRIs CT angiogram of chest on 08/25/2016: IMPRESSION: 1. Diagnostic sensitivity and specificity of the study limited by patient motion and suboptimal contrast opacification of the segmental and subsegmental pulmonary arteries. 2. Filling defects versus artifact involving numerous bilateral lung segmental and subsegmental pulmonary arteries. Pulmonary emboli cannot be excluded. 3. Cardiomegaly. Dictated by: Coral Escobar MD, PhD on 08/25/2016 at 19:56 PROCEDURE: US VENOUS LEG DUPLEX BILATERAL IMPRESSION: No deep venous thrombosis identified within either the left or right lower extremities. Approved by: Coral Escobar MD, PhD on 08/26/2016 at 11:27 PROCEDURE: US ABDOMEN IMPRESSION: 1. Hepatomegaly and diffusely increased hepatic echogenicity noted likely related to fatty infiltration of the liver but other hepatocellular disease cannot be excluded. Recommend clinical correlation. 2. Increase in renal cortical echogenicity bilaterally indicating mild medical renal disease. Approved by: Jose Zimmer M.D. on 08/26/2016 at 10:56 Cardiac Echo Impressions Echocardiogram Report Interpretation Summary The left ventricle is moderately dilated. Left ventricular wall thickness is borderline increased. Left ventricular ejection fraction is estimated to be 35%. Anterior, septal, apical hypokinesis is noted. Compared to the prior exam, left ventricular function is moderately decreased. Globular echo density in RA noted on one view, consider ELVIA Electronically signed by: Arnulfo Whitfield on Reading Physician:08/26/2016 05:16 PM Report status: Addendum REPORT#: [id number] Assessment & Plan This is a 66-year-old female with past medical history significant for cellulitis, history of MRSA infection, hypertension, hyperlipidemia, nonischemic cardiomyopathy, asthma, and congestive heart failure who presents with sudden onset chest pressure and shortness of breath that began after getting her legs wrapped for lymphedema. Subsequently found to have strep bacteremia, Ecoli UTI, and echo showing possible myxoma/thrombus. 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 Acute on Chronic kidney disease stage 2, present on admission, improving - Creatinine improving. Chronic systolic heart failure, stage C, NYHA stage III; present on admission: -Last echo on 04/07/2016: LVEF 45-50%, impaired early relaxation of the left ventricle with possible increased filling pressure. -Daily weights.; Cautious fluid management -ELVIA planned 08/31. Sepsis with shock secondary to UTI and strep bacteremia, acute, present on admission, resolving -On admit WBC 16.8 with left shift, pulse 120, temp 37.8. Source ecoli UTI, strep bacteremia. -Patient has short stay in the ICU with pressor support; resolved and off pressors now. -Blood cultures show blood cultures positive for streptococcus. Urine culture + for ecoli. -MRSA positive -Continue ceftriaxone. Bacteremia, acute, present on admission. - Possible streptococcus in blood cultures - Pansensitive; continue antibiotics -ELVIA pending. Hypotension; present medicines; resolved -S/P ICU for septic shock. Urinary tract infection, acute, present on admission: Resolving -Urine culture showed pansenstivie E Coli. -On Ceftriaxone. Shortness of breath and chest pressure, present on admission, improving: -Possible pulmonary embolus. Patient started on heparin by emergency department. -In the differential is myocardial infarction although this is doubtful as EKG is relatively unchanged since previous. . -CT angiogram of chest showed a limited study due to patient motion and suboptimal. Suggestive of pulmonary embolism but unconfirmed -Lower extremity ultrasound did not show DVT -On Lovenox. -trended troponins 3 and trended down Bilateral lower extremity lymphedema, present on admission, ongoing: -Patient has severe lymphedema. Uncertain if she has a new cellulitis or chronic skin changes - Nystatin powder twice per day - Wound evaluation ongoing Elevated troponin; present admission; resolving -Initial troponin in ED <.010. Repeat troponin .058, decreased to 0.016 -Spoke to cardiology, Dr. Shearer, concerning EKG and elevated troponin. They felt this was likely a bump to the possible PE. Likely also elevated in context of sepsis -Patient on Lovenox. Diabetes mellitus type 2, present on admission, ongoing: -Admit glucose 125. -A1c 5.1 -Humalog low-dose correctional ordered Chronic normocytic anemia, present on admission: -Review of previous records show that this is stable. On admit and 11.7, hematocrit 38.6 -She is followed by oncology. -Continue to monitor Chronic thrombocytopenia, present on admission: -Review of previous records show that this stable. Platelets on admission 138 -She is followed by oncology. History of anxiety and depression, present on admission: -Continue home medications. Candidiasis of skin, present on admission, ongoing: -Nystatin powder ordered. Asthma, present on admission, ongoing: -Duonebs as needed. Morbid obesity, BMI 60.8, present on admission - Bariatric bed Status: Patient will need to finish antibiotics for another day and undergo ELVIA for evaluation of possible myxoma pressures thrombus in the right atrium. Likely 1-2 days Pain Evaluation: Adequate Pain Control VTE Prophylaxis: Other (heparin) Resuscitation Status: CPR: Attempt Resuscitation Attending Statement The patient was seen and examined together with Dr. Myles on 08/31/2016 and I agree with the history, exam and plan as outlined in the note above. . Nestor Myles DO Aug 31, 2016 09:49 Dameon Hood MD Sep 01, 2016 17:15 Resuscitation Status: CPR: Attempt Resuscitation Nestor Myles DO Aug 31, 2016 09:49
[2016-08-31 10:00] LABS: BASOPHILS % (AUTO) 0.3 % (0-3); EOSINOPHILS % (AUTO) 3.2 % (0-5); MONOCYTES % (AUTO) 8.8 % (4-12); Mean Corpuscular Volume 86.4 fL (81-100); NEUTROPHILS % (AUTO) 66.7 % (40-74); Platelet Count 109 bil/L (150-400)
[2016-08-31] MEDS: 0.9% Sodium Chloride 250 ML IV SCH (12:21)
--- NOTE | 2016-08-31 14:24 | PCM.HPANE ---
Patient Data Date of Service: Aug 31, 2016 ([id number]) Surgeon Admitting Provider:Iraida Fritz DO Attending Provider:Iraida Fritz DO Primary Care Physician:Bri Ochoa Other Provider: Reason for Visit Pulmonary Embolism Ht/WT & BMI Height (Feet): 5 Height (Inches): 2.00 Weight (Kilograms): 151.100 Body Mass Index 62.88 Allergies Coded Allergies: Penicillins (Verified Allergy, Intermediate, Hives, 08/25/16) Potassium Clavulanate (Verified Allergy, Intermediate, Hives, 08/25/16) amoxicillin trihydrate (Verified Allergy, Intermediate, Hives, 08/25/16) trimethoprim (Verified Allergy, Intermediate, Diarrhea, 08/25/16) lisinopril (Verified Allergy, Unknown, cough, 08/25/16) doxycycline (Verified Adverse Reaction, Intermediate, Nausea,Vomiting, 08/26) sulfamethoxazole (Verified Adverse Reaction, Intermediate, Nausea,Vomiting , 08/25/16) NAUSEA AND VOMITING , DIAARHEA azithromycin (Verified Adverse Reaction, Mild, Diarrhea, 08/25/16) Past Anesthesia History Anesthesia History: Denies:: Abnormal Airway, Anesthesia Reactions, Difficult Intubation, Fam Anesthesia Reaction, Fam Malignant Hypertherm, Malignant Hyperthermia Diabetes History Hx Diabetes?: Yes Current Bedside Blood Glucose: 122 MRSA MRSA: Yes Medications Active Scripts Montelukast 10 Mg Aqufyi11 Mg PO HS #30 TABLET Prov:Tung Silva MD 02/02/15 Albuterol Neb Soln 2.5 Mg/3 Ml Vial.neb2.5 Mg INHALATION Q4H PRN For Shortness of Breath #30 NEB Ref 0 Prov:Teo Olivo MD 01/14/15 Reported Medications Valsartan (Diovan)80 Mg Qlbwbx05 Mg PO DAILY 08/25/16 oxyCODONE 5 Mg Tablet5 Mg PO TID PRN For Pain 05/10/16 Carvedilol 12.5 Mg Roxyzb35.5 Mg PO BID #180 05/10/16 Albuterol Sulfate (Ventolin HFA Inhaler)200 Puff/18 Gm Inhaler2 Puffs INH q4-6 hours PRN For Shortness of Breath #18 05/10/16 Lanolin Alcohol/Mo/W.pet/[place] (Eucerin Creme)454 Gm Cream..g.1 Applic TP BID PRN rash 05/10/16 Cholecalciferol (Vitamin D3) (Vitamin D)50,000 Unit Pairyqz89,000 Unit PO WEEKLY 05/10/16 Torsemide 20 Mg Vwovjt72 Mg PO DAILY #45 05/10/16 Citalopram 20 Mg Yeccmi77 Mg PO DAILY Ref 0 04/04/16 Lovastatin 20 Mg Mywmkl82 Mg PO DAILY #30 TABLET Ref 0 08/26/15 Alprazolam 0.5 Mg Tablet0.25 Mg PO DAILY PRN For Anxiety Ref 0 08/26/15 Nystatin 20 Applic/15 Gm Oint1 Applic EXT BID PRN prn 01/03/15 Nystatin 1 Each Powder.ea.1 Each MC BID PRN rash 01/03/15 Nitroglycerin SL (Nitrostat)0.4 Mg Tab.subl0.4 Mg PO Q5MIN PRN For Chest Pain # 25 01/03/15 Ranitidine 150 Mg Slrhshl497 Mg PO BID Ref 0 10/31/14 Amitriptyline 75 Mg Xdlzgf87 Mg PO HS Ref 0 06/28/14 Discontinued Reported Medications Acetaminophen 500 Mg Vypbkx886 Mg PO Q6H PRN For Pain 05/10/16 Triamcinolone Acet (Triamcinolone Acetonide Cream)1 Applic/0.25 Gm Cr1 Applic EXT BID PRN rash #60 GM Ref 0 05/10/16 Beclomethasone Dipropionate (Qvar)8.7 Gm Aer.w.adap2 Puffs INH BID 09/10/14 Ferrous Sulfate 325 Mg Oflslu246 Mg PO DAILY 30 Days Ref 0 07/23/13 Discontinued Scripts Doxycycline Monohyd 100 Mg Jtmgzhc240 Mg PO BID 7 Days Ref 0 Prov:Keyur Landa MD 07/06/16 Lactobacillus Acidophilus (Acidophilus)1 Each Capsule1 Each PO ACHS #120 CAPSULE Prov:Vani Gomes MD 05/17/16 Alprazolam (Xanax)0.25 Mg Tablet0.25 Mg PO TID PRN For Anxiety #30 TABLET Ref 0 Prov:Vani Gomes MD 05/17/16 Cefixime (Suprax)400 Mg Kdnoodi955 Mg PO DAILY #7 CAPSULE Prov:Vani Gomes MD 05/17/16 oxyCODONE 5 Mg Capsule5 Mg PO Q4H PRN For Pain #30 CAPSULE Ref 0 Prov:Vani Gomes MD 05/17/16 Vancomycin 125 Mg Jgmcsle596 Mg PO QID #20 CAPSULE Prov:Vani Gomes MD 05/17/16 History History of ENT Problems?: No HEENT History: Positive for:: Hearing Problem Sinus Problem Denies:: Abnormal Airway Cataracts Difficult Intubation Dysphagia Glaucoma Denture Type: None Teeth Condition: Within Normal Limits Hx of Heart Problems?: Yes Cardiovascular History: Positive for:: Chest Pain Congestive Heart Failure Edema Hypertension Pacemaker Thrombophlebitis Denies:: Atrial Fibrillation Cardiac Surgery Heart Murmur Irregular Heartbeat Valvular Heart Disease Hx of Respiratory Problem?: Yes Respiratory History: Positive for:: Asthma COPD Dyspnea Pneumonia Denies:: Chest Surgery Cough Emphysema Hemoptysis Tuberculosis Hx Neurologic Problems?: No Neurological History: Positive for:: Headaches Denies:: Alzheimer's Disease CVA Dementia Dizziness Parkinson's Disease Seizures Hx of GI Problems?: Yes Hx of Problems?: Yes Genitourinary History: Positive for:: Kidney Stones Urinary Tract Infection Denies:: HX of Hemodialysis HX of Peritoneal Dialysis: No Female Hx: Denies:: Currently Endometriosis Pelvic Inflammatory Problems with Breasts? Skin History: Positive for:: History Skin Disorders? (east infection on abdomen, groins for a couple of year, cellulitis on legs ) Denies:: Pressure Ulcers Other Skin Pertinent History: Pt is a regular Wound Care visitor for bilat.LE cellulitis Hx Musculoskeletal Problems?: Yes Musculoskeletal History: Denies:: Back Injury Joint Replacement Musculoskeletal Trauma Hx of Psycho/Social Problems?: Yes Psycho Social History: Positive for:: Anxiety Hx Depression Denies:: Bipolar Disorder Suicide Attempt Hx Surgeries?: Yes (appendectomy, hysterectomy, c section, gaston, pacer) Hx Any Other Health Problems?: Yes Other History: Positive for:: Endocrine Disease Hospitalization (CHF, cellulitis) Denies:: Cancer Thyroid Disease History Blood Transfusions: Positive for:: Accept Blood Products? Blood Transfusions Denies:: Blood Transfuse Reaction Hx Diabetes: YesBedside Blood Glucose: 122 Hx Alcohol Use: NoHx Substance Use: No Smoking Status: Never Smoker Have You Smoked inLast 12 mo: No Stop/Bang Treated for Sleep Apnea?: No Do You Have a CPAP Machine?: No S-Snoring: Do You Snore Loudly: No T-Tired: feel tired, fatigued: Yes O-Obsered: Observed not breath: No P-Blood Pressure: treated: Yes B- Body Mass Index > 35 kg/m2: Yes A- Age over 50: Yes N- Neck Large Circumference: Yes G- Gender Male: No EM Total Score: 5 EM Risk Assessment: High Risk, =/>3 Yes Risk Assessment Category Category 1A: Patient has history of documented sleep apnea, and HAS NOT received any narcotic, sedative or anesthesia administration during this stay. Category 1B: Patient has history of documented sleep apnea, and HAS received any narcotic , sedative or anesthesia administration during this stay Category 2: Patient has SUSPECTED Obstructive Sleep Apnea, and HAS received any narcotic , sedative or anesthesia administration during this stay. Category 3: Patient has SUSPECTED Obstructive Sleep Apnea and HAS NOT received narcotic, sedative or anesthesia administration during this stay. Category 4: Outpatient in Procedural Areas with known sleep apnea or who screen positive for High Risk via the STOP/BANG questionnaire. Exam Exam Vital Signs Vital Signs Date Time Temp Pulse Resp B/P Pulse Ox O2 Delivery O2 Flow Rate FiO2 08/31/16 12:42 36.4 80 20 145/80 100 OxyMask 2.00 08/31/16 10:54 92 08/31/16 10:51 Room Air 08/31/16 09:40 82 18 94 OxyMask 2.00 08/31/16 09:30 82 20 94 Room Air 0.00 08/31/16 08:41 36.5 81 18 149/80 98 OxyMask 2.00 General Appearance: Alert, Oriented X3, Cooperative HEENT/AIRWAY: MP 1 Lungs: Normal Air Movement Heart: Regular Rate/Rhythm Meds/Labs/Diagnostics Admission Meds Current Medications Enoxaparin Sodium/ Enoxaparin Sodium (Lovenox Syringe/ Lovenox Syringe) 150 mg Q12 SUBQ Last administered on 08/30/16t 21:36; Start 08/30/16 at 20:30 Bedside Blood Glucose: 122 Labs Test 08/25/16 16:30 08/25/16 20:03 08/26/16 04:00 08/26/16 09:46 Hemoglobin A1c 5.1% (4.8-5.6) Lactic Acid Level 1.8mmol/L (0.4-2.0) Pro-B-Type Natriuretic Peptide 414.4pg/mL (0-287) Urine Color Yellow (YELLOW) Urine Appearance Hazy (CLEAR,HAZY) Urine pH 6.5 (5.0-8.0) Urine Specific [place] 1.005 (1.003-1.035) Urine Protein Negativemg/dL (NEG,TRACE) Urine Glucose (UA) Negativemg/dL (NEGATIVE) Urine Ketones Negativemg/dL (NEGATIVE) Urine Occult Blood Trace (NEGATIVE) Urine Nitrite Positive (NEGATIVE) Urine Bilirubin Negative (NEGATIVE) Urine Urobilinogen Normalmg/dL (NORMAL) Urine Leukocyte Esterase Moderate (NEGATIVE) Urine RBC 0-2/hpf (0-2) Urine WBC >50/hpf (0-5) Urine Epithelial Cells Occasional/hpf (NONE-MOD) Urine Crystals None seen (NONE SEEN) Urine Bacteria Many/hpf (NONE-FEW) Urine Hyaline Casts None/lpf (NONE) Urine Granular Casts None seen (NONE SEEN) Urine Waxy Casts None seen (NONE SEEN) Urine Red Blood Cell Casts None seen (NONE SEEN) Urine White Blood Cell Casts None seen (NONE SEEN) Urine Mucus None seen (None Seen) Urine Trichomonas None seen (NONE SEEN) Urine Yeast None (NONE SEEN) Urinalysis Comment None Urine Culture Reflexed Indicated Hold Blue Top Tube Received (Received) Hold [place] Top Tube Received (Received) Activated Partial Thromboplast Time 88.2sec (22.8-33.0) Test 08/27/16 05:00 08/28/16 11:15 08/28/16 11:30 08/30/16 04:00 Troponin T 0.016ug/L (0.0-0.011) Hold Purple Top Tube Received (Received) Hold Red Top Tube Received (Received) Vancomycin Level Trough 33.4mcg/mL Phosphorus Level 2.7mg/dL (2.5-4.9) Magnesium Level 2.2mg/dL (1.6-2.6) Procalcitonin 2.86ng/mL (0.00-0.08) Test 08/31/16 09:57 White Blood Count 3.8th/mm3 (3.8-10.1) Red Blood Count 3.61mil/mm3 (3.90-5.20) Hemoglobin 9.4g/dL (12.0-15.6) Hematocrit 31.2% (35.0-46.0) Mean Corpuscular Volume 86.4fL (81-100) Mean Corpuscular Hemoglobin 26.0pg (27.0-35.0) Mean Corpuscular Hemoglobin Concent 30.1% (32.0-37.0) Red Cell Distribution Width 14.7% (12.3-15.4) Platelet Count 109bil/L (150-400) Neutrophils (%) (Auto) 66.7% (40-74) Lymphocytes (%) (Auto) 20.2% (14-46) Monocytes (%) (Auto) 8.8% (4-12) Eosinophils (%) (Auto) 3.2% (0-5) Basophils (%) (Auto) 0.3% (0-3) Sodium Level 141mEq/L (134-144) Potassium Level 4.1mEq/L (3.5-5.2) Chloride Level 104mEq/L (97-108) Carbon Dioxide Level 26mmol/L (18-29) Blood Urea Nitrogen 22mg/dL (8-27) Creatinine 1.07mg/dL (0.57-1.00) Estimat Glomerular Filtration Rate 74mL/min (>59) Glucose Level 82mg/dL (60-99) Calcium Level 8.3mg/dL (8.5-10.1) Total Bilirubin 0.3mg/dL (0.0-1.2) Aspartate Amino Transf (AST/SGOT) 25U/L (0-50) Alanine Aminotransferase (ALT/SGPT) 23U/L (0-32) Alkaline Phosphatase 75U/L (25-165) Total Protein 5.8g/dL (6.4-8.4) Albumin 3.2g/dL (3.4-5.0) Plan Impression Patient chart reviewed, patient interviewed and anesthestic plan with risks, benefits, and alternatives discussed, and informed consent obtained. NPO per Anesth. Guidelines: Yes ASA Physical Status: ASA3 Severe Disease (EM, obesity, ARF, recent sepsis) Anesthetic Plan: MAC Bene/Risks/Altern/Consents: Yes HP Complete Prior to Induction: Yes Dread Santiago MD Aug 31, 2016 14:24
--- NOTE | 2016-08-31 14:26 | PCM.ANEP1 ---
Post Anesthesia PACU Phase 1 Assessment Vital Signs 117/57, 74, 20, 98% Vital Signs Date Time Temp Pulse Resp B/P Pulse Ox O2 Delivery O2 Flow Rate FiO2 08/31/16 12:42 36.4 80 20 145/80 100 OxyMask 2.00 08/31/16 10:54 92 08/31/16 10:51 Room Air 08/31/16 09:40 82 18 94 OxyMask 2.00 08/31/16 09:30 82 20 94 Room Air 0.00 08/31/16 08:41 36.5 81 18 149/80 98 OxyMask 2.00 Anesthetic Administered: GA Level of Alertness: Awake, talking LUGO's with Equal Strength: Yes Pain: No Pain Scale Score: 0 Nausea or Vomiting: No CV Function & Hydration Stable: Yes Airway Device: none Oxygen Delivery: Venturi Mask Lungs: Normal Air Movement Dermatome Level: Full Sensation Summary difficult sedation. Lots of coughing and secretions. PACU Phase 2 Assessment Complications: No Follow up Care: No Patient Instructions Provided: N/A Dread Santiago MD Aug 31, 2016 14:26
[2016-08-31] MEDS: cefTRIAXone Inj 1,000 MG in Dextrose 5% Minibag Plus 50 ML IV SCH (15:39)
[2016-08-31] MEDS ORDERED: Propofol 10,000 mCg/mL 20 mL Inj ONE (16:44)
[2016-08-31] MEDS: Albuterol-Ipratropium 3 mL Inhalation Solution NEB PRN (20:28)
[2016-09-01] VITALS (9 sets, daily range): BP systolic 115–139; BP diastolic 59–84; PULSE 71–93; RESP 16–20; O2SAT 93–98
[2016-09-01] MEDS: Sodium Chloride LOK Flush 10 mL Syringe IVFLUSH SCH ×3 (00:30→16:01)
[2016-09-01] MEDS: 0.9% Sodium Chloride 1,000 ML IV SCH (01:06)
[2016-09-01 06:42] LABS: BASOPHILS % (AUTO) 0.2 % (0-3); EOSINOPHILS % (AUTO) 4.3 % (0-5); MONOCYTES % (AUTO) 9.6 % (4-12); Mean Corpuscular Hemoglobin 25.6 pg (27.0-35.0); Mean Corpuscular Volume 87.5 fL (81-100); NEUTROPHILS % (AUTO) 63.2 % (40-74); Platelet Count 108 bil/L (150-400)
[2016-09-01] MEDS: Nystatin 100,000 Unit/Gm 15 Gm Powder TOPICAL SCH ×2 (09:30→21:30)
--- NOTE | 2016-09-01 09:32 | PCM.PNMED ---
Subjective Date of Service Sep 01, 2016 Subjective This is a 54 year old female with recurrent cellulites and morbid obesity who presented with sharp chest pain after getting legs wrapped. Subsequently found to be in septic shock with source of UTI and strep bacteremia. Echo showed possible myxoma/thrombus. Patient also being treated for possible PE. Overnight the patient seems to be improving. Patient doing better with physical therapy as well being able to stand and transfer. Exam Vital Signs Vital Sign - Last Date Time Temp Pulse Resp B/P Pulse Ox O2 Delivery O2 Flow Rate FiO2 09/01/16 03:05 36.5 77 16 115/59 94 OxyMask 2.00 08/28/16 08:45 100 Intake and Output 08/31/16 08/31/16 09/01/16 Cumulative From/Thru 15:00 23:00 07:00 08/25/16 16:04 - 09/01/16 06:09 Intake Total 120 ml 200 ml 918 ml 30797 ml Output Total 700 ml 350 ml 5935 ml Balance 120 ml -500 ml 568 ml 5549 ml Intake Oral 200 ml 918 ml 4628 ml IV Total 120 ml 6856 ml Output Urine Total 700 ml 350 ml 5935 ml # Voids 1 # Bowel Movements 2 Exam General: Anxious, morbidly obese Cardiovascular: Regular rate and rhythm although sounds diminished due to habitus Pulmonary: Clear to auscultation although habitus is limiting factor Abdomen: Obese, bowel tones present, nontender, nondistended Extremities: Extremely obese extremities with multiple pannus formations, lymphedema Skin: Erythema and dryness bilateral anterior lower legs with increased erythema between skin folds. Psychiatric: Anxious/depressed with flat affect IVs and Medications Medications Reviewed: Medications were reviewed in detail Lab and Diagnostics Result Diagram: 09/01/16 0632 09/01/16 0632 X-Rays, CTs and MRIs CT angiogram of chest on 08/25/2016: IMPRESSION: 1. Diagnostic sensitivity and specificity of the study limited by patient motion and suboptimal contrast opacification of the segmental and subsegmental pulmonary arteries. 2. Filling defects versus artifact involving numerous bilateral lung segmental and subsegmental pulmonary arteries. Pulmonary emboli cannot be excluded. 3. Cardiomegaly. Dictated by: Coral Escobar MD, PhD on 08/25/2016 at 19:56 PROCEDURE: US VENOUS LEG DUPLEX BILATERAL IMPRESSION: No deep venous thrombosis identified within either the left or right lower extremities. Approved by: Coral Escobar MD, PhD on 08/26/2016 at 11:27 PROCEDURE: US ABDOMEN IMPRESSION: 1. Hepatomegaly and diffusely increased hepatic echogenicity noted likely related to fatty infiltration of the liver but other hepatocellular disease cannot be excluded. Recommend clinical correlation. 2. Increase in renal cortical echogenicity bilaterally indicating mild medical renal disease. Approved by: Jose Zimmer M.D. on 08/26/2016 at 10:56 Cardiac Echo Impressions Echocardiogram Report Interpretation Summary The left ventricle is moderately dilated. Left ventricular wall thickness is borderline increased. Left ventricular ejection fraction is estimated to be 35%. Anterior, septal, apical hypokinesis is noted. Compared to the prior exam, left ventricular function is moderately decreased. Globular echo density in RA noted on one view, consider ELVIA Electronically signed by: Arnulfo Whitfield on Reading Physician:08/26/2016 05:16 PM Report status: Addendum REPORT#: [id number] Assessment & Plan This is a 66-year-old female with past medical history significant for cellulitis, history of MRSA infection, hypertension, hyperlipidemia, nonischemic cardiomyopathy, asthma, and congestive heart failure who presents with sudden onset chest pressure and shortness of breath that began after getting her legs wrapped for lymphedema. Subsequently found to have strep bacteremia, Ecoli UTI, and echo showing possible myxoma/thrombus. Possible Mixoma in RA seen on echocardiogram; likely present on admission; ongoing -Echo identified a mass in the right atrium -Continue on Lovenox -Awaiting ELVIA results. Preliminary results show possible vegetation. -ID consult ordered. Acute on Chronic kidney disease stage 2, present on admission, improving - Creatinine improved and stable. Chronic systolic heart failure, stage C, NYHA stage III; present on admission: -Last echo on 04/07/2016: LVEF 45-50%, impaired early relaxation of the left ventricle with possible increased filling pressure. -Daily weights.; Cautious fluid management -Awaiting final ELVIA results. Sepsis with shock secondary to UTI and strep bacteremia, acute, present on admission, resolving -On admit WBC 16.8 with left shift, pulse 120, temp 37.8. Source ecoli UTI, strep bacteremia. -Patient has short stay in the ICU with pressor support; resolved and off pressors now. -Blood cultures positive for streptococcus. Urine culture + for ecoli. -MRSA positive -Continue ceftriaxone. -ID consult pending. Bacteremia, acute, present on admission. - Strep agalactiae + blood cultures. - Pansensitive; continue antibiotics -ELVIA pending. -ID consult pending. Hypotension; resolved -S/P ICU for septic shock. Urinary tract infection, acute, present on admission: Resolving -Urine culture showed pansenstivie E Coli. -On Ceftriaxone. Shortness of breath and chest pressure, present on admission, improving: -Possible pulmonary embolus. Patient started on heparin by emergency department. -In the differential is myocardial infarction although this is doubtful as EKG is relatively unchanged since previous. . -CT angiogram of chest showed a limited study due to patient motion and suboptimal contrast. Suggestive of pulmonary embolism but unconfirmed -Lower extremity ultrasound did not show DVT -On Lovenox. -trended troponins 3 and trended down Bilateral lower extremity lymphedema, present on admission, ongoing: -Patient has severe lymphedema. Uncertain if she has a new cellulitis or chronic skin changes - Nystatin powder twice per day - Wound evaluation ongoing Elevated troponin; present admission; resolving -Initial troponin in ED <.010. Repeat troponin .058, decreased to 0.016 -Spoke to cardiology, Dr. Shearer, concerning EKG and elevated troponin. They felt this was likely a bump to the possible PE. Likely also elevated in context of sepsis -Patient on Lovenox. Diabetes mellitus type 2, present on admission, ongoing: -Admit glucose 125. -A1c 5.1 -Humalog low-dose correctional ordered Chronic normocytic anemia, present on admission: -Review of previous records show that this is stable. On admit and 11.7, hematocrit 38.6 -She is followed by oncology. -Continue to monitor Chronic thrombocytopenia, present on admission: -Review of previous records show that this stable. Platelets on admission 138 -She is followed by oncology. History of anxiety and depression, present on admission: -Continue home medications. Candidiasis of skin, present on admission, ongoing: -Nystatin powder ordered. Asthma, present on admission, ongoing: -Duonebs as needed. Morbid obesity, BMI 60.8, present on admission - Bariatric bed Status: Likely 1-2 days. ID consult today. Patient will be discharged to SNF. Pain Evaluation: Adequate Pain Control VTE Prophylaxis: Other (heparin) Resuscitation Status: CPR: Attempt Resuscitation Attending Statement The patient was seen and examined together with Dr. Myles on 09/01/2016 and I agree with the history, exam and plan as outlined in the note above. . Nestor Myles DO Sep 01, 2016 09:32 Dameon Hood MD Sep 01, 2016 17:16
[2016-09-01] MEDS: ENOXAPARIN SUBQ SCH ×4 (09:56→21:29)
[2016-09-01] MEDS: Polyethylene Glycol (PEG) 17 Gm Powder PO SCH (10:00)
--- NOTE | 2016-09-01 11:45 | CONS ---
[address] [address] CONSULTATION REPORT PATIENT: SHEN KRISHNA I : 1950 MR#: [id number] ADMIT: 08/25/2016 JOB ID: [id number] DATE OF SERVICE: 09/01/2016 INFECTIOUS DISEASE CONSULTATION: I thank Dr. Faheem Myles for this consult. REASON FOR CONSULTATION: Group B strep bacteremia with possible pacemaker infection. HISTORY OF PRESENT ILLNESS: The patient is an extremely complex 66-year-old woman known to me from many admissions over the past three years. The patient has a wide variety of medical problems which revolve around super morbid obesity and a wide variety of attendant complications including extremely frequent recurrences of severe soft-tissue infections, some of which are bacteremic. In addition, she has other problems which include lymphedema obviously, chronic anemia, congestive heart failure, mild chronic renal insufficiency, chronic pulmonary disease and diabetes. The patient was admitted on this occasion on August 25 with increasing shortness of breath and chest pain. There were immediate concerns about possible myocardial infarction or pulmonary embolism but a cardiac workup and CT angiogram failed to confirm either of these diagnoses. A wide variety of positive cultures were encountered during her initial days in the hospital including a nasal MRSA swab that was positive, a urine which showed pyuria and grew E coli (though she had no urinary symptoms) and positive blood cultures for group B strep. As part of her workup for the shortness of breath, atypical chest pain and positive blood cultures, a ELVIA was done. The patient apparently did not have a transthoracic echo, perhaps because of her body habitus and the thought that it would be difficult. This ELVIA was done and knowing this patient had a port in place in her right upper chest which has been there about a year for easier IV access as well as a pacer which has been place about four years on the left chest. The results of the ELVIA are still not official in the chart but we understand through communication with the primary team that it showed a possible thrombus and/or myxoma in the right atrium. Apparently there was also concern that the pacer wire may have had an atypical appearance but as of yet we do not have any formal report. Today for her part the patient says she is feeling okay. She reports some chronic mild baseline shortness of breath which is worse with exertion for which she is receiving supplemental oxygen this morning. She has no fevers, chills, or sweats today. No significant headache or chest pain. No urinary symptoms at all and she does not have a Raza. PAST MEDICAL HISTORY: 1. Morbid obesity with BMI over 60. 2. Chronic lymphedema with venous stasis changes and recurrent soft tissue infections. 3. Multiple beta hemolytic strep infections as well as MRSA infections of the lower extremities. 4. Chronic cytopenias. 5. Chronic renal insufficiency. 6. CHF. 7. COPD. 8. Pacer and port in place. 9. Diabetes. 10. Hypertension. 11. Psoriasis. 12. Migraine headaches. 13. Depression. SOCIAL HISTORY: The patient is a nonsmoker, nondrinker. Lives in an apartment with her cat. She reports the cat is occasionally feisty and occasionally has bit her. FAMILY HISTORY: Negative for TB in first and second degree relatives. REVIEW OF SYSTEMS: The patient currently has no fevers, chills or sweats. She is not suffering from any headache or visual change today. No sore throat. No significant cough. She has a baseline shortness of breath and especially with any exertion is quite dyspneic. No productive sputum today. No pain around the port. No pain around the pacer. No nausea, vomiting, diarrhea or anorexia though her p.o. intake has been relatively poor according to the nurses. No dysuria, urgency or frequency. She does not have a Raza. She notes her legs are about at baseline which is to say that they are massive with associated lymphedema, crusting and some mild erythema but this is about normal for her by her report. Remainder of the review of systems negative. PHYSICAL EXAMINATION: Reveals a super morbidly obese woman, BMI 61. She is sitting up in bed with some 2 L oxygen going by face mask and she is saturating well. She is afebrile and she has been since admission, though she was 37.8 during the first day here, otherwise completely afebrile, now 36.3. Pulse 93, respiratory rate 18, blood pressure 139/71. Mental status is clear. Conjunctivae are beefy red. There are no conjunctival hemorrhages seen per se. Mental status is normal. There is no head trauma. The oral cavity is unremarkable. Neck is difficult to examine due to obesity. Lungs distant but clear. Cardiac tones incredibly distant. One can appreciate that there is a regular rhythm but nothing beyond that and this is due to her body habitus. I do not hear a murmur or rub but I am not certain that one would hear any murmur or rub. Abdomen is massively obese, soft, nontender. No appreciable organomegaly or panniculitis. The inguinal area really cannot be examined. She does not have a Raza catheter nor suprapubic tenderness apparently. Lower extremities are notable for severe lymphedema with crusting especially in the folds around the right knee which is typical for her. There is also cracking in the lymphedema and rolls of tissue around the ankles but this is also about baseline for her and there is no areas of particular warmth or tenderness in the lower extremities. Neurologically she could move all extremities though she is weak and this appears also to be about at her baseline. There is no evidence of synovitis though it is very difficult to exam overall in this patient. LABORATORIES: Include a white blood count which was an impressive 28,000 when she came in. It almost immediately dropped to normal and by August 27 was normal. Today it remains 4400. Platelet count which is always low and is currently 108, which is about baseline for her. Hematocrit 26, also about her baseline. Creatinine is 1.07, which is pretty good for her. ALT 37. Other LFTs normal. Albumin 3.3. Procalcitonin was 22 when she came in, or shortly after. It is now down to 2.86 so it is reduced by about almost 90%. Streptozyme on this patient is always positive and this time is no exception. It is 248. Whether this reflects acute infection or infection within the last four months cannot be ascertained. Micro studies include nasal MRSA smear that is positive and urine that had 50 white cells and grew E coli sensitive to ceftriaxone and blood cultures, one of four bottles, from the date of admission that grew group B strep. IMAGING: Includes a CT angiogram of the chest which is indeterminate basically. Filling defects versus artifact were seen and pulmonary emboli could not be excluded. She did have a big heart on the CT angio. An abdominal ultrasound showed hepatomegaly with fatty infiltration, also not a new finding, and most importantly, the transesophageal echo. As noted, this was done yesterday but there is still no formal report and we have the report of possible abnormalities involving the right atrium and/or the pacer wire. IMPRESSION: This would seem to be another in a series of soft tissue infections for this super morbidly obese diabetic woman. She has in the past at times been bacteremic with her cellulitic episodes and I suspect this group B strep in the blood represents nothing more than a transient bacteremia due to cellulitis due to group B strep. It is difficult to exclude the possibility that either her port or her pacer is infected and certainly there is concern based upon the early reports on the ELVIA. Group B strep would be a highly unusual organism to cause pacer infection based on our review of the literature and recent text. I think it is unlikely that her pacer or her port are infected with this organism but will need to await the final report on the transesophageal echo. If the patient were to have a pacer infection based upon perhaps a growth on the wire or wires, we would then require removal of the pacer, placement of a temporary pacer for two weeks, reimplantation of a new pacer and the attendant morbidity and risk of doing these procedures. RECOMMENDATIONS: 1. Repeat blood cultures x2, one through the port, one through the skin to be done today and this has been discussed with the nurses. 2. Continue with ceftriaxone for a total course of about two weeks if there is no pacer involvement. Obviously if there is pacer involvement, we are going to be looking at a much longer course of antibiotics with pacer exchange. 3. The patient should continue to receive Bactroban to the nares for her MRSA colonization. 4. The E coli in the urine was a colonization and represented asymptomatic bacteriuria. He has already been "treated" with the ceftriaxone and is of no clinical consequence here. 5. Thank. 6. I have recommended that Dr. Panchal review this ELVIA not out of any lack of confidence in Dr. Foss who apparently is reading the ELVIA but also just to get a second opinion from our pacemaker survey party chief.
[2016-09-01] MEDS: 0.9% Sodium Chloride 250 ML IV SCH (12:50)
[2016-09-01] MEDS: cefTRIAXone Inj 1,000 MG in Dextrose 5% Minibag Plus 50 ML IV SCH (14:14)
--- NOTE | 2016-09-01 16:04 | DRSVH ---
[facility] [address] [place] [address] Echocardiogram Report Name: SHEN KRISHNA te: 08/31/2016 Height: 62 in Hospital Exam Location: [facility] Weight: 333 lb Gender: Female BSA: 2.4 m2 : 1950 Age: 66 yrs BP: 149/80 mmHg Reason For Study: RIGHT ATRIAL MASS Ordering Physician: Performed By: Kris Dale Interpretation Summary This was a technically difficult study given pulmonary issues with desaturations and increased secretions (requiring frequent suctioning). 1.Globally reduced LV systolic function with an estimated EF of 35% 2. Grossly normal right ventricular systolic function. 3. Mobile mass seen in the right atrium (not clearly associated with the tricuspid valve). This may represent thrombus versus vegetation/infected thrombus (clinical correlation recommended) Procedure: Informed consent for Transesophageal Echocardiogram, and use of a contrast agent as needed, was obtained prior to the procedure. The patient was brought to the [facility] in a fasting state. An intravenous line was placed. A topical anesthetic agent was used for oropharangeal anesthesia. A bite block was inserted. Sedation was managed by anesthesiologist; see anesthesiology notes for details. A 2D transesophageal echocardiogram with spectral and color flow Doppler was performed. The patient was in normal sinus rhythm during the exam. There were no complications. Right Ventricle: There is a pacemaker lead in the right ventricle. Near the insertion of the pacer lead to the RV apex, the pacer wire appears somewhat thickened. Atria: There is a mobile mass appreciated in the right atrium. It does not appear to involve the tricuspid valve. Mitral Valve: The leaflets appear thin with normal excursion. Trace to mild mitral regurgitation. Aortic Valve: The aortic valve is trileaflet. The aortic valve opens well. There is no aortic regurgitation. Tricuspid Valve: No significant regurgitation appreciated. Pulmonic Valve: The pulmonic valve is not well seen, but is grossly normal. Pericardium/ Pleura: There is a trace pericardial effusion that is circumferential. Reading Physician:04:04 PM
[2016-09-01] MEDS: Albuterol-Ipratropium 3 mL Inhalation Solution NEB PRN (16:31)
[2016-09-02] MEDS: Sodium Chloride LOK Flush 10 mL Syringe IVFLUSH SCH ×3 (00:30→15:56)
[2016-09-02] MEDS: 0.9% Sodium Chloride 1,000 ML IV SCH (01:06)
[2016-09-02 03:18] LABS: BASOPHILS % (AUTO) 0.4 % (0-3); EOSINOPHILS % (AUTO) 3.9 % (0-5); MONOCYTES % (AUTO) 8.1 % (4-12); Mean Corpuscular Hemoglobin 26.1 pg (27.0-35.0); Mean Corpuscular Volume 86.7 fL (81-100); NEUTROPHILS % (AUTO) 66.1 % (40-74); Platelet Count 124 bil/L (150-400)
[2016-09-02 08:30] VITALS: BP 134/70; PULSE 79; RESP 20; O2SAT 95
[2016-09-02] MEDS: Polyethylene Glycol (PEG) 17 Gm Powder PO SCH (08:30)
[2016-09-02] MEDS: Mupirocin 2% 22 Gm Ointment TOPICAL SCH ×2 (08:30→21:59)
--- NOTE | 2016-09-02 08:58 | PROG NOTE ---
[address] [address] PROGRESS NOTE PATIENT: SHEN KRISHNA I : 1950 MR#: [id number] ADMIT: 08/25/2016 JOB ID: [id number] DATE: 09/02/2016 INFECTIOUS DISEASE FOLLOWUP NOTE: REASON FOR FOLLOWUP: Group B strep bacteremia and cellulitis in a patient with a left atrial mobile mass, presumably clot. INTERVAL HISTORY: The patient reports she is now feeling back to something approaching her normal state of health. She denies any additional fevers or chills. She has less wheezing and in general, is relatively asymptomatic. She has no significant pain in her lower extremities. No nausea or vomiting. PHYSICAL EXAMINATION: Reveals an extremely obese woman lying supine in her hospital bed. Temp 36.8. Note that she has been afebrile throughout her almost one week hospital stay. Pulse 77 and regular, respiratory rate 18, blood pressure 131/70. She is saturating well on 3 L. Mental status is clear. She still has less the beefy conjunctivae which are relatively constant for her. Lungs with decreased wheezing but still some present on the right side. Cardiac tones: Regular rate and rhythm. No significant murmur. Abdomen: Massively obese, nontender. Her lower extremities appear about at baseline. There are some cracking and erythema especially in the right leg below the knee but not different than baseline. LABORATORIES: Include white count 5400, platelet count 124,000, which is slowly climbing. Creatinine 1.31. LFT normal except ALT 39, albumin 3.3. The micro studies include the single blood culture from admission that grew group B strep. Note that this is resistant to clindamycin in this patient who has been on chronic clindamycin prophylaxis in an attempt to prevent cellulitis and this illustrates one of the problems with chronic clindamycin prophylaxis. Followup blood cultures, however, have been negative. The transesophageal echocardiogram from the has now been reported. It shows ejection fraction 35% and a mobile mass seen in the right atrium which may represent thrombus versus vegetation. The pacer wire was noted on that ELVIA to be somewhat thickened, and there was a mobile mass appreciated in the right atrium which does not involve the tricuspid valve. The pulmonic valve was grossly normal. IMPRESSION: Most likely, this patient's single positive blood culture for group B streptococcus arose from recurrence of her cellulitis. There is concern obviously about a possible pacer infection based on the thickened appearance of the wire, as well as the possibility that the clot seen on the transesophageal echocardiography could be an infected clot. I think these are both unlikely in this nontoxic patient with no fever, normal white count and only a single positive blood culture with an organism which is not typically seen with pacer infections. That said, I think we need additional input perhaps from Dr. Panchal as to whether he thinks the pacer wire may be infected. RECOMMENDATIONS: 1. Will continue with ceftriaxone alone. 2. If the cardiologists are of the opinion that this is unlikely to be a pacer infection and that the clot in the right atrium is unlikely to be infected, I think we could discharge the patient relatively soon. 3. At discharge there is no particular point to continue the clindamycin prophylaxis, as she is now developing bacteremic soft tissue infections with an organism which is clindamycin resistant, and there is some attendant risk of giving chronic clindamycin. 4. If, on the other hand, the cardiologists think that the patient may have an infected clot or worse, she has an infected pacer wire, we may need six weeks of antibiotics and possible removal of the pacer depending on the opinion of the cardiologists.
[2016-09-02] MEDS: ENOXAPARIN SUBQ SCH ×4 (09:07→22:00)
[2016-09-02] MEDS: Nystatin 100,000 Unit/Gm 15 Gm Powder TOPICAL SCH ×2 (09:07→22:00)
[2016-09-02 11:30] VITALS: PULSE 80; RESP 18; O2SAT 97
[2016-09-02] MEDS: 0.9% Sodium Chloride 250 ML IV SCH (11:58)
--- NOTE | 2016-09-02 12:12 | PCM.PNMED ---
Subjective Date of Service Sep 02, 2016 Subjective This is a 54 year old female with recurrent cellulites and morbid obesity who presented with sharp chest pain after getting legs wrapped. Subsequently found to be in septic shock with source of UTI and strep bacteremia. Echo showed possible myxoma/thrombus. Patient also being treated for possible PE. Overnight the patient was stable. She continues to require oxygen.. She continue to work with physical therapy. Exam Vital Signs Vital Sign - Last Date Time Temp Pulse Resp B/P Pulse Ox O2 Delivery O2 Flow Rate FiO2 09/02/16 11:30 80 18 97 Room Air 09/02/16 08:30 36.3 134/70 09/01/16 22:51 3.00 93 Intake and Output 09/01/16 09/01/16 09/02/16 Cumulative From/Thru 15:00 23:00 07:00 08/25/16 16:04 - 09/02/16 05:35 Intake Total 245 ml 567 ml 418 ml 25465 ml Output Total 450 ml 350 ml 6735 ml Balance 245 ml 117 ml 68 ml 5979 ml Intake Oral 400 ml 318 ml 5346 ml IV Total 245 ml 167 ml 100 ml 7368 ml Output Urine Total 450 ml 350 ml 6735 ml # Voids 1 # Bowel Movements 0 2 Exam General: Anxious, morbidly obese Cardiovascular: Regular rate and rhythm although sounds diminished due to habitus Pulmonary: Clear to auscultation although habitus is limiting factor Abdomen: Obese, bowel tones present, nontender, nondistended Extremities: Extremely obese extremities with multiple pannus formations, lymphedema Skin: Erythema and dryness bilateral anterior lower legs with increased erythema between skin folds. Psychiatric: Anxious/depressed with flat affect Lab and Diagnostics Result Diagram: 09/02/16 0305 09/02/16 0305 X-Rays, CTs and MRIs CT angiogram of chest on 08/25/2016: IMPRESSION: 1. Diagnostic sensitivity and specificity of the study limited by patient motion and suboptimal contrast opacification of the segmental and subsegmental pulmonary arteries. 2. Filling defects versus artifact involving numerous bilateral lung segmental and subsegmental pulmonary arteries. Pulmonary emboli cannot be excluded. 3. Cardiomegaly. Dictated by: Coral Escobar MD, PhD on 08/25/2016 at 19:56 PROCEDURE: US VENOUS LEG DUPLEX BILATERAL IMPRESSION: No deep venous thrombosis identified within either the left or right lower extremities. Approved by: Coral Escobar MD, PhD on 08/26/2016 at 11:27 PROCEDURE: US ABDOMEN IMPRESSION: 1. Hepatomegaly and diffusely increased hepatic echogenicity noted likely related to fatty infiltration of the liver but other hepatocellular disease cannot be excluded. Recommend clinical correlation. 2. Increase in renal cortical echogenicity bilaterally indicating mild medical renal disease. Approved by: Jose Zimmer M.D. on 08/26/2016 at 10:56 Cardiac Echo Impressions Echocardiogram Report Interpretation Summary The left ventricle is moderately dilated. Left ventricular wall thickness is borderline increased. Left ventricular ejection fraction is estimated to be 35%. Anterior, septal, apical hypokinesis is noted. Compared to the prior exam, left ventricular function is moderately decreased. Globular echo density in RA noted on one view, consider ELVIA Electronically signed by: Arnulfo Whitfield on Reading Physician:08/26/2016 05:16 PM Report status: Addendum REPORT#: [id number] Assessment & Plan This is a 66-year-old female with past medical history significant for cellulitis, history of MRSA infection, hypertension, hyperlipidemia, nonischemic cardiomyopathy, asthma, and congestive heart failure who presents with sudden onset chest pressure and shortness of breath that began after getting her legs wrapped for lymphedema. Subsequently found to have strep bacteremia, Ecoli UTI, and echo showing possible myxoma/thrombus. Possible Mixoma in RA seen on echocardiogram; likely present on admission; ongoing -Echo identified a mass in the right atrium -Continue on Lovenox. Consider transitioning to Apixaban. -ELVIA results show: EF 35%, mobile mass on right atrium. May represent thrombus vs. vegetation/infected thrombus. -ID consulting. Appreciate recommendations. Acute on Chronic kidney disease stage 2, present on admission, improving - Creatinine bumped slightly overnight. -Continue to monitor. If this continues to increase could consider switching apixaban. Chronic systolic heart failure, stage C, NYHA stage III; present on admission: -Last echo on 04/07/2016: LVEF 45-50%, impaired early relaxation of the left ventricle with possible increased filling pressure. Echo on 09/01 showed EF of 35 %. -Daily weights.; Cautious fluid management. Sepsis with shock secondary to UTI and strep bacteremia, acute, present on admission, resolving -On admit WBC 16.8 with left shift, pulse 120, temp 37.8. Source ecoli UTI, strep bacteremia. -Patient has short stay in the ICU with pressor support; resolved and off pressors now. -Blood cultures positive for streptococcus. Urine culture + for ecoli. -MRSA positive -Continue ceftriaxone. -ID is consulting. Bacteremia, acute, present on admission. - Strep agalactiae + blood cultures. - Pansensitive; continue antibiotics with ceftriaxone. -ID is consulting. Hypotension; resolved -S/P ICU for septic shock. Urinary tract infection, acute, present on admission: Resolving -Urine culture showed pansenstivie E Coli. -On Ceftriaxone. Shortness of breath and chest pressure, present on admission, improving: -Possible pulmonary embolus. Patient started on heparin by emergency department. -In the differential is myocardial infarction although this is doubtful as EKG is relatively unchanged since previous. . -CT angiogram of chest showed a limited study due to patient motion and suboptimal contrast. Suggestive of pulmonary embolism but unconfirmed -Lower extremity ultrasound did not show DVT -On Lovenox. Consider transitioning to Apixaban. Insurance approval pending. -trended troponins 3 and trended down -Acapella and incentive spirometer ordered. Bilateral lower extremity lymphedema, present on admission, ongoing: -Patient has severe lymphedema. Uncertain if she has a new cellulitis or chronic skin changes - Nystatin powder twice per day - Wound evaluation ongoing Elevated troponin; present admission; resolving -Initial troponin in ED <.010. Repeat troponin .058, decreased to 0.016 -Spoke to cardiology, Dr. Shearer, concerning EKG and elevated troponin. They felt this was likely a bump to the possible PE. Likely also elevated in context of sepsis -Patient on Lovenox. Diabetes mellitus type 2, present on admission, ongoing: -Admit glucose 125. -A1c 5.1 -Humalog low-dose correctional ordered Chronic normocytic anemia, present on admission: -Review of previous records show that this is stable. On admit and 11.7, hematocrit 38.6 -She is followed by oncology. -Continue to monitor Chronic thrombocytopenia, present on admission: -Review of previous records show that this stable. Platelets on admission 138 -She is followed by oncology. History of anxiety and depression, present on admission: -Continue home medications. Candidiasis of skin, present on admission, ongoing: -Nystatin powder ordered. Asthma, present on admission, ongoing: -Duonebs as needed. Morbid obesity, BMI 60.8, present on admission - Bariatric bed Status: Likely 1-2 days. ID consult today. Patient will be discharged to SNF. Spoke to [facility] on 09/02 and Apixaban would cost $3.70 per month. Pain Evaluation: Adequate Pain Control VTE Prophylaxis: Other (heparin) Resuscitation Status: CPR: Attempt Resuscitation Attending Statement The patient was seen and examined together with Dr. Myles on 09/02/2016 and I agree with the history, exam and plan as outlined in the note above. . Nestor Myles DO Sep 02, 2016 12:12 Dameon Hood MD Sep 03, 2016 06:42
[2016-09-02] MEDS: cefTRIAXone Inj 1,000 MG in Dextrose 5% Minibag Plus 50 ML IV SCH (13:56)
[2016-09-02 16:02] VITALS: BP 135/75; PULSE 77; RESP 18; O2SAT 91
[2016-09-02 16:30] VITALS: BP 135/75; PULSE 77; RESP 18; O2SAT 91
[2016-09-02 22:13] VITALS: BP 143/72; PULSE 69; RESP 20; O2SAT 92
[2016-09-03 00:22] VITALS: PULSE 87; RESP 18; O2SAT 96
[2016-09-03] MEDS: Albuterol-Ipratropium 3 mL Inhalation Solution NEB PRN (00:22)
[2016-09-03] MEDS: Sodium Chloride LOK Flush 10 mL Syringe IVFLUSH SCH ×3 (00:30→16:19)
[2016-09-03] MEDS: 0.9% Sodium Chloride 1,000 ML IV SCH (01:06)
[2016-09-03 04:25] VITALS: BP 121/72; PULSE 77; RESP 16; O2SAT 96
[2016-09-03] MEDS: Polyethylene Glycol (PEG) 17 Gm Powder PO SCH (08:30)
[2016-09-03] MEDS: Mupirocin 2% 22 Gm Ointment TOPICAL SCH (08:49)
[2016-09-03] MEDS: Nystatin 100,000 Unit/Gm 15 Gm Powder TOPICAL SCH (08:49)
[2016-09-03] MEDS: ENOXAPARIN SUBQ SCH ×2 (08:55)
[2016-09-03 08:56] VITALS: BP 135/81; O2SAT 98
--- NOTE | 2016-09-03 11:49 | PROG NOTE ---
[address] [address] PROGRESS NOTE PATIENT: SHEN KRISHNA I : 1950 MR#: [id number] ADMIT: 08/25/2016 JOB ID: [id number] DATE: 09/03/2016 INFECTIOUS DISEASE FOLLOWUP NOTE: REASON FOR FOLLOWUP: Group B strep bacteremia arising from cellulitis in a morbidly obese woman with underlying right atrial clot and probable pulmonary emboli. INTERVAL HISTORY: Over the past 24 hours this case has been discussed in great detail with Dr. Foss and Dr. Panchal of cardiology. The discussion has been whether or not the ELVIA shows evidence of a pacer infection. It is the opinion of the cardiologists that the pacer is not likely infected and apparent thickening of the pacer wire likely a thrombus perhaps but not infection. The patient states this morning she is free of fevers, chills, or sweats. She is not having any undue shortness of breath nor chest pain. No nausea, vomiting, or diarrhea. She is having no particular problems with her right port or her left pacer. She is looking forward to being discharged if at all possible. PHYSICAL EXAMINATION: Reveals a morbidly obese woman. BMI 61, temperature 37, pulse 77, respiratory rate 16, blood pressure 135/81, saturating well on room air. She is in no acute distress. The mental status normal. Oral cavity negative. Lungs: Distant but clear. Cardiac tones distant but clear. Port catheter is benign in the right upper chest. Pacer benign in the left upper chest. Abdomen: Difficult to examine but very obese and apparently nontender. Lower extremity lichenification and erythema without much change but near her baseline. LABORATORIES: Include white blood count 5400 yesterday. Not repeated today, though she did have a crit for some reason which was 31. Her creatinine is 1.29. LFT normal. Albumin 3.5. Procalcitonin 0.6. Microbiology includes the single positive blood culture for group A strep back on admission on August 25. She also had E. coli in the urine which was probably asymptomatic bacteria. She was also colonized with MRSA in the nose. IMAGING: No new imaging. IMPRESSION: This patient had a group B streptococcus, which undoubtedly arose from the skin site. It was found in one blood culture and no further blood cultures, and there has been no other evidence of systemic toxicity. Confusion arose when the patient underwent a ELVIA which showed a clot apparently in the right atrium, as well as a possibly thickened pacer wire. Given the fact that group B streptococcus rarely causes pacer infections and the fact that the cardiologists involved in examining the ELVIA did not think that the pacer was infected, I am inclined to think that this is a single positive blood culture arising from cellulitis and that the patient does not have either an infected pacer nor an infected right atrial clot. To assume that the patient has an infected pacer would subject her to transfer to the [facility] for removal of the pacer, a prolonged period with a temporary pacer and replacement of the pacer, all of which would be with considerable risk in this morbidly obese and not terribly healthy older woman. RECOMMENDATIONS: 1. Ceftriaxone 2 g once a day through September 10. 2. On or about September 13 I would repeat two blood cultures to make sure that her blood is sterile. If her blood should grow group B strep again after the conclusion of two weeks of IV antibiotics, this would be strong evidence that she has an infected clot or pacer or both. She would need to come back to this facility for additional evaluation. 3. Dr. Panchal recommended a transthoracic echo be repeated in a couple of weeks. This recommendation was given to the discharging team. 4. Infectious Disease will go ahead and sign off with recommendation to continue the ceftriaxone until September 10 at the longterm facility. Thank you very much for involving me in this interesting and difficult case.
[2016-09-03] MEDS: 0.9% Sodium Chloride 250 ML IV SCH (12:21)
[2016-09-03] MEDS ORDERED: APIX5TAB PO (13:06)
[2016-09-03] MEDS: ALPRAZolam 0.5 mg Tablet PO PRN (13:11)
--- NOTE | 2016-09-03 13:24 | PCM.DIMED ---
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 Hypotension; resolved Urinary tract infection, acute, present on admission: Resolving Shortness of breath and chest pressure, present on admission, improving: Bilateral lower extremity lymphedema, present on admission, ongoing: Elevated troponin; present admission; resolving Diabetes mellitus type 2, present on admission, ongoing: Chronic normocytic anemia, present on admission: Chronic thrombocytopenia, present on admission: History of anxiety and depression, present on admission: Candidiasis of skin, present on admission, ongoing: Asthma, present on admission, ongoing: Morbid obesity, BMI 60.8, present on admission Medication Instructions Additional med instructions You will be starting a new medication called Eliquis. Please take as directed. Diet Discharge Diet: Heart Healthy, Diabetic Activity Discharge Activity: No restrictions Patient Instructions Patient Instructions You were admitted due to shortness of breath and were diagnosed with a clot in your lungs. You also bacteria in your blood and underwent evaluation for bacteria on your heart valves. On imaging there was a mass in one of the chambers of your heart that was difficult to characterize. It is likely a clot, because of this you will be placed on blood thinners (Eliquis) for at least the next 6 months. We are sending you home with a prescription of this medication that should last 4 weeks. You will also receive another week of antibiotics. Please follow up with your primary doctor and for additional imaging of your heart in 2 weeks, as well as additional blood cultures. You are being discharged to [facility] for rehab 3x weekly for the next 4 weeks pending physical therapy's recommendation Follow-up Provider: Bri Ochoa Follow-up with PCP in: 1 week Paty Danielle DO 09/03/16 1538: Discharge Instructions Attending's Statement The patient was seen and examined together with Dr. Castaneda on 09/03/16 and I agree with the history, exam and plan as outlined in the note above. Jose Enrique Castaneda DO Sep 03, 2016 13:24 Paty Danielle DO Sep 03, 2016 15:38
[2016-09-03] MEDS ORDERED: CEFT2VIA5 INTRACATH (13:27)
[2016-09-03] MEDS ORDERED: cefTRIAXone Inj 2,000 MG in Dextrose 5% Minibag Plus 50 ML IV SCH (13:50)
--- NOTE | 2016-09-03 15:41 | PCM.DC.MED ---
Discharge Summary Date of Service Sep 03, 2016 Dates of Hospitalization Date of Hospital Admission Aug 25, 2016 at 21:18 Date of Discharge: Sep 03, 2016 Providers: Admitting Physician: Iraida Fritz DO Primary Care Physician: Bri Ochoa Attending Physician: Iraida Fritz DO Diagnosis at Time of Discharge Diagnosis at Time of Discharge Right atrial thrombosis; likely present on admission; ongoing Acute on Chronic kidney disease stage 2, present on admission, improving Chronic systolic heart failure, stage C, NYHA stage III; present on admission: Sepsis with shock secondary to UTI and strep bacteremia, acute, present on admission, resolving Bacteremia, acute, present on admission. Hypotension; resolved Urinary tract infection, acute, present on admission: Resolving Shortness of breath and chest pressure, present on admission, improving: Bilateral lower extremity lymphedema, present on admission, ongoing: Elevated troponin; present admission; resolving Diabetes mellitus type 2, present on admission, ongoing: Chronic normocytic anemia, present on admission: Chronic thrombocytopenia, present on admission: History of anxiety and depression, present on admission: Candidiasis of skin, present on admission, ongoing: Asthma, present on admission, ongoing: Morbid obesity, BMI 60.8, present on admission Procedures XRay, CTs & MRIs CT angiogram of chest on 08/25/2016: IMPRESSION: 1. Diagnostic sensitivity and specificity of the study limited by patient motion and suboptimal contrast opacification of the segmental and subsegmental pulmonary arteries. 2. Filling defects versus artifact involving numerous bilateral lung segmental and subsegmental pulmonary arteries. Pulmonary emboli cannot be excluded. 3. Cardiomegaly. Dictated by: Coral Escobar MD, PhD on 08/25/2016 at 19:56 PROCEDURE: US VENOUS LEG DUPLEX BILATERAL IMPRESSION: No deep venous thrombosis identified within either the left or right lower extremities. Approved by: Coral Escobar MD, PhD on 08/26/2016 at 11:27 PROCEDURE: US ABDOMEN IMPRESSION: 1. Hepatomegaly and diffusely increased hepatic echogenicity noted likely related to fatty infiltration of the liver but other hepatocellular disease cannot be excluded. Recommend clinical correlation. 2. Increase in renal cortical echogenicity bilaterally indicating mild medical renal disease. Approved by: Jose Zimmer M.D. on 08/26/2016 at 10:56 Cardiac Echo Impression Echocardiogram Report Interpretation Summary The left ventricle is moderately dilated. Left ventricular wall thickness is borderline increased. Left ventricular ejection fraction is estimated to be 35%. Anterior, septal, apical hypokinesis is noted. Compared to the prior exam, left ventricular function is moderately decreased. Globular echo density in RA noted on one view, consider ELVIA Electronically signed by: Arnulfo Whitfield on Reading Physician:08/26/2016 05:16 PM Report status: Addendum REPORT#: [id number] Brief History This is a 66-year-old female with past medical history significant for multiple episodes of cellulitis, hypertension, hyperlipidemia, nonischemic cardiomyopathy status post pacemaker placement, bilateral lower extremity lymphedema, morbid obesity, history of MRSA infection, CKD stage II, systolic congestive heart failure, CVA, and asthma who presents today for sudden onset of shortness of breath and chest pain. Patient states that at approximately 3 PM this afternoon while getting her legs wrapped by occupational therapy she developed a chest pressure that was substernal. Accompanying this chest pressure was shortness of breath and diaphoresis.. She denies any worsening of the symptoms with exertion. Associated symptoms: Nausea and chills. Patient denies previous episodes of chest pressure and shortness of breath. Since the onset of symptoms they have been constant. She describes them as severe but not currently worsening. Hospital Course This is a 66-year-old female with past medical history significant for cellulitis, history of MRSA infection, hypertension, hyperlipidemia, nonischemic cardiomyopathy, asthma, and congestive heart failure who presents with sudden onset chest pressure and shortness of breath that began after getting her legs wrapped for lymphedema. Subsequently found to have strep bacteremia, Ecoli UTI, suspected PEs and echo showing possible myxoma/thrombus. While present the patient's sepsis was treated successfully with ceftriaxone. The patient was worked up further for this possible mass that was seen on the transthoracic echo. After further evaluation with a transesophageal echo cardiology felt that this mass was not secondary to vegetation/infected thrombus more likely related to the PE. Cardiology (Dr. Dash) suggested that the patient continue with anticoagulation and have a follow-up echo in 2 weeks for reevaluation. During this time the patient seems to be severely deconditioned and would benefit from further rehabilitation. This is most likely secondary to patient' s body habitus plus the sepsis with hypovolemic shock that she is recovering from. Status: Pt being discharged in stable condition with understanding of her disease and the current plan to have 1 week of IV antibiotics with 2g ceftriaxone daily at [facility] last dose 09/10/16. Patient will need blood cultures 2 days after completion of antibiotics and a repeat transthoracic echo will need to be completed 1 week after antibiotic completion. Possible Right Atrial Thrombosis; likely present on admission; stable -Echo identified a mass in the right atrium; reviewed by Jermaine and EP and determined to likely be thrombus -Treated with Heparin and Lovenox -ELVIA results show: EF 35%, mobile mass on right atrium. -ID consulting. Appreciate recommendations. -REPEAT ECHO IN 2 WEEKS Sepsis with shock secondary to strep bacteremia, acute, present on admission, resolving -On admit WBC 16.8 with left shift, pulse 120, temp 37.8. Source ecoli UTI, strep bacteremia. -Patient has short stay in the ICU with pressor support; resolved and off pressors now. -Blood cultures positive for streptococcus. Urine culture + for ecoli. -MRSA positive -ID is consulting. -CONTINUE CEFRIAXONE at [facility] FOR 7 DAYS -REPEAT BLOOD CULTURES 2 DAYS AFTER COMPLETION OF CEFTRIAXONE Acute on Chronic kidney disease stage 2, present on admission, resolved - Creatinine bumped slightly overnight. -Continue to monitor. If this continues to increase could consider switching apixaban. Chronic systolic heart failure, stage C, NYHA stage III; present on admission: -Last echo on 04/07/2016: LVEF 45-50%, impaired early relaxation of the left ventricle with possible increased filling pressure. Echo on 09/01 showed EF of 35 %. -Daily weights.; Cautious fluid management. Hypotension; resolved -S/P ICU for septic shock. Positive urine culture determined to be asymptomatic colonization, acute, present on admission: Resolving -Urine culture showed pansenstivie E Coli. -Already on Ceftriaxone for problems as above Shortness of breath and chest pressure, present on admission, improving: -Possible pulmonary embolus. Patient started on heparin by emergency department and changed to heparin -CTA suspected PE but with movement artifact difficult to confirm -No LE DVT -On Lovenox. -Changed to Apixaban for discharge. Sent home with 4 week script Bilateral lower extremity lymphedema, present on admission, ongoing: -Patient has severe lymphedema. Uncertain if she has a new cellulitis or chronic skin changes - Nystatin powder twice per day - CONTINUE WOUND CARE AT [facility] Elevated troponin; present admission; stable -Initial troponin in ED <.010. Repeat troponin .058, decreased to 0.016 -Spoke to cardiology, Dr. Shearer, concerning EKG and elevated troponin. They felt this was likely a bump to the possible PE. Likely also elevated in context of sepsis -TREATED WITH Lovenox. -Stable Diabetes mellitus type 2, present on admission, ongoing: -Admit glucose 125. -A1c 5.1 -Humalog low-dose correctional ordered Chronic normocytic anemia, present on admission: -Review of previous records show that this is stable. On admit and 11.7, hematocrit 38.6 -She is followed by oncology. -Continue to monitor Chronic thrombocytopenia, present on admission: -Review of previous records show that this stable. Platelets on admission 138 -She is followed by oncology. History of anxiety and depression, present on admission: -Continue home medications. Candidiasis of skin, present on admission, ongoing: -Nystatin powder ordered. Asthma, present on admission, ongoing: -Duonebs as needed. Morbid obesity, BMI 60.8, present on admission - Bariatric bed Exam Vital Signs (Last) Date Time Temp Pulse Resp B/P Pulse Ox O2 Delivery O2 Flow Rate FiO2 09/03/16 08:56 36.9 135/81 98 Room Air 09/03/16 04:25 77 16 3.00 09/02/16 16:30 93 Exam General: calm; flat affect Cardiovascular: Regular rate and rhythm although Pulmonary: Clear to auscultation although habitus is limiting factor Abdomen: Obese, bowel tones present, nontender, nondistended Extremities: Extremely obese extremities with multiple pannus formations, lymphedema Skin: Erythema and dryness bilateral anterior lower legs with increased erythema between skin folds. Psychiatric: flat affect Test 08/25/16 16:30 08/25/16 20:03 08/26/16 04:00 08/26/16 09:46 Hemoglobin A1c 5.1% (4.8-5.6) Lactic Acid Level 1.8mmol/L (0.4-2.0) Pro-B-Type Natriuretic Peptide 414.4pg/mL (0-287) Urine Color Yellow (YELLOW) Urine Appearance Hazy (CLEAR,HAZY) Urine pH 6.5 (5.0-8.0) Urine Specific [place] 1.005 (1.003-1.035) Urine Protein Negativemg/dL (NEG,TRACE) Urine Glucose (UA) Negativemg/dL (NEGATIVE) Urine Ketones Negativemg/dL (NEGATIVE) Urine Occult Blood Trace (NEGATIVE) Urine Nitrite Positive (NEGATIVE) Urine Bilirubin Negative (NEGATIVE) Urine Urobilinogen Normalmg/dL (NORMAL) Urine Leukocyte Esterase Moderate (NEGATIVE) Urine RBC 0-2/hpf (0-2) Urine WBC >50/hpf (0-5) Urine Epithelial Cells Occasional/hpf (NONE-MOD) Urine Crystals None seen (NONE SEEN) Urine Bacteria Many/hpf (NONE-FEW) Urine Hyaline Casts None/lpf (NONE) Urine Granular Casts None seen (NONE SEEN) Urine Waxy Casts None seen (NONE SEEN) Urine Red Blood Cell Casts None seen (NONE SEEN) Urine White Blood Cell Casts None seen (NONE SEEN) Urine Mucus None seen (None Seen) Urine Trichomonas None seen (NONE SEEN) Urine Yeast None (NONE SEEN) Urinalysis Comment None Urine Culture Reflexed Indicated Hold Blue Top Tube Received (Received) Hold [place] Top Tube Received (Received) Activated Partial Thromboplast Time 88.2sec (22.8-33.0) Test 08/27/16 05:00 08/28/16 11:15 08/28/16 11:30 08/30/16 04:00 Troponin T 0.016ug/L (0.0-0.011) Hold Purple Top Tube Received (Received) Hold Red Top Tube Received (Received) Vancomycin Level Trough 33.4mcg/mL Phosphorus Level 2.7mg/dL (2.5-4.9) Magnesium Level 2.2mg/dL (1.6-2.6) Test 09/02/16 03:05 09/03/16 03:45 White Blood Count 5.4th/mm3 (3.8-10.1) Red Blood Count 3.53mil/mm3 (3.90-5.20) Mean Corpuscular Volume 86.7fL (81-100) Mean Corpuscular Hemoglobin 26.1pg (27.0-35.0) Mean Corpuscular Hemoglobin Concent 30.1% (32.0-37.0) Red Cell Distribution Width 14.9% (12.3-15.4) Platelet Count 124bil/L (150-400) Neutrophils (%) (Auto) 66.1% (40-74) Lymphocytes (%) (Auto) 20.4% (14-46) Monocytes (%) (Auto) 8.1% (4-12) Eosinophils (%) (Auto) 3.9% (0-5) Basophils (%) (Auto) 0.4% (0-3) Procalcitonin 0.60ng/mL (0.00-0.08) Hemoglobin 9.3g/dL (12.0-15.6) Hematocrit 31.4% (35.0-46.0) Sodium Level 144mEq/L (134-144) Potassium Level 4.2mEq/L (3.5-5.2) Chloride Level 105mEq/L (97-108) Carbon Dioxide Level 28mmol/L (18-29) Blood Urea Nitrogen 20mg/dL (8-27) Creatinine 1.29mg/dL (0.57-1.00) Estimat Glomerular Filtration Rate 60mL/min (>59) Glucose Level 92mg/dL (60-99) Calcium Level 8.3mg/dL (8.5-10.1) Total Bilirubin 0.2mg/dL (0.0-1.2) Aspartate Amino Transf (AST/SGOT) 22U/L (0-50) Alanine Aminotransferase (ALT/SGPT) 32U/L (0-32) Alkaline Phosphatase 72U/L (25-165) Total Protein 6.2g/dL (6.4-8.4) Albumin 3.5g/dL (3.4-5.0) Discharge Medications Discharge Medications Amitriptyline (Amitriptyline) 75 Mg Tablet 75 MG PO HS (Reported) Apixaban (Eliquis) 5 Mg Tablet 5 MG PO BID Prescribed by: MARILIA CASTANEDA DO Carvedilol (Carvedilol) 12.5 Mg Tablet 12.5 MG PO BID (Reported) Ceftriaxone Sodium (Ceftriaxone) 2 Gm Vial 2 GM INTRACATH DAILY Prescribed by: MARILIA CASTANEDA DO Cholecalciferol (Vitamin D3) (Vitamin D) 50,000 Unit Capsule 50,000 UNIT PO WEEKLY (Reported) Citalopram (Citalopram) 20 Mg Tablet 20 MG PO DAILY (Reported) Lovastatin (Lovastatin) 20 Mg Tablet 20 MG PO DAILY (Reported) Montelukast (Montelukast) 10 Mg Tablet 10 MG PO HS Prescribed by: MARTINA LAWRENCE MD Ranitidine (Ranitidine) 150 Mg Capsule 150 MG PO BID (Reported) Torsemide (Torsemide) 20 Mg Tablet 30 MG PO DAILY (Reported) Valsartan (Diovan) 80 Mg Tablet 80 MG PO DAILY (Reported) As needed Albuterol Neb Soln (Albuterol Neb Soln) 2.5 Mg/3 Ml Vial.neb 2.5 MG INHALATION Q4H PRN PRN For Shortness of Breath Prescribed by: RONNIE MATSON MD Albuterol Sulfate (Ventolin HFA Inhaler) 200 Puff/18 Gm Inhaler 2 PUFFS INH q4- 6 hours PRN PRN For Shortness of Breath (Reported) Alprazolam (Alprazolam) 0.5 Mg Tablet 0.25 MG PO DAILY PRN PRN For Anxiety ( Reported) Lanolin Alcohol/Mo/W.pet/[place] (Eucerin Creme) 454 Gm Cream..g. 1 APPLIC TP BID PRN PRN rash (Reported) Nitroglycerin SL (Nitrostat) 0.4 Mg Tab.subl 0.4 MG PO Q5MIN PRN PRN For Chest Pain (Reported) Nystatin (Nystatin) 1 Each Powder.ea. 1 EACH MC BID PRN PRN rash (Reported) Nystatin (Nystatin) 20 Applic/15 Gm Oint 1 APPLIC EXT BID PRN PRN prn (Reported ) oxyCODONE (oxyCODONE) 5 Mg Tablet 5 MG PO TID PRN PRN For Pain (Reported) Additional med instructions You will be starting a new medication called Eliquis. Please take as directed. Followup Plan Discharge Diet: Heart Healthy, Diabetic Discharge Activity: No restrictions Patient Instructions You were admitted due to shortness of breath and were diagnosed with a clot in your lungs. You also bacteria in your blood and underwent evaluation for bacteria on your heart valves. On imaging there was a mass in one of the chambers of your heart that was difficult to characterize. It is likely a clot, because of this you will be placed on blood thinners (Eliquis) for at least the next 6 months. We are sending you home with a prescription of this medication that should last 4 weeks. You will also receive another week of antibiotics. Please follow up with your primary doctor and for additional imaging of your heart in 2 weeks, as well as additional blood cultures. You are being discharged to [facility] for rehab 3x weekly for the next 4 weeks pending physical therapy's recommendation Follow-up Provider: Bri Ochoa Follow-up with PCP in: 1 week Time spent Greater than 35 minutes Attending Statement The patient was seen and examined together with Dr. Castaneda on 09/03/16nd I have added additional information to the note above. copies to: Jose Alberto Jorge DO; Bri Ochoa Michael R DO Sep 03, 2016 15:41 Paty Danielle DO Sep 03, 2016 18:05
[2016-09-03] MEDS ORDERED: Levalbuterol 1.25 mg/0.5mL Inhalation Solution NEB SCH (21:00)
== END 2016-09-03 16:45 | DRG 871 ==
LOC: EDBD 16:01 → SED 16:01 → EDUNIT# 16:01 → PCC 21:18 → CCU 08-27 19:37 → PCC 08-28 11:30
PROVIDERS: ADMIT Internal Medicine; ATTEND Internal Medicine
PROC: B24BZZ4 Ultrasonography of Heart with Aorta, Transesophageal (ICD-10-PCS; principal; 2016-08-31)
DX: A40.0 Sepsis due to streptococcus, group A (principal); I26.99 Other pulmonary embolism without acute cor pulmonale; R65.21 Severe sepsis with septic shock; Z68.44 Body mass index [BMI] 60.0-69.9, adult; I50.22 Chronic systolic (congestive) heart failure; N39.0 Urinary tract infection, site not specified; N17.9 Acute kidney failure, unspecified; E66.01 Morbid (severe) obesity due to excess calories; I89.0 Lymphedema, not elsewhere classified; N18.2 Chronic kidney disease, stage 2 (mild); J45.909 Unspecified asthma, uncomplicated; I51.3 Intracardiac thrombosis, not elsewhere classified; E11.9 Type 2 diabetes mellitus without complications; D64.9 Anemia, unspecified; D69.6 Thrombocytopenia, unspecified; F41.9 Anxiety disorder, unspecified; B37.2 Candidiasis of skin and nail; B96.20 Unspecified Escherichia coli [E. coli] as the cause of diseases classified elsewhere; F32.9 Major depressive disorder, single episode, unspecified; Z95.810 Presence of automatic (implantable) cardiac defibrillator; Z22.322 Carrier or suspected carrier of Methicillin resistant Staphylococcus aureus

== ENCOUNTER 2016-11-14 17:17 | Inpatient (IN) | payer MEDICARE, MEDICAID ==
[~2016-11-14] VITALS: Ht 157.5 cm; Wt 154.0 kg
[~2016-11-14 17:17] MED LIST changes: -ACET-171 PO; -ALPR0.25 PO; +APIX5TAB PO; -BECL8.7A6 INH; -CARV12.52 PO; +CARV3.122 PO; -CEFI400C PO; +CEPH500C PO; -DOXY100C43 PO; -FERR-83 PO; -KEN25CR EXT; -LACT1CAP13 PO; -MYCO EXT; +MYCO TOP; -NYST1POW23 MC; +NYST1POW23 TOPICAL; -OXYC5CAP4 PO; +VALS80TA2 PO; -VANC125C3 PO
[2016-11-14 17:33] VITALS: BP 144/51; PULSE 118; RESP 25; O2SAT 88
--- NOTE | 2016-11-14 17:34 | ED.REPORT ---
HPI-Extremity Problem Lower Date of Service Nov 14, 2016 ED Provider: Keyur Landa MD History of Present Illness: feels cellulitis has returned, reporting chills, taking the antibiotic. primary care is pendsashat. Started this afternoon, released on 11/10/2016 from [facility] Nursing Notes Stated Complaint: WEAKNESS Chief Complaint: Extremity Trauma Nursing Notes Reviewed: Yes Allergies: Coded Allergies: Penicillins (Verified Allergy, Intermediate, Hives, 08/25/16) Potassium Clavulanate (Verified Allergy, Intermediate, Hives, 08/25/16) amoxicillin trihydrate (Verified Allergy, Intermediate, Hives, 08/25/16) trimethoprim (Verified Allergy, Intermediate, Diarrhea, 08/25/16) lisinopril (Verified Allergy, Unknown, cough, 08/25/16) doxycycline (Verified Adverse Reaction, Intermediate, Nausea,Vomiting, 08/26) sulfamethoxazole (Verified Adverse Reaction, Intermediate, Nausea,Vomiting , 08/25/16) NAUSEA AND VOMITING , DIAARHEA azithromycin (Verified Adverse Reaction, Mild, Diarrhea, 08/25/16) Scheduled Amitriptyline (Amitriptyline) 75 Mg Tablet 75 MG PO HS Apixaban (Eliquis) 5 Mg Tablet 5 MG PO BID Carvedilol (Carvedilol) 3.125 Mg Tablet 3.125 MG PO BIDWM Cephalexin (Cephalexin) 500 Mg Capsule 500 MG PO TID Cholecalciferol (Vitamin D3) (Vitamin D) 50,000 Unit Capsule 50,000 UNIT PO WEEKLY Citalopram (Citalopram) 20 Mg Tablet 20 MG PO DAILY Lovastatin (Lovastatin) 20 Mg Tablet 20 MG PO DAILY Montelukast (Montelukast) 10 Mg Tablet 10 MG PO HS Ranitidine (Ranitidine) 150 Mg Capsule 150 MG PO BID Torsemide (Torsemide) 20 Mg Tablet 20 MG PO DAILY Valsartan (Diovan) 80 Mg Tablet 80 MG PO DAILY Scheduled PRN Albuterol Neb Soln (Albuterol Neb Soln) 2.5 Mg/3 Ml Vial.neb 2.5 MG INHALATION Q4H PRN PRN For Shortness of Breath Albuterol Sulfate (Ventolin HFA Inhaler) 200 Puff/18 Gm Inhaler 2 PUFFS INH q4- 6 hours PRN PRN For Shortness of Breath Alprazolam (Alprazolam) 0.5 Mg Tablet 0.25 MG PO DAILY PRN PRN For Anxiety Lanolin Alcohol/Mo/W.pet/[place] (Eucerin Creme) 454 Gm Cream..g. 1 APPLIC TP BID PRN PRN rash Nitroglycerin SL (Nitrostat) 0.4 Mg Tab.subl 0.4 MG PO Q5MIN PRN PRN For Chest Pain Nystatin (Nystatin) 1 Each Powder.ea. 1 EACH MC BID PRN PRN rash Nystatin (Nystatin) 20 Applic/15 Gm Oint 1 APPLIC EXT BID PRN PRN prn oxyCODONE (oxyCODONE) 5 Mg Tablet 5 MG PO TID PRN PRN For Pain General Time Seen by MD: 17:32 Chief Complaint Other (right leg cellulitis) Hx Obtained From: Patient Symptom Duration: Since onset Past Medical History Past Medical History Notes: Admit 03/2016 - COPD Admit 02/2015 - Powerport placement Admit 01/2015 - Pneumonia (Final Dx URI) Multiple admits for LE cellulitis - Last admit for this 01/09- Past Medical History Recurrent bilateral lower extremity cellulitis with secondary bacteremia MRSA nasal colonization Chronic anemia Thrombocytopenia Nonischemic cardiomyopathy LBBB (now with AICD) Chronic severe lymphedema Heart murmur Reports: Asthma, COPD, Congestive heart failure, Diabetes mellitus, GERD, Hyperlipidemia, Hypertension, Stroke Reports: Obesity Past Surgical History Powerport placed 03/05/2015 for Access in the setting of reccurrent cellulits Cardiac cath with no occlusive disease May 2012 Reports: Appendectomy, , Cholecystectomy, Hysterectomy Reports: AICD, Pacemaker insertion Family History Noncontributory Smoking History Never Smoker Social History Alcohol Use: Denies alcohol use Drug Use: Denies drug use Other Social History: Good social support, Frequent ED visitor, Local resident Occupation Unemployed, lives by self. 11/14/2016 Ambulatory Status Independent Review of Systems Basic Review of Systems Eyes: Vision NL, No discharge Endocrine: No cold intolerance, No heat intolerance, No weight gain, No weight loss Psychiatric: Normal thought content Physical Exam Initial Vital Signs Vital Signs (First) Date Time Temp Pulse Resp B/P Pulse Ox O2 Delivery O2 Flow Rate FiO2 11/14/16 17:33 36.6 118 25 144/51 88 Room Air 11/14/16 19:50 4 Initial VS: Reviewed, Vital signs abnormal General/Constitutional: Well-developed, Well-nourished Head / Eyes: Atraumatic, Normocephalic, PERRL ENT: Mucous membranes moist, Conjunctiva normal, No scleral icterus Neck: Supple, Non-tender, Full range of motion Respiratory: Breath sounds normal, Clear to auscultation, No respiratory distress Cardiovascular: Regular rate & rhythm, Heart sounds normal, Intact distal pulses Abdomen / GI: Soft, Non-tender, No guarding, No rebound, No distention Back: No CVA tenderness Lymphatic: No lymphadenopathy Upper Extremities: Vascular intact, Neuro intact, No swelling, No tenderness Skin: Warm, Dry, No cyanosis Neurologic: Alert, Oriented, Nonfocal Psychiatric: Mood/affect normal, Behavior normal, Normal thought content bilateral legs have lymphedema with visible yeast on skin. right lower leg with erthyma and increased warmth on right lower leg. General/Constitutional: Awake, Alert, No acute distress, Well appearing, Well developed, Well hydrated, Well nourished, Cooperative, Not toxic appearing Appearance / Presentation: Positive: Obese, morbidly Respiratory / Chest: Atraumatic, Breath sounds NL Cardiovascular: Heart rate NL Heart Rate / Rhythm: Positive: Tachycardia Interpretation & Diagnostics Lab Results Interpretation Result Diagram: 11/14/16184611/14/161846 Test 11/14/16 18:47 White Blood Count 13.3th/mm3 (3.8-10.1) Red Blood Count 3.70mil/mm3 (3.90-5.20) Hemoglobin 10.0g/dL (12.0-15.6) Hematocrit 32.5% (35.0-46.0) Mean Corpuscular Volume 88fL (81-100) Mean Corpuscular Hemoglobin 27.0pg (27.0-35.0) Mean Corpuscular Hemoglobin Concent 30.8% (32.0-37.0) Red Cell Distribution Width 15.4% (12.3-15.4) Platelet Count 121bil/L (150-400) Neutrophils (%) (Auto) 87% (40-74) Lymphocytes (%) (Auto) 6% (14-46) Monocytes (%) (Auto) 6% (4-12) Eosinophils (%) (Auto) 1% (0-5) Basophils (%) (Auto) 0% (0-3) Sodium Level 142mEq/L (134-144) Potassium Level 4.1mEq/L (3.5-5.2) Chloride Level 103mEq/L (97-108) Carbon Dioxide Level 24mmol/L (18-29) Blood Urea Nitrogen 20mg/dL (8-27) Creatinine 0.90mg/dL (0.57-1.00) Estimat Glomerular Filtration Rate 90mL/min (>59) Glucose Level 98mg/dL (60-99) Lactic Acid Level 1.0mmol/L (0.4-2.0) Calcium Level 8.2mg/dL (8.5-10.1) Total Bilirubin 0.3mg/dL (0.0-1.2) Aspartate Amino Transf (AST/SGOT) 15U/L (0-50) Alanine Aminotransferase (ALT/SGPT) 15U/L (0-32) Alkaline Phosphatase 80U/L (25-165) Troponin T < 0.010ug/L (0.0-0.011) Total Protein 7.0g/dL (6.4-8.4) Albumin 3.6g/dL (3.4-5.0) Procalcitonin 0.04ng/mL (0.00-0.08) Re-Eval/Medical Decision Med Decision/Clinical Course 66 year old with recurrent cellulitis presents to the ER after being released on Tuesday for right lower leg cellulitis. States the redness returned today. Patient presents with chills but is afebrile at present. No sign of compartment syndrome. Discharge & Departure Impression: Primary Impression: Cellulitis Site of cellulitis: extremity Site of cellulitis of extremity: lower extremity Laterality: right Qualified Code: L03.115 - Cellulitis of right lower limb Disposition: ADMITTED TO HOSPITAL Referrals: Bri Ochoa (PCP) EDSupervising Provider for APC: Keyur Landa MD Attending Statement Attending attestation: I saw this patient in conjunction with Maya CRAVEN. I agree with the workup , evaluation, treatment and disposition. Keyur Landa MD copies to: Bri Ochoa Beck O MD Nov 14, 2016 17:34 Maya Live Nov 14, 2016 17:52
[2016-11-14] MEDS ORDERED: cefTRIAXone Inj 2,000 MG in Dextrose 5% Minibag Plus 50 ML IV ONE (17:55)
[2016-11-14] MEDS ORDERED: 0.9% Sodium Chloride 1,000 ML IV ONE (17:55)
[2016-11-14 18:57] LABS: BASOPHILS % (AUTO) 0 % (0-3); EOSINOPHILS % (AUTO) 1 % (0-5); MONOCYTES % (AUTO) 6 % (4-12); Mean Corpuscular Volume 88 fL (81-100); NEUTROPHILS % (AUTO) 87 % (40-74); Platelet Count 121 bil/L (150-400)
[2016-11-14 19:20] LABS: TROPONIN T < 0.010 ug/L (0.0-0.011)
[2016-11-14 19:50] VITALS: BP 133/78; PULSE 103; RESP 18; O2SAT 98
[2016-11-14] MEDS ORDERED: Alum-Mag Hydrox-Simeth 30 mL Suspension PO PRN (20:25)
[2016-11-14] MEDS ORDERED: Ondansetron 2 mg/mL 2 mL Inj IVPUSH PRN (20:25)
[2016-11-14] MEDS ORDERED: Polyethylene Glycol (PEG) 17 Gm Powder PO PRN (20:25)
[2016-11-14 20:27] VITALS: BP 131/64; PULSE 107; RESP 20; O2SAT 99
--- NOTE | 2016-11-14 20:33 | PCM.HPMED ---
Subjective Date of Service Nov 14, 2016 Primary Provider: Admitting Physician: Angel Cage MD Primary Care Physician: Bri Ochoa Attending Physician: Angel Cage MD Admit Status: From the Emergency Department Chief Complaint: Shaking chills History of Present Illness: Sonya Viveros is an unfortunate 66-year-old female with past medical history significant for diabetes mellitus type II non-insulin using, hyperlipidemia, hypertension, previous CVA, morbid obesity, and recurrent lower limb cellulitis who presented to the ED with a 1 day history of shaking chills. She reports that she was making dinner for a friend, and started getting chills to the point where she could not hold onto her utensils. She also had accompanying subjective fever and thought maybe her cellulitis is coming back. She states that she was still taking her antibiotic and she was discharged with her last hospitalization, about a week ago. She denies any nausea or vomiting, diarrhea , chest pain, shortness of breath, diaphoresis. She was recently hospitalized 1-2 weeks ago for right lower extremity cellulitis and was given ceftriaxone which was transitioned to cephalexin and she was discharged on cephalexin until 11/17/2016. MRSA swab was negative at that time. In the ED she was given ceftriaxone and 1 L NS and reports feeling much better. Review of Systems: Comprehensive review of systems was conducted with the patient and found to be negative except as noted above in HPI. Allergies Coded Allergies: Penicillins (Verified Allergy, Intermediate, Hives, 08/25/16) Potassium Clavulanate (Verified Allergy, Intermediate, Hives, 08/25/16) amoxicillin trihydrate (Verified Allergy, Intermediate, Hives, 08/25/16) trimethoprim (Verified Allergy, Intermediate, Diarrhea, 08/25/16) lisinopril (Verified Allergy, Unknown, cough, 08/25/16) doxycycline (Verified Adverse Reaction, Intermediate, Nausea,Vomiting, 08/26) sulfamethoxazole (Verified Adverse Reaction, Intermediate, Nausea,Vomiting , 08/25/16) NAUSEA AND VOMITING , DIAARHEA azithromycin (Verified Adverse Reaction, Mild, Diarrhea, 08/25/16) Home Medications Scheduled Amitriptyline (Amitriptyline) 75 Mg Tablet 75 MG PO HS Apixaban (Eliquis) 5 Mg Tablet 5 MG PO BID Carvedilol (Carvedilol) 3.125 Mg Tablet 3.125 MG PO BIDWM Cephalexin (Cephalexin) 500 Mg Capsule 500 MG PO TID Cholecalciferol (Vitamin D3) (Vitamin D) 50,000 Unit Capsule 50,000 UNIT PO WEEKLY Citalopram (Citalopram) 20 Mg Tablet 20 MG PO DAILY Lovastatin (Lovastatin) 20 Mg Tablet 20 MG PO DAILY Montelukast (Montelukast) 10 Mg Tablet 10 MG PO HS Ranitidine (Ranitidine) 150 Mg Capsule 150 MG PO BID Torsemide (Torsemide) 20 Mg Tablet 20 MG PO DAILY Valsartan (Diovan) 80 Mg Tablet 80 MG PO DAILY Scheduled PRN Albuterol Neb Soln (Albuterol Neb Soln) 2.5 Mg/3 Ml Vial.neb 2.5 MG INHALATION Q4H PRN PRN For Shortness of Breath Albuterol Sulfate (Ventolin HFA Inhaler) 200 Puff/18 Gm Inhaler 2 PUFFS INH q4- 6 hours PRN PRN For Shortness of Breath Alprazolam (Alprazolam) 0.5 Mg Tablet 0.25 MG PO DAILY PRN PRN For Anxiety Lanolin Alcohol/Mo/W.pet/[place]ell (Eucerin Creme) 454 Gm Cream..g. 1 APPLIC TP BID PRN PRN rash Nitroglycerin SL (Nitrostat) 0.4 Mg Tab.subl 0.4 MG PO Q5MIN PRN PRN For Chest Pain Nystatin (Nystatin) 1 Each Powder.ea. 1 EACH MC BID PRN PRN rash Nystatin (Nystatin) 20 Applic/15 Gm Oint 1 APPLIC EXT BID PRN PRN prn oxyCODONE (oxyCODONE) 5 Mg Tablet 5 MG PO TID PRN PRN For Pain PMH 1. Chronic bilateral lower extremity lymphedema. 2. History of recurrent left lower extremity streptococcal cellulitis with multiple hospitalizations as a result. 3. History of MRSA colonization and infection with MRSA isolated in almost every admission. 4. Morbid obesity (BMI 58.6). 5. Venous stasis and recurrent lower extremity ulcerations. 6. Chronic anemia and thrombocytopenia of chronic disease (followed by Dr. Bee from hematology). 7. Chronic kidney disease, stage 3, with baseline creatinine typically around 1.6 to 1.7 8. History of congestive heart failure, chronic, systolic dysfunction due to non-ischemic cardiomyopathy status post AICD placement in October 2012 (followed by Dr. Montgomery). 9. Asthma/COPD. 10. History of CVA. 11. Diabetes mellitus type II, non-insulin using. 12. Hypertension. 13. Psoriasis. 14. Migraine headaches. 15. Depression and anxiety. 16. Insomnia. 17. History of paroxysmal atrial fibrillation and pulmonary emboli on Eliquis. Surgical History 1. PowerPort placed 03/05/2015 for access in the setting of recurrent cellulitis. 2. Cardiac cath with no occlusive disease May 2012. 3. Appendectomy. 4. x 1. 5. Cholecystectomy. 6. Hysterectomy. 7. AICD/pacemaker insertion. Family History Mother who of leukemia. Father with prostate cancer santiago healthy. One sister who of brain aneurysm. Another sister that is living who is healthy. Social History Hx Alcohol Use: No Hx Substance Use: No Hx Tobacco Use: No Smoking Status: Never Smoker Living Arrangement: Alone (with caregiver visits) Exam Vital Signs Vital Sign - Last Date Time Temp Pulse Resp B/P Pulse Ox O2 Delivery O2 Flow Rate FiO2 11/14/16 19:50 103 18 133/78 98 Nasal Cannula 4 11/14/16 17:54 36.9 Exam General: Age-appropriate, morbidly obese female in no acute distress, well- developed, appropriately interactive HEENT: Normocephalic, atraumatic. External ears without defect. Pupils equal, round, and reactive to light and accommodation. Anicteric sclerae, moist conjunctivae, and no lid lag. Oropharynx free of erythema and cobble stoning with moist mucosa. Neck: Supple with full range of motion. No jugular venous distension. No bruits. No lymphadenopathy or thyromegaly. Cardiovascular: Regular rate and rhythm with no murmurs, rubs, or gallops appreciated however cardiac tones are distant due to body habitus. Pacemaker in right upper chest wall. Pulmonary: Clear to auscultation bilaterally with no crackles, wheezes, or rhonchi. Distant breath sounds due to body habitus. Abdomen: Obese abdomen, soft NT/ND. normoactive BSx4. No rebound or guarding. Extremities: Severe bilateral LE lymphadema; right leg erythematous and warm around ankle. Small bandaged wound present on right LE. No sign of abscess formation, fluctuance. Skin: Warm, dry. Bilateral LE has rough, scaly skin. Right leg as above. Neurological: Cranial nerves grossly intact. Normal muscle strength, tone, and bulk. No focal deficits. Psychiatric: Normal mood and affect. Alert and oriented to person, place, and time. Lab and Diagnostics Result Diagram: 11/14/16184611/14/161846 Microbiology Blood cultures, pending Assessment & Plan Sonya Viveros is an unfortunate 66-year-old female with past medical history significant for diabetes mellitus type II non-insulin using, hyperlipidemia, hypertension, previous CVA, morbid obesity, and recurrent lower limb cellulitis who presented to the ED with a 1 day history of shaking chills and RLE swelling/ redness. She was recently hospitalized 1-2 weeks ago for RLE cellulitis and is still on a course of Keflex until 11/17. Sepsis, present on admission. Acute. Ongoing. - 2 SIRS criteria met: tachycardic > 90 bpm, WBC > 12.5 - Likely source is RLE cellulitis, as below - Recent negative MRSA swab, will not repeat - Continue ceftriaxone 2g daily - Blood cultures pending - ProCal pending - 1L NS was given in ED; she has CHF history and her lactate is 1 - Gentle hydration with 60ml/hr with her CHF/cardiomyopathy history; encourage PO intake Right lower extremity cellulitis, present on admission. Acute. Ongoing. - Patient came to ED for subjective fever, rigorous chills, increasing redness and swelling of right lower extremity - Recently admitted 2 weeks ago for a course of IV antibiotics for right lower extremity cellulitis - MRSA screen was negative at that time, will not repeat - Blood cultures pending - Lactic acid normal at 1.0 - Wound care ordered - Continue ceftriaxone 2 g daily - ProCal pending Chronic Problems: COPD, present on admission. Stable. - Continue DuoNeb every 4h prn shortness of breath - Continue montelukast 10 mg daily Nonischemic cardiomyopathy, present on admission. Stable. - Continue carvedilol 3.125 mg twice daily (changed from 12.5mg BID last admission) - Continue torsemide 30 mg daily - Continue Valsartan 80 mg daily - Of note, these medications were changed during last admission due to hypotensive episodes; watch BP, hold if necessary History of atrial fibrillation with pulmonary emboli, present on admission. Stable. - Continue eliquis 5 mg twice a day Diabetes mellitus type II non-insulin using, present on admission. Stable. - A1c of 5.1 on 10/2016 - Diabetic diet ordered - We will hold off on correctional scale insulin as patient is controlled via diet Hypertension, present on admission. Stable. - Continue carvedilol 3.125 twice daily, torsemide 30 mg daily, valsartan 80 mg daily Hyperlipidemia, present on admission. Stable. - Continue lovastatin 20 mg daily CKD Stage 3, present on admission. Stable. - Baseline creatinine reportedly around 1.1; is 0.9 at this time - Gentle hydration as above - Avoid nephrotoxic agents Chronic pain, present on admission. Stable. - Continue oxycodone 5mg TID as needed for pain Depression, present on admission. Stable. - Continue citalopram 20mg daily Insomnia, present on admission. Stable. - Continue amitriptyline 75mg daily Morbid obesity, present on admission. Stable. - BMI of 58.6 PRN Medications - Acetaminophen as needed for mild pain/fever/headache - Bowel regimen as needed - Antiemetic as needed Patient status: Patient is admitted under inpatient status with expected length of stay greater than 2 midnights due to severity of presenting symptoms, risk of adverse event, and complexity of treatment plan. VTE Prophylaxis: Sub-Q Heparin (Unfractionated) Resuscitation Status: CPR: Attempt Resuscitation Attending Statement The patient was seen and examined together with Dr. Dodd on 11/14 and I agree with the history, exam and plan as outlined in the note above. copies to: Bri Ochoa Jeffery S DO Nov 14, 2016 20:33 Angel Cage MD Nov 15, 2016 01:40
[2016-11-14 21:29] VITALS: BP 113/99; PULSE 108; RESP 16; O2SAT 98
[2016-11-14] MEDS ORDERED: Albuterol HFA 60 Puff 8 Gm Inhaler INHALATION PRN (21:30)
[2016-11-14] MEDS ORDERED: 0.9% Sodium Chloride 1,000 ML IV SCH (21:35)
[2016-11-14] MEDS ORDERED: Albuterol 2.5 mg/3 mL Inhalation Solution NEB PRN (21:35)
[2016-11-14 21:50] VITALS: BP 139/59; PULSE 100; RESP 18; O2SAT 100
[2016-11-14 22:07] VITALS: PULSE 111
[2016-11-15] VITALS (10 sets, daily range): BP systolic 105–130; BP diastolic 57–73; PULSE 75–93; RESP 16–21; O2SAT 96–100
[2016-11-15] MEDS: Heparin 5,000 Unit/mL Inj SUBQ SCH ×3 (00:53→16:29)
--- NOTE | 2016-11-15 04:10 | NUR ---
Arrival to Unit Patient arrived to the floor at 2130 from the ED via [place]. Transferred to [facility] via slider board. Patient is A&OX3 and pleasant this evening. Complains of 8/10 lower leg pain, and states that right LE feels hot. Denies CP, and complains of SOB with activity. Tele applied, NS started at 60cc/hr, and legs were further supported with pillows. 2Lo2 via NC is being worn, and CONT[employer]PER[employer] applied. PO Tylenol given for mild temp and leg pain. Upon further reassessment temp had improved but patient was not able to obtain any pain relief. 5mg oxycodone PO given, and upon further reassessment patient states the pain had subsided, but she continues to experience warmness in the right leg. Attempted to get patient out of bed to preform a total bed change, but patient did not tolerate activity well and HR went up into the 130's per telemetry report. Will continue to monitor and continue Q1 hour checks.
[2016-11-15 05:48] LABS: BASOPHILS % (AUTO) 0.1 % (0-3); EOSINOPHILS % (AUTO) 0.3 % (0-5); MONOCYTES % (AUTO) 4.6 % (4-12); Mean Corpuscular Hemoglobin 26.7 pg (27.0-35.0); Mean Corpuscular Volume 89.8 fL (81-100); NEUTROPHILS % (AUTO) 87.8 % (40-74); Platelet Count 108 bil/L (150-400)
--- NOTE | 2016-11-15 10:20 | PCM.PNMED ---
Subjective Date of Service Nov 15, 2016 Subjective Patient seen and examined. She says she is feeling better. Vitals noted. Exam Vital Signs Vital Sign - Last Date Time Temp Pulse Resp B/P Pulse Ox O2 Delivery O2 Flow Rate FiO2 11/15/16 08:21 36.6 85 16 119/73 99 Nasal Cannula 2.00 Intake and Output 11/14/16 11/14/16 11/15/16 Cumulative From/Thru 15:00 23:00 07:00 11/14/16 17:33 - 11/15/16 06:00 Intake Total 1000 ml 820 ml 1820 ml Balance 1000 ml 820 ml 1820 ml Intake Oral 820 ml 820 ml IV Total 1000 ml 1000 ml # Voids 1 1 Exam General: Age-appropriate, morbidly obese female in no acute distress, well- developed, appropriately interactive Neck: Supple with full range of motion. No jugular venous distension. No bruits. No lymphadenopathy or thyromegaly. Cardiovascular: Regular rate and rhythm with no murmurs, rubs, or gallops appreciated however cardiac tones are distant due to body habitus. Pacemaker in right upper chest wall. Pulmonary: Clear to auscultation bilaterally with no crackles, wheezes, or rhonchi. Distant breath sounds due to body habitus. Abdomen: Obese abdomen, soft NT/ND. normoactive BSx4. No rebound or guarding. Extremities: Severe bilateral LE lymphadema; right leg erythematous and warm around ankle. Small bandaged wound present on right LE. No sign of abscess formation, fluctuance. Skin: Warm, dry. Bilateral LE has rough, scaly skin. Right leg as above. Lab and Diagnostics Result Diagram: 11/15/16 0530 11/15/16 0530 Microbiology Blood cultures, pending Assessment & Plan Sonya Viveros is an unfortunate 66-year-old female with past medical history significant for diabetes mellitus type II non-insulin using, hyperlipidemia, hypertension, previous CVA, morbid obesity, and recurrent lower limb cellulitis who presented to the ED with a 1 day history of shaking chills and RLE swelling/ redness. She was recently hospitalized 1-2 weeks ago for RLE cellulitis and is still on a course of Keflex until 11/17. Sepsis with bacteremia , present on admission. Acute. Resolved - 2 SIRS criteria met: tachycardic > 90 bpm, WBC > 12.5 at admission - Likely source is RLE cellulitis, as below - Recent negative MRSA swab, will not repeat - Continue ceftriaxone 2g daily - Blood cultures X 1 +Ve for gram negative rouds - ProCal normal - 1L NS was given in ED; she has CHF history and her lactate is 1 - wound care - will get Dr. Alberto involved, she was seen by him last time. Right lower extremity cellulitis, present on admission. Acute. Ongoing. - Patient came to ED for subjective fever, rigorous chills, increasing redness and swelling of right lower extremity - Recently admitted 2 weeks ago for a course of IV antibiotics for right lower extremity cellulitis - MRSA screen was negative at that time, will not repeat - Blood cultures pending - Lactic acid normal at 1.0 - Wound care ordered - Continue ceftriaxone 2 g daily - ProCal normal Chronic Problems: COPD, present on admission. Stable. - Continue DuoNeb every 4h prn shortness of breath - Continue montelukast 10 mg daily Nonischemic cardiomyopathy, present on admission. Stable. - Continue carvedilol 3.125 mg twice daily (changed from 12.5mg BID last admission) - Continue torsemide 30 mg daily - Continue Valsartan 80 mg daily - Of note, these medications were changed during last admission due to hypotensive episodes; watch BP, hold if necessary History of atrial fibrillation with pulmonary emboli and right atrium thrombus, present on admission. Stable. - Continue eliquis 5 mg twice a day - patient to have follow up [facility] ( scheduled 08/07/16) Diabetes mellitus type II non-insulin using, present on admission. Stable. - A1c of 5.1 on 10/2016 - Diabetic diet ordered - We will hold off on correctional scale insulin as patient is controlled via diet Hypertension, present on admission. Stable. - Continue carvedilol 3.125 twice daily, torsemide 30 mg daily, valsartan 80 mg daily Hyperlipidemia, present on admission. Stable. - Continue lovastatin 20 mg daily CKD Stage 3, present on admission. Stable. - Baseline creatinine reportedly around 1.1; is 0.9 at this time - Gentle hydration as above - Avoid nephrotoxic agents Chronic pain, present on admission. Stable. - Continue oxycodone 5mg TID as needed for pain Depression, present on admission. Stable. - Continue citalopram 20mg daily Insomnia, present on admission. Stable. - Continue amitriptyline 75mg daily Morbid obesity, present on admission. Stable. - BMI of 58.6 Chronic Venous stasis - wound care PRN Medications - Acetaminophen as needed for mild pain/fever/headache - Bowel regimen as needed - Antiemetic as needed Patient status: Patient is admitted under inpatient status with expected length of stay greater than 2 midnights due to severity of presenting symptoms, risk of adverse event, and complexity of treatment plan. VTE Prophylaxis: Sub-Q Heparin (Unfractionated) Resuscitation Status: CPR: Attempt Resuscitation Time spent 35 mins Emory Dalton MD Nov 15, 2016 10:20 Emory Dalton MD Nov 15, 2016 10:20
[2016-11-15] MEDS ORDERED: HepLOK Flush 100 unit/mL 5 mL Inj IVFLUSH PRN (10:30)
[2016-11-15] MEDS ORDERED: Sodium Chloride LOK Flush 10 mL Syringe IVFLUSH PRN ×2 (10:30)
--- NOTE | 2016-11-15 10:40 | DRSVH ---
PROCEDURE: X-RAY CHEST ONE VIEW ([id number]) INDICATIONS: h/o cardiomyopathy TECHNIQUE: One view of the chest was acquired. COMPARISON: [facility], CR, XR CHEST 1VW (PORTABLE), 04/04/2016, 1:51. [facility], CR, XR CHEST 2VW, 11/03/2016, 21:02. [facility], [facility], [facility], 09/23/2016, 13:10. [facility], CR, XR CHEST 1VW, 04/05/2015, 0:33. FINDINGS: Surgical changes and devices: Stable positioning of left chest AICD and right chest port. Lungs and pleura: No pleural effusions or pneumothorax. Lungs are clear and interstitium is promine nt similar to prior exam. Mediastinum: Mediastinal contours appear normal. Heart size is enlarged. Bones and chest wall: No suspicious bony lesions. Overlying soft tissues appear unremarkable. IMPRESSION: Stable cardiomegaly. No definite acute cardiopulmonary process. Dictated by: Felipe SAAVEDRA Interpreted: Reji Franklin MD on 11/15/2016 at 10:24 Approved by: Rashi Franklin M.D. on 11/15/2016 at 10:37
--- NOTE | 2016-11-15 14:40 | NUR ---
Blood cultures Positive blood culture bottle 03/24 reported at 1430 for Gram - rods. MD notified at this time, awaiting infectious disease consult at this time. No fevers or chills noted so far this shift.
--- NOTE | 2016-11-15 17:37 | NUR ---
Social Work: Initial Assessment/Multidisciplinary Rounds D: EMR reviewed. Please see initial assessment linked to this note for further information. Pt is a 66 y/o female admitted [place] - no readmit risk score assigned - for right lower leg cellulitis on ABX per H&P. SW met with pt at bedside to conduct initial assessment. Pt was alert and oriented x3. SW explained role, wrote phone number on white board, provided [facility] Discharge Planning Checklist, and encouraged pt to contact SW with any discharge planning needs. Pt discussed in multidisciplinary rounds and is not medically stable for discharge, anticipate 2-3 more days pending ID. SW discussed discharge planning with medical team. No SW needs at this time, no MD orders received. Pt's insurance is Medicare and [facility] Supplemental. Pt's primary contact is sister Kasandra Chan, , who can be contacted for discharge planning. Pt has not LTC insurance or VA benefits. Pt has hx at [facility] and with Elma KEENE. Pt uses an electric wheelchair at baseline and owns a bedside commode. Pt does not own any other DME. Pt has a TIMOTHY caregiver to assist with ADLs at home (120/mo - [phone] Tuesday - Tuesday). Pt's pillowcase maker is Maya Cao ([phone]). Pt does not drive. Pt lives in a single-story, level, home in [place] that is wheelchair and ADA accessible. A: Pt who uses a wheelchair at baseline and 120/hrs of TIMOTHY for assistance with ADLs. P: SW will continue to follow to help coordinate pt's transportation home. SW to fax H&P to [facility] Addendum: 11/15/16 at 1743 by SABA TALLEY Amended: Links added.
[2016-11-15] MEDS: Cefepime Inj 2,000 MG in Dextrose 5% Minibag Plus 100 ML IV SCH (18:27)
[2016-11-15] MEDS: 0.9% Sodium Chloride 250 ML IV SCH (18:28)
[2016-11-15] MEDS ORDERED: cefTRIAXone Inj 2,000 MG in Dextrose 5% Minibag Plus 50 ML IV SCH (20:00)
--- NOTE | 2016-11-15 20:36 | CONS ---
[address] [address] CONSULTATION REPORT PATIENT: SHEN KRISHNA I : 1950 MR#: [id number] ADMIT: 11/14/2016 JOB ID: [id number] DATE OF SERVICE: 11/15/2016 REASON FOR CONSULT: Severe right lower extremity cellulitis in a morbidly obese patient with history of recurrent cellulitis. I thank Dr. Dalton for this timely consult. HISTORY OF THE PRESENT ILLNESS: The patient is a 66-year-old woman, well known to me for innumerable infections of the lower extremities over the past three years. The patient is morbidly obese with chronic venous stasis changes and continues to have frequent admissions for recurrent cellulitis, usually arising from the right lower extremity. Back in August of this year, she was admitted with severe cellulitis and blood culture was positive at that time for group B strep. This led to an echo which identified some confusing abnormalities including a mobile mass seen in the right atrium, which we thought was likely a thrombus rather than vegetation. Also noted on that transesophageal echo in August was reduced ejection fraction. The eventual decision was not to treat the patient for endocarditis or infected clot, and at that point, she received a course of ceftriaxone with considerable improvement. Unfortunately, the patient was readmitted on November 03 with more cellulitis. At that time, she was treated with ceftriaxone and transitioned to Keflex and was discharged on November 09. I was not involved in that admission. The patient reports she did okay for just a few days at home while taking the oral cephalosporin, but then on November 13, she developed a violent shaking chill which was unusually severe, even by her standards, and she also noticed that her right lower extremity started to hurt a bit again. This was accompanied by a sensation of fever, and at that point, she was still even taking her Keflex and reports compliance with it. This violent shaking chill, fever, and return of cellulitis was not associated with any significant pulmonary or GI symptoms. She presented to the ED on November 14 and was readmitted once again. The patient reports that since her admission yesterday she has improved somewhat while receiving intravenous antibiotics which, at this point, has included just ceftriaxone. PAST MEDICAL HISTORY: 1. Morbid obesity with BMI consistently over 60. 2. Chronic lymphedema with venous stasis changes and innumerable recurrent soft tissue infections. 3. Multiple beta hemolytic streptococcal infections as well as MRSA infections of the lower extremities. 4. Chronic cytopenias. 5. Chronic renal insufficiency. 6. CHF with recent ejection fraction 35%. 7. COPD. 8. Pacer in place. 9. Port in place because of lack of venous access. 10. Diabetes. 11. Hypertension. 12. Psoriasis. 13. Migraine headaches. 14. Depression. 15. Recent history of C. difficile colitis. SOCIAL HISTORY: The patient is a nonsmoker, nondrinker. Lives in an apartment with her cat. The cat has bitten her in the past but not recently. FAMILY HISTORY: Negative for TB in first- and second-degree relatives. ROS: Today, the patient reports her fever and violent chills of two days ago have resolved. She has no headaches today, no sore throat or trouble swallowing. She denies cough, shortness of breath, nausea, vomiting, or diarrhea. No dysuria. She still has considerable pain in her right leg and notes this is one of the worst episodes of cellulitis she has ever had. She can only walk a few steps, even on a good day due to her obesity, joint complaints, and other medical problems, and that has been shortened considerably recently because of this infection. Remainder of the review of systems is negative. PHYSICAL EXAMINATION: Reveals a morbidly obese woman sitting up in bed. Temperature 36.8. She is afebrile and has been throughout this short hospital stay. Pulse 82, respiratory rate 16, blood pressure 105/57. She is saturating well on 2 L and in no acute distress. Mental status is clear. Sinuses nontender. Eyes without conjunctivitis. Oral cavity: No thrush or hairy leukoplakia. Neck is difficult to examine because of her morbid obesity. I do not detect any abnormalities. Lungs: Relatively clear but very distant cardiac tones. Regular rate and rhythm. The port on the right upper chest is in good position and nontender. The pacer is also nontender. Abdomen massively obese without hepatosplenomegaly or ascites. I cannot palpate the suprapubic region. She does not currently have a Raza. No inguinal nodes could be appreciated due to her size. The patient's lower extremities are massive on the basis of her very severe obesity, as well as lymphedema. The right lower extremity is the worst I have seen it during my many visits with her over the past three years. She has patchy cellulitis which extends from the dorsum of the foot all the way up almost to the inguinal area. This area is warm, moderately tender, and without bullae. Her left lower extremity also has, of course, venous stasis changes and lymphedema but there is no significant cellulitis. The patient can move her extremities, both upper and lower, but is weak diffusely at about 3+ over five. It is difficult to ascertain, at this point, whether she has any significant neuropathy. No synovitis is appreciated. Labs include white blood count 13,000 on admission, now down to 12,000. Platelet count a bit low at 108. Diff with a left shift, 87% segs. Creatinine 0.98. LFTs normal. Procalcitonin zero. Urinalysis 6-10 white cells. Streptozyme was last done in August; it was 248 at that time. Recall this patient tends to have chronically elevated streptozymes on the basis of her presumably recurrent beta strep infections. Micro studies include, from this admission, a single blood culture growing gram-negative rods. This is from yesterday. Of interest, a urine done a week ago when she was here in the hospital grew Pseudomonas, as well as Enterococcus. That Pseudomonas was susceptible to Cipro as well as carbapenems and Zosyn, in this patient who is allergic to PENICILLIN. Also note that we had the MRSA smear of the nares positive back in August, but a MRSA screen in October was negative. IMPRESSION: This is an incredibly difficult case of a woman with supermorbid obesity who is admitted every month or two for severe and recurrent cellulitis involving the right lower extremity. Back in August, she was bacteremic with group B Strep and she has had many problems associated with antibiotics including a wide variety of allergies, as well as Clostridium difficile back in April. Management and prophylaxis of these infections have proven to be very difficult. On this admission, she seems to have a positive blood culture for gram-negative olegario which would be a first for her and suggests that the cephalexin she was receiving on an outpatient basis failed to prevent this organism from causing some bacteremic cellulitis. At this point, we need to broaden her antibiotics while we await identification of the organism. RECOMMENDATIONS: 1. Will discontinue the ceftriaxone at this point. 2. Will start the patient on cefepime, pending identification of the organism. If this is in fact the Pseudomonas that was recently in the urine, it should be susceptible. 3. Oral options for this may include ciprofloxacin, but we will need additional data before making that conclusion. Thank you very much for again involving me in the care of this most complex patient. NUPUR
[2016-11-15] MEDS: ALPRAZolam 0.25 mg Tablet PO PRN (23:37)
[2016-11-16] VITALS (9 sets, daily range): BP systolic 102–138; BP diastolic 62–79; PULSE 65–81; RESP 18–20; O2SAT 96–100
[2016-11-16] MEDS: Heparin 5,000 Unit/mL Inj SUBQ SCH ×3 (00:44→17:52)
[2016-11-16 05:23] LABS: BASOPHILS % (AUTO) 0.2 % (0-3); EOSINOPHILS % (AUTO) 3.7 % (0-5); MONOCYTES % (AUTO) 8.5 % (4-12); Mean Corpuscular Hemoglobin 27.1 pg (27.0-35.0); Mean Corpuscular Volume 90.4 fL (81-100); NEUTROPHILS % (AUTO) 68.6 % (40-74); Platelet Count 114 bil/L (150-400)
--- NOTE | 2016-11-16 06:37 | NUR ---
Depression/Anxiety Pt was experiencing anxiety at being in the hospital again so recently after last admit, worried about her cat, upset over the bsc being uncomfortable, pain, and frustrated over the current inability to be as mobile as her baseline. Therapeutic conversation needed and frequent call light. Xanax given at bedtime which appeared to help.
[2016-11-16] MEDS: Cefepime Inj 2,000 MG in Dextrose 5% Minibag Plus 100 ML IV SCH ×2 (07:38→17:54)
[2016-11-16] MEDS: 0.9% Sodium Chloride 1,000 ML IV SCH ×2 (09:02→20:47)
--- NOTE | 2016-11-16 09:10 | PROG NOTE ---
[address] [address] PROGRESS NOTE PATIENT: SHEN KRISHNA I : 1950 MR#: [id number] ADMIT: 11/14/2016 JOB ID: [id number] DATE: 11/16/2016 INFECTIOUS DISEASE FOLLOW UP NOTE: REASON FOR FOLLOWUP: Bacteremic pseudomonal cellulitis involving the right lower extremity. INTERVAL HISTORY: Overnight, the patient reports no fevers, chills or sweats. She has had no significant cough or worsening shortness of breath. No nausea, vomiting, or diarrhea. She has noticed that her diffuse right leg pain may be somewhat better but it is now more localized around the knee. That said, she can move her right knee. PHYSICAL EXAMINATION: Reveals an afebrile woman. Temperature 36.6, pulse 75, respiratory rate 20, blood pressure 134/79, saturating well on 2 L. Sitting up, having breakfast. Oral cavity negative. Mental status clear. Lungs distant but clear. Abdomen massively obese. Soft and nontender. Right lower extremity erythema is about 50% better than yesterday. She is able to flex and extend the knee a little bit which suggests this is not a septic knee process. LABORATORIES: Include a white count which has now normalized at 5600. The left shift is also completely resolved. Creatinine has jumped to 1.56 from 0.98, however. LFTs are normal. Procalcitonin 0. Micro studies include a positive blood culture from one bottle for Pseudomonas aeruginosa, susceptibilities out by tomorrow. The admission chest x-ray was again reviewed and is clear. IMPRESSION: This is an unfortunate case of a super morbidly obese woman with severe lymphedema and venous stasis changes of both lower extremities with recurrent beta hemolytic as well as Staph aureus infections of the lower extremities. On this occasion though, she has broken new ground with a bacteremic Pseudomonas infection which probably arose from the right lower extremity. Bacteremias are always of concern in this patient who has both a port and a pacer and was previously found to have a large atrial clot on an earlier admission. RECOMMENDATIONS: 1. Will continue with cefepime today. 2. Depending on susceptibilities, may be able to switch to Cipro tomorrow if we are beatriz and the patient could be discharged on oral therapy. If not we will need to arrange for ongoing cefepime or other intravenous antibiotic for 10-14 day course. This case discussed in person with Dr. Dalton.
--- NOTE | 2016-11-16 09:12 | NUR ---
Faxed H&P to [facility] per [facility]
[2016-11-16] MEDS: ALPRAZolam 0.25 mg Tablet PO PRN (10:22)
[2016-11-16] MEDS: 0.9% Sodium Chloride 250 ML IV SCH (10:27)
--- NOTE | 2016-11-16 14:18 | PCM.PNMED ---
Subjective Date of Service Nov 16, 2016 Subjective Patient seen and examined. Says she feels much better today. Vitals stable. Exam Vital Signs Vital Sign - Last Date Time Temp Pulse Resp B/P Pulse Ox O2 Delivery O2 Flow Rate FiO2 11/16/16 13:32 36.7 79 18 123/70 96 Nasal Cannula 1.00 Intake and Output 11/15/16 11/15/16 11/16/16 Cumulative From/Thru 15:00 23:00 07:00 11/14/16 17:33 - 11/16/16 05:59 Intake Total 1107 ml 550 ml 3477 ml Output Total 1050 ml 800 ml 1850 ml Balance 57 ml -250 ml 1627 ml Intake Oral 240 ml 550 ml 1610 ml IV Total 867 ml 1867 ml Output Urine Total 1050 ml 800 ml 1850 ml # Voids 1 # Bowel Movements 1 0 1 Exam General: Age-appropriate, morbidly obese female in no acute distress, well- developed, appropriately interactive Neck: Supple with full range of motion. No jugular venous distension. No bruits. No lymphadenopathy or thyromegaly. Cardiovascular: Regular rate and rhythm with no murmurs, rubs, or gallops appreciated however cardiac tones are distant due to body habitus. Pacemaker in right upper chest wall. Pulmonary: Clear to auscultation bilaterally with no crackles, wheezes, or rhonchi. Distant breath sounds due to body habitus. Abdomen: Obese abdomen, soft NT/ND. normoactive BSx4. No rebound or guarding. Extremities: Severe bilateral LE lymphadema; right leg erythematous and warm around ankle, thigh lateral side, improving. Small bandaged wound present on right LE. No sign of abscess formation, fluctuance. Skin: Warm, dry. Bilateral LE has rough, scaly skin. Right leg as above. Lab and Diagnostics Result Diagram: 11/16/16 0510 11/16/16 0510 Microbiology Blood cultures, pending Assessment & Plan Sonya Viveros is an unfortunate 66-year-old female with past medical history significant for diabetes mellitus type II non-insulin using, hyperlipidemia, hypertension, previous CVA, morbid obesity, and recurrent lower limb cellulitis who presented to the ED with a 1 day history of shaking chills and RLE swelling/ redness. She was recently hospitalized 1-2 weeks ago for RLE cellulitis and is still on a course of Keflex until 11/17. Sepsis with bacteremia , present on admission. Acute. Resolved - 2 SIRS criteria met: tachycardic > 90 bpm, WBCs > 12.5 at admission - Likely source is RLE cellulitis, as below - Recent negative MRSA swab, will not repeat - Continue ceftriaxone 2g daily - Blood cultures X 1 +Ve for gram negative rods (pseudomonas) - ProCal normal - 1L NS was given in ED; she has CHF history and her lactate is 1 - wound care - Dr. Alberto on board, continue Cefepime Right lower extremity cellulitis, present on admission. Acute. Ongoing. - Patient came to ED for subjective fever, rigorous chills, increasing redness and swelling of right lower extremity - Recently admitted 2 weeks ago for a course of IV antibiotics for right lower extremity cellulitis - MRSA screen was negative at that time, will not repeat - Blood cultures pending - Lactic acid normal at 1.0 - Wound care ordered - Continue Cefepime till susceptibilities are back. - ProCal normal Chronic Problems: COPD, present on admission. Stable. - Continue DuoNeb every 4h prn shortness of breath - Continue montelukast 10 mg daily Nonischemic cardiomyopathy, present on admission. Stable. - Continue carvedilol 3.125 mg twice daily (changed from 12.5mg BID last admission) - Continue torsemide 30 mg daily - Continue Valsartan 80 mg daily - Of note, these medications were changed during last admission due to hypotensive episodes; watch BP, hold if necessary History of atrial fibrillation with pulmonary emboli and right atrium thrombus, present on admission. Stable. - Continue eliquis 5 mg twice a day - patient to have follow up [facility] ( scheduled 08/07/16) Diabetes mellitus type II non-insulin using, present on admission. Stable. - A1c of 5.1 on 10/2016 - Diabetic diet ordered - We will hold off on correctional scale insulin as patient is controlled via diet Hypertension, present on admission. Stable. - Continue carvedilol 3.125 twice daily, torsemide 30 mg daily, valsartan 80 mg daily Hyperlipidemia, present on admission. Stable. - Continue lovastatin 20 mg daily CKD Stage 3, present on admission. Stable. - Baseline creatinine reportedly around 1.1; is 0.9 at this time - Gentle hydration as above - Avoid nephrotoxic agents Chronic pain, present on admission. Stable. - Continue oxycodone 5mg TID as needed for pain Depression, present on admission. Stable. - Continue citalopram 20mg daily Insomnia, present on admission. Stable. - Continue amitriptyline 75mg daily Morbid obesity, present on admission. Stable. - BMI of 58.6 Chronic Venous stasis - wound care PRN Medications - Acetaminophen as needed for mild pain/fever/headache - Bowel regimen as needed - Antiemetic as needed Patient status: Patient is admitted under inpatient status with expected length of stay greater than 2 midnights due to severity of presenting symptoms, risk of adverse event, and complexity of treatment plan. VTE Prophylaxis: Sub-Q Heparin (Unfractionated) Resuscitation Status: CPR: Attempt Resuscitation Time spent 35 mins Emory Dalton MD Nov 16, 2016 14:18
--- NOTE | 2016-11-16 18:00 | NUR ---
pain/mobility/skin Pt reports relief with oxycodone, c/o leg pain. Able to ambulate to BR with FWW SBA prefers this over BSC, reports pinches her legs. Area on right leg that is outlined is decreased in size. Nystatin placed in folds. Pt notified of plan - awaiting sensitivities.
[2016-11-17] VITALS (9 sets, daily range): BP systolic 94–122; BP diastolic 60–76; PULSE 70–90; RESP 14–19; O2SAT 91–97
[2016-11-17] MEDS: Heparin 5,000 Unit/mL Inj SUBQ SCH (00:24)
--- NOTE | 2016-11-17 04:03 | NUR ---
Activity Patient A&OX3 and pleasant this evening. Complains of 7-8/10 Right leg pain. 975 of Tylenol PO given, and upon reassessment patient rates pain 3/10. 5mg oxycodone given and upon reassessment patient was sleeping and appeared comfortable. Patient has complained on mild anxiety throughout the shift. Patient knitted for some time, which she says helps ease her anxiety. Will continue to monitor and continue Q1 hour checks.
[2016-11-17] MEDS: Cefepime Inj 2,000 MG in Dextrose 5% Minibag Plus 100 ML IV SCH ×2 (05:38→18:33)
[2016-11-17 06:16] LABS: BASOPHILS % (AUTO) 0.2 % (0-3); EOSINOPHILS % (AUTO) 5.6 % (0-5); Mean Corpuscular Hemoglobin 27.1 pg (27.0-35.0); NEUTROPHILS % (AUTO) 64.3 % (40-74); Platelet Count 112 bil/L (150-400)
[2016-11-17] MEDS: 0.9% Sodium Chloride 1,000 ML IV SCH ×2 (09:05→22:44)
--- NOTE | 2016-11-17 10:17 | PROG NOTE ---
[address] [address] PROGRESS NOTE PATIENT: SHEN KRISHNA I : 1950 MR#: [id number] ADMIT: 11/14/2016 JOB ID: [id number] DATE: 11/17/2016 REASON FOR FOLLOWUP: Bacteremic right lower extremity, pseudomonal cellulitis in a patient with morbid obesity. INTERVAL HISTORY: The patient reports no fevers, chills, or shortness of breath overnight. She continues to have some pain in the right lower extremity but it is diminished. At this point, she feels like she is close to the point where she could go home. Note that this patient was discussed at the bedside with the Wound Management nurse, and we discussed appropriate care of her many intertriginous zones, intertriginous areas of skin fold that overlap. PHYSICAL EXAMINATION: Reveals an afebrile woman. Temp 36.1, pulse 77, respiratory rate 18, blood pressure 94/64. She is saturating well on room air. No acute distress today. She appears better than yesterday. Her mental status is clear. Lungs are clear posteriorly. Cardiac tones distant. Abdomen massively obese. Right lower extremity cellulitis gradually diminishing and there is no bullae, skin breakdown or significant warmth at this point. LABORATORIES: Include white count 4800. Diff is essentially normal. Creatinine 0.9. Micro studies are now back and we know that the Pseudomonas in her blood was susceptible to all standard agents including the cefepime she has been receiving, as well as ciprofloxacin. IMPRESSION: This is an unfortunate, morbidly obese woman, with BMI in the 60s, who is admitted on an almost monthly basis for soft tissue infection usually involving the right lower extremity. She has extensive cracking and erythema on a permanent basis basically in the multiple overlapping areas of adiposity on her lower extremities, and these areas are prone to recurrent streptococcal and now pseudomonal infections. She is steadily improving at this point, and I think that given the fact that this organism is sensitive to Cipro, she could probably be considered for discharge in the next couple of days. RECOMMENDATIONS: 1. Will add Cipro 500 p.o. b.i.d., to the cefepime she is receiving. 2. When she goes home, obviously she can stop the cefepime and just go on oral Cipro to complete a 10 day course of therapy total. 3. ID will continue to follow this patient. 4. We discussed in detail with the Wound Management nurse our ongoing efforts to prevent additional super infections.
[2016-11-17] MEDS: 0.9% Sodium Chloride 250 ML IV SCH (10:27)
--- NOTE | 2016-11-17 12:43 | NUR ---
Inpatient Wound Nurse Patient seen for assessment of cellulitis of RLE. Area on anterior nicholson 4.5 cm L x 7 cm W of crusted, erythemic tissue with some smaller areas of crusting in scattered pattern. Removed Mepilex dressing was about 50% saturated with serous fluid. Area was cleansed and blotted dry, then covered with bordered 4 x 4 Mepilex dressing with silicone facing. CWON will see patient Tuesday for assessment of cellulitis-wound area. Skin folds are heavily overgrown with yeast. Patient is unable to meet her hygiene needs and this is chronic condition. Linear breaks in skin are noted under breasts, panniculus, and popliteal spaces. Nystatin ointment has already been applied today. For future hygiene regimen, at least once daily all skin folds should be extensively cleansed and thoroughly dried. Once dry, Nystatin ointment should be applied. Wicking agents, such as Mepilex sheet foam dressing can be placed in folds, especially popliteal spaces, under breasts and panniculus. Use of any polyester blend fabrics, such as pillow cases, is not recommended as polyester increases sweat unless it is specifically woven to wick moisture. Fabrics made of 100% cotton can be used to keep skin folds dry but must be changed as soon as moist. Femi (white Medline or blue Covidien) that do not have plastic backing (do not use green femi in folds) can be folded and placed in skin folds if this is comfortable for patient but should not be cut. Kerlix may be unrolled and placed into skin folds as long as it is changed when damp. Patient was instructed to follow these instructions once discharged, nursing staff aware of need for daily hygiene.
[2016-11-17] MEDS: ALPRAZolam 0.25 mg Tablet PO PRN (15:18)
--- NOTE | 2016-11-17 17:14 | PCM.PNMED ---
Subjective Date of Service Nov 17, 2016 Subjective Patient is in the bed, feels better, cellulitis is improving Exam Vital Signs Vital Sign - Last Date Time Temp Pulse Resp B/P Pulse Ox O2 Delivery O2 Flow Rate FiO2 11/17/16 11:02 70 11/17/16 10:00 36.3 18 106/60 96 Room Air 11/17/16 06:23 1.00 Intake and Output 11/16/16 11/16/16 11/17/16 Cumulative From/Thru 15:00 23:00 07:00 11/14/16 17:33 - 11/17/16 05:40 Intake Total 186 ml 1000 ml 2013 ml 6676 ml Output Total 1850 ml Balance 186 ml 1000 ml 2013 ml 4826 ml Intake Oral 920 ml 1036 ml 3566 ml IV Total 186 ml 80 ml 977 ml 3110 ml Output Urine Total 1850 ml # Voids 3 2 6 # Bowel Movements 0 1 Exam PHYSICAL EXAM: GENERAL: Alert, not in distress, cooperative HEAD: atraumatic, normocephalic, no bruises. EYES: CLYDE, EOMI, anicteric, able to fully open and close eyelids SKIN: Skin color normal, turgor normal. Severe bilateral LE lymphadema; right leg erythematous and warm around ankle EAR, NOSE, MOUTH, THROAT: Lips, oral mucosa, tongue gums, oropharynx are moist , pink, no lesions. NECK: supple ROM normal. RESPIRATORY: Lungs clear to auscultation. Good diaphragmatic excursion. CARDIAC: normal S1 and S2; no rubs, murmurs, or gallops; regular rate and rhythm ABDOMEN: Abdomen soft, non-tender. BS normal. No masses or organomegaly. MUSCULOSKELETAL: ROM full, muscles are not tender EXTREMITIES: Severe bilateral LE lymphadema; right leg erythematous and warm around ankle, thigh lateral side, improving. NEURO: Alert, oriented X 3, Cranial nerves II-XII intact, Grossly normal motor function. PULSES: 2+ radial, 2+ carotid REVIEW OF SYSTEMS: GENERAL: no malaise, no fevers., SEE HPI HEENT: Negative for frequent or significant headaches All other reviewed and negative other than HPI. IVs and Medications Medications Reviewed: Medications were reviewed in detail Lab and Diagnostics Result Diagram: 11/17/1630 11/17/16 0530 Microbiology Blood cultures, pending Assessment & Plan Sonya Viveros is an unfortunate 66-year-old female with past medical history significant for diabetes mellitus type II non-insulin using, hyperlipidemia, hypertension, previous CVA, morbid obesity, and recurrent lower limb cellulitis who presented to the ED with a 1 day history of shaking chills and RLE swelling/ redness. She was recently hospitalized 1-2 weeks ago for RLE cellulitis and is still on a course of Keflex until 11/17. Sepsis with bacteremia RLE cellulitis - stable - ProCal normal - Blood cultures X 1 +Ve for gram negative rods (pseudomonas) - ID following Plan - Continue with antibiotics as pe ID reccomendations COPD, Stable. - c/w RT, O2 prn, home meds Nonischemic cardiomyopathy,[aroxysmal atrial fibrillation, Hx of pulmonary emboli and right atrium thrombus -Stable. - stable - c/w home meds, decrease valsartan to 40 mg daily, monitor BP - Continue eliquis , patient is aware about possible risk of severe bleeding - patient will have ELVIA ( scheduled 08/07/16) Diabetes mellitus type II - Stable - c/w DM diet Hypertension Stable. - Continue carvedilol 3.125 twice daily, torsemide 30 mg daily, decrease valsartan to 40 mg daily Hyperlipidemia, present on admission. Stable. - Continue lovastatin 20 mg daily CKD Stage 3 Stable. - Baseline creatinine reportedly around 1.1; is 0.9 at this time - Gentle hydration as above - Avoid nephrotoxic agents Chronic pain, Stable. - Continue oxycodone 5mg TID as needed for pain Depression, Stable. - Continue citalopram 20mg daily Insomnia, Stable. - Continue amitriptyline 75mg daily Morbid obesity - BMI of 58.6 Chronic Venous stasis - wound care DVT PROPHYLAXIS: Eliquis Disposition: discharge in 1-3 days after patient improves. Labs, radiology tests, Tele and ECG reviewed. Plan of care, medication side effects, home medication, diagnostic procedures and available alternatives were discussed and reviewed with patient All questions answered. Patient verbalized understanding, approved and agreed to plan of care. VTE Prophylaxis: Sub-Q Heparin (Unfractionated) Resuscitation Status: CPR: Attempt Resuscitation Herber Nichols MD Nov 17, 2016 17:14
--- NOTE | 2016-11-17 18:30 | NUR ---
Care Preference/Pain/Anxiety Pt does not want male caregivers for personal care, so it was passed on to try to have only female nurses and caregivers here. Pt had pain med requests after ambulating throughout the shift, oxycodone effective for managing this. Pt c/o anxiety r/t loud noises, given prn xanax and pt had no returning anxiety.
[2016-11-18] VITALS (11 sets, daily range): BP systolic 109–148; BP diastolic 59–100; PULSE 82–101; RESP 16–19; O2SAT 92–96
--- NOTE | 2016-11-18 01:01 | NUR ---
Behavior Patient A&OX3, and pleasant this evening. Continues to complains of right leg pain, but has not requested any pain medication at this time. Patient has been tearful off and on this shift. Patient refused skin care when offered, and stated "I just want to go home." Comforted patient, and assured her that the medical staff is working to support her transition back to home. Will continue to allow patient to voice concerns, and will continue Q1 hour checks.
[2016-11-18] MEDS: Cefepime Inj 2,000 MG in Dextrose 5% Minibag Plus 100 ML IV SCH ×2 (06:08→18:12)
--- NOTE | 2016-11-18 08:42 | PROG NOTE ---
[address] [address] PROGRESS NOTE PATIENT: SHEN KRISHNA I : 1950 MR#: [id number] ADMIT: 11/14/2016 JOB ID: [id number] DATE: 11/18/2016 INFECTIOUS DISEASE FOLLOWUP NOTE: REASON FOR FOLLOWUP: Bacteremic pseudomonas right lower extremity cellulitis. INTERVAL HISTORY: Overnight, the patient reports no fevers, chills, or sweats. No respiratory or GI symptoms. She is tolerating her diet well. She does note she continues to have pain in her right leg which is diffuse but improved over admission. She is tolerating the oral Cipro well. PHYSICAL EXAMINATION: Reveals an afebrile woman. Temp 36.8, pulse 88, respiratory rate 16, blood pressure 109/65. She is saturating well on room air and is in no acute distress at this point. Mental status sharp. Oral cavity benign. Lungs relatively clear. Cardiac tones distant. Abdomen massively obese and nontender. Right lower extremity with fading erythema diffusely and is no longer warm nor especially tender. LABORATORIES: Include white count 4800 yesterday, not repeated today. Her creatinine is 1.34 and that was yesterday, not repeated today. Our cultures, of course, blood cultures positive for Pseudomonas aeruginosa, which was very sensitive to Cipro, as well as to cefepime she is currently receiving. IMPRESSION: This patient clearly has a bacteremic pseudomonas cellulitis of her right lower extremity which is the site of many, many prior episodes of cellulitis most of which in the past have been due to streptococci rather than gram-negative rods. Yesterday, I discussed with the Wound Management team perhaps some different methods to try and prevent cracking and inflammation of the skin which lead to these recurrent soft tissue infections but in view of her immobility and obesity this is going to be challenging. RECOMMENDATIONS: 1. Continue with Cipro to complete a 14-day total course of therapy. 2. The patient can stop the cefepime at the time of discharge and continue with only the Cipro to finish the 14 days total course of therapy. 3. Infectious Disease will go ahead and sign off today, as there are no longer any active infectious issues at this point, and I think she is close to discharge.
[2016-11-18] MEDS: 0.9% Sodium Chloride 1,000 ML IV SCH ×2 (10:05→22:35)
[2016-11-18] MEDS: 0.9% Sodium Chloride 250 ML IV SCH (10:27)
--- NOTE | 2016-11-18 13:29 | PCM.PNMED ---
Subjective Date of Service Nov 18, 2016 Subjective Patient is in the chair, complaining of generalized weakness. Exam Vital Signs Vital Sign - Last Date Time Temp Pulse Resp B/P Pulse Ox O2 Delivery O2 Flow Rate FiO2 11/18/16 08:36 92 139/84 11/18/16 08:10 18 93 Room Air 11/18/16 04:43 36.8 11/17/16 06:23 1.00 Intake and Output 11/17/16 11/17/16 11/18/16 Cumulative From/Thru 15:00 23:00 07:00 11/14/16 17:33 - 11/18/16 05:03 Intake Total 2046 ml 1971 ml 71319 ml Output Total 2150 ml 4000 ml Balance -104 ml 1971 ml 6693 ml Intake Oral 1036 ml 4602 ml IV Total 1010 ml 1971 ml 6091 ml Output Urine Total 2150 ml 4000 ml # Voids 2 8 # Bowel Movements 1 2 Exam PHYSICAL EXAM: GENERAL: Alert, not in distress, cooperative HEAD: atraumatic, normocephalic EYES: EOMI, anicteric, able to fully open and close eyelids SKIN: Skin color normal, turgor normal. No visible new rashes EAR, NOSE, MOUTH, THROAT: Lips, oral mucosa, tongue gums, oropharynx are moist , pink, no lesions. NECK: supple ROM normal. RESPIRATORY: Lungs clear to auscultation. Good diaphragmatic excursion. CARDIAC: normal S1 and S2; no rubs, or gallops; regular rhythm ABDOMEN: Abdomen soft, non-tender. BS normal. No masses or organomegaly. MUSCULOSKELETAL: ROM full, muscles are not tender EXTREMITIES: Severe bilateral LE lymphadema; right leg erythematous and warm around ankle, thigh lateral side, improving. NEURO: Alert, oriented X 3, Cranial nerves II-XII intact, Grossly normal motor function. PULSES: 2+ radial, 2+ carotid REVIEW OF SYSTEMS: GENERAL:+ malaise, no fevers., SEE HPI HEENT: Negative for frequent or significant headaches, No changes in hearing or vision, no nose bleeds or other nasal problems All other reviewed and negative other than HPI. Lab and Diagnostics Result Diagram: 11/17/16 0530 11/17/16 0530 Microbiology Blood cultures, pending Assessment & Plan Sonya Viveros is an unfortunate 66-year-old female with past medical history significant for diabetes mellitus type II non-insulin using, hyperlipidemia, hypertension, previous CVA, morbid obesity, and recurrent lower limb cellulitis who presented to the ED with a 1 day history of shaking chills and RLE swelling/ redness. She was recently hospitalized 1-2 weeks ago for RLE cellulitis and is still on a course of Keflex until 11/17. Sepsis with bacteremia RLE cellulitis - stable - ProCal normal - Blood cultures X 1 +Ve for gram negative rods (pseudomonas) - ID following Plan - Continue with antibiotics as pe ID reccomendations COPD, Stable. - c/w RT, O2 prn, home meds Nonischemic cardiomyopathy,paroxysmal atrial fibrillation, Hx of pulmonary emboli and right atrium thrombus -Stable. - stable - c/w home meds, decrease valsartan to 40 mg daily, monitor BP - Continue eliquis , patient is aware about possible risk of severe bleeding - patient will have ELVIA ( scheduled 08/07/16) Diabetes mellitus type II - Stable - c/w DM diet Hypertension Stable. - Continue carvedilol 3.125 twice daily, torsemide 30 mg daily, decrease valsartan to 40 mg daily Hyperlipidemia, present on admission. Stable. - Continue lovastatin 20 mg daily CKD Stage 3 Stable. - Baseline creatinine reportedly around 1.1; is 0.9 at this time - Gentle hydration as above - Avoid nephrotoxic agents Chronic pain, Stable. - Continue oxycodone 5mg TID as needed for pain Depression, Stable. - Continue citalopram 20mg daily Insomnia, Stable. - Continue amitriptyline 75mg daily Morbid obesity - BMI of 58.6 Chronic Venous stasis - wound care DVT PROPHYLAXIS: Eliquis Disposition: discharge in 1-3 days after patient improves. Labs, radiology tests, Tele and ECG reviewed. Plan of care, diagnostic procedures and available alternatives were discussed and reviewed with patient All questions answered. Patient verbalized understanding, approved and agreed to plan of care. VTE Prophylaxis: Sub-Q Heparin (Unfractionated) Resuscitation Status: CPR: Attempt Resuscitation Herber Nichols MD Nov 18, 2016 13:29
--- NOTE | 2016-11-18 13:39 | NUR ---
DETENTION TRANSFER FOLLOW : Gave access to [facility] per PROFESSIONAL BASS FISHER and MD order
--- NOTE | 2016-11-18 14:13 | NUR ---
Social Work: Continued D/C Planning/Multidisciplinary Rounds D: EMR reviewed. Pt is on day 4 of hospitalization. Pt discussed in rounds, pt is not medically ready for discharge at this time. Pt will require PO abx at discharge. Pt has specific wound care requirements to address the yeast on her skin folds. Pt is not able to manage this at home. The requirement of daily management is too much for HH and pt's caregivers, who are not authorized to provide any medical care to pt. MD and REFUELER discussed SNF level of care for pt as she is not able to manage her current skin care needs at home. SNF order received. SW met with pt at bedside regarding SNF recommendation and discharge planning. Wound care needs explained. Pt understands the reason for SNF and is agreeable. SNF CHOICE LIST PROVIDED. Pt's only choice (and the only SNF she will go to in general) is [facility]. Pt does not want it to be alf, SW explained that it would be short term to keep her skin intact and address her yeast. [facility] would then work with her to formulate a plan at home to meet her needs. Pt is agreeable. Pt requested that REFUELER call her sister Kasandra and give an update. SW updated pt's sister by phone, Kasandra is understanding and agreeable to plan. PLANT PROTECTION GUARD made referral to [facility], awaiting acceptance. Paperwork in pt's chart, PASRR in folder. [facility] called [facility], [facility] has accepted pt with Dr. Jorge to follow. Are working on obtaining a bariatric bed. Are agreeable to pt's PO cipro at discharge. Additionally, pt will likely require increased care at home after [facility] as pt's skin condition is a chronic concern. Pt's home caregivers are coordinated by [facility] (pt does not have TIMOTHY), IVAN Garcia [phone]. [employer] is the contracted company for pt's care at home. Pt has caregivers M-F, none available on the weekends, to assist with cooking, cleaning, grocery shopping, and bathing of pt. T/C placed to [facility], carlyle message requesting return call to coordinate a future increase of caregiving hours/comprehensive plan with a focus on pt's wound care. Pt's Correctional Supervisor through [employer] is now Alma Delia Walls, . Pt's prior [place] [facility] CM was Maya Cao. T/C to Alma Delia about pt's discharge plan, Alma Delia reports she is planning on assessing pt with [facility] in November. Discussed with Alma Delia the potential need of increase caregiving hours and comprehensive plan with a focus on pt's wound care. Alma Delia is agreeable. T/C to Molina Calderon with [facility] regarding pt's change of plan. [facility] confirms that they would not be able to meet pt's needs if she required daily wound care. Elma had prior concerns related to pt's care plan and felt that pt needed a higher level of care. Pt updated of [facility] acceptance, agreeable to plan.SW will continue to follow. A: Pt for whom SNF is medically necessary. P: [facility] has accepted pt with Dr. Jorge to follow. Paperwork in chart, PASRR in folder. All updated and agreeable to plan. SW will continue to follow. Dipika Vazquez, REFUELER
--- NOTE | 2016-11-18 16:01 | NUR ---
spiritual care: check viewer referral brief visit, pt expressive of fear/disappointment at move to snf. Agreeable for further conversational support from caring deputy fire marshal.
[2016-11-18] MEDS: ALPRAZolam 0.25 mg Tablet PO PRN (22:45)
--- NOTE | 2016-11-19 03:39 | NUR ---
NOC PT denies any pain. PT is up in chair and refuses to lay in bed. PT states she has not slept in a bed since her 22yo daughter in the bed where she laid with her. PT tearful when talking about this. BLE very edematous with weak DP noted. All skin folds are red and macerated. Nystatin applied. PT refuses info about possible skin breakdown and states her skin issues are only r/t her edema. VS WNL. PT planning for d.c to [facility].
[2016-11-19 05:50] VITALS: BP 105/68; PULSE 78; RESP 16; O2SAT 94
[2016-11-19] MEDS: Cefepime Inj 2,000 MG in Dextrose 5% Minibag Plus 100 ML IV SCH (05:52)
[2016-11-19 08:26] VITALS: BP 123/64; PULSE 83; RESP 17; O2SAT 93
--- NOTE | 2016-11-19 09:27 | NUR ---
Inpatient Wound Nurse Patient seen for RLE cellulitis. Wound is essentially unchanged, though appears sugar drier. Small area of crusting and erythema, non-tender. Area was cleansed, blotted dry, Mepilex was changed. Patient was encouraged to reconsider transition to SNF. She is unable to meet her hygiene needs and does not have a current plan in place to do so. Patient's yeast will be chronic and require significant daily maintenance regimen to avoid exacerbation. By end of conversation, patient was agreeable to SNF. She was encouraged to participate in PT and OT and lymphadema therapy. Skin care regimen was reviewed with patient's outpatient social human services assistants who was at bedside at time of CWON visit. She was agreeable that there is no current plan in place to manage patient's hygiene, that her current caregivers are not delegated to apply medication (Nystatin) and will consider options to have in place when patient is discharged from [facility].
[2016-11-19 09:55] VITALS: PULSE 86; RESP 20; O2SAT 95
[2016-11-19] MEDS: 0.9% Sodium Chloride 250 ML IV SCH (10:27)
[2016-11-19] MEDS: 0.9% Sodium Chloride 1,000 ML IV SCH (11:05)
[2016-11-19 11:08] VITALS: PULSE 86
[2016-11-19] MEDS: ALPRAZolam 0.25 mg Tablet PO PRN (11:16)
--- NOTE | 2016-11-19 11:36 | PCM.DIMED ---
Discharge Instructions Date of Service Nov 19, 2016 Dates of Hospitalization Nov 14, 2016 at 20:18 Discharge Diagnosis Discharge Diagnosis Sepsis, Cellulitis of the lower extremities, bacteremia with Pseudomonas sensitive to ciprofloxacin, multiple wounds on the lower extremities with candidiasis; morbid obesity, Nonischemic cardiomyopathy,paroxysmal atrial fibrillation, Hx of pulmonary emboli and right atrium thrombus; diabetes mellitus type II, hypertension, hyperlipidemia, see daily stage III, chronic pain, depression, insomnia, chronic venostasis Diet Discharge Diet: Low fat, Low Sodium, Heart Healthy, Diabetic Activity Discharge Activity: Other (physical therapy, occupational therapy) Patient Instructions Patient Instructions Wound care At least once daily all skin folds should be extensively cleansed and thoroughly dried. Once dry, Nystatin ointment should be applied. Wicking agents , such as Mepilex sheet foam dressing can be placed in folds, especially popliteal spaces, under breasts and panniculus. Use of any polyester blend fabrics, such as pillow cases, is not recommended as polyester increases sweat unless it is specifically woven to wick moisture. Fabrics made of 100% cotton can be used to keep skin folds dry but must be changed as soon as moist. Femi ( white Medline or blue Covidien) that do not have plastic backing (do not use green femi in folds) can be folded and placed in skin folds if this is comfortable for patient but should not be cut. Kerlix may be unrolled and placed into skin folds as long as it is changed when damp. Follow-up with PCP in: 1 week Herber Nichols MD Nov 19, 2016 11:36
[2016-11-19] MEDS ORDERED: AMIT75TA2 PO (11:46)
[2016-11-19] MEDS ORDERED: OXYC5TAB72 PO (11:47)
[2016-11-19] MEDS ORDERED: VALS80TA2 PO (11:47)
[2016-11-19] MEDS ORDERED: ALPR0.5T8 PO (11:47)
[2016-11-19] MEDS ORDERED: CIPR-231 PO (11:47)
[2016-11-19] MEDS ORDERED: MYCC TOPICAL (11:47)
--- NOTE | 2016-11-19 14:37 | PCM.DC.MED ---
Discharge Summary Date of Service Nov 19, 2016 Dates of Hospitalization Date of Hospital Admission Nov 14, 2016 at 20:18 Date of Discharge: Nov 19, 2016 Providers: Admitting Physician: Angel Cage MD Primary Care Physician: Bri Ochoa Attending Physician: Herber Nichols MD Diagnosis at Time of Discharge Diagnosis at Time of Discharge Sepsis, Cellulitis of the lower extremities, bacteremia with Pseudomonas sensitive to ciprofloxacin, multiple wounds on the lower extremities with candidiasis; morbid obesity, Nonischemic cardiomyopathy,paroxysmal atrial fibrillation, Hx of pulmonary emboli and right atrium thrombus; diabetes mellitus type II, hypertension, hyperlipidemia, see daily stage III, chronic pain, depression, insomnia, chronic venostasis Consultations Infectious disease, wound care, physical therapy Brief History Sonya Viveros is an unfortunate 66-year-old female with past medical history significant for diabetes mellitus type II non-insulin using, hyperlipidemia, hypertension, previous CVA, atrial fibrillation, on Eliquis , morbid obesity, and recurrent lower limb cellulitis who presented to the ED with a 1 day history of shaking chills. She was recently hospitalized 1-2 weeks ago for right lower extremity cellulitis and was given ceftriaxone which was transitioned to cephalexin and she was discharged on cephalexin until 2016. Hospital Course Patient was diagnosed with sepsis, lower extremity cellulitis, multiple wounds, bacteremia with Pseudomonas, infectious disease service was consulted. Patient was treated with IV antibiotics. Blood cultures came back positive for Pseudomonas which was sensitive to ciprofloxacin. Wound care was consulted to help with management of her wounds. Physical therapy was consulted as well. Patient has morbid obesity. She would not be able to take care of her wounds by herself. Patient agreed to be discharged to [facility] to continue treatment of her cellulitis and wounds. Patient will follow up with her primary care doctor and infectious disease service in outpatient settings as needed Physical exam: madeline was seen and examined on the day of discharge Patient Condition @ Discharge: good Discharge Disposition: SNF Discharge Activity: resume regular activity, patient was advised to avoid heavy physical work or exertion Discharge Diet: regular diet, heart healthy, low fat, low salt, high fiber Information Provided to Patient: information about discharge medications Discharge Medications: I discussed with patient medication dosage, usage, goals of therapy, side effects, alternatives. During discharge patient was allert, oriented, able to make own informed decisions. We discussed possible severe side effects, adverse reactions, benefits, risks, alternatives of current and newly prescribed medications and diagnostic procedures. Patient verbalized understanding and agreed to current plan of care and discharge. TIME SPENT IN DISCHARGE ACTIVITY: Face to face activity greater then 30 minutes spent in discharge activity. 1. Discussed with patient re: discharge plan of care/treatment, and follow up care/services. 2. Patient agreed with discharge plan and further plan of care, all questions were answered/addressed, no further questions at the time of discharge. Exam Vital Signs (Last) Date Time Temp Pulse Resp B/P Pulse Ox O2 Delivery O2 Flow Rate FiO2 11/19/16 11:08 86 Room Air 11/19/16 09:55 20 95 11/19/16 08:26 36.5 123/64 11/17/16 06:23 1.00 Test 11/14/16 18:47 11/15/16 05:30 11/17/16 05:30 Lactic Acid Level 1.0mmol/L (0.4-2.0) Troponin T < 0.010ug/L (0.0-0.011) Procalcitonin 0.04ng/mL (0.00-0.08) Total Bilirubin 0.3mg/dL (0.0-1.2) Aspartate Amino Transf (AST/SGOT) 22U/L (0-50) Alanine Aminotransferase (ALT/SGPT) 15U/L (0-32) Alkaline Phosphatase 72U/L (25-165) Total Protein 5.7g/dL (6.4-8.4) Albumin 3.1g/dL (3.4-5.0) White Blood Count 4.8th/mm3 (3.8-10.1) Red Blood Count 2.99mil/mm3 (3.90-5.20) Hemoglobin 8.1g/dL (12.0-15.6) Hematocrit 26.9% (35.0-46.0) Mean Corpuscular Volume 90.0fL (81-100) Mean Corpuscular Hemoglobin 27.1pg (27.0-35.0) Mean Corpuscular Hemoglobin Concent 30.1% (32.0-37.0) Red Cell Distribution Width 15.7% (12.3-15.4) Platelet Count 112bil/L (150-400) Neutrophils (%) (Auto) 64.3% (40-74) Lymphocytes (%) (Auto) 19.7% (14-46) Monocytes (%) (Auto) 10.0% (4-12) Eosinophils (%) (Auto) 5.6% (0-5) Basophils (%) (Auto) 0.2% (0-3) Sodium Level 142mEq/L (134-144) Potassium Level 4.8mEq/L (3.5-5.2) Chloride Level 105mEq/L (97-108) Carbon Dioxide Level 25mmol/L (18-29) Blood Urea Nitrogen 28mg/dL (8-27) Creatinine 1.34mg/dL (0.57-1.00) Estimat Glomerular Filtration Rate 57mL/min (>59) Glucose Level 86mg/dL (60-99) Calcium Level 7.2mg/dL (8.5-10.1) Microbiology Results Blood cultures, pending Discharge Medications Discharge Medications Amitriptyline (Amitriptyline) 75 Mg Tablet 75 MG PO HS Prescribed by: TIARRA QUEEN MD Apixaban (Eliquis) 5 Mg Tablet 5 MG PO BID Prescribed by: MARILIA GUTIERREZ DO Carvedilol (Carvedilol) 3.125 Mg Tablet 3.125 MG PO BIDWM Prescribed by: LUIS FERNANDO SALVADOR MD Cholecalciferol (Vitamin D3) (Vitamin D) 50,000 Unit Capsule 50,000 UNIT PO WEEKLY (Reported) Ciprofloxacin (Cipro) 500 Mg Tablet 500 MG PO BID Prescribed by: TIARRA QUEEN MD Citalopram (Citalopram) 20 Mg Tablet 20 MG PO QAM (Reported) Lovastatin (Lovastatin) 20 Mg Tablet 20 MG PO DAILY (Reported) Montelukast (Montelukast) 10 Mg Tablet 10 MG PO HS Prescribed by: MARTINA LAWRENCE MD Nystatin (Nystatin) 60 Applic/15 Gm Cream 1 APPLIC TOPICAL BID Prescribed by: TIARRA QUEEN MD Ranitidine (Ranitidine) 150 Mg Capsule 150 MG PO BID (Reported) Torsemide (Torsemide) 20 Mg Tablet 20 MG PO QAM (Reported) Valsartan (Diovan) 80 Mg Tablet 40 MG PO DAILY Prescribed by: TIARRA QUEEN MD As needed Albuterol Neb Soln (Albuterol Neb Soln) 2.5 Mg/3 Ml Vial.neb 2.5 MG INHALATION Q4H PRN PRN For Shortness of Breath Prescribed by: RONNIE MATSON MD Alprazolam (Alprazolam) 0.5 Mg Tablet 0.25 MG PO DAILY PRN PRN For Anxiety Prescribed by: TIARRA QUEEN MD Nitroglycerin SL (Nitrostat) 0.4 Mg Tab.subl 0.4 MG PO Q5MIN PRN PRN For Chest Pain (Reported) Nystatin (Nystatin) 20 Applic/15 Gm Oint 1 APPLIC TOP BID PRN PRN prn (Reported ) Use alternatively with Nyastatin powder per Wound Care instruction oxyCODONE (oxyCODONE) 5 Mg Tablet 5 MG PO TID PRN PRN For Pain Prescribed by: TIARRA QUEEN MD Followup Plan Discharge Diet: Low fat, Low Sodium, Heart Healthy, Diabetic Discharge Activity: Other (physical therapy, occupational therapy) Patient Instructions Wound care At least once daily all skin folds should be extensively cleansed and thoroughly dried. Once dry, Nystatin ointment should be applied. Wicking agents , such as Mepilex sheet foam dressing can be placed in folds, especially popliteal spaces, under breasts and panniculus. Use of any polyester blend fabrics, such as pillow cases, is not recommended as polyester increases sweat unless it is specifically woven to wick moisture. Fabrics made of 100% cotton can be used to keep skin folds dry but must be changed as soon as moist. Torrey ( white Medline or blue Covidien) that do not have plastic backing (do not use green torrey in folds) can be folded and placed in skin folds if this is comfortable for patient but should not be cut. Kerlix may be unrolled and placed into skin folds as long as it is changed when damp. Follow-up with PCP in: 1 week Herber Nichols MD Nov 19, 2016 14:37
--- NOTE | 2016-11-19 15:40 | NUR ---
Social Work: Discharge/Multidisciplinary Rounds D: EMR reviewed. Pt is on day 5 of hospitalization. Pt discussed in multidisciplinary rounds and is medically stable for discharge to [facility] where she has been accepted with Dr. Sampson to follow. Joshua from [facility] confirmed [facility] will transport pt today at 1530. Discharge ppw, rx, and PASRR faxed to [facility]. Transfer packet complete and left at RN station, UA/RN updated on transfer time. Pt updated on transfer time and discharge plan. All updated and agreeable to plan. T/C to DDGénesis Garcia [phone] confirming that she can meet with pt for appointment at [facility]. SW received notice from RN that pt would like to see SW regarding concerns about SNF. SW met with pt and pt was concerned that she would not be able to see her cat for sometime due to her SNF stay. Pt stated she is the only person her cat will allow to touch and therefore no one can bring her cat to see her at [facility]. Pt wanted to know how long she would need to stay at SNF. SW discussed SNF timeline and that a SNF stay is recommended so that pt can get stronger and recover with the level of care medically necessary for pt at this time. SW asked if she had someone to care for her cat - pt stated she had someone to watch over her house and cat. SW stated that MD at [facility] will evaluate pt to determine LOS based on skillable needs. Pt agreeable. Pt was also concerned about her new DDA appointment on 11/25 @ 1500 with DDA IVAN Garcia. MALLORY confirmed that DDA IVAN Garcia will meet with pt at [facility] for appointment. T/C to GRETA Garcia on pt's discharge. MALLORY left voicemail and requested return call. T/C to [facility] Alma Delialuz Quinnk [phone] confirming pt's discharge to [facility] at 1730 - Alma Delia agreeable. MALLORY faxed PASRR to [facility] at [address] DDA office [phone] A: Pt for whom a SNF is medically necessary P: Pt to transfer to [facility] via [facility] today at 1530. MALLORY faxed PASRR to [facility] at [address] DDA office [phone]. Discharge ppw, rx, and PASRR faxed to [facility]. Transfer packet complete and left at RN station, UA/RN updated on transfer time. Pt updated on transfer time and discharge plan. All updated and agreeable to plan. GERMAN Baltazar
--- NOTE | 2016-11-19 18:40 | NUR ---
Discharge Pt discharged to [facility] via cabulance at 1815 hrs. Pain controlled. IV access to port was discontinued by IV therapist. Report called to Rosa at [facility]. All personal possessions sent with pt.
[2016-11-23] MEDS ORDERED: LACT1CAP26 PO (12:39)
[2016-11-23] MEDS ORDERED: ACET325T51 PO (12:39)
[2016-11-23] MEDS ORDERED: MYCC TOP (14:17)
[2016-11-23] MEDS ORDERED: CIPR-198 PO (14:17)
[2016-11-23] MEDS ORDERED: ALBU2.5V4 INHALATION (14:17)
[2016-11-23] MEDS ORDERED: MONT10TA23 PO (14:17)
[2016-11-23] MEDS ORDERED: CARV3.122 PO (14:17)
[2016-11-23] MEDS ORDERED: VALS80TA25 PO (14:17)
[2016-11-23] MEDS ORDERED: ALPR0.5T8 PO (14:17)
[2016-11-23] MEDS ORDERED: AMIT75TA2 PO (14:17)
[2016-11-23] MEDS ORDERED: OXYC-474 PO (14:17)
== END 2016-11-19 18:11 | DRG 872 ==
LOC: EDBD 17:17 → SED 17:17 → OSC 20:18
PROVIDERS: ADMIT Hospitalist; ATTEND Internal Medicine
DX: A41.52 Sepsis due to Pseudomonas (principal); Z68.44 Body mass index [BMI] 60.0-69.9, adult; L03.115 Cellulitis of right lower limb; I42.8 Other cardiomyopathies; I12.9 Hypertensive chronic kidney disease with stage 1 through stage 4 chronic kidney disease, or unspecified chronic kidney disease; E66.01 Morbid (severe) obesity due to excess calories; N18.3 Chronic kidney disease, stage 3 (moderate); Z86.73 Personal history of transient ischemic attack (TIA), and cerebral infarction without residual deficits; Z95.810 Presence of automatic (implantable) cardiac defibrillator; Z86.14 Personal history of Methicillin resistant Staphylococcus aureus infection; J44.9 Chronic obstructive pulmonary disease, unspecified; I48.91 Unspecified atrial fibrillation; Z86.711 Personal history of pulmonary embolism; E11.9 Type 2 diabetes mellitus without complications; E78.5 Hyperlipidemia, unspecified; G89.29 Other chronic pain; F32.9 Major depressive disorder, single episode, unspecified; G47.00 Insomnia, unspecified; Z16.29 Resistance to other single specified antibiotic